=== PATIENT | male | born 1955 | race Caucasian/White ===

== ENCOUNTER → 2016-02-22 | Outpatient (CLI) | payer BC ==
[2016-02-22 14:54] VITALS: BP 87/44; PULSE 100; RESP 18
--- NOTE | 2016-02-22 15:33 | P.PN ---
Subjective This is follow-up visit for this patient with a history of severe and chronic low back pain secondary to lumbar degenerative disc disease, lumbar facet arthropathy, we have done interventional pain management injection, radiofrequency ablation of the medial branch lumbar area left side and the right side, he reported that his right side feels good and has no pain, but his currently complaining of severe pain localized in the left side low back area, and is currently on pain medications 1- Percocet 5/325 every 6 hours Neurontin 100 mg twice a day and baclofen 10 mg when necessary (prescription from his primary care ) Patient denies any side effects of the medication, denies excessive drowsiness or sleepiness, denies suicidal ideation, and reports that the current pain medication is NOT helping To control the pain and improve activity of daily living Physical Examinations : 1-Constitutiona : Cooperative , not in acute distress . 2-HEENT : nech ; supple , no Lymphadenopathy , no Thyromegaly , normal thyroid size . eyes : no ptosis , no icterus, no photophobia . ENT : normal of hearing , normal oropharynx , no Thrush . 3- Respiratory : Chest clear to auscultations Bilaterally , no wheezing , no Rhonchi . 4- Cardiovascular : regular rate and rhythem , S1 , S2 , no S3 , no S4. 5- Gastrointestinal : abdomen soft no tenderness , bowel sounds positive all four quadrents , no organomegally . 6- Genitourinary : Defferred . 7- neurologic : Cranial nerve II to XII intact , no focal neurological deffecit . 8-psychatric : alert , oriented X 3 , appropriate affect , intact judgment and insight . 9-Lymphatic : no Lymphadenopathy . 10- musculoskeltal : exams of the Lumber spine = motor strength lower extremities ,thigh and legs .5/5 deep tendon reflexes : normal Knee Jerk , normal ankle Jerk . Severe tenderness over the left iliolumbar ligament Assessment and plan = - Chronic low back pain secondary to lumbar degenerative disc disease , lumbar spondylosis with facet arthropathy without myelopathy , status post radiofrequency ablation of the left side lumbar area, currently is having severe low back pain on the left side at the location of the left iliolumbar ligamen - diagnoses, prognosis, and treatment options including but not limited to physical therapy, surgical interventions, interventional therapies and medication management including narcotics and adjuvant medication were discussed with the patient and all questions answered to the patient's satisfaction. -procedure= scheduled patient to have left iliolumbar ligament steroid injection HARLEY. Medications = patient get medications prefilled from his primary care Objective - Vital Signs Vital signs: Vital Signs Temp Pulse 100 02/22/16 14:48 Resp 18 02/22/16 14:48 BP 87/44 02/22/16 14:48 Pulse Ox 96 02/22/16 14:48 Intake & Output 02/21/16 02/22/16 02/22/16 18:59 06:59 18:59 Weight 115.666 kg
== END | disposition home or self-care (01) ==
LOC: PNWHC3 13:42
PROVIDERS: ATTEND Specialist
DX: M51.36 Other intervertebral disc degeneration, lumbar region (principal); M47.816 Spondylosis without myelopathy or radiculopathy, lumbar region; M46.96 Unspecified inflammatory spondylopathy, lumbar region; Z79.899 Other long term (current) drug therapy
CPT/HCPCS: 99211

== ENCOUNTER 2016-02-26 11:33 | Day surgery (SDC) | payer BC ==
[2016-02-24 15:40] VITALS: BMI 33.6
[~2016-02-26 11:33] MED LIST: LACTATED RINGERS 1,000 ML IV SCH
[2016-02-26] MEDS ORDERED: LIDOCAINE 1% 20 ML VIAL (10MG/ML) FOR IV START INTRADERMA ONE (11:36)
[2016-02-26 11:44] VITALS: RESP 16; TEMP 97.4
[2016-02-26 11:54] LABS: Glucose,Whole Blood 160 mg/dL (75-99)
[2016-02-26] MEDS ORDERED: fentaNYL (PF) 50 MCG/ML 2 ML AMP ONE (12:44)
[2016-02-26] MEDS ORDERED: MIDAZOLAM 2 MG/2 ML VIAL ONE (12:44)
[2016-02-26] MEDS ORDERED: BUPIVACAINE (PF) 0.75% 30 ML VIAL ONE (12:44)
[2016-02-26] MEDS ORDERED: TRIAMCINOLONE ACETONIDE 40 MG/ML 1 ML VIAL ONE (12:44)
--- NOTE | 2016-02-26 13:07 | P.PCN ---
Date of Procedure: 02/26/16 Procedure(s) Performed: Preoperative diagnoses= 1-left iliolumbar ligament and neuralgia 2-lumbar spondylosis with lumbar facet arthropathy without myelopathy. 3-lumbar degenerative disc disease Postoperative diagnoses= same as preoperative diagnosis. Procedure= left iliolumbar ligament steroid injection under fluoroscopic guidance. Anesthesia= conscious sedation with Versed 2 mg and fentanyl 100 micrograms and local infiltration with lidocaine 1% 2 ml Estimated blood loss=minimal. Procedure indication= the patient had a history of severe chronic low back pain secondary to lumbar sacral facet arthropathy we have done radiofrequency ablation of the medial branch lumbar area, and currently patient complaining of severe low back pain localized in the left iliolumbar ligament area and patient diagnosed with left iliolumbar ligament neuralgia. Procedure description= the patient was seen and identified in the preoperative holding area, risks and benefits and alternative of the procedure and possible complications discussed with the patient, and he agreed with the preceding, patient signed the consent, an IV was started, and vital signs were monitored and were stable throughout the procedure, patient was placed in the prone position or table and the lumbosacral area was prepped and draped with a sterile fashion, vital signs were closely monitored during the procedure, the fluoroscopy camera was placed in the AP view, the location of iliolumbar ligament identified she is in the middle of the distance between the transverse process of L5 and the sacral jag, local infiltration of the skin and subcutaneous tissue with lidocaine 1% 2 mL then a 22-gauge Quincke-type spinal needle advanced slowly under fluoroscopy and placed at the location of the iliolumbar ligament,, placement confirmed with AP and lateral view, and after appropriate needle placement confirmed and after negative aspiration for heme and CSF and there was no paresthesia during the injection, 5 ml of Marcaine 0.75 % and 40 mg of Kenalog injected after negative aspiration, the needle removed, Patient tolerated the procedure well without any complication, The patient returned to supine position after the back was cleaned and a Band- Aid applied, the patient transported to recovery room in stable condition and he was monitored for 30 minutes before he was discharged home and then patient was reexamined before going home and patient was discharged in stable condition and patient will follow up with the pain clinic in a few weeks
[2016-02-26] MEDS ORDERED: IV FLUID CONTINUATION 1,000 ML IV ONE ×2 (13:11)
--- NOTE | 2016-02-26 13:16 | FL ---
EXAMINATION TYPE: FL guided pain mgmt statistic DATE OF EXAM: 02/26/2016 1:09 PM COMPARISON: NONE HISTORY: Inj Sng tendon sheath/ ligment two scanned films; FL time 5 seconds; Dr. Ozuna; Inj Sng tendon sheath /ligament
[2016-02-26 13:25] VITALS: BP 112/69; PULSE 81
== END 2016-02-26 13:47 | disposition home or self-care (01) ==
LOC: ORPAIN 11:33
PROVIDERS: ATTEND Specialist
DX: G89.29 Other chronic pain (principal); M54.5 Low back pain; G58.8 Other specified mononeuropathies; M47.816 Spondylosis without myelopathy or radiculopathy, lumbar region; M46.96 Unspecified inflammatory spondylopathy, lumbar region; M51.36 Other intervertebral disc degeneration, lumbar region; Z79.891 Long term (current) use of opiate analgesic
CPT/HCPCS: 77002; 20550; J2250; J3301; J3010

== ENCOUNTER 2016-04-19 07:55 | Day surgery (SDC) | payer BC ==
[2016-04-14 15:39] VITALS: BMI 33.6
[2016-04-19 08:21] VITALS: RESP 16; TEMP 98.1
[2016-04-19] MEDS ORDERED: LIDOCAINE 1% 20 ML VIAL (10MG/ML) FOR IV START INTRADERMA ONE (08:31)
[2016-04-19] MEDS ORDERED: LACTATED RINGERS 1,000 ML IV ONE (08:31)
[2016-04-19 08:36] LABS: Glucose,Whole Blood 96 mg/dL (75-99)
[2016-04-19] MEDS ORDERED: LACTATED RINGERS 1,000 ML IV SCH (08:45)
[2016-04-19] MEDS ORDERED: MIDAZOLAM 2 MG/2 ML VIAL ONE (09:14)
[2016-04-19] MEDS ORDERED: fentaNYL (PF) 50 MCG/ML 2 ML AMP ONE (09:14)
[2016-04-19] MEDS ORDERED: BUPIVACAINE (PF) 0.5% 30 ML VIAL ONE (09:14)
[2016-04-19] MEDS ORDERED: TRIAMCINOLONE ACETONIDE 40 MG/ML 1 ML VIAL ONE (09:14)
[2016-04-19] MEDS ORDERED: IV FLUID CONTINUATION 1,000 ML IV ONE (09:41)
--- NOTE | 2016-04-19 09:44 | FL ---
EXAMINATION TYPE: FL guided pain mgmt statistic DATE OF EXAM: 04/19/2016 9:32 AM CLINICAL HISTORY: Low back pain. TECHNIQUE: Fluoroscopy. COMPARISON: None. FINDINGS: Fluoroscopic guidance was provided during pain relief procedure performed by Dr. Nolasco . A total of 25 seconds of fluoroscopic time was utilized during the procedure and 6 spot images are ac quired. Images acquired shows needle localization at the level of lumbosacral junction. IMPRESSION: As Above.
[2016-04-19 09:59] VITALS: BP 111/57; PULSE 77
--- NOTE | 2016-04-19 11:02 | P.PCN ---
Date of Procedure: 04/19/16 Surgeon: Az Nolasco Pathology: none sent Condition: stable Disposition: PACU Description of Procedure: PREOPERATIVE DIAGNOSIS: iliolumbar syndrome POSTOPERATIVE DIAGNOSIS: iliolumbar syndrome PROCEDURE DESCRIPTION: Patient presents for LEFT iliolumbar ligament injection under fluoroscopic guidance. The procedure is performed using fluoroscopic guidance during needle placement to assure proper position and maximize safety. ANESTHESIA: Local with 1% lidocaine; conscious sedation EBL: Minimal PROCEDURE INDICATION: Patient with persistent back and buttock pain after lumbar RFA. Pt does not take any blood thinning medications. PROCEDURE DESCRIPTION: The patient was seen and identified in the preoperative area. Risks, benefits, complications, and alternatives were discussed with the patient (including but not limited to incomplete pain relief, bleeding, infection, nerve damage, and allergies to medications), the patient agreed to proceed with the procedure and signed the consent after all questions were answered. Patient was taken to the OR and time out was completed to verify proper patient, position, laterality of pain, and allergies. Pt was placed in the prone position and a pillow was placed under the abdomen to reduce lumbar lordosis. The lumbosacral area was prepped and draped in the usual sterile fashion. Using AP fluoroscopy on the left side of the spine, the transverse process of L5 and sacral ala was identified. After localization with 1% lidocaine, a 22- gauge 3.5-inch spinal needle was inserted under fluoroscopic guidance toward the top of the portion of the sacral ala directed at the L5 transverse process. Upon reaching the tip of the bone, the needle was walked off toward the transverse process and after negative aspiration for heme or CSF and in the absence of paresthesias, 1 mL of a 6 ml solution of 0.5% preservative-free bupivacaine and 40 mg Kenalog was injected. Subsequently the needle was withdrawn slightly and redirected to 5 other points along the top of the ala of the sacrum and the medial aspect of the ilium. After negative aspirations, 1 ml was injected at each site. Needle was withdrawn intact after each injection. At the end of the procedure, the skin was cleansed and bandages were applied. COMPLICATIONS: None. DISPOSITION/PLAN: The patient was taken to the recovery area after the procedure in a stable condition for observation. Patient was reexamined prior to discharge and there were no issues. Patient was discharged home, accompanied by an adult, after meeting discharged criteria. Discharge instructions were give to the patient by the staff. Patient was specifically instructed not to drive today and to rest for the rest of the day. Patient will follow up in the clinic in approximately 2 -4 weeks.
== END 2016-04-19 10:10 | disposition home or self-care (01) ==
LOC: ORPAIN 07:55
PROVIDERS: ATTEND Anesthesiology
DX: G89.29 Other chronic pain (principal); M54.5 Low back pain; I10 Essential (primary) hypertension; K21.9 Gastro-esophageal reflux disease without esophagitis; Z79.891 Long term (current) use of opiate analgesic; Z79.4 Long term (current) use of insulin; Z79.84 Long term (current) use of oral hypoglycemic drugs; Z79.899 Other long term (current) drug therapy
CPT/HCPCS: 20550; J2250; J3301; J3010

== ENCOUNTER → 2016-07-20 | Outpatient (CLI) | payer BC ==
--- NOTE | 2016-07-20 14:21 | XR ---
EXAMINATION TYPE: XR foot complete LT DATE OF EXAM: 07/20/2016 CLINICAL HISTORY: pain TECHNIQUE: Frontal, lateral and oblique images of the left foot are obtained. COMPARISON: 10/31/2011 FINDINGS: There is no acute fracture/dislocation evident. The joint spaces appear within normal san its. The overlying soft tissue appears unremarkable. IMPRESSION: There is no acute fracture or dislocation. ICD 10 NO FRACTURE, INITIAL EVALUATION
== END | disposition home or self-care (01) ==
LOC: RADXRMAIN 14:01
PROVIDERS: ATTEND Internal Medicine
DX: M79.672 Pain in left foot (principal)

== ENCOUNTER → 2017-02-23 | Outpatient (CLI) | payer BC ==
[~2017-02-23] MED LIST changes: +DOBUTamine DRIP for NUC MED 500 MG in DEXTROSE/WATER 1 250ML.BAG IV ONE; -LACTATED RINGERS 1,000 ML IV SCH
--- NOTE | 2017-02-23 11:13 | ECHOS ---
STRESS ECHOCARDIOGRAM INDICATIONS: Bradycardia BASELINE HEART RATE: 83 BASELINE BLOOD PRESSURE: 123/73 MAXIMUM HEART RATE: 137 MAXIMUM BLOOD PRESSURE: 178/74 85% MPHR: 137 100% MPHR: 161 MAXIMUM STAGE REACHED: 4 TOTAL EXERCISE TIME: 11:30 CLINICAL INFORMATION: Baseline EKG shows sinus rhythm, normal axis, normal intervals. Patient was given intravenous dobutamine for a period of 11.5 minutes as per protocol. Did not have chest pain or diagnostic ST-segment depression. Patient attained 85% of predicted maximal heart rate. Baseline echo shows normal left ventricular size, wall motion, systolic function. Post dobutamine infusion, there was normal hyperdynamic response of all segments of myocardium noted. CONCLUSION: 1. Negative stress test by EKG criteria. 2. Negative dobutamine echo. MMODL / IJN: [id number] /
== END | disposition home or self-care (01) ==
LOC: RADNMMAIN 09:29
PROVIDERS: ATTEND Internal Medicine
DX: R00.1 Bradycardia, unspecified (principal)
CPT/HCPCS: 93017; 93350

== ENCOUNTER 2017-02-28 06:29 | Day surgery (SDC) | payer BC ==
[2017-02-28 06:46] VITALS: RESP 16; TEMP 97.9
[2017-02-28] MEDS ORDERED: LIDOCAINE 1% 20 ML VIAL (10MG/ML) FOR IV START INTRADERMA ONE (06:47)
[2017-02-28] MEDS ORDERED: LACTATED RINGERS 1,000 ML IV ONE (06:47)
[2017-02-28 06:48] LABS: Glucose,Whole Blood 88 mg/dL (75-99)
[2017-02-28] MEDS ORDERED: LACTATED RINGERS 1,000 ML IV SCH (07:30)
--- NOTE | 2017-02-28 07:39 | P.PCN ---
Date of Procedure: 02/28/17 Surgeon: Az Nolasco Pathology: none sent Condition: stable Disposition: PACU Description of Procedure: PREOPERATIVE DIAGNOSIS: Lumbar spondylosis without myelopathy and facet arthropathy POSTOPERATIVE DIAGNOSIS: Lumbar spondylosis without myelopathy and facet arthropathy PROCEDURES: Right Radiofrequency thermocoagulation, L3-L4, L4-L5, and L5-S1 medial branch, with fluoroscopic guidance. ANESTHESIA: 1% lidocaine plain; Conscious sedation with versed/fentanyl EBL: Minimal PROCEDURE INDICATION: The patient with low back pain secondary to lumbar arthropathy who had more than 50% relief of pain with previous diagnostic lumbar medial branch block with bupivacaine. Patient presents for R lumbar RFA today after excellent relief in the past; no use of blood thinners. PROCEDURE DESCRIPTION / TECHNIQUE: The patient was seen and identified in the preoperative area. Risks, benefits, complications, and alternatives were discussed with the patient (including but not limited to incomplete pain relief , bleeding, infection, nerve damage, and allergies to medications), the patient agreed to proceed with the procedure and signed the consent after all questions were answered. Patient was taken to the OR and time out was completed to verify proper patient , position, laterality of pain, and allergies. Pt was placed in the prone position. IV was started. Vital signs remained stable throughout the procedure. A pillow was placed under the patients chest to decrease lordosis. The lumbosacral area was prepped and draped in the usual sterile fashion. Vital signs were closely monitored during the procedure. Conscious sedation was used during the procedure to decrease patients anxiety. Using AP and then oblique fluoroscopy, the eye of the Ketan dog corresponding to the connection between the superior and transverse articular processes of right L3, L4, L5 and top of the sacrum were identified, marked, and localized with 1% lidocaine. Subsequently, a 18 gauge, 100-mm VENOM radiofrequency cannula with a 10-mm active tip was advanced guided by fluoroscopy to each of the eyes of the Ketan dog at the levels of all four medial branches. Each site then underwent sensory testing at 50 Hz and 0 to 1 volt and motor testing at 2 Hz and 0 to 3 volt with local stimulation, but no radicular symptoms down the legs. Thereafter all four medial branch sites underwent radiofrequency thermocoagulation at 80 degrees Celsius for 90 seconds after injecting 0.5 ml of PF lidocaine 1%. After thermocoagulation, 1 ml of the block solution containing Kenalog 40 mg and 2 mL of preservative-free normal saline was injected at all four medial branch levels after negative aspiration of CSF and blood and with no paresthesias. Cannulas were retracted while injecting lidocaine 1% until the needles were removed. At the end of the procedure, the skin was cleansed and bandages were applied. COMPLICATIONS: No acute complications. DISPOSITION / PLANS: The patient was placed in a supine position and transferred to the recovery area in a stable condition for observation and was discharged from the recovery room after meeting discharge criteria. Home discharge instructions given to the patient by the staff. The patient was reexamined prior to discharge. The patient will schedule a left lumbar RFA next visit.
--- NOTE | 2017-02-28 07:48 | FL ---
EXAMINATION TYPE: FL guided pain mgmt statistic DATE OF EXAM: 02/28/2017 HISTORY: Pain 3 films scanned, 13 sec fl
[2017-02-28 08:10] VITALS: BP 129/84; PULSE 77
== END 2017-02-28 08:22 | disposition home or self-care (01) ==
LOC: ORPAIN 06:29
PROVIDERS: ATTEND Anesthesiology
DX: M47.816 Spondylosis without myelopathy or radiculopathy, lumbar region (principal); I10 Essential (primary) hypertension; E11.9 Type 2 diabetes mellitus without complications; Z79.82 Long term (current) use of aspirin
CPT/HCPCS: 64635; 64636 ×2; J2250; J3301; J3010; 99152

== ENCOUNTER 2017-03-21 06:33 | Day surgery (SDC) | payer BC ==
[2017-03-17 09:57] VITALS: BMI 38.0
[~2017-03-21 06:33] MED LIST changes: -DOBUTamine DRIP for NUC MED 500 MG in DEXTROSE/WATER 1 250ML.BAG IV ONE; +LACTATED RINGERS 1,000 ML IV SCH
[2017-03-21 07:36] VITALS: TEMP 97.4
[2017-03-21 07:51] LABS: Glucose,Whole Blood 89 mg/dL (75-99)
--- NOTE | 2017-03-21 07:57 | P.PCN ---
Date of Procedure: 03/21/17 Surgeon: Noemí Mosher Pathology: none sent Condition: stable Disposition: PACU Description of Procedure: PREOPERATIVE DIAGNOSIS: Lumbar spondylosis without myelopathy, morbid obesity POSTOPERATIVE DIAGNOSIS: Lumbar spondylosis without myelopathy,morbid obesity PROCEDURES : Radiofrequency thermocoagulation,L2-4, L3-L4, L4-L5, and L5-S1 left medial branch, with fluoroscopic guidance ANESTHESIA: IV moderate conscious sedation with versed and fentanyl and local infiltration with lidocaine 1% 5 ml EBL: Negligible PROCEDURE INDICATION: The patient with low back pain secondary to lumbar facet arthropathy who had more than 50% relief of her pain with previous diagnostic lumbar medial branch block with bupivacaine. PROCEDURE DESCRIPTION / TECHNIQUE: The patient was seen and identified in the preoperative area. Risks, benefits, complications, including but not limited to risk of infection ,bleeding , allergic reactions to the medications and no complete pain relief , and alternatives were discussed with the patient, the patient agreed to proceed with the procedure and signed the consent. IV was started. Vital signs remained stable throughout the procedure. Patient was taken to the OR and time out was completed. The patient was placed in the prone position on the procedure table. The lumber area was prepped and draped in the usual sterile fashion. . Vital signs were closely monitored during the procedure .IV sedation was used during the procedure to decrease patients anxiety. The target points were identified as follows: For the L5-S1 level which corresponds to the dorsal ramus of L5 the target point was at the superior medial aspect of the sacral ala on the left side of the spine on the AP view of fluoroscopy and for the L2, L3, and L4 medial branches the target points were at the connection between the transverse process and the superior articular process of the left L3, L4, and L5 vertebra respectively on the left oblique view of fluoroscopy. skin was marked, and localized with 1% lidocaineat these points. Subsequently, an 18 -wv radiofrequency needles with a 10-mm curved active tips were advanced guided by fluoroscopy to each of the target points mentioned above in a superior medial direction to get the active tips as parallel as possible to the medial branches tracks. AP, oblique, and lateral views of fluoroscopy were used to verify needle tips position. Each level then underwent motor testing at 2.5 Hz and 0 to 3 volt with local stimulation, but no radicular symptoms down the legs. Thereafter radiofrequency thermocoagulation at 80 degrees celsius for 90 seconds after injecting 1 ml of PF Marcaine 0.5%(3 mls) with 20 mg of Kenalog. At the end of the procedure, the skin was cleansed and bandages were applied. COMPLICATIONS: No acute complications. DISPOSITION / PLANS: The patient was placed in a supine position and transferred to the recovery area in a stable condition for observation and was discharged from the recovery room after meeting discharge criteria. Home discharge instructions given to the patient by the staff. The patient was reexamined prior to discharge. The patient will schedule a follow up in the clinic in 2-4 weeks.
--- NOTE | 2017-03-21 08:09 | FL ---
EXAMINATION TYPE: FL guided pain mgmt statistic DATE OF EXAM: 03/21/2017 HISTORY: Pain 10 sec fl time used during left lumbar rf
[2017-03-21 08:10] VITALS: RESP 18
[2017-03-21 08:29] VITALS: BP 96/60; PULSE 73
[2017-03-21] MEDS ORDERED: IV FLUID CONTINUATION 1,000 ML IV ONE (08:29)
== END 2017-03-21 08:35 | disposition home or self-care (01) ==
LOC: ORPAIN 06:33
PROVIDERS: ATTEND Anesthesiology
DX: M47.816 Spondylosis without myelopathy or radiculopathy, lumbar region (principal); E66.01 Morbid (severe) obesity due to excess calories; Z68.38 Body mass index [BMI] 38.0-38.9, adult; I10 Essential (primary) hypertension; E11.9 Type 2 diabetes mellitus without complications; Z79.82 Long term (current) use of aspirin
CPT/HCPCS: 64635; 64636; J2250; J3301; J3010; 99152

== ENCOUNTER → 2017-04-20 | Outpatient (CLI) | payer BC ==
[2017-04-20 14:08] VITALS: BP 144/79; PULSE 80; RESP 16
--- NOTE | 2017-04-20 14:25 | P.PN ---
Progress Note - Text Progress Note Date: 04/20/17 This is a 61-year-old male with chronic lower back pain due to lumbar spondylosis without myelopathy. The patient had lumbar medial branch RFA about one month ago which has given him significant relief of his pain however he still feels some aching pain when he exerts himself but the sharp pain that he used to get is not there anymore after he had the RFA. He takes 300 mg of Neurontin every day and he takes Percocet 5 mg twice a day he gets that from his primary care physician. He denies any bowel or bladder dysfunction he also denies any weakness in the lower extremities however he does have numbness in his right hand and right foot. He is alert oriented 3 no apparent distress. I will increase his Neurontin dose to 300 mg twice a day and after one week to 300 mg 3 times a day. He is to continue using per elicit from his primary care physician for now. When his pain comes back then he might need to have another RFA on the lumbar medial branches. We will see the patient on an as-needed basis
== END ==
LOC: PNWHC3 13:46
PROVIDERS: ATTEND Anesthesiology
DX: M47.816 Spondylosis without myelopathy or radiculopathy, lumbar region (principal); Z79.899 Other long term (current) drug therapy; Z98.890 Other specified postprocedural states
CPT/HCPCS: 99211

== ENCOUNTER 2017-11-21 09:40 | Day surgery (SDC) | payer BC ==
[2017-11-17 11:35] VITALS: BMI 33.0
[2017-11-21] MEDS ORDERED: LIDOCAINE 1% 20 ML VIAL (10MG/ML) FOR IV START INTRADERMA ONE (09:44)
[2017-11-21 09:59] VITALS: RESP 16; TEMP 97.6
[2017-11-21 10:13] LABS: Glucose,Whole Blood 132 mg/dL (75-99)
--- NOTE | 2017-11-21 11:05 | P.PCN ---
Date of Procedure: 11/21/17 Procedure(s) Performed: PREOPERATIVE DIAGNOSIS: Lumbar spondylosis without myelopathy and facet arthropathy POSTOPERATIVE DIAGNOSIS: Lumbar spondylosis without myelopathy and facet arthropathy PROCEDURES: Right Radiofrequency thermocoagulation, L3-L4, L4-L5, and L5-S1 medial branch, with fluoroscopic guidance. ANESTHESIA: 1% lidocaine 5 ml plain; moderate sedation with versed 2 mg , and Fentanyle 100 mcg . EBL: Minimal PROCEDURE INDICATION: The patient with low back pain secondary to lumbar arthropathy who had more than 50% relief of pain with previous diagnostic lumbar medial branch block with bupivacaine. Patient presents for repeate R lumbar RFA today after excellent relief in the past . PROCEDURE DESCRIPTION / TECHNIQUE: The patient was seen and identified in the preoperative area. Risks, benefits, complications, and alternatives were discussed with the patient (including but not limited to incomplete pain relief , bleeding, infection, nerve damage, and allergies to medications), the patient agreed to proceed with the procedure and signed the consent after all questions were answered. Patient was taken to the OR and time out was completed to verify proper patient , position, laterality of pain, and allergies. Pt was placed in the prone position. IV was started. Vital signs remained stable throughout the procedure. A pillow was placed under the patients chest to decrease lordosis. The lumbosacral area was prepped and draped in the usual sterile fashion. Vital signs were closely monitored during the procedure. Conscious sedation was used during the procedure to decrease patients anxiety. Using AP and then oblique fluoroscopy, the eye of the Ketan dog corresponding to the connection between the superior and transverse articular processes of right L3, L4, L5 and top of the sacrum were identified, marked, and localized with 1% lidocaine. Subsequently, a 18 gauge, 150-mm VENOM radiofrequency cannula with a 10-mm active tip was advanced guided by fluoroscopy to each of the eyes of the Ketan dog at the levels of all four medial branches. Each site then underwent sensory testing at 50 Hz and 0 to 1 volt and motor testing at 2 Hz and 0 to 3 volt with local stimulation, but no radicular symptoms down the legs. Thereafter all four medial branch sites underwent radiofrequency thermocoagulation at 80 degrees Celsius for 90 seconds after injecting 0.5 ml of PF lidocaine 1%. After thermocoagulation, 1 ml of the block solution containing Kenalog 40 mg and 2 mL of preservative-free normal saline was injected at all four medial branch levels after negative aspiration of CSF and blood and with no paresthesias. Cannulas were retracted while injecting lidocaine 1% until the needles were removed. At the end of the procedure, the skin was cleansed and bandages were applied. COMPLICATIONS: No acute complications. DISPOSITION / PLANS: The patient was placed in a supine position and transferred to the recovery area in a stable condition for observation and was discharged from the recovery room after meeting discharge criteria. Home discharge instructions given to the patient by the staff. The patient was reexamined prior to discharge. The patient will follow up in the pain clinic in a few weeks.
[2017-11-21] MEDS ORDERED: IV FLUID CONTINUATION 1,000 ML IV ONE (11:09)
[2017-11-21 11:16] LABS: Glucose,Whole Blood 122 mg/dL (75-99)
--- NOTE | 2017-11-21 11:17 | FL ---
EXAMINATION TYPE: FL guided pain mgmt statistic DATE OF EXAM: 11/21/2017 CLINICAL HISTORY: Low back pain. TECHNIQUE: Fluoroscopy. COMPARISON: None. FINDINGS: Fluoroscopic guidance was provided during pain relief procedure performed by Dr. Mckenzie . A total of 8 seconds of fluoroscopic time was utilized during the procedure and 3 spot images are acquired. Images acquired shows needle localization at several levels in the lower lumbar spine. IMPRESSION: As Above.
[2017-11-21 11:28] VITALS: BP 120/70; PULSE 70
== END 2017-11-21 11:53 | disposition home or self-care (01) ==
LOC: ORPAIN 09:40
PROVIDERS: ATTEND Specialist
DX: M47.816 Spondylosis without myelopathy or radiculopathy, lumbar region (principal); I10 Essential (primary) hypertension; J43.9 Emphysema, unspecified; K21.9 Gastro-esophageal reflux disease without esophagitis
CPT/HCPCS: 64635; 64636; J2250; J3301; J3010; 99152

== ENCOUNTER → 2017-12-20 | Outpatient (CLI) | payer BC ==
[2017-12-20 13:32] VITALS: BP 127/86; PULSE 80; RESP 18
--- NOTE | 2017-12-20 14:03 | P.PN ---
Subjective Progress Note Date: 12/20/17 This is a 62-year-old gentleman with history of chronic lower back pain with radiation to the mid thighs with occasional numbness and tingling in the lower extremities. The patient had lumbar medial branch radio frequency ablation on the right side last time and his pain on the right side of his back has improved significantly since then. He takes Percocet from his primary care physician. He denies any bowel or bladder dysfunction or any progressive weakness in the lower extremities. Today, pt denies new-onset weakness, bowel/bladder incontinence, or any other signs or symptoms of cauda equina syndrome. There are no signs of acute intoxication, and no indications of medication diversion or overuse. In addition to above, 13-point review of systems is also negative for chest pain , shortness of breath, changes in vision, changes in hearing, new onset weakness , abdominal pain, diarrhea, extreme fatigue, malaise, fever, skin changes, homicidal or suicidal ideation, or bowel or bladder incontinence. Vital Signs: Reviewed in EMR Gen: AAOx3, NAD HEENT: PERRLA,hearing grossly normal Pulm: resp unlabored,CTA Neck: supple, trachea midline Neuro exam of the lower extremities: No changes from baseline Neuro: CN II-XII grossly intact, Imaging: Reviewed in EMR/chart Assessment: Lumbar spondylosis without myelopathy Diabetes Plan: 1. Explanation: Opioid and psychological risk scores were reviewed. Diagnoses , prognoses, and multiple treatment options including but not limited to physical therapy, interventional therapies, adjuvant medical therapies, narcotic medication therapies, and surgery were discussed with the patient and all questions were answered to the patient's satisfaction. 2. Opioid agreement: Signed with the patient and the patient is warned not to use opioids while driving or before driving and not to combine opioids with benzodiazepines or alcohol. 3. Counseling: The patient was counseled extensively on SMOKING CESSATION, BODY MASS INDEX, EXERCISE. Specifically, the patient was instructed regarding the importance of smoking cessation, obesity, and exercise in the context of both chronic pain and overall health. 4. Procedures: Schedule for left lumbar medial branch RFA for levels L3 4, L4- L5, and L5-S1 under fluoroscopic guidance 5. Consultations: None 6. Investigations: None 7. Medications: None 8. Disposition: Written for the above-mentioned procedure 9. Maps were reviewed and were appropriate. Objective - Vital Signs Vital signs: Vital Signs Temp Pulse 80 12/20/17 13:24 Resp 18 12/20/17 13:24 BP 127/86 12/20/17 13:24 Pulse Ox 95 12/20/17 13:24 Intake & Output 12/19/17 12/20/17 12/20/17 18:59 06:59 18:59 Weight 113.398 kg
== END | disposition home or self-care (01) ==
LOC: PNWHC3 13:05
PROVIDERS: ATTEND Anesthesiology
DX: G89.29 Other chronic pain (principal); M54.5 Low back pain; M47.816 Spondylosis without myelopathy or radiculopathy, lumbar region; E11.9 Type 2 diabetes mellitus without complications; Z79.891 Long term (current) use of opiate analgesic
CPT/HCPCS: 99211

== ENCOUNTER → 2018-01-10 | Day surgery (SDC) | payer BC ==
[2018-01-08 10:39] VITALS: BMI 33.0
[2018-01-10 09:02] LABS: Glucose,Whole Blood 97 mg/dL (75-99)
--- NOTE | 2018-01-10 09:31 | FL ---
EXAMINATION TYPE: FL guided pain mgmt statistic DATE OF EXAM: 01/10/2018 HISTORY: Pain 2 sec fluoro. 2 images scanned.
--- NOTE | 2018-01-10 09:56 | P.PCN ---
Date of Procedure: 01/10/18 Surgeon: Clifford Wallace Description of Procedure: Procedure(s) Performed: PREOPERATIVE DIAGNOSIS: Lumbar Spondylosis POSTOPERATIVE DIAGNOSIS: Same PROCEDURES: Radiofrequency ablation left L4, L5, sacral ala with fluoroscopic guidance SURGEON: Clifford Wallace MD. ANESTHESIA: Moderate sedation with intravenous 2 mg of midazolam and 100 micrograms of fentanyl EBL: Minimal PROCEDURE INDICATION: The patient with low back pain secondary to lumbar facet arthropathy who had more than 50% relief of pain with previous diagnostic lumbar medial branch block with bupivacaine. He has had this procedure performed in the past. The radiofrequency ablation has always afforded him good relief of his symptoms. PROCEDURE DESCRIPTION / TECHNIQUE: The patient was seen and identified in the preoperative area. Risks, benefits, complications, including but not limited to risk of infection ,bleeding , allergic reactions to the medications and incomplete pain relief , and alternatives were discussed with the patient, the patient agreed to proceed with the procedure and signed the consent. IV was started. The operative site was marked. Patient was taken to the OR and time out was completed. The patient was placed in the prone position on the procedure table. The lumber area was prepped and draped in the usual sterile fashion. . Vital signs were closely monitored during the procedure .IV sedation was used during the procedure to decrease patients anxiety. Using AP and then oblique fluoroscopy, the ``eye of the Ketan dog corresponding to the connection between the superior and transverse articular processes of the above-mentioned levels were identified, marked, and localized with 1% lidocaine. Subsequently, a 20 [id number] radiofrequency cannula with a 10-mm active tip was advanced guided by fluoroscopy to each of the ``eyes of the Ketan dog at each site then underwent sensory testing at 50 Hz and 0 to 1 volt and motor testing at 2.5 Hz and 0 to 3 volt with local stimulation, but no radicular symptoms down the legs. Then the sites underwent radiofrequency thermocoagulation at 80 degrees celsius for 90 seconds after injecting 0.5 ml of PF lidocaine 1%. then After the thermocoagulation done , 1 ml of the block solution containing depomedrol 40 mg and 4 ml of marcaine 0.5% was injected in divided doses at each levels after negative aspiration of CSF and blood and with no paresthesias. Sterile dressings were applied. COMPLICATIONS: No acute complications. DISPOSITION / PLANS: The patient was placed in a supine position and transferred to the recovery area in a stable condition for observation and was discharged from the recovery room after meeting discharge criteria. Home discharge instructions given to the patient by the staff. The patient was reexamined prior to discharge. He will follow-up in the clinic on an as-needed basis..
[2018-01-10 10:04] VITALS: RESP 18; TEMP 98
[2018-01-10 10:06] VITALS: BP 120/69; PULSE 67
== END | disposition home or self-care (01) ==
LOC: ORPAIN 07:54
PROVIDERS: ATTEND Pain Medicine Pain Medicine
DX: M47.816 Spondylosis without myelopathy or radiculopathy, lumbar region (principal)
CPT/HCPCS: 64635; J2250; J1030; J2001; J3010; 64636; 99152

== ENCOUNTER → 2018-07-19 | Outpatient (CLI) | payer BC ==
[2018-07-19 12:53] VITALS: BP 153/84; PULSE 80; RESP 16
--- NOTE | 2018-07-19 13:11 | P.PN ---
Subjective Progress Note Date: 07/19/18 Dustin a 62-year-old gentleman presented today for follow-up. We have last seen about 7 months ago and reports that he had excellent pain relief from the radiofrequency ablations. At that point he had ablations to the lower lumbar spine. On today's visit he reports that his pain started to come back slowly. He is complaining of numbness and tingling into both eyes at times. He reports sometimes when he stands up he feels a little wobbly secondary to his numbness in his thighs. He denies any bowel or bladder incontinence. He denies any weakness in his feet. He denies any neck pain. He reports that this numbness and tingling has progressed a little bit in his upper thighs along with this wo bbly sensation. He is unsure if its related to this chronic pain or if this is anything new. There are no other red flag symptoms. He does have an MRI which is a few years back. He does not have any recent imaging of the lumbar spine. Objective - Vital Signs Vital signs: Vital Signs Temp Pulse 80 07/19/18 12:45 Resp 16 07/19/18 12:45 BP 153/84 07/19/18 12:45 Pulse Ox Intake & Output 07/18/18 07/19/18 07/19/18 18:59 06:59 18:59 Weight 115.666 kg - Exam General: Awake and alert oriented 3 no distress Respiratory exam: No audible wheezing no accessory muscle usage Cardiovascular exam: regular rate, palpable bilateral pulses, no lower extremity edema Abdominal exam: No distention nontender to palpation Cervical spine: Normal alignment, Spurling's negative, facet loading negative, Managing Principal strength is 5/5, reyes negative Lumbar spine: Loss of lumbar lordosis, there is atrophy of the paraspinal muscles as well as the gluteal muscles, normal alignment, tender to palpation over bilateral paraspinal muscles, facet loading is positive bilaterally. Straight leg raise is negative. Limited range of motion due to pain with flexion, extension and side bending. Sacroiliac joints: Nontender to palpation, CAITY is negative, Gaenselon negative Neuro exam: Normal sensation in bilateral upper extremities, deep tendon reflexes are 2+ bilateral upper extremities. Normal sensation in bilateral lower extremities. Deep tendon reflexes are 2+ in lower extremities. Patient is able to stand on his toes, able stand on his heels. Psych exam: Cooperative, appropriate mood Assessment and Plan Assessment: #1 lumbar spondylosis without myelopathy #2 possible spinal stenosis Plan: On today's visit discussed with Dustin that we will perform a radiofrequency ablation at the L4 5 and L5-S1 levels bilaterally on his next visit. We'll attempt to do both of them at the same day. I would like to do both sides and the same day to get an idea of his numbness subsides quickly. I like to hold off on getting any imaging at today's visit as he does not have any red flag symptoms. If his symptoms do not improve or he continues to have any significant weakness in his legs I believe an MRI would be Best course of action. We'll follow up with the patient after his ablation see how he is doing
== END ==
LOC: PNWHC3 12:26
PROVIDERS: ATTEND Hospitalist
DX: M47.816 Spondylosis without myelopathy or radiculopathy, lumbar region (principal)
CPT/HCPCS: 99211

== ENCOUNTER 2018-07-30 06:56 | Day surgery (SDC) | payer BC ==
[2018-07-27 08:22] VITALS: BMI 33.6
[2018-07-30 07:19] VITALS: TEMP 97.6
[2018-07-30] MEDS ORDERED: LIDOCAINE 1% 20 ML VIAL (10MG/ML) FOR IV START INTRADERMA ONE (07:29)
[2018-07-30] MEDS ORDERED: LACTATED RINGERS 1,000 ML IV ONE (07:29)
[2018-07-30 07:30] LABS: Glucose,Whole Blood 75 mg/dL (75-99)
[2018-07-30] MEDS ORDERED: LACTATED RINGERS 1,000 ML IV SCH (07:30)
--- NOTE | 2018-07-30 08:25 | P.PCN ---
Date of Procedure: 07/30/18 Surgeon: Noemí Mosher Pathology: none sent Condition: stable Disposition: PACU Description of Procedure: PREOPERATIVE DIAGNOSIS: Lumbar spondylosis without myelopathy, morbid obesity POSTOPERATIVE DIAGNOSIS: Lumbar spondylosis without myelopathy,morbid obesity PROCEDURES : Left Radiofrequency thermocoagulation L3-L4, L4-L5, and L5-S1 medial branch, with fluoroscopic guidance ANESTHESIA: IV moderate conscious sedation with versed and fentanyl and local infiltration with lidocaine 1% 5 ml EBL: Minimal PROCEDURE INDICATION: The patient with low back pain secondary to lumbar facet arthropathy who had more than 50% relief of her pain with previous diagnostic lumbar medial branch block with bupivacaine. PROCEDURE DESCRIPTION / TECHNIQUE: The patient was seen and identified in the preoperative area. Risks, benefits, complications, including but not limited to risk of infection ,bleeding , allergic reactions to the medications and no complete pain relief , and alternatives were discussed with the patient, the patient agreed to proceed with the procedure and signed the consent. IV was started. Vital signs remained stable throughout the procedure. Patient was taken to the OR and time out was completed. The patient was placed in the prone position on the procedure table. The lumber area was prepped and draped in the usual sterile fashion. . Vital signs were closely monitored during the procedure .IV sedation was used during the procedure to decrease patients anxiety. The target points were identified as follows: For the L5-S1 level which corresponds to the dorsal ramus of L5 the target point was at the superior medial aspect of the sacral ala on the left side of the spine on the AP view of fluoroscopy and for the L2, L3, and L4 medial branches the target points were at the connection between the transverse process and the superior articular process of L3, L4, and L5 vertebra respectively on the left oblique view of fluoroscopy. skin was marked, and localized with 1% lidocaineat these points. Subsequently, an 18 [id number] radiofrequency needles with a 10-mm curved active tips were advanced guided by fluoroscopy to each of the target points mentioned above in a superior medial direction to get the active tips as parallel as possible to the medial branches tracks. AP, oblique, and lateral views of fluoroscopy were used to verify needle tips position. Each level then underwent motor testing at 2.5 Hz and 0 to 3 volt with local stimulation, but no radicular symptoms down the legs. Thereafter radiofrequency thermocoagulation at 80 degrees celsius for 90 seconds after injecting 1 ml of PF Marcaine 0.5%(3 mls) with 40 mg of Kenalog. At the end of the procedure, the skin was cleansed and bandages were applied. COMPLICATIONS: No acute complications. DISPOSITION / PLANS: The patient was placed in a supine position and transferred to the recovery area in a stable condition for observation and was discharged from the recovery room after meeting discharge criteria. Home discharge instructions given to the patient by the staff. The patient was reexamined prior to discharge. The patient will schedule a follow up in the clinic in 2-4 weeks.
[2018-07-30] MEDS ORDERED: IV FLUID CONTINUATION 350 ML IV ONE (08:30)
[2018-07-30 08:49] VITALS: BP 110/74; PULSE 73; RESP 18
--- NOTE | 2018-07-30 09:10 | FL ---
EXAMINATION TYPE: FL guided pain mgmt statistic DATE OF EXAM: 07/30/2018 FLUOROSCOPY Fluoroscopy time of 11 seconds was used during left lumbar radiofrequency ablation. 3 image/s docume nt/s the procedure.
== END 2018-07-30 09:00 | disposition home or self-care (01) ==
LOC: ORPAIN 06:56
PROVIDERS: ATTEND Anesthesiology
DX: G89.29 Other chronic pain (principal); M47.816 Spondylosis without myelopathy or radiculopathy, lumbar region
CPT/HCPCS: 64635; 64636 ×2; J2250; J3301; J3010; 99152

== ENCOUNTER 2018-08-13 06:32 | Day surgery (SDC) | payer BC ==
[2018-08-13] MEDS ORDERED: LACTATED RINGERS 1,000 ML IV SCH (06:51)
[2018-08-13 07:00] LABS: Glucose,Whole Blood 241 mg/dL (75-99)
[2018-08-13] MEDS ORDERED: LIDOCAINE 1% 20 ML VIAL (10MG/ML) FOR IV START INTRADERMA ONE (07:03)
[2018-08-13 07:06] VITALS: TEMP 97.3
[2018-08-13] MEDS ORDERED: INSULIN ASPART (NovoLOG) 100 UNIT/ML VIAL SQ ONE (07:26)
--- NOTE | 2018-08-13 08:16 | P.PCN ---
Date of Procedure: 08/13/18 Procedure(s) Performed: PREOPERATIVE DIAGNOSIS: Lumbar spondylosis without myelopathy and facet arthropathy POSTOPERATIVE DIAGNOSIS: Lumbar spondylosis without myelopathy and facet arthropathy PROCEDURES: Right Radiofrequency thermocoagulation, L3-L4, L4-L5, and L5-S1 medial branch, with fluoroscopic guidance. ANESTHESIA: moderate sedation with versed 2 mg , and Fentanyle 100 mcg . EBL: Minimal PROCEDURE INDICATION: The patient with low back pain secondary to lumbar arthropathy who had more than 50% relief of pain with previous diagnostic lumbar medial branch block with bupivacaine. Patient presents for repeate Right lumbar RFA today after excellent relief in the past . PROCEDURE DESCRIPTION / TECHNIQUE: The patient was seen and identified in the preoperative area. Risks, benefits, complications, and alternatives were discussed with the patient (including but not limited to incomplete pain relief, bleeding, infection, nerve damage, and allergies to medications), the patient agreed to proceed with the procedure and signed the consent after all questions were answered. Patient was taken to the OR and time out was completed to verify proper patient, position, laterality of pain, and allergies. Pt was placed in the prone position. IV was started. Vital signs remained stable throughout the procedure. A pillow was placed under the patients chest to decrease lordosis. The lumbosacral area was prepped and draped in the usual sterile fashion. Vital signs were closely monitored during the procedure. Conscious sedation was used during the procedure to decrease patients anxiety. Using AP and then oblique fluoroscopy, the eye of the Ketan dog corresponding to the connection between the superior and transverse articular processes of right L3, L4, L5 and top of the sacrum were identified, marked, and localized with 1% lidocaine. Subsequently, a 18 gauge, 100-mm radiofrequency cannula with a 10-mm active tip was advanced guided by fluoroscopy to each of the eyes of the Ketan dog at the levels of all four medial branches. Each site then underwent sensory testing at 50 Hz and 0 to 1 volt and motor testing at 2 Hz and 0 to 3 volt with local stimulation, but no radicular symptoms down the legs. Thereafter all four medial branch sites underwent radiofrequency thermocoagulation at 80 degrees Celsius for 90 seconds after injecting 0.5 ml of PF lidocaine 1%. After thermocoagulation, 1 ml of the block solution containing Depo-Medrol 40 mg and 2 mL of preservative-free normal saline was injected at all four medial branch levels after negative aspiration of CSF and blood and with no paresthesias. Cannulas were retracted while injecting lidoc herbert 1% until the needles were removed. At the end of the procedure, the skin was cleansed and bandages were applied. COMPLICATIONS: No acute complications. DISPOSITION / PLANS: The patient was placed in a supine position and transferred to the recovery area in a stable condition for observation and was discharged from the recovery room after meeting discharge criteria. Home discharge instructions given to the patient by the staff. The patient was reexamined prior to discharge. The patient will follow up in the pain clinic in a few weeks.
[2018-08-13] MEDS ORDERED: IV FLUID CONTINUATION 550 ML IV ONE (08:19)
[2018-08-13 08:34] VITALS: BP 131/73; PULSE 75; RESP 18
[2018-08-13 08:39] LABS: Glucose,Whole Blood 185 mg/dL (75-99)
--- NOTE | 2018-08-13 12:32 | FL ---
EXAMINATION TYPE: FL guided pain mgmt statistic DATE OF EXAM: 08/13/2018 COMPARISON: NONE HISTORY: Low back pain TECHNIQUE: Fluoroscopy. FINDINGS: Fluoroscopic guidance was provided during procedure performed by anesthesia services, unsp ecified physician. A total of 16 seconds of fluoroscopic time was utilized during the procedure and 2 spot images was acquired demonstrating multilevel localization of the lumbosacral spine. IMPRESSION: As Above.
== END 2018-08-13 08:49 | disposition home or self-care (01) ==
LOC: ORPAIN 06:32
PROVIDERS: ATTEND Anesthesiology
DX: M47.816 Spondylosis without myelopathy or radiculopathy, lumbar region (principal); I10 Essential (primary) hypertension
CPT/HCPCS: 64635; 64636 ×2; J2250; J1030; J3010; 99152

== ENCOUNTER → 2019-02-08 | Outpatient (CLI) | payer BC ==
--- NOTE | 2019-02-08 15:19 | XR ---
EXAMINATION TYPE: XR foot complete LT DATE OF EXAM: 02/08/2019 CLINICAL HISTORY: Ulcer first toe. TECHNIQUE: Frontal, lateral, and oblique images of the left foot are obtained. COMPARISON: None FINDINGS: There is linear lucency plantar surface base of first distal phalanx. No suspicious cortic al destruction or periosteal reaction. The joint spaces in the left foot appear within normal limits. Some flexion of the toes. Small superior moderate size inferior calcaneal spurs. The overlying soft tissue appears unremarkable. IMPRESSION: As above.
== END | disposition home or self-care (01) ==
LOC: RADUSWWP 14:17
PROVIDERS: ATTEND Internal Medicine
DX: L97.529 Non-pressure chronic ulcer of other part of left foot with unspecified severity (principal)
CPT/HCPCS: 93923

== ENCOUNTER → 2019-03-28 | Outpatient (CLI) | payer BC ==
[2019-03-28 11:45] VITALS: BP 97/65; PULSE 91; RESP 16
--- NOTE | 2019-03-29 09:36 | P.PAINPG ---
Subjective Progress Note Date: 03/28/19 This is a 63-year-old male who has been followed by our clinic for low back pain, diagnosed with lumbar spondylosis, he has undergone lumbar radiofrequency ablation in the past to bilateral L3, L4, L5 medial branches with excellent benefit, last done in July and August 2018. He returns today for follow-up. He reports close to 100% pain relief lasting approximately 8 months. Today his primary pain complaint is bilateral low back pain, worse on the left side radiating to bilateral buttocks, worse on the left side as well as left posterior thigh. There has been no speech change in his location or intensity since prior evaluation. He denies numbness, weakness, tingling in lower extremities. Pain is rated as 6/10, worse with activity, bending, working and better with medications and procedures. His medications include Percocet, gabapentin, baclofen, he obtains these from his primary care physician. He reports no side effects of the medications are helping control his pain. Review of systems is negative for chest pain, shortness of breath, new onset weakness, numbness/tingling, abdominal pain, malaise, fever, night sweats, chills, homicidal or suicidal ideation, or bowel or bladder incontinence. Physical exam: Vitals: Reviewed in EMR GENERAL: Well appearing, in no acute distress PSYCH: Mood and affect is appropriate. Awake, alert, and oriented SKIN: Skin color, texture, turgor normal, no rashes or lesions HEENT: Normocephalic, atraumatic. EOM intact CV: No pedal edema RESP: Respirations are unlabored, no audible wheezing GI: Abdomen non-distended MUSCULOSKELETAL: Bilateral lower extremity strength is normal and symmetric. No atrophy or tone abnormalities are noted. Lumbar spine: Straight leg raising in the sitting position is negative for radicular pain. Tenderness to palpation over the lumbar spine and paraspinous muscles, left greater than right. Positive for pain with facet loading and back extension/rotation. Lumbar extension is limited by pain. Buttocks: No pain to palpation over the PSIS, Papo test is mildly positive bilaterally Extremities: Peripheral joint ROM is full and pain free without obvious instability or laxity in all four extremities. No edema or skin discolorations noted. Gait: Gait is normal NEUR: Bilateral lower extremity coordination and muscle stretch reflexes are physiologic and symmetric. Negative clonus bilaterally. No loss of sensation is noted. Assessment: Lumbar spondylosis, responded well to prior lumbar radiofrequency ablation Chronic use of high-risk medications including opioids Plan: We will schedule repeat lumbar radiofrequency ablation of L3, L4, L5 medial branches, left side first I also provided him with a prescription for physical therapy to focus on low back and core strengthening exercises, instructed him to start physical therapy following radiofrequency ablation Medications: Managed by primary care physician Follow-up: For above-mentioned procedure PQRS Measure Charge Sheet Measure #130: Documentation of Current Meds in Medical Chart: Patient's medications documented in chart Measure #226: Tobacco Use: Screen & Cessation Intervention: Pt not a tobacco user Measure #111: Pneumonia Vaccination: Pneumococcal vaccine NOT administered or previously given Measure #47: Advance Care Plan: Advance care planning discussed & documented, pt chose/unable to give Measure #412: Opioid Treatment Agreement: No documentation of signed opioid treatment agreement Measure #408: Opioid Therapy Follow-up Evaluation: Patient had NO f/u eval minimum every 3 months during opioid therapy Measure #317: Preventitive Care & Scrn High Bld Press & F/U: Normal blood pressure, f/u not required Measure #128: Body Mass Index (BMI) Screening & Follow-up: BMI documented ABOVE normal parameters - f/u documented Measure #131: Pain Assessment & Follow-up: Pain positive & plan documented, Follow-up scheduled Measure #431: Unhealthy Alcohol Use Preventative Care & Scrn: Patient not identified as an unhealthy alcohol user PQRS Narrative: Smoking Status Former smoker Hx Alcohol Use (MH) No Home Medications: Ambulatory Orders Aspirin 81 mg PO DAILY 08/06/13 Lisinopril-Hctz 20-12.5 mg [Zestoretic 20-12.5] 2 tab PO QAM 08/06/13 Baclofen [Lioresal] 10 mg PO DAILY PRN 09/07/15 Zolpidem [Ambien] 10 mg PO HS PRN 09/28/15 Ranitidine HCl [Zantac] 150 mg PO BID 04/14/16 Gabapentin [Neurontin] 600 mg PO TID 11/17/17 Sertraline [Zoloft] 100 mg PO DAILY 11/17/17 Solifenacin Succinate [Vesicare] 5 mg PO DAILY 11/17/17 Dulaglutide [Trulicity] 45 units SQ CHATMAN 07/19/18 Insulin Aspart [NovoLOG Flexpen] 15 units SQ TID 07/19/18 oxyCODONE-APAP 7.5-325MG [Percocet 7.5-325 mg] 1 tab PO Q6HR PRN 07/19/18 Insulin Degludec [Tresiba] 45 units SQ HS 07/27/18 Controlled Substance Measures - Controlled Substance Measures Is patient prescribed a controlled substance at discharge?: No
== END | disposition home or self-care (01) ==
LOC: PNWHC3 11:28
PROVIDERS: ATTEND Anesthesiology
DX: M47.816 Spondylosis without myelopathy or radiculopathy, lumbar region (principal); Z87.891 Personal history of nicotine dependence; Z79.899 Other long term (current) drug therapy; Z79.82 Long term (current) use of aspirin; Z79.4 Long term (current) use of insulin
CPT/HCPCS: 99211

== ENCOUNTER 2019-04-16 06:16 | Day surgery (SDC) | payer BC ==
[2019-04-15 12:55] VITALS: BMI 33.2
[2019-04-16 06:34] LABS: Glucose,Whole Blood 101 mg/dL (75-99)
[2019-04-16 06:35] VITALS: TEMP 97
[2019-04-16] MEDS ORDERED: fentaNYL (PF) 50 MCG/ML 2 ML AMP ONE (07:22)
[2019-04-16] MEDS ORDERED: methylPREDNISolone ACETATE 40 MG/ML 1 ML VIAL ONE (07:22)
[2019-04-16] MEDS ORDERED: ROPIVACAINE 5MG/ML 20ML VIAL ONE (07:22)
[2019-04-16] MEDS ORDERED: MIDAZOLAM 2 MG/2 ML VIAL ONE (07:22)
--- NOTE | 2019-04-16 07:44 | P.GSHP ---
History of Present Illness H&P Date: 04/16/19 This is 63 years old male with a history of severe and chronic low back pain diagnosed with lumbar spondylosis with lumbar facet arthropathy, and lumbar degenerative disc disease, here today to have a repeat RFA of the left side medial branch at L3, L4, L5 under fluoroscopy guidance Past Medical History Past Medical History: Diabetes Mellitus, GERD/Reflux, Hyperlipidemia, Hypertension Additional Past Medical History / Comment(s): fatty liver, bulging disk History of Any Multi-Drug Resistant Organisms: None Reported Additional Past Surgical History / Comment(s): pain clinic procedures Past Anesthesia/Blood Transfusion Reactions: No Reported Reaction Smoking Status: Former smoker - Past Family History Mother Family Medical History: No Reported History Medications and Allergies Home Medications Medication Instructions Recorded Confirmed Type Aspirin 81 mg PO DAILY 08/06/13 04/15/19 History Lisinopril-Hctz 20-12.5 mg 2 tab PO QAM 08/06/13 04/15/19 History [Zestoretic 20-12.5] Baclofen [Lioresal] 10 mg PO DAILY PRN 09/07/15 04/15/19 History Zolpidem [Ambien] 10 mg PO HS PRN 09/28/15 04/16/19 History Ranitidine HCl [Zantac] 150 mg PO BID 04/14/16 04/15/19 History Sertraline [Zoloft] 100 mg PO DAILY 11/17/17 04/15/19 History Solifenacin Succinate [Vesicare] 5 mg PO DAILY 11/17/17 04/15/19 History Insulin Aspart [NovoLOG Flexpen] 20 units SQ TID 07/19/18 04/15/19 History oxyCODONE-APAP 7.5-325MG [Percocet 1 tab PO Q6HR PRN 07/19/18 04/15/19 History 7.5-325 mg] Insulin Degludec [Tresiba] 55 units SQ HS 07/27/18 04/15/19 History Dulaglutide [Trulicity] 1.5 mg SQ CHATMAN 04/15/19 04/16/19 History Gabapentin 800 mg PO TID 04/15/19 04/15/19 History Allergies Allergy/AdvReac Type Severity Reaction Status Date / Time No Known Allergies Allergy Verified 04/16/19 06:26 Surgical - Exam Vital Signs Temp Pulse Resp BP Pulse Ox 97.0 F L 82 17 140/72 97 04/16/19 06:34 04/16/19 06:34 04/16/19 06:34 04/16/19 06:34 04/16/19 06:34 Physical Examinations : -Constitutiona : Cooperative , not in acute distress . -HEENT : nech : supple , no Lymphadenopathy , normal thyroid size - neurologic : Cranial nerve II to XII intact , no focal neurological deffecit . -psychatric : alert , oriented X 3 , appropriate affect , intact judgment and insight . -Lymphatic : no Lymphadenopathy . - musculoskeltal : Lumber spine moter stegnth lower extremities ,thigh and legs 5/5 Right side , 5/5 Left side deep tendon reflexes : normal Knee Jerk , normal ankle Jerk lumber facet Loading Test =positive Right , positive Left Range of motion of the lumbar spine Flexion 30 degrees, extension 10 degrees strait leg raising test = positive . Fabere test= positive Right , and positive LT . Results - Labs Abnormal Lab Results - Last 24 Hours (Table) 04/16/19 Range/Units 06:32 POC Glucose (mg/dL) 101 H (75-99) mg/dL Assessment and Plan Plan: Assessment and plan= chronic low back pain secondary to lumbar degenerative disc disease , lumbar spondylosis with lumbar facet arthropathy . He had a good result with the RFA of the medial branch lumbar area done more than 6 months ago, and he is here to have repeat RFA of the left side Medial branches at L3, L4, L5 under fluoroscopy guidance Time with Patient: Less than 30
[2019-04-16] MEDS ORDERED: IV FLUID CONTINUATION 900 ML IV ONE (07:45)
--- NOTE | 2019-04-16 07:46 | P.PCN ---
Date of Procedure: 04/16/19 Procedure(s) Performed: PREOPERATIVE DIAGNOSIS: 1-Lumbar Spondylosis with Facet Arthropathy without myelopathy. 2- Lumber degenerative disc disease POSTOPERATIVE DIAGNOSIS: 1- Lumbar Spondylosis with Facet Arthropathy without myelopathy. 2- Lumber degenerative disc disease PROCEDURES : Left Radiofrequency thermocoagulation, L3 , L4 , and L5 medial branch, with fluoroscopic guidance (fluoroscopy images available in the radiology department) ( to denervate the facet joint at L4-5 ,and L5-S1 levels ) ANESTHESIA: Moderate sedation with intravenous versed 2 mg and fentaneyl 100 mcg, and local infiltration with Ropivacaine 0.5 % . EBL: Minimal PROCEDURE INDICATION: The patient with low back pain secondary to lumbar facet arthropathy who had more than 50% relief of her pain with previous diagnostic lumbar medial branch block with bupivacaine. PROCEDURE DESCRIPTION / TECHNIQUE: The patient was seen and identified in the preoperative area. Risks, benefits, complications, including but not limited to risk of infection ,bleeding , allergic reactions to the medications and no complete pain releife , and alternatives were discussed with the patient, the patient agreed to proceed with the procedure and signed the consent. IV was started. Vital signs remained stable throughout the procedure. Patient was taken to the OR and time out was completed. The patient was placed in the prone position on the procedure table. The lumber area was prepped and draped in the usual sterile fashion. . Vital signs were closely monitored during the procedure .IV sedation was used during the procedure to decrease patients anxiety. Using AP and then oblique fluoroscopy, the ``eye of the Ketan dog corresponding to the connection between the superior and transverse articular processes of left L3, L4, and L5 were identified, marked, and localized with 1% lidocaine. Subsequently, a [id number] radiofrequency cannula with a 10-mm active tip was advanced guided by fluoroscopy to each of the``eyes of the Ketan dog at left L3, L4, and L5. Each site then underwent sensory testing at 50 Hz and 0 to 1 volt and motor testing at 2.5 Hz and 0 to 3 volt with local stimulation, but no radicular symptoms down the legs. Thereafter the left L3, L4 , and L5 sites underwent radiofrequency thermocoagulation at 80 degrees celsius for 90 seconds after injecting 0.5 ml of PF Ropivacaine 1ml, then after the thermocoagulation done , 1 ml of the block solution containing Depo-Medrol 40 mg and 3 ml of Ropivacaine 0.5% was injected at the left L3 , L4 , and L5 , levels after negative aspiration of CSF and blood and with no paresthesias. Cannulas were retracted while injecting lidocaine 1% until the needle is out At the end of the procedure, the skin was cleansed and bandages were applied. COMPLICATIONS: No acute complications. DISPOSITION / PLANS: The patient was placed in a supine position and transferred to the recovery area in a stable condition for observation and was discharged from the recovery room after meeting discharge criteria. Home discharge instructions given to the patient by the staff. The patient was reexamined prior to discharge. The patient will schedule a follow up in the clinic in 2-4 weeks.
[2019-04-16 07:49] LABS: Glucose,Whole Blood 107 mg/dL (75-99)
[2019-04-16 08:12] VITALS: BP 108/67; PULSE 75; RESP 20
--- NOTE | 2019-04-16 08:25 | FL ---
Fluoroscopy INDICATION: Pain FINDINGS: Fluoroscopy time: 6 seconds. Images obtained: 3. IMPRESSIONS: 1. Documentation of fluoroscopy.
== END 2019-04-16 08:13 | disposition home or self-care (01) ==
LOC: ORPAIN 06:16
PROVIDERS: ATTEND Specialist
DX: G89.29 Other chronic pain (principal); M47.816 Spondylosis without myelopathy or radiculopathy, lumbar region; M51.36 Other intervertebral disc degeneration, lumbar region; E11.9 Type 2 diabetes mellitus without complications; K21.9 Gastro-esophageal reflux disease without esophagitis; E78.5 Hyperlipidemia, unspecified; I10 Essential (primary) hypertension; K76.0 Fatty (change of) liver, not elsewhere classified; M51.9 Unspecified thoracic, thoracolumbar and lumbosacral intervertebral disc disorder; Z98.890 Other specified postprocedural states; Z87.891 Personal history of nicotine dependence; Z79.82 Long term (current) use of aspirin; Z79.899 Other long term (current) drug therapy; Z79.4 Long term (current) use of insulin; Z79.891 Long term (current) use of opiate analgesic
CPT/HCPCS: 64635; 64636; J2250; J1030; J3010; J2795; 99152

== ENCOUNTER 2019-04-25 15:13 | Inpatient (IN) | payer BC ==
[2019-04-25] MEDS ORDERED: SODIUM CHLORIDE 0.9% 1,000 ML IV STA (16:52)
--- NOTE | 2019-04-25 17:31 | XR ---
PROCEDURE: XR foot limited RT - 2V DATE AND TIME: 04/25/2019 5:02 PM CLINICAL INDICATION: PHH; diabetic wounds,1st toe TECHNIQUE: Department protocol COMPARISON: None FINDINGS: There is marked soft tissue swelling circumferential to the great toe. There is no radiopaq ue foreign body. There is bandaging seen superimposed over the medial great toe, with multifocal tiny radiolucencies, which could be within the bandaging or within the soft tissues medial to the proxima l and distal phalanx of the great toe. The bones and joints are unremarkable. IMPRESSION: Soft tissue swelling.
[2019-04-25 17:36] LABS: Basophils % (A) 0 %; Eosinophils # (A) 0.2 k/uL (0-0.7); Eosinophils % (A) 2 %; HCT 46.7 % (39.0-53.0); HGB 15.8 gm/dL (13.0-17.5); Lymphocytes # (A) 1.4 k/uL (1.0-4.8); Lymphocytes % (A) 13 %; MCH 30.1 pg (25.0-35.0); MCHC 33.8 g/dL (31.0-37.0); Mean Platelet Volume 7.2; Monocytes # (A) 0.5 k/uL (0-1.0); Monocytes % (A) 4 %; Neutrophils # (A) 9.1 k/uL (1.3-7.7); Neutrophils % (A) 80 %; Platelet Count 265 k/uL (150-450); RBC 5.25 m/uL (4.30-5.90); RDW 12.6 % (11.5-15.5); WBC 11.3 k/uL (3.8-10.6)
--- NOTE | 2019-04-25 17:47 | ED ---
Wound/Laceration HPI - General Chief Complaint: Wound/Laceration Stated Complaint: foot pain Time Seen by Provider: 04/25/19 16:18 Source: patient Mode of arrival: ambulatory Limitations: no limitations - History of Present Illness Initial Comments: Patient is a 63-year-old male, with history of diabetes, hypertension, presenting to the emergency Department with complaints of a possible infection in his right first toe. Patient states about 4 days ago he tried to remove a hangnail from the inside of his big toe. Patient states since then he has been noticing increase in pain, swelling, redness. He states when he looked at the side of his foot he noticed a new wound to that started. Patient states he has a wound on the inside part of his toe that has been there for a few weeks now. Patient states then he started feeling fatigued and just not feeling well overall. He states the redness in his right foot has been increasing. He denies having fevers, chills, abdominal pain, nausea, vomiting. He's been eating a little bit less due to no appetite. He has no other complaints at this time. Upon arrival to the ER, his vital signs are stable. - Related Data Home Medications Medication Instructions Recorded Confirmed Aspirin 81 mg PO DAILY 08/06/13 04/25/19 Lisinopril-Hctz 20-12.5 mg 2 tab PO DAILY 08/06/13 04/25/19 [Zestoretic 20-12.5] Baclofen [Lioresal] 10 mg PO DAILY PRN 09/07/15 04/25/19 Zolpidem [Ambien] 10 mg PO HS 09/28/15 04/25/19 Ranitidine HCl [Zantac] 150 mg PO BID 04/14/16 04/25/19 Sertraline [Zoloft] 100 mg PO DAILY 11/17/17 04/25/19 Insulin Aspart [NovoLOG Flexpen] 20 units SQ AC-TID 07/19/18 04/25/19 oxyCODONE-APAP 7.5-325MG [Percocet 1 tab PO Q6HR PRN 07/19/18 04/25/19 7.5-325 mg] Insulin Degludec [Tresiba] 55 units SQ HS 07/27/18 04/25/19 Dulaglutide [Trulicity] 1.5 mg SQ CHATMAN 04/15/19 04/25/19 Gabapentin 800 mg PO TID 04/15/19 04/25/19 Canagliflozin [Invokana] 100 mg PO DAILY 04/25/19 04/25/19 Rosuvastatin Calcium 10 mg PO DAILY 04/25/19 04/25/19 Tolterodine ER [Detrol LA] 4 mg PO DAILY 04/25/19 04/25/19 Allergies Allergy/AdvReac Type Severity Reaction Status Date / Time No Known Allergies Allergy Verified 04/25/19 21:25 Review of Systems ROS Statement: Those systems with pertinent positive or pertinent negative responses have been documented in the HPI. ROS Other: All systems not noted in ROS Statement are negative. Past Medical History Past Medical History: Diabetes Mellitus, GERD/Reflux, Hyperlipidemia, Hypertension Additional Past Medical History / Comment(s): fatty liver, bulging disk History of Any Multi-Drug Resistant Organisms: None Reported Additional Past Surgical History / Comment(s): pain clinic procedures Past Anesthesia/Blood Transfusion Reactions: No Reported Reaction Past Psychological History: Depression Smoking Status: Former smoker Past Alcohol Use History: None Reported Past Drug Use History: None Reported - Past Family History Mother Family Medical History: No Reported History General Exam - General Exam Comments Initial Comments: GENERAL: Well-appearing, well-nourished and in no acute distress. HEAD: Atraumatic, normocephalic. EYES: Pupils equal round and reactive to light, extraocular movements intact, sclera anicteric, conjunctiva are normal. ENT: TMs normal, nares patent, oropharynx clear without exudates. Moist mucous membranes. NECK: Normal range of motion, supple without lymphadenopathy or JVD. LUNGS: Breath sounds clear to auscultation bilaterally and equal. No wheezes rales or rhonchi. HEART: Regular rate and rhythm without murmurs, rubs or gallops. ABDOMEN: Soft, nontender, normoactive bowel sounds. No guarding, no rebound. No masses appreciated. : Deferred EXTREMITIES: Patient has pain with palpation of the right great toe, there is an extensive amount of erythema spreading from the right first toe up into the medial aspect of the right foot extending into the ankle. There is swelling around the great toe. There is warmth to the leg compared to the left leg. Patient does have full range of motion of his right toes and ankle. He is neurovascular intact. No clubbing or cyanosis. NEUROLOGICAL: Normal speech, normal gait. PSYCH: Normal mood, normal affect. SKIN: Warm, Dry, normal turgor,. Severe erythema, swelling and pain with palpation of the right great toe. Patient also has 2 diabetic ulcers on the plantar surface of the right great toe. Limitations: no limitations Course Vital Signs 04/25/19 04/25/19 15:44 19:13 Temperature 98.9 F 98.8 F Pulse Rate 91 82 Respiratory 18 18 Rate Blood Pressure 110/73 135/80 O2 Sat by Pulse 98 98 Oximetry Medical Decision Making - Medical Decision Making Patient is 63-year-old male presenting with an infection in his right great toe x 4 days. He is diabetic. No fever, no chills, general malaise. Patient has pain, erythema spreading from his right great toe into his right foot and ankle. Patient has warmth to the touch. Patient is complaining of generalized malaise. He also has 2 small diabetic ulcers on the plantar surface of the right great toe. There is a strong odor coming from these wounds. Lab work reveals cytosis 11.3, ESR 67, CRP is 219, lactic acid is 1.2. Right foot x-ray shows no abnormalities to the bone, only soft tissue swelling. I discussed with patient that I recommend him being admitted to the hospital for IV antibiotics, infectious disease consult as well as wound care consult. Patient is agreeable to this plan of care. Patient was given fluids as well as antibiotics. Case discussed with Dr. Jaime who agrees with this plan of care. Patient was admitted under Dr. Sanchez who accepts the patient. - Lab Data Result diagrams: 04/25/19 17:18 04/25/19 17:18 Lab Results 04/25/19 04/25/19 04/25/19 Range/Units 17:18 17:18 17:18 WBC 11.3 H (3.8-10.6) k/uL RBC 5.25 (4.30-5.90) m/uL Hgb 15.8 (13.0-17.5) gm/dL Hct 46.7 (39.0-53.0) % MCV 89.0 (80.0-100.0) fL MCH 30.1 (25.0-35.0) pg MCHC 33.8 (31.0-37.0) g/dL RDW 12.6 (11.5-15.5) % Plt Count 265 (150-450) k/uL Neutrophils % 80 % Lymphocytes % 13 % Monocytes % 4 % Eosinophils % 2 % Basophils % 0 % Neutrophils # 9.1 H (1.3-7.7) k/uL Lymphocytes # 1.4 (1.0-4.8) k/uL Monocytes # 0.5 (0-1.0) k/uL Eosinophils # 0.2 (0-0.7) k/uL Basophils # 0.0 (0-0.2) k/uL ESR 67 H (0-15) mm/hr Sodium 133 L (137-145) mmol/L Potassium 4.1 (3.5-5.1) mmol/L Chloride 95 L (98-107) mmol/L Carbon Dioxide 25 (22-30) mmol/L Anion Gap 13 mmol/L BUN 20 (9-20) mg/dL Creatinine 0.63 L (0.66-1.25) mg/dL Est GFR (CKD-EPI)AfAm >90 (>60 ml/min/1.73 sqM) Est GFR (CKD-EPI)NonAf >90 (>60 ml/min/1.73 sqM) Glucose 159 H (74-99) mg/dL Plasma Lactic Acid Med 1.2 (0.7-2.0) mmol/L Calcium 9.6 (8.4-10.2) mg/dL Total Bilirubin 1.5 H (0.2-1.3) mg/dL AST 29 (17-59) U/L ALT 41 (4-49) U/L Alkaline Phosphatase 59 (38-126) U/L C-Reactive Protein 219.7 H (<10.0) mg/L Total Protein 7.6 (6.3-8.2) g/dL Albumin 4.2 (3.5-5.0) g/dL Disposition Clinical Impression: Cellulitis of right foot, Diabetic ulcer of right great toe Disposition: ADMITTED IP TO THIS [facility] Condition: Stable Is patient prescribed a controlled substance at d/c from ED?: No Decision Date: 04/25/19 Decision Time: 18:30
[2019-04-25 17:53] LABS: ALT 41 U/L (4-49); AST 29 U/L (17-59); African American GFR (CKD) >90 (>60 ml/min/1.73 sqM); Albumin 4.2 g/dL (3.5-5.0); Alkaline Phosphatase 59 U/L (38-126); Anion Gap 13 mmol/L; Blood Urea Nitrogen 20 mg/dL (9-20); Calcium 9.6 mg/dL (8.4-10.2); Carbon Dioxide 25 mmol/L (22-30); Chloride 95 mmol/L (98-107); Glucose 159 mg/dL (74-99); Non-African American GFR(CKD) >90 (>60 ml/min/1.73 sqM); Potassium 4.1 mmol/L (3.5-5.1); Sodium 133 mmol/L (137-145); Total Bilirubin 1.5 mg/dL (0.2-1.3); Total Protein 7.6 g/dL (6.3-8.2)
[2019-04-25 18:06] LABS: C Reactive Protein 219.7 mg/L (<10.0)
[2019-04-25] MEDS ORDERED: KETOROLAC 30 MG/ML 1 ML VIAL IVP PRN (18:25)
[2019-04-25] MEDS ORDERED: IBUPROFEN 400 MG TAB PO PRN (18:25)
[2019-04-25] MEDS ORDERED: ONDANSETRON 4 MG/2 ML VIAL IVP PRN (18:25)
[2019-04-25] MEDS ORDERED: NALOXONE 0.4 MG/ML 1 ML VIAL IV PRN (18:25)
[2019-04-25 18:57] LABS: Erythrocyte Sedimentation Rate 67 mm/hr (0-15)
[2019-04-25] MEDS: SODIUM CHLORIDE 0.9% 1,000 ML IV SCH (19:02)
[2019-04-25 19:42] LABS: Glucose,Whole Blood 148 mg/dL (75-99)
[2019-04-26 07:16] LABS: Glucose,Whole Blood 121 mg/dL (75-99)
[2019-04-26] MEDS ORDERED: BACLOFEN 10 MG TAB PO PRN (08:06)
[2019-04-26] MEDS: ATORVASTATIN 20 MG TAB PO SCH (08:52)
[2019-04-26] MEDS: oxyCODONE-APAP 7.5-325MG 1 EACH TAB PO PRN ×2 (08:52→16:20)
[2019-04-26] MEDS: GABAPENTIN 400 MG CAP PO SCH ×3 (08:53→21:27)
[2019-04-26] MEDS: FAMOTIDINE 20 MG TAB PO SCH ×2 (08:53→21:27)
[2019-04-26] MEDS: LISINOPRIL-HCTZ 20-12.5 MG 1 EACH TAB PO SCH (08:53)
[2019-04-26] MEDS: SERTRALINE 100 MG TAB PO SCH (08:53)
[2019-04-26] MEDS: OXYBUTYNIN XL 5 MG TAB.ER.24 PO SCH (08:53)
[2019-04-26] MEDS: ASPIRIN 81 MG PO SCH (08:53)
[2019-04-26] MEDS: SODIUM CHLORIDE 0.9% 1,000 ML IV SCH (09:04)
--- NOTE | 2019-04-26 09:38 | P.CONS ---
History of Present Illness - Reason for Consult Consult date: 04/26/19 Wound care - History of Present Illness This is a 63-year-old patient of Dr. Anna stevenson being seen on for a nonhealing ulceration to the right great toe medial aspect and the left great toe plantar aspect. Patient states that the right great toe began to cause discomfort starting on Monday. He came home from work feeling poorly once removing his shoes he noticed increased redness and drainage from the right gre at toe. Patient states that approximately a week ago he did have inhaled male at that site that he did remove without any complications. At this time patient has a open ulceration to the medial aspect extending to the plantar aspect of the right great toe erythema extending to the dorsal foot. Tenderness with palpation and increased purulent drainage. Upon questioning patient states he has a callus to the left great toe that shows an open ulceration to the plantar aspect approximately 0.3 cm in depth noted. Increase callus to the periwound. Patient states that the callused area has been there for quite a few months he has been working on it himself to heal. Patient does not know when his last hemoglobin A1c was drawn nor what it was. Patient's past medical history is significant for diabetes mellitus, and acid reflux, hyperlipidemia, hypertension, patient is a former smoker quitting approximately 25 years ago. Patient has significant diabetic neuropathy noted to bilateral lower extremities Review of Systems Review Of Systems: Constitutional: No fever, no chills, no night sweats. No weight change. No weakness, fatigue or lethargy. No daytime sleepiness. Integumentary:reports wounds, no lesions. No rash or pruritus. No unusual bruising. No change in hair or nails. Past Medical History Past Medical History: Diabetes Mellitus, GERD/Reflux, Hyperlipidemia, Hypertension Additional Past Medical History / Comment(s): fatty liver, bulging disk History of Any Multi-Drug Resistant Organisms: None Reported Additional Past Surgical History / Comment(s): pain clinic procedures Past Anesthesia/Blood Transfusion Reactions: No Reported Reaction Past Psychological History: Depression Smoking Status: Former smoker Past Alcohol Use History: None Reported Past Drug Use History: None Reported - Past Family History Mother Family Medical History: No Reported History Medications and Allergies Home Medications Medication Instructions Recorded Confirmed Type Aspirin 81 mg PO DAILY 08/06/13 04/25/19 History Lisinopril-Hctz 20-12.5 mg 2 tab PO DAILY 08/06/13 04/25/19 History [Zestoretic 20-12.5] Baclofen [Lioresal] 10 mg PO DAILY PRN 09/07/15 04/25/19 History Zolpidem [Ambien] 10 mg PO HS 09/28/15 04/25/19 History Ranitidine HCl [Zantac] 150 mg PO BID 04/14/16 04/25/19 History Sertraline [Zoloft] 100 mg PO DAILY 11/17/17 04/25/19 History Insulin Aspart [NovoLOG Flexpen] 20 units SQ AC-TID 07/19/18 04/25/19 History oxyCODONE-APAP 7.5-325MG [Percocet 1 tab PO Q6HR PRN 07/19/18 04/25/19 History 7.5-325 mg] Insulin Degludec [Tresiba] 55 units SQ HS 07/27/18 04/25/19 History Dulaglutide [Trulicity] 1.5 mg SQ CHATMAN 04/15/19 04/25/19 History Gabapentin 800 mg PO TID 04/15/19 04/25/19 History Canagliflozin [Invokana] 100 mg PO DAILY 04/25/19 04/25/19 History Rosuvastatin Calcium 10 mg PO DAILY 04/25/19 04/25/19 History Tolterodine ER [Detrol LA] 4 mg PO DAILY 04/25/19 04/25/19 History Allergies Allergy/AdvReac Type Severity Reaction Status Date / Time No Known Allergies Allergy Verified 04/25/19 21:25 Physical Exam Vitals: Vital Signs Temp Pulse Pulse Resp BP BP Pulse Ox 04/26/19 05:00 98.2 F 70 16 127/69 95 04/25/19 20:44 98.6 F 91 17 138/86 97 04/25/19 19:13 98.8 F 82 18 135/80 98 04/25/19 15:44 98.9 F 91 18 110/73 98 Intake and Output 04/25/19 04/26/19 04/26/19 22:59 06:59 14:59 Intake Total 75 600 Balance 75 600 Intake: Intake, IV Titration 75 600 Amount Sodium Chloride 0.9% 1, 75 600 000 ml @ 75 mls/hr IV . [id number] Rx#:[id number] Other: Voiding Method Toilet # Voids 1 Weight 110.5 kg Physical exam: General Appearance: Alert, cooperative, no distress, appears stated age. Skin: See HPI medial aspect extending to the plantar aspect of the right great toe erythema extending to the dorsal foot. Tenderness with palpation and increased purulent drainage, left great toe shows open ulceration approximately 0.1 x 0.1 x 0.3 cm with callus around periwound. Granulation seen within the wound bed. No drainage noted. all other Skin color, texture, tugor normal, no rashes or lesions. Neurologic: Alert oriented x3 Results CBC & Chem 7: 04/25/19 17:18 04/25/19 17:18 Labs: Abnormal Lab Results - Last 24 Hours (Table) 04/25/19 04/25/19 04/25/19 Range/Units 17:18 17:18 19:41 WBC 11.3 H (3.8-10.6) k/uL Neutrophils # 9.1 H (1.3-7.7) k/uL ESR 67 H (0-15) mm/hr Sodium 133 L (137-145) mmol/L Chloride 95 L (98-107) mmol/L Creatinine 0.63 L (0.66-1.25) mg/dL Glucose 159 H (74-99) mg/dL POC Glucose (mg/dL) 148 H (75-99) mg/dL Total Bilirubin 1.5 H (0.2-1.3) mg/dL C-Reactive Protein 219.7 H (<10.0) mg/L 04/26/19 Range/Units 07:05 WBC (3.8-10.6) k/uL Neutrophils # (1.3-7.7) k/uL ESR (0-15) mm/hr Sodium (137-145) mmol/L Chloride (98-107) mmol/L Creatinine (0.66-1.25) mg/dL Glucose (74-99) mg/dL POC Glucose (mg/dL) 121 H (75-99) mg/dL Total Bilirubin (0.2-1.3) mg/dL C-Reactive Protein (<10.0) mg/L Assessment and Plan (1) Diabetic ulcer of right great toe Current Visit: Yes Status: Acute Code(s): E11.621 - TYPE 2 DIABETES MELLITUS WITH FOOT ULCER; L97.519 - NON-PRS CHRONIC ULCER OTH PRT RIGHT FOOT W UNSP SEVERITY SNOMED Code(s): 70215075 (2) Diabetic ulcer of left great toe Current Visit: Yes Status: Acute Code(s): E11.621 - TYPE 2 DIABETES MELLITUS WITH FOOT ULCER; L97.529 - NON-PRESSURE CHRONIC ULCER OTH PRT LEFT FOOT W UNSP SEVERITY SNOMED Code(s): 47429501 (3) Cellulitis of right foot Current Visit: Yes Status: Acute Code(s): L03.115 - CELLULITIS OF RIGHT LOWER LIMB SNOMED Code(s): 527353979 (4) 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 X-ray did not show any evidence of osteo-myelitis. Awaiting hemoglobin A1c results. Wound care for right great toe absorptive silver rope dry, dry gauze, rolled gauze and secure with paper tape. May apply AVD if drainage becomes significant. Change dressing Monday. Wound care for left great toe plantar aspect. Honey alginate to the site saline moistened gauze, dry gauze, rolled gauze and secure with paper tape. Change Monday. Limit weight bearing to the forefoot of bilateral feet. Discussed with patient the importance of continuing outpatient wound care. Continue with appropriate IV antibiotics as per infectious disease. May consider consult to vascular surgery for interventions. Thank you kindly for the consultation. Any questions please contact the wound care center DNP note has been reviewed and discussed with Dr. Styles and the impression and plan of care has been directed as dictated.
[2019-04-26 11:38] LABS: Glucose,Whole Blood 141 mg/dL (75-99)
--- NOTE | 2019-04-26 12:46 | P.HPIM ---
History of Present Illness H&P Date: 04/26/19 Chief Complaint: right toe wound This is a 63-year-old male patient of Dr. Castillo. with past medical history of diabetes mellitus type 2, hypertension, hyperlipidemia, gastroesophageal reflux disease, recurrent depression, remote history of tobacco use, fatty liver, chronic back pain. Patient states that on Monday he noticed a hangnail to his right great toe. He started filing it and it started bleeding quite profusely. He went to work on Monday but was not feeling very well end up going home early. On Monday continued to not feel very well was laying around the house. He states his blood pressures have been labile running between 89 and 250. He does not know his most recent hemoglobin A1c. He was last seen in the office with Dr. Castillo in February. He states he has had cold sweats but no fevers or chills. He has had an ulcer on his left foot but was never this bad. He does not have diabetic shoes. Patient also has a callus on the plantar brisa face of the right great toe for which he has been filing and now presents with ulcer. Patient came into [facility] emergency center for evaluation. Patient was afebrile, heart rate 91, blood pressure 110/73, pulse ox 98% on room air. CBC 11.3, hemoglobin 15.8, platelet count 265. Sodium 133, potassium 4.1, chloride 95, CO2 25 BUN 20, creatinine 0.63, blood sugar 159. A sed rate 67, CRP 219, lactic acid 1.2. Patient was given 1 L of IV fluid as one dose of ceftriaxone and [facility]. Consults in place with Wound Care Team and Dr. Ng Review of Systems Constitutional: Reports fatigue, Reports lethargy, Reports malaise, Reports poor appetite, Reports sweats, Denies anorexia, Denies chills, Denies fever, Denies weight loss Eyes: denies blurred vision, denies pain Ears, nose, mouth and throat: Denies dental pain, Denies dysphagia, Denies headache, Denies nasal congestion, Denies nasal discharge, Denies sore throat, Denies vertigo Cardiovascular: Denies chest pain, Denies decreased exercise tolerance, Denies dyspnea on exertion, Denies edema, Denies leg edema, Denies lightheadedness, Denies shortness of breath, Denies syncope Respiratory: Denies cough, Denies cough with sputum, Denies dyspnea, Denies e xcessive sputum, Denies hemoptysis, Denies home oxygen, Denies respiratory infections, Denies wheezing Gastrointestinal: Denies abdominal pain, Denies constipation, Denies diarrhea, Denies nausea, Denies vomiting Genitourinary: Denies dysuria, Denies urinary frequency, Denies urinary hesitancy, Denies urinary retention Musculoskeletal: Denies frequent falls, Denies gait dysfunction, Denies muscle weakness, Denies myalgias Integumentary: Reports color changes, Reports wounds, Denies pruritus, Denies rash Neurological: Denies change in mentation, Denies change in speech, Denies numbness, Denies weakness Psychiatric: Denies anxiety, Denies depression Endocrine: Reports high blood sugars, Denies fatigue, Denies weight change Past Medical History Past Medical History: Diabetes Mellitus, GERD/Reflux, Hyperlipidemia, Hypertension Additional Past Medical History / Comment(s): fatty liver, bulging disk History of Any Multi-Drug Resistant Organisms: None Reported Additional Past Surgical History / Comment(s): pain clinic procedures Past Anesthesia/Blood Transfusion Reactions: No Reported Reaction Past Psychological History: Depression Smoking Status: Former smoker Past Alcohol Use History: None Reported Additional Past Alcohol Use History / Comment(s): Patient was a smoker 3 packs per day for greater than 20 years and quit 25 years ago. He denies any marijuana or street drug use. He drinks a few beers occasionally. He works at [employer] in [employer] department. Past Drug Use History: None Reported - Past Family History Mother Family Medical History: No Reported History Additional Family Medical History / Comment(s): Mother at age 60 from colon cancer. She had history of lung transplant. Patient does not know why she had a lung transplant other than she was a smoker. Father Additional Family Medical History / Comment(s): Father at age 67 from a myocardial infarction. Brother(s) Additional Family Medical History / Comment(s): Patient does not have any brothers. Patient had 1 sister that at age 40 from pancreatic cancer. Patient has 2 sons and 1 daughter with no major medical problems. Medications and Allergies Home Medications Medication Instructions Recorded Confirmed Type Aspirin 81 mg PO DAILY 08/06/13 04/25/19 History Lisinopril-Hctz 20-12.5 mg 2 tab PO DAILY 08/06/13 04/25/19 History [Zestoretic 20-12.5] Baclofen [Lioresal] 10 mg PO DAILY PRN 09/07/15 04/25/19 History Zolpidem [Ambien] 10 mg PO HS 09/28/15 04/25/19 History Ranitidine HCl [Zantac] 150 mg PO BID 04/14/16 04/25/19 History Sertraline [Zoloft] 100 mg PO DAILY 11/17/17 04/25/19 History Insulin Aspart [NovoLOG Flexpen] 20 units SQ AC-TID 07/19/18 04/25/19 History oxyCODONE-APAP 7.5-325MG [Percocet 1 tab PO Q6HR PRN 07/19/18 04/25/19 History 7.5-325 mg] Insulin Degludec [Tresiba] 55 units SQ HS 07/27/18 04/25/19 History Dulaglutide [Trulicity] 1.5 mg SQ CHATMAN 04/15/19 04/25/19 History Gabapentin 800 mg PO TID 04/15/19 04/25/19 History Canagliflozin [Invokana] 100 mg PO DAILY 04/25/19 04/25/19 History Rosuvastatin Calcium 10 mg PO DAILY 04/25/19 04/25/19 History Tolterodine ER [Detrol LA] 4 mg PO DAILY 04/25/19 04/25/19 History Allergies Allergy/AdvReac Type Severity Reaction Status Date / Time No Known Allergies Allergy Verified 04/25/19 21:25 Physical Exam Vitals: Vital Signs Temp Pulse Pulse Resp BP BP Pulse Ox 04/26/19 05:00 98.2 F 70 16 127/69 95 04/25/19 20:44 98.6 F 91 17 138/86 97 04/25/19 19:13 98.8 F 82 18 135/80 98 04/25/19 15:44 98.9 F 91 18 110/73 98 Intake and Output 04/25/19 04/26/19 04/26/19 22:59 06:59 14:59 Intake Total 75 600 Balance 75 600 Intake: Intake, IV Titration 75 600 Amount Sodium Chloride 0.9% 1, 75 600 000 ml @ 75 mls/hr IV . [id number] [facility] Rx#:[id number] Other: Voiding Method Toilet # Voids 1 Weight 110.5 kg Gen: This is a 63-year-old male. He is sitting up in bed appears to be comfortable and in no acute distress. HEENT: Head is atraumatic, normocephalic. Pupils equal, round. Sclerae is anicteric. Conjunctiva pink. Because the results of the mouth are moist. NECK: Supple. No JVD. No lymphadenopathy. No thyromegaly. LUNGS: Clear to auscultation. No wheezes or rhonchi. No intercostal retractions. HEART: Regular rate and rhythm. No murmur. ABDOMEN: Soft. Bowel sounds are present. No masses. No tenderness. EXTREMITIES: No pedal edema. Right great toe erythema with ulcer to the base of the medial side. Purulent drainage. There is surrounding erythema into the dorsal and plantar aspect of the foot. On the left great toe plantar surface, there is an ulceration, no drainage. NEUROLOGICAL: Patient is awake, alert and oriented x3. Cranial nerves 2 through 12 are grossly intact. Results CBC & Chem 7: 04/25/19 17:18 04/25/19 17:18 Labs: Abnormal Lab Results - Last 24 Hours (Table) 04/25/19 04/25/19 04/25/19 Range/Units 17:18 17:18 19:41 WBC 11.3 H (3.8-10.6) k/uL Neutrophils # 9.1 H (1.3-7.7) k/uL ESR 67 H (0-15) mm/hr Sodium 133 L (137-145) mmol/L Chloride 95 L (98-107) mmol/L Creatinine 0.63 L (0.66-1.25) mg/dL Glucose 159 H (74-99) mg/dL POC Glucose (mg/dL) 148 H (75-99) mg/dL Total Bilirubin 1.5 H (0.2-1.3) mg/dL C-Reactive Protein 219.7 H (<10.0) mg/L 04/26/19 Range/Units 07:05 WBC (3.8-10.6) k/uL Neutrophils # (1.3-7.7) k/uL ESR (0-15) mm/hr Sodium (137-145) mmol/L Chloride (98-107) mmol/L Creatinine (0.66-1.25) mg/dL Glucose (74-99) mg/dL POC Glucose (mg/dL) 121 H (75-99) mg/dL Total Bilirubin (0.2-1.3) mg/dL C-Reactive Protein (<10.0) mg/L Thrombosis Risk Factor Assmnt - DVT/VTE Prophylaxis DVT/VTE Prophylaxis: Pharmacologic Prophylaxis ordered - Choose All That Apply Any of the Below Risk Factors Present?: Yes Each Factor Represents 1 point: Obesity (BMI >25) Other Risk Factors: Yes Each Risk Factor Represents 2 Points: Age 61-74 years Other congenital or acquired thrombophilia - If yes, enter type in comment: No Thrombosis Risk Factor Assessment Total Risk Factor Score: 3 Thrombosis Risk Factor Assessment Level: Moderate Risk Assessment and Plan Plan: 1. Diabetic right great toe ulcer, rule out osteomyelitis. Patient is undergoing bone scan. Local wound care has been addressed by the wound care team. Consult with Dr. Ng. Antibiotics changed to Kefzol. Await cultures. 2. Diabetes mellitus type 2, uncontrolled. A1c is pending. Patient will be resumed on Levemir 55 units at bedtime, NovoLog scheduled with meals will be decreased to 3 units 3 times daily and start NovoLog scale. Invokana and trulicity on hold. His home dose of NovoLog scheduled with meals is 20 units. 3. Diabetic neuropathy. Continue gabapentin 800 mg 3 times daily. 4. Hypertension. Continue Zestoretic 2 tablets daily. 5. Hyperlipidemia. Continue statin. 6. Gastroesophageal reflux disease and GI prophylaxis. Continue Zantac or equivalent. 7. Overactive bladder. Continue Detrol LA. 8. Recurrent depression. Continue Zoloft 100 mg daily. 9. Insomnia. Continue Ambien 10 mg at bedtime. 10. Chronic back pain. Continue baclofen daily as needed, Percocet 1 every 6 hours as needed. Patient will be admitted to the hospital for a minimum of 2 night stay. Discharge plan: home Impression and plan of care have been directed as dictated by the signing physician. Rosey Alvares nurse practitioner acting as scribe for signing physician.
[2019-04-26] MEDS: INSULIN ASPART (NovoLOG) 100 UNIT/ML VIAL SQ SCH ×5 (13:41→21:11)
[2019-04-26] MEDS ORDERED: VANCOMYCIN IV PER PHARMACY 1 EACH MISC MISCELLANE PRN (14:38)
[2019-04-26] MEDS ORDERED: VANCOMYCIN 1,750 MG in SODIUM CHLORIDE 0.9% 500 ML 500 ML IVPB ONE (15:15)
--- NOTE | 2019-04-26 15:51 | NM ---
EXAMINATION TYPE: NM bone 3 phase DATE OF EXAM: 04/26/2019 COMPARISON: X-rays of the right foot dated 04/25/2019 HISTORY: Concern for first great toe osteomyelitis of the right foot Triple phase bone scintigraphy was performed following the injection of 26.1 mCi Tc 99m MDP. Immedia te images and NA hours post injection images acquired. FINDINGS: There is asymmetric and abnormal flow to the right lower extremity as well as abnormal blood pool. De layed images were canceled. IMPRESSION: Abnormal flow and blood pool radiotracer accumulation to the right first great toe suggesting osteomy elitis however delayed images were canceled by the ordering physician as the patient is now scheduled to have right great toe amputated.
[2019-04-26 17:33] LABS: Glucose,Whole Blood 140 mg/dL (75-99)
[2019-04-26] MEDS ORDERED: LIDOCAINE 1% (PF) 10 MG/ML (30 ML SDV) SQ ONE ×2 (18:33→18:49)
[2019-04-26] MEDS ORDERED: MIDAZOLAM 2 MG/2 ML VIAL ONE (18:40)
[2019-04-26] MEDS ORDERED: ROPIVACAINE 5 MG/ML 30 ML VIAL ONE (18:40)
[2019-04-26] MEDS ORDERED: PROPOFOL 10 MG/ML 20 ML VIAL IV ONE (18:40)
[2019-04-26] MEDS ORDERED: LIDOCAINE 2% (PF) 20 MG/ML 2 ML VIAL ONE (18:40)
[2019-04-26] MEDS ORDERED: LACTATED RINGERS 1,000 ML IV ONE (18:40)
[2019-04-26] MEDS ORDERED: fentaNYL (PF) 50 MCG/ML 2 ML AMP ONE (18:40)
--- NOTE | 2019-04-26 18:54 | CONS ---
CONSULTATION This is a 63-year-old diabetic male who came to the emergency room with history of right foot big toe infected with foul odor smell, complaining of pain and not feeling well. The patient had this infection going on for the last four days. The patient has been admitted and I was consulted for evaluation. The patient has had an ulcer on the right foot big toe plantar aspect for a long time and he also has a blister with infected gangrene changes noted on the web of the big toe and second toe. MEDICAL HISTORY: The patient has a history of diabetes mellitus, history of hyperlipidemia, history of hypertension. LABORATORY DATA: His white cell count is 11.3, hemoglobin 15.8. PHYSICAL EXAMINATION: NECK: On examination, neck is supple. Trachea is central. CHEST: Clear on auscultation. ABDOMEN: Soft. EXTREMITIES: Femoral pulses are palpable bilaterally. Posterior tibial pulses not palpable. Triphasic flow noted in the posterior tibial. No flow noted at dorsalis pedis. The patient has wet gangrene in the right big toe and there is marked redness of the dorsal aspect of the foot. There is a foul odor noted from the right big toe. The patient is on intravenous antibiotics under the care of Infectious Disease. ASSESSMENT: The patient has wet gangrene of four days' duration. PLAN: Right big toe amputation, possibly second toe amputation. I have discussed in detail with the patient. The patient understands, and we will proceed. MMODL / IJN: [id number] /
--- NOTE | 2019-04-26 19:04 | P.ANPRN ---
Procedure Note - Anesthesia - Nerve Block Performed Right Adductor Canal Single Time Out Performed: Yes Date of Procedure: 04/26/19 Procedure Start Time: 18:30 Procedure Stop Time: 18:32 Location of Patient: PreOp Indication: Acute Post-Operative Pain, Analgesia, Requested by Surgeon Sedation Type: Sedate with meaningful contact maintained Preparation: Sterile Prep Position: Supine Catheter: None Needle Types: Pajunk Needle Gauge: 21 Ultrasound used to visualize needle placement: Yes Ultrasound used to observe medication spread: Yes Injectate: 0.5% Ropivacaine (see comment for volume) Blood Aspirated: No Pain Paresthesia on Injection Noted: No Resistance on Injection: Normal Image Stored and Saved: Yes Events: Uneventful and Well Tolerated
--- NOTE | 2019-04-26 19:05 | P.ANPRN ---
Procedure Note - Anesthesia - Nerve Block Performed Right Popliteal Single Time Out Performed: Yes Date of Procedure: 04/26/19 Procedure Start Time: 18:33 Procedure Stop Time: 18:36 Location of Patient: PreOp Indication: Acute Post-Operative Pain, Analgesia, Requested by Surgeon Sedation Type: Sedate with meaningful contact maintained Preparation: Sterile Prep Position: Supine Catheter: Indwelling Needle Types: Pajunk Needle Gauge: 21 Ultrasound used to visualize needle placement: Yes Ultrasound used to observe medication spread: Yes Injectate: 0.5% Ropivacaine (see comment for volume) Blood Aspirated: No Pain Paresthesia on Injection Noted: No Resistance on Injection: Normal Image Stored and Saved: Yes Events: Uneventful and Well Tolerated
[2019-04-26 20:01] LABS: Glucose,Whole Blood 128 mg/dL (75-99)
[2019-04-26] MEDS ORDERED: ZOLPIDEM 10 MG TAB PO SCH (21:00)
[2019-04-26] MEDS: AMPICILLIN-SULBACTAM 3 GM in SODIUM CHLORIDE 0.9% 100 ML IVPB SCH ×2 (21:11→23:00)
[2019-04-26] MEDS: INSULIN DETEMIR (LEVEMIR) 100 UNIT/ML SYR SQ SCH (21:28)
[2019-04-26] MEDS: ZOLPIDEM 10 MG TAB PO PRN (21:38)
--- NOTE | 2019-04-26 23:36 | P.CONS ---
History of Present Illness - Reason for Consult Consult date: 04/26/19 right diabetic foot infection Requesting physician: Vanna Sanchez - Chief Complaint right big toe swelling and redness x 4 days - History of Present Illness Patient is a 63-year-old male presenting to the ER last evening with chief complaints of 4 possible infection to his right big toe patient noticed about 4 days ago that is toenail on the big toe was draining patient also noticed having pain swelling and redness to the right big toe that subsequently has been swelling spreading to the right foot dorsum patient did have some dull aching pain to the right foot intensity 3-4 out of 10 orientation with increasing swelling and redness and the patient also complaining of fever patient is presented to [facility] ER on arrival to the ER the patient has been afebrile patient did have a mild evaluation of 11.3 patient creatinine 0.63 patient did have x-rays of the foot which did show soft tissue swelling the patient was started on Rocephin subsequently added cefazolin 2 g every 8 hourly infectious was consulted for further recommendation regarding antibiotic therapy. Patient did have blood cultures drawn in the ER recommend positive with gram-positive cocci Review of Systems Positive point has been mentioned in HPI rest of the systems are negative Past Medical History Past Medical History: Diabetes Mellitus, GERD/Reflux, Hyperlipidemia, Hypertension Additional Past Medical History / Comment(s): fatty liver, bulging disk History of Any Multi-Drug Resistant Organisms: None Reported Additional Past Surgical History / Comment(s): pain clinic procedures Past Anesthesia/Blood Transfusion Reactions: No Reported Reaction Past Psychological History: Depression Smoking Status: Former smoker Past Alcohol Use History: None Reported Additional Past Alcohol Use History / Comment(s): Patient was a smoker 3 packs per day for greater than 20 years and quit 25 years ago. He denies any marijuana or street drug use. He drinks a few beers occasionally. He works at [employer] in [employer] department. Past Drug Use History: None Reported - Past Family History Mother Family Medical History: No Reported History Additional Family Medical History / Comment(s): Mother at age 60 from colon cancer. She had history of lung transplant. Patient does not know why she had a lung transplant other than she was a smoker. Father Additional Family Medical History / Comment(s): Father at age 67 from a myocardial infarction. Brother(s) Additional Family Medical History / Comment(s): Patient does not have any brothers. Patient had 1 sister that at age 40 from pancreatic cancer. Patient has 2 sons and 1 daughter with no major medical problems. Medications and Allergies Home Medications Medication Instructions Recorded Confirmed Type Aspirin 81 mg PO DAILY 08/06/13 04/25/19 History Lisinopril-Hctz 20-12.5 mg 2 tab PO DAILY 08/06/13 04/25/19 History [Zestoretic 20-12.5] Baclofen [Lioresal] 10 mg PO DAILY PRN 09/07/15 04/25/19 History Zolpidem [Ambien] 10 mg PO HS 09/28/15 04/25/19 History Ranitidine HCl [Zantac] 150 mg PO BID 04/14/16 04/25/19 History Sertraline [Zoloft] 100 mg PO DAILY 11/17/17 04/25/19 History Insulin Aspart [NovoLOG Flexpen] 20 units SQ AC-TID 07/19/18 04/25/19 History oxyCODONE-APAP 7.5-325MG [Percocet 1 tab PO Q6HR PRN 07/19/18 04/25/19 History 7.5-325 mg] Insulin Degludec [Tresiba] 55 units SQ HS 07/27/18 04/25/19 History Dulaglutide [Trulicity] 1.5 mg SQ CHATMAN 04/15/19 04/25/19 History Gabapentin 800 mg PO TID 04/15/19 04/25/19 History Canagliflozin [Invokana] 100 mg PO DAILY 04/25/19 04/25/19 History Rosuvastatin Calcium 10 mg PO DAILY 04/25/19 04/25/19 History Tolterodine ER [Detrol LA] 4 mg PO DAILY 04/25/19 04/25/19 History Allergies Allergy/AdvReac Type Severity Reaction Status Date / Time No Known Allergies Allergy Verified 04/25/19 21:25 Physical Exam Vitals: Vital Signs Temp Pulse Pulse Resp BP Pulse Ox 04/26/19 20:08 61 16 120/72 95 04/26/19 19:55 67 16 121/71 96 04/26/19 19:41 98.0 F 66 16 123/69 95 04/26/19 12:11 98.4 F 71 16 116/61 97 04/26/19 05:00 98.2 F 70 16 127/69 95 Intake and Output 04/26/19 04/26/19 04/27/19 14:59 22:59 06:59 Intake Total 1290 700 Output Total 50 Balance 1290 650 Intake: IV 700 Intake, IV Titration 690 Amount Sodium Chloride 0.9% 1, 640 000 ml @ 75 mls/hr IV . [id number] [facility] Rx#:[id number] cefTRIAXone 2 gm In 50 Sodium Chloride 0.9% 50 ml @ 100 mls/hr IVPB Q24HR [facility] Rx#:[id number] Oral 600 Output: Estimated Blood Loss 50 Other: Voiding Method Toilet Toilet # Voids 1 1 GENERAL DESCRIPTION: Middle-aged male lying in bed, no distress. No tachypnea or accessory muscle of respiration use. HEENT: Shows Pallor , no scleral icterus. Oral mucous membrane is dry. NECK: Trachea central, no thyromegaly. LUNGS: Unlabored breathing. Clear to auscultation anteriorly. No wheeze or crackle. HEART: S1, S2, regular rate and rhythm. ABDOMEN: Soft, no tenderness , guarding or rigidity EXTREMITIES: Right big toe is significantly swollen right with some excoriation and foul-smelling drainage with redness swelling to the dorsum of the right foot. SKIN: No rash, no masses palpable. NEUROLOGICAL: The patient is awake, alert, oriented x3, mood and affect normal. Results CBC & Chem 7: 04/25/19 17:18 04/25/19 17:18 Labs: Abnormal Lab Results - Last 24 Hours (Table) 04/26/19 04/26/19 04/26/19 Range/Units 07:05 11:18 17:31 POC Glucose (mg/dL) 121 H 141 H 140 H (75-99) mg/dL 04/26/19 Range/Units 19:58 POC Glucose (mg/dL) 128 H (75-99) mg/dL Microbiology - Last 24 Hours (Table) 04/25/19 17:18 Blood Culture Gram Stain - Preliminary Blood Blood Culture - Preliminary Strep agalactiae - (group b) 04/26/19 09:00 Wound Culture - Preliminary Toe - Right First 04/26/19 09:00 Anaerobic Culture - Preliminary Toe - Right First 04/25/19 17:18 Blood Culture - Final Blood Assessment and Plan Assessment: 1-patient with extensive diabetic foot infection involving his right big toe which seem to be significantly swollen and red with concern for possible wet gangrene for second cellulitis of the right foot [id number] bacteremia source is likely right diabetic foot infection (1) Wet gangrene Current Visit: Yes Status: Acute Code(s): I96 - GANGRENE, NOT ELSEWHERE CLASSIFIED SNOMED Code(s): 526053644 (2) Cellulitis of right foot Current Visit: Yes Status: Acute Code(s): L03.115 - CELLULITIS OF RIGHT LOWER LIMB SNOMED Code(s): 555096081 (3) Diabetic ulcer of right great toe Current Visit: Yes Status: Acute Code(s): E11.621 - TYPE 2 DIABETES MELLITUS WITH FOOT ULCER; L97.519 - NON-PRS CHRONIC ULCER OTH PRT RIGHT FOOT W UNSP SEVERITY SNOMED Code(s): 26625168 (4) Gram-positive bacteremia Current Visit: Yes Status: Acute Code(s): R78.81 - BACTEREMIA SNOMED Cod e(s): 135811496476 Plan: 1-blood cultures will be repeated to document clearance of bacteremia 2-discontinue cefazolin 3-vancomycin pharmacy to dose her with a target trough of 15 while watching her kidney function and Vanco trough closely. 4-Unasyn 3 g every 6 hours. 5- Vascular surgery consult We will follow on clinical condition and cultures to further adjust medication if needed Thank you for this consultation we will follow the patient along with you Time with Patient: Greater than 30
[2019-04-27] MEDS ORDERED: VANCOMYCIN 1,750 MG in SODIUM CHLORIDE 0.9% 500 ML 500 ML IVPB SCH ×2
[2019-04-27] MEDS: CLINDAMYCIN 900 MG in DEXTROSE 5% IN WATER 50 ML IVPB SCH ×8 (01:10→23:00)
[2019-04-27] MEDS: SODIUM CHLORIDE 0.9% 1,000 ML IV SCH ×2 (04:15→17:27)
[2019-04-27 06:20] LABS: African American GFR (CKD) >90 (>60 ml/min/1.73 sqM); Non-African American GFR(CKD) >90 (>60 ml/min/1.73 sqM)
[2019-04-27 07:03] LABS: Glucose,Whole Blood 108 mg/dL (75-99)
[2019-04-27] MEDS: INSULIN ASPART (NovoLOG) 100 UNIT/ML VIAL SQ SCH ×7 (08:00→20:56)
[2019-04-27] MEDS: ASPIRIN 81 MG PO SCH (08:01)
[2019-04-27] MEDS: ATORVASTATIN 20 MG TAB PO SCH (08:01)
[2019-04-27] MEDS: FAMOTIDINE 20 MG TAB PO SCH ×2 (08:01→20:57)
[2019-04-27] MEDS: GABAPENTIN 400 MG CAP PO SCH ×3 (08:02→20:56)
[2019-04-27] MEDS: SERTRALINE 100 MG TAB PO SCH (08:02)
[2019-04-27] MEDS: LISINOPRIL-HCTZ 20-12.5 MG 1 EACH TAB PO SCH (08:02)
[2019-04-27] MEDS: OXYBUTYNIN XL 5 MG TAB.ER.24 PO SCH (08:02)
[2019-04-27] MEDS: oxyCODONE-APAP 7.5-325MG 1 EACH TAB PO PRN ×3 (08:12→20:22)
--- NOTE | 2019-04-27 10:15 | OP ---
OPERATIVE REPORT PREOP DIAGNOSIS: Wet gangrene of the right foot big toe. POSTOP DIAGNOSIS: Wet gangrene of the right foot big toe. OPERATION: Amputation of the right foot big toe at the metatarsal pharyngeal joint. HISTORY: This patient has history of wet gangrene of the right foot for the last 4 days. The patient came with the marked swelling, redness and discharge and drainage from the right big toe with marked cellulitis on the dorsal aspect of the foot. DESCRIPTION OF PROCEDURE: The patient was brought to the operating room under the block the incision was made on the dorsal aspect of the foot at the metatarsophalangeal joint area and went circumferentially around the big toe and this up to the plantar aspect of the foot, deepened through skin, fat, and fascia. After that, the tendons were divided on the dorsum aspect down and plantar aspect of the foot and then we reached the head of the metatarsal bone and using hand electric saw, we divided the head of the metatarsal bones with the hand saw and along with head of the metatarsal, big toe was removed. There was some bleeding points which was suture ligated with 0 Prolene and wound was copiously irrigated with hydrogen peroxide and saline. Hemostasis well controlled. Incision was closed in 2 layers. Subcu tissue fat was approximated with 3-0 Vicryl and skin was approximated with 5-0 nylon with mattress interrupted suture. Dressing applied. Patient tolerated the procedure well. Blood loss is about 50 mL. The patient transferred to recovery room in satisfactory condition. MMODL / IJN: [id number] /
--- NOTE | 2019-04-27 11:19 | P.PN ---
Subjective Progress Note Date: 04/27/19 This is a 63-year-old male patient of Dr. Castillo. with past medical history of diabetes mellitus type 2, hypertension, hyperlipidemia, gastroesophageal reflux disease, recurrent depression, remote history of tobacco use, fatty liver, chronic back pain. Patient states that on Monday he noticed a hangnail to his right great toe. He started filing it and it started bleeding quite profusely. He went to work on Monday but was not feeling very well end up going home early. On Monday continued to not feel very well was laying around the house. He states his blood pressures have been labile running between 89 and 250. He does not know his most recent hemoglobin A1c. He was last seen in the office with Dr. Castillo in February. He states he has had cold sweats but no fevers or chills. He has had an ulcer on his left foot but was never this bad. He does not have diabetic shoes. Patient also has a callus on the plantar surface of the right great toe for which he has been filing and now presents with ulcer. Patient came into [facility] emergency center for evaluation. Patient was afebrile, heart rate 91, blood pressure 110/73, pulse ox 98% on room air. CBC 11.3, hemoglobin 15.8, platelet count 265. Sodium 133, potassium 4.1, chloride 95, CO2 25 BUN 20, creatinine 0.63, blood sugar 159. A sed rate 67, CRP 219, lactic acid 1.2. Patient was given 1 L of IV fluid as one dose of ceftriaxone and [facility]. Consults in place with Wound Care Team and Dr. Ng 04/27/2019: Patient is postop day 1 for a amputation of the right great toe. Juan J ammon continues to have nerve block in place he did receive one Percocet and pain is managed at this time. Patient has been ambulatory utilizing a walker to the bathroom without any difficulties. He continues to be on IV antibiotics. Patient has no complaints or concerns at this time. Review of Systems Constitutional: Reports fatigue, Reports lethargy, Reports malaise, Reports poor appetite, Reports sweats, Denies anorexia, Denies chills, Denies fever, Denies weight loss Eyes: denies blurred vision, denies pain Ears, nose, mouth and throat: Denies dental pain, Denies dysphagia, Denies head ache, Denies nasal congestion, Denies nasal discharge, Denies sore throat, Denies vertigo Cardiovascular: Denies chest pain, Denies decreased exercise tolerance, Denies dyspnea on exertion, Denies edema, Denies leg edema, Denies lightheadedness, Denies shortness of breath, Denies syncope Respiratory: Denies cough, Denies cough with sputum, Denies dyspnea, Denies excessive sputum, Denies hemoptysis, Denies home oxygen, Denies respiratory infections, Denies wheezing Gastrointestinal: Denies abdominal pain, Denies constipation, Denies diarrhea, Denies nausea, Denies vomiting Genitourinary: Denies dysuria, Denies urinary frequency, Denies urinary hesitancy, Denies urinary retention Musculoskeletal: Denies frequent falls, Denies gait dysfunction, Denies muscle weakness, Denies myalgias Integumentary: Reports color changes, Reports wounds, Denies pruritus, Denies rash Neurological: Denies change in mentation, Denies change in speech, Denies numbness, Denies weakness Psychiatric: Denies anxiety, Denies depression Endocrine: Reports high blood sugars, Denies fatigue, Denies weight change Objective - Vital Signs Vital signs: Vital Signs Temp 97.6 F 04/27/19 04:05 Pulse 72 04/27/19 04:05 Resp 16 04/27/19 04:05 BP 118/66 04/27/19 04:05 Pulse Ox 95 04/27/19 04:05 Intake & Output 04/26/19 04/27/19 04/27/19 18:59 06:59 18:59 Intake Total 1790 200 Output Total 50 300 Balance 1790 150 -300 Intake: IV 500 200 Intake, IV Titration 690 Amount Sodium Chloride 0.9% 1, 640 000 ml @ 75 mls/hr IV . [id number] NAIF Rx#:[id number] cefTRIAXone 2 gm In 50 Sodium Chloride 0.9% 50 ml @ 100 mls/hr IVPB Q24HR NAIF Rx#:[id number] Oral 600 Output: Urine 300 Estimated Blood Loss 50 Other: Voiding Method Toilet Toilet # Voids 1 2 # Bowel Movements 1 - Exam Gen: This is a 63-year-old male. He is sitting up in bed appears to be comfortable and in no acute distress. HEENT: Head is atraumatic, normocephalic. Pupils equal, round. Sclerae is anicteric. Conjunctiva pink. Because the results of the mouth are moist. NECK: Supple. No JVD. No lymphadenopathy. No thyromegaly. LUNGS: Clear to auscultation. No wheezes or rhonchi. No intercostal retractions. HEART: Regular rate and rhythm. No murmur. ABDOMEN: Soft. Bowel sounds are present. No masses. No tenderness. EXTREMITIES: No pedal edema. Right great toe amputation site, dressing is in place clean dry and intact On the left great toe plantar surface, there is an ulceration, no drainage. NEUROLOGICAL: Patient is awake, alert and oriented x3. Cranial nerves 2 through 12 are grossly intact. - Labs CBC & Chem 7: 04/25/19 17:18 04/27/19 05:46 Labs: Abnormal Lab Results - Last 24 Hours (Table) 04/26/19 04/26/19 04/26/19 Range/Units 11:18 17:31 19:58 Creatinine (0.66-1.25) mg/dL POC Glucose (mg/dL) 141 H 140 H 128 H (75-99) mg/dL 04/27/19 04/27/19 Range/Units 05:46 07:01 Creatinine 0.52 L (0.66-1.25) mg/dL POC Glucose (mg/dL) 108 H (75-99) mg/dL Microbiology - Last 24 Hours (Table) 04/26/19 09:00 Gram Stain - Preliminary Toe - Right First Wound Culture - Preliminary Strep agalactiae - (group b) 04/26/19 19:12 Gram Stain - Preliminary Toe - Right First Tissue Culture - Preliminary 04/26/19 19:12 Anaerobic Culture - Preliminary Toe - Right First 04/25/19 17:18 Blood Culture Gram Stain - Preliminary Blood Blood Culture - Preliminary Strep agalactiae - (group b) 04/26/19 09:00 Anaerobic Culture - Preliminary Toe - Right First 04/25/19 17:18 Blood Culture - Final Blood Assessment and Plan Plan: 1. Diabetic right great toe ulcer, rule out osteomyelitis. Awaiting cultures. Dr. Ng consult appreciated. Patient underwent a indication of the right great toe per Dr. Finney's and postop day 1. Pain is well managed. Dressing is clean dry and intact. Initial bone Scan shows suspicious for osteomyelitis 2. Diabetes mellitus type 2, uncontrolled. A1c is pending. Patient will be resumed on Levemir 55 units at bedtime, NovoLog scheduled with meals will be decreased to 3 units 3 times daily and start NovoLog scale. Invokana and trulicity on hold. His home dose of NovoLog scheduled with meals is 20 units. 3. Diabetic neuropathy. Continue gabapentin 800 mg 3 times daily. 4. Hypertension. Continue Zestoretic 2 tablets daily. 5. Hyperlipidemia. Continue statin. 6. Gastroesophageal reflux disease and GI prophylaxis. Continue Zantac or equivalent. 7. Overactive bladder. Continue Detrol LA. 8. Recurrent depression. Continue Zoloft 100 mg daily. 9. Insomnia. Continue Ambien 10 mg at bedtime. 10. Chronic back pain. Continue baclofen daily as needed, Percocet 1 every 6 hours as needed. Patient will be admitted to the hospital for a minimum of 2 night stay. Discharge plan: home Impression and plan of care have been directed as dictated by the signing physician. Pilar Hansen nurse practitioner acting as scribe for signing physician.
--- NOTE | 2019-04-27 11:24 | PN ---
PROGRESS NOTE This is a 63-year-old diabetic male. Patient came with wet gangrene of the right foot big toe. The patient went for amputation of the right foot big toe. We sent for deep culture. The dressing is intact. We will change the dressing tomorrow. Advised continue the IV antibiotic. Nonweightbearing. MMODL / IJN: [id number] /
[2019-04-27 11:25] LABS: Glucose,Whole Blood 101 mg/dL (75-99)
[2019-04-27 16:55] LABS: Glucose,Whole Blood 163 mg/dL (75-99)
--- NOTE | 2019-04-27 18:12 | PN ---
PROGRESS NOTE DATE OF SERVICE: 04/27/2019 REASON FOR FOLLOWUP: 1. Right big toe wet gangrene. 2. Bacteremia. INTERVAL HISTORY: The patient is currently afebrile. The patient has been breathing comfortably. The patient denies having any chest pain. No shortness of breath. No cough. No abdominal pain or any pain to the right foot. PHYSICAL EXAMINATION: Blood pressure 117/50 with a pulse of 62, temperature 98.4. He is 96% on room air. General description is a middle-aged male lying in bed in no distress. Respiratory system: Unlabored breathing, clear to auscultation anteriorly. Heart S1, S2. Regular rate and rhythm. Abdomen soft. Right foot is currently dressed up. No obvious drainage on the dressing. LABS: Creatinine 0.524. Wound culture and blood cultures with group B strep. DIAGNOSTIC IMPRESSION AND PLAN: Patient with right big toe wet gangrene, cultures with group B strep in this patient who did have secondary bacteremia. The patient antibiotic adjusted to cefazolin and clindamycin. Continue and monitor clinical course closely. Continue supportive care. MMODL / IJN: [id number] /
[2019-04-27 18:15] LABS: Hemoglobin A1C 9.5 % (4.0-6.0)
[2019-04-27] MEDS: ZOLPIDEM 10 MG TAB PO PRN (20:23)
[2019-04-27 20:38] LABS: Glucose,Whole Blood 193 mg/dL (75-99)
[2019-04-27] MEDS: INSULIN DETEMIR (LEVEMIR) 100 UNIT/ML SYR SQ SCH (20:56)
[2019-04-27 23:46] LABS: Prealbumin <5.0 mg/dL (18.0-42.0)
[2019-04-28] MEDS: oxyCODONE-APAP 7.5-325MG 1 EACH TAB PO PRN ×4 (03:26→20:54)
[2019-04-28] MEDS: SODIUM CHLORIDE 0.9% 1,000 ML IV SCH ×3 (03:27→23:25)
[2019-04-28 06:56] LABS: Glucose,Whole Blood 90 mg/dL (75-99)
[2019-04-28] MEDS ORDERED: VANCOMYCIN TROUGH DUE 1 EACH MISC MISCELLANE ONE (07:00)
[2019-04-28 07:16] LABS: African American GFR (CKD) >90 (>60 ml/min/1.73 sqM); Non-African American GFR(CKD) >90 (>60 ml/min/1.73 sqM)
[2019-04-28] MEDS: ASPIRIN 81 MG PO SCH (08:28)
[2019-04-28] MEDS: FAMOTIDINE 20 MG TAB PO SCH ×2 (08:28→20:00)
[2019-04-28] MEDS: ATORVASTATIN 20 MG TAB PO SCH (08:28)
[2019-04-28] MEDS: GABAPENTIN 400 MG CAP PO SCH ×3 (08:28→20:54)
[2019-04-28] MEDS: SERTRALINE 100 MG TAB PO SCH (08:28)
[2019-04-28] MEDS: LISINOPRIL-HCTZ 20-12.5 MG 1 EACH TAB PO SCH (08:28)
[2019-04-28] MEDS: OXYBUTYNIN XL 5 MG TAB.ER.24 PO SCH (08:29)
[2019-04-28] MEDS: INSULIN ASPART (NovoLOG) 100 UNIT/ML VIAL SQ SCH ×7 (08:29→20:00)
[2019-04-28] MEDS: CLINDAMYCIN 900 MG in DEXTROSE 5% IN WATER 50 ML IVPB SCH ×6 (09:02→23:24)
--- NOTE | 2019-04-28 10:46 | PN ---
PROGRESS NOTE The patient had a right big toe amputation of wet gangrene. Today we have changed the dressing. Incision is healing. There is slight draining noted. Stitches are intact. Less redness on the dorsal aspect of the foot. Continue with IV antibiotics, nonweightbearing. MMODL / IJN: [id number] /
--- NOTE | 2019-04-28 11:19 | P.PN ---
Subjective Progress Note Date: 04/28/19 This is a 63-year-old male patient of Dr. Castillo. with past medical history of diabetes mellitus type 2, hypertension, hyperlipidemia, gastroesophageal reflux disease, recurrent depression, remote history of tobacco use, fatty liver, chronic back pain. Patient states that on Monday he noticed a hangnail to his right great toe. He started filing it and it started bleeding quite profusely. He went to work on Monday but was not feeling very well end up going home early. On Monday continued to not feel very well was laying around the house. He states his blood pressures have been labile running between 89 and 250. He does not know his most recent hemoglobin A1c. He was last seen in the office with Dr. Castillo in February. He states he has had cold sweats but no fevers or chills. He has had an ulcer on his left foot but was never this bad. He does not have diabetic shoes. Patient also has a callus on the plantar surface of the right great toe for which he has been filing and now presents with ulcer. Patient came into [facility] emergency center for evaluation. Patient was afebrile, heart rate 91, blood pressure 110/73, pulse ox 98% on room air. CBC 11.3, hemoglobin 15.8, platelet count 265. Sodium 133, potassium 4.1, chloride 95, CO2 25 BUN 20, creatinine 0.63, blood sugar 159. A sed rate 67, CRP 219, lactic acid 1.2. Patient was given 1 L of IV fluid as one dose of ceftriaxone and admitted to the [facility] floor. Consults in place with Wound Care Team and Dr. Ng 04/27/2019: Patient is postop day 1 for a amputation of the right great toe. Juan J ammon continues to have nerve block in place he did receive one Percocet and pain is managed at this time. Patient has been ambulatory utilizing a walker to the bathroom without any difficulties. He continues to be on IV antibiotics. Patient has no complaints or concerns at this time. 04/27: Patient is postop day 2 for indication of the right great toe. Patient states that his pain is well managed. He has been ambulating utilizing a walker. Dressing was removed per Dr. Finney. Incision is intact and well approximated. Drainage is noted. Erythema to dorsal aspect of mid foot noted. Awaiting cultures. Review of Systems Constitutional: Reports fatigue, Reports lethargy, Reports malaise, Reports poor appetite, Reports sweats, Denies anorexia, Denies chills, Denies fever, Denies weight loss Eyes: denies blurred vision, denies pain Ears, nose, mouth and throat: Denies dental pain, Denies dysphagia, Denies headache, Denies nasal congestion, Denies nasal discharge, Denies sore throat, Denies vertigo Cardiovascular: Denies chest pain, Denies decreased exercise tolerance, Denies dyspnea on exertion, Denies edema, Denies leg edema, Denies lightheadedness, Denies shortness of breath, Denies syncope Respiratory: Denies cough, Denies cough with sputum, Denies dyspnea, Denies excessive sputum, Denies hemoptysis, Denies home oxygen, Denies respiratory infections, Denies wheezing Gastrointestinal: Denies abdominal pain, Denies constipation, Denies diarrhea, Denies nausea, Denies vomiting Genitourinary: Denies dysuria, Denies urinary frequency, Denies urinary hesitancy, Denies urinary retention Musculoskeletal: Denies frequent falls, Denies gait dysfunction, Denies muscle weakness, Denies myalgias Integumentary: Reports color changes, Reports wounds, Denies pruritus, Denies r jodie Neurological: Denies change in mentation, Denies change in speech, Denies numbness, Denies weakness Psychiatric: Denies anxiety, Denies depression Endocrine: Reports high blood sugars, Denies fatigue, Denies weight change Objective - Vital Signs Vital signs: Vital Signs Temp 97.4 F L 04/28/19 03:53 Pulse 64 04/28/19 03:53 Resp 16 04/27/19 20:38 BP 123/71 04/28/19 03:53 Pulse Ox 97 04/28/19 03:53 Intake & Output 04/27/19 04/28/19 04/28/19 18:59 06:59 18:59 Intake Total 100 Output Total 300 350 Balance -200 -350 Intake: Intake, IV Titration 100 Amount Clindamycin 900 mg In 50 Dextrose 5% in Water 50 ml @ 50 mls/hr IVPB Q8HR NAIF Rx#:[id number] ceFAZolin 2 gm In Sodium 50 Chloride 0.9% 50 ml @ 100 mls/hr IVPB Q8HR NAIF Rx# :[id number] Output: Urine 300 350 Other: Voiding Method Toilet # Voids 1 # Bowel Movements 1 - Exam Gen: This is a 63-year-old male. He is sitting up in bed appears to be comfortable and in no acute distress. HEENT: Head is atraumatic, normocephalic. Pupils equal, round. Sclerae is anicteric. Conjunctiva pink. Because the results of the mouth are moist. NECK: Supple. No JVD. No lymphadenopathy. No thyromegaly. LUNGS: Clear to auscultation. No wheezes or rhonchi. No intercostal retractions. HEART: Regular rate and rhythm. No murmur. ABDOMEN: Soft. Bowel sounds are present. No masses. No tenderness. EXTREMITIES: No pedal edema. Right great toe amputation site, dressing is in place clean dry and intact On the left great toe plantar surface, there is an ulceration, no drainage. NEUROLOGICAL: Patient is awake, alert and oriented x3. Cranial nerves 2 through 12 are grossly intact. - Labs CBC & Chem 7: 04/25/19 17:18 04/28/19 06:47 Labs: Abnormal Lab Results - Last 24 Hours (Table) 04/27/19 04/27/19 04/27/19 Range/Units 05:46 05:46 11:23 Creatinine (0.66-1.25) mg/dL POC Glucose (mg/dL) 101 H (75-99) mg/dL Hemoglobin A1c 9.5 H (4.0-6.0) % Prealbumin <5.0 L (18.0-42.0) mg/dL 04/27/19 04/27/19 04/28/19 Range/Units 16:53 20:36 06:47 Creatinine 0.63 L (0.66-1.25) mg/dL POC Glucose (mg/dL) 163 H 193 H (75-99) mg/dL Hemoglobin A1c (4.0-6.0) % Prealbumin (18.0-42.0) mg/dL Microbiology - Last 24 Hours (Table) 04/26/19 09:00 Gram Stain - Final Toe - Right First Wound Culture - Final Strep agalactiae - (group b) 04/26/19 19:12 Gram Stain - Preliminary Toe - Right First Tissue Culture - Preliminary 04/26/19 15:02 Blood Culture - Preliminary Blood No Growth after 24 hours Assessment and Plan Plan: 1. Diabetic right great toe ulcer, rule out osteomyelitis. Awaiting cultures. Dr. Ng consult appreciated. Patient underwent a indication of the right great toe per Dr. Finney's and postop day 2. Pain is well managed. Dressing is clean dry and intact. Initial bone Scan shows suspicious for osteomyelitis. 2. Diabetes mellitus type 2, uncontrolled. A1c is pending. Patient will be resumed on Levemir 55 units at bedtime, NovoLog scheduled with meals will be decreased to 3 units 3 times daily and start NovoLog scale. Invokana and trulicity on hold. His home dose of NovoLog scheduled with meals is 20 units. Hemoglobin A1c 9.3. Diabetic foot ulcer left great toe. Honey alginate to the site. 3. Diabetic neuropathy. Continue gabapentin 800 mg 3 times daily. 4. Hypertension. Continue Zestoretic 2 tablets daily. 5. Hyperlipidemia. Continue statin. 6. Gastroesophageal reflux disease and GI prophylaxis. Continue Zantac or equivalent. 7. Overactive bladder. Continue Detrol LA. 8. Recurrent depression. Continue Zoloft 100 mg daily. 9. Insomnia. Continue Ambien 10 mg at bedtime. 10. Chronic back pain. Continue baclofen daily as needed, Percocet 1 every 6 hours as needed. Patient will be admitted to the hospital for a minimum of 2 night stay. Discharge plan: home Impression and plan of care have been directed as dictated by the signing physician. Pilar Hansen nurse practitioner acting as scribe for signing physician.
[2019-04-28 12:06] LABS: Glucose,Whole Blood 96 mg/dL (75-99)
[2019-04-28 12:48] VITALS: BMI 32.1
[2019-04-28 17:14] LABS: Glucose,Whole Blood 143 mg/dL (75-99)
[2019-04-28 19:51] LABS: Glucose,Whole Blood 187 mg/dL (75-99)
[2019-04-28] MEDS: INSULIN DETEMIR (LEVEMIR) 100 UNIT/ML SYR SQ SCH (19:59)
[2019-04-28] MEDS: ZOLPIDEM 10 MG TAB PO PRN (20:54)
[2019-04-29] MEDS: oxyCODONE-APAP 7.5-325MG 1 EACH TAB PO PRN ×3 (06:37→18:19)
[2019-04-29] MEDS: GABAPENTIN 400 MG CAP PO SCH ×3 (06:37→21:06)
[2019-04-29 07:07] LABS: Glucose,Whole Blood 105 mg/dL (75-99)
[2019-04-29] MEDS: INSULIN ASPART (NovoLOG) 100 UNIT/ML VIAL SQ SCH ×7 (07:41→21:05)
[2019-04-29] MEDS: CLINDAMYCIN 900 MG in DEXTROSE 5% IN WATER 50 ML IVPB SCH ×6 (07:48→23:55)
[2019-04-29] MEDS: LISINOPRIL-HCTZ 20-12.5 MG 1 EACH TAB PO SCH (07:49)
[2019-04-29] MEDS: ATORVASTATIN 20 MG TAB PO SCH (07:49)
[2019-04-29] MEDS: SERTRALINE 100 MG TAB PO SCH (07:49)
[2019-04-29] MEDS: FAMOTIDINE 20 MG TAB PO SCH ×2 (07:50→21:06)
[2019-04-29] MEDS: ASPIRIN 81 MG PO SCH (07:50)
[2019-04-29] MEDS: OXYBUTYNIN XL 5 MG TAB.ER.24 PO SCH (07:50)
[2019-04-29 09:14] LABS: African American GFR (CKD) >90 (>60 ml/min/1.73 sqM); Non-African American GFR(CKD) >90 (>60 ml/min/1.73 sqM)
--- NOTE | 2019-04-29 09:49 | PN ---
PROGRESS NOTE DATE OF SERVICE: 04/28/2019 REASON FOR FOLLOWUP: Right big toe wet gangrene and Streptococcus agalactiae bacteremia. INTERVAL HISTORY: The patient is currently afebrile. Has been breathing comfortably. The patient denies having any chest pain or any cough. No nausea. No vomiting. No abdominal pain or pain to the right big toe amputation site. PHYSICAL EXAMINATION: Blood pressure 114/62 with a pulse of 67, temperature 98.2. He is 95% on room air. General description is a middle-aged male lying in bed in no distress. RESPIRATORY SYSTEM: Unlabored breathing. Clear to auscultation anteriorly. HEART: S1, S2. Regular rate and rhythm. ABDOMEN: Soft. No tenderness. Right foot wound is currently dressed up. No obvious drainage on the dressing. LABS: Creatinine 0.63. DIAGNOSTIC IMPRESSION AND PLAN: Patient with right big toe wet gangrene secondary to diabetic foot infection in this patient who is status post amputation, has been treated . The patient may not need long-term antibiotic; however, the patient was bacteremic and recommending at least two weeks of IV antibiotic therapy. will be placed. Monitor clinical course closely. MMODL / IJN: [id number] /
[2019-04-29 11:55] LABS: Glucose,Whole Blood 111 mg/dL (75-99)
--- NOTE | 2019-04-29 13:18 | P.PN ---
Subjective Progress Note Date: 04/29/19 This is a 63-year-old male patient of Dr. Castillo. with past medical history of diabetes mellitus type 2, hypertension, hyperlipidemia, gastroesophageal reflux disease, recurrent depression, remote history of tobacco use, fatty liver, chronic back pain. Patient states that on Monday he noticed a hangnail to his right great toe. He started filing it and it started bleeding quite profusely. He went to work on Monday but was not feeling very well end up going home early. On Monday continued to not feel very well was laying around the house. He states his blood pressures have been labile running between 89 and 250. He does not know his most recent hemoglobin A1c. He was last seen in the office with Dr. Castillo in February. He states he has had cold sweats but no fevers or chills. He has had an ulcer on his left foot but was never this bad. He does not have diabetic shoes. Patient also has a callus on the plantar surface of the right great toe for which he has been filing and now presents with ulcer. Patient came into [facility] emergency center for evaluation. Patient was afebrile, heart rate 91, blood pressure 110/73, pulse ox 98% on room air. CBC 11.3, hemoglobin 15.8, platelet count 265. Sodium 133, potassium 4.1, chloride 95, CO2 25 BUN 20, creatinine 0.63, blood sugar 159. A sed rate 67, CRP 219, lactic acid 1.2. Patient was given 1 L of IV fluid as one dose of ceftriaxone and admitted to the [facility] floor. Consults in place with Wound Care Team and Dr. Ng 04/27/2019: Patient is postop day 1 for a amputation of the right great toe. P neptali continues to have nerve block in place he did receive one Percocet and pain is managed at this time. Patient has been ambulatory utilizing a walker to the bathroom without any difficulties. He continues to be on IV antibiotics. Patient has no complaints or concerns at this time. 04/27: Patient is postop day 2 for indication of the right great toe. Patient states that his pain is well managed. He has been ambulating utilizing a walker. Dressing was removed per Dr. Finney. Incision is intact and well approximated. Drainage is noted. Erythema to dorsal aspect of mid foot noted. Awaiting cultures. 04/28: Patient is postop day #3 for amputation of the right great toe. Wound cul tures positive for strep agalactiae group B. Blood culture gram-positive cocci. Patient has been afebrile, heart rate 60, blood pressure 94/60, pulse ox 96% on room air. Blood sugars are running between 96 and 187. Patient is currently on Kefzol and clindamycin. Patient denies having any pain to his right leg. Dr. Ng's request the patient stay another [address] Finney is following orquidea figueroa. Patient is complaining of pain in his back from laying in bed. Objective - Vital Signs Vital signs: Vital Signs Temp 97.8 F 04/29/19 05:00 Pulse 60 04/29/19 05:00 Resp 18 04/29/19 05:00 BP 94/60 04/29/19 05:00 Pulse Ox 96 04/29/19 05:00 Intake & Output 04/28/19 04/29/19 04/29/19 18:59 06:59 18:59 Intake Total 100 2250 Balance 100 2250 Weight 110.5 kg Intake: Intake, IV Titration 100 700 Amount Clindamycin 900 mg In 50 50 Dextrose 5% in Water 50 ml @ 50 mls/hr IVPB Q8HR NAIF Rx#:[id number] Sodium Chloride 0.9% 1, 600 000 ml @ 75 mls/hr IV . [id number] NAIF Rx#:[id number] ceFAZolin 2 gm In Sodium 50 50 Chloride 0.9% 50 ml @ 100 mls/hr IVPB Q8HR NAIF Rx# :[id number] Oral 1550 Other: Voiding Method Toilet # Voids 1 - Exam Review of Systems Constitutional: Reports fatigue, Reports lethargy, Reports malaise, Reports poor appetite, Reports sweats, Denies anorexia, Denies chills, Denies fever, Denies weight loss Eyes: denies blurred vision, denies pain Ears, nose, mouth and throat: Denies dental pain, Denies dysphagia, Denies headache, Denies nasal congestion, Denies nasal discharge, Denies sore throat, Denies vertigo Cardiovascular: Denies chest pain, Denies decreased exercise tolerance, Denies dyspnea on exertion, Denies edema, Denies leg edema, Denies lightheadedness, Denies shortness of breath, Denies syncope Respiratory: Denies cough, Denies cough with sputum, Denies dyspnea, Denies excessive sputum, Denies hemoptysis, Denies home oxygen, Denies respiratory infections, Denies wheezing Gastrointestinal: Denies abdominal pain, Denies constipation, Denies diarrhea, Denies nausea, Denies vomiting Genitourinary: Denies dysuria, Denies urinary frequency, Denies urinary hesitancy, Denies urinary retention Musculoskeletal: Denies frequent falls, Denies gait dysfunction, Denies muscle weakness, Denies myalgias, lumbar back pain Integumentary: Reports color changes, Reports wounds, Denies pruritus, Denies ra sh Neurological: Denies change in mentation, Denies change in speech, Denies numbness, Denies weakness Psychiatric: Denies anxiety, Denies depression Endocrine: Reports high blood sugars, Denies fatigue, Denies weight change Physical examination Gen: This is a 63-year-old male. He is sitting up in bed appears to be comfortable and in no acute distress. HEENT: Head is atraumatic, normocephalic. Pupils equal, round. Sclerae is anicteric. Conjunctiva pink. Because the results of the mouth are moist. NECK: Supple. No JVD. No lymphadenopathy. No thyromegaly. LUNGS: Clear to auscultation. No wheezes or rhonchi. No intercostal retractions. HEART: Regular rate and rhythm. No murmur. ABDOMEN: Soft. Bowel sounds are present. No masses. No tenderness. EXTREMITIES: No pedal edema. Right great toe amputation site, dressing is in place clean dry and intact On the left great toe plantar surface, there is an ulceration, no drainage. NEUROLOGICAL: Patient is awake, alert and oriented x3. Cranial nerves 2 through 12 are grossly intact. - Labs CBC & Chem 7: 04/25/19 17:18 04/29/19 08:31 Labs: Abnormal Lab Results - Last 24 Hours (Table) 04/28/19 04/28/19 04/29/19 Range/Units 17:12 19:50 06:59 POC Glucose (mg/dL) 143 H 187 H 105 H (75-99) mg/dL Microbiology - Last 24 Hours (Table) 04/26/19 15:02 Blood Culture - Preliminary Blood No Growth after 48 hours 04/26/19 09:00 Gram Stain - Final Toe - Right First Wound Culture - Final Strep agalactiae - (group b) Assessment and Plan Plan: 1. Diabetic right great toe ulcer, rule out osteomyelitis. Patient is undergoing bone scan. Consult with Dr. Hernandez gann. Antibiotics changed to Kefzol and clindamycin. Await cultures. Patient is currently on Kefzol. Patient underwent a indication of the right great toe per Dr. Finney's and postop day 3. Pain is well managed. Dressing is clean dry and intact. Initial bone Scan shows suspicious for osteomyelitis. Diabetic foot ulcer left great toe. Honey alginate to the site. 2. Diabetes mellitus type 2, uncontrolled. A1c is pending. Patient will be resumed on Levemir 55 units at bedtime, NovoLog scheduled with meals will be decreased to 3 units 3 times daily and start NovoLog scale. Invokana and trulicity on hold. His home dose of NovoLog scheduled with meals is 20 units. Hemoglobin A1c 9.3. 3. Diabetic neuropathy. Continue gabapentin 800 mg 3 times daily. 4. Hypertension. Continue Zestoretic 2 tablets daily. 5. Hyperlipidemia. Continue statin. 6. Gastroesophageal reflux disease and GI prophylaxis. Continue Zantac or equivalent. 7. Overactive bladder. Continue Detrol LA. 8. Recurrent depression. Continue Zoloft 100 mg daily. 9. Insomnia. Continue Ambien 10 mg at bedtime. 10. Chronic back pain. Continue baclofen daily as needed, Percocet 1 every 6 hours as needed. Discharge plan: home on Monday Impression and plan of care have been directed as dictated by the signing physician. Rosey Alvares nurse practitioner acting as scribe for signing physician.
[2019-04-29 17:08] LABS: Glucose,Whole Blood 171 mg/dL (75-99)
[2019-04-29 20:17] LABS: Glucose,Whole Blood 194 mg/dL (75-99)
[2019-04-29] MEDS: INSULIN DETEMIR (LEVEMIR) 100 UNIT/ML SYR SQ SCH (21:05)
[2019-04-29] MEDS: ZOLPIDEM 10 MG TAB PO PRN (21:06)
--- NOTE | 2019-04-29 23:13 | PN ---
PROGRESS NOTE DATE OF SERVICE: 04/29/2019. REASON FOR FOLLOWUP: Right big toe wet gangrene with bacteremia. INTERVAL HISTORY: The patient is currently afebrile. The patient has been breathing comfortably. He denies any chest pain or cough. No nausea, vomiting, abdominal pain, or pain to the right big toe amputation site. PHYSICAL EXAMINATION: Blood pressure 140/83 with a pulse of 54, temperature of 98. He is 92% on room air. General description is a middle-aged male lying in bed in no distress. Respiratory system: Unlabored breathing. Clear to auscultation anteriorly. Heart S1, S2. Regular rate and rhythm. Abdomen soft, no tenderness. Right foot is currently dressed up. No obvious drainage on the dressing. LABS: Creatinine 0.60. DIAGNOSTIC IMPRESSION AND PLAN: Patient with right big toe wet gangrene in this patient is status post right big toe amputation. The patient did have a local culture positive for anaerobic gram-positive culture in addition to the Streptococcus agalactiae with Streptococcus agalactiae bacteremia. The patient is covered with Cefazolin and clindamycin, we will be planning on Rocephin 2 g daily and oral Flagyl on discharge for at least 2 weeks. [employer]ow Farm Technician working on the discharge antibiotic examination. Plan of care discussed with surgeon. Continue supportive care. MMODL / IJN: [id number] /
[2019-04-30] MEDS: oxyCODONE-APAP 7.5-325MG 1 EACH TAB PO PRN ×3 (00:01→12:27)
[2019-04-30] MEDS: GABAPENTIN 400 MG CAP PO SCH ×2 (06:11→15:17)
[2019-04-30 07:18] LABS: Glucose,Whole Blood 132 mg/dL (75-99)
[2019-04-30] MEDS: ATORVASTATIN 20 MG TAB PO SCH (08:03)
[2019-04-30] MEDS: FAMOTIDINE 20 MG TAB PO SCH (08:03)
[2019-04-30] MEDS: ASPIRIN 81 MG PO SCH (08:03)
[2019-04-30] MEDS: OXYBUTYNIN XL 5 MG TAB.ER.24 PO SCH (08:03)
[2019-04-30] MEDS: SERTRALINE 100 MG TAB PO SCH (08:03)
[2019-04-30] MEDS: LISINOPRIL-HCTZ 20-12.5 MG 1 EACH TAB PO SCH (08:03)
[2019-04-30] MEDS: INSULIN ASPART (NovoLOG) 100 UNIT/ML VIAL SQ SCH ×4 (08:03→12:37)
[2019-04-30 08:30] LABS: Basophils # (A) 0.1 k/uL (0-0.2); Basophils % (A) 1 %; Eosinophils # (A) 0.2 k/uL (0-0.7); Eosinophils % (A) 2 %; HCT 42.7 % (39.0-53.0); Lymphocytes # (A) 2.4 k/uL (1.0-4.8); Lymphocytes % (A) 31 %; MCH 29.5 pg (25.0-35.0); MCHC 32.7 g/dL (31.0-37.0); MCV 90.3 fL (80.0-100.0); Monocytes # (A) 0.4 k/uL (0-1.0); Monocytes % (A) 5 %; Neutrophils # (A) 4.7 k/uL (1.3-7.7); Neutrophils % (A) 60 %; Platelet Count 314 k/uL (150-450); RBC 4.73 m/uL (4.30-5.90); RDW 12.4 % (11.5-15.5); WBC 7.8 k/uL (3.8-10.6)
[2019-04-30 08:43] LABS: African American GFR (CKD) >90 (>60 ml/min/1.73 sqM); Anion Gap 2 mmol/L; Blood Urea Nitrogen 11 mg/dL (9-20); C Reactive Protein 22.1 mg/L (<10.0); Calcium 8.8 mg/dL (8.4-10.2); Carbon Dioxide 34 mmol/L (22-30); Chloride 102 mmol/L (98-107); Glucose 128 mg/dL (74-99); Non-African American GFR(CKD) >90 (>60 ml/min/1.73 sqM); Potassium 4.4 mmol/L (3.5-5.1); Sodium 138 mmol/L (137-145)
[2019-04-30] MEDS: CLINDAMYCIN 900 MG in DEXTROSE 5% IN WATER 50 ML IVPB SCH ×2 (08:49)
[2019-04-30 11:46] LABS: Glucose,Whole Blood 127 mg/dL (75-99)
[2019-04-30 13:28] VITALS: BP 130/76; PULSE 60; RESP 17; TEMP 97.8
--- NOTE | 2019-04-30 14:56 | PN ---
PROGRESS NOTE DATE OF SERVICE: 04/30/2019 REASON FOR FOLLOWUP: Right big toe diabetic foot infection with wet gangrene. INTERVAL HISTORY: The patient is currently afebrile. Patient has been breathing comfortably. Patient denies having any chest pain, shortness of breath, no cough. No nausea, no vomiting, no abdominal pain or pain to the right foot. PHYSICAL EXAMINATION: Blood pressure 130/76, pulse is 50, temperature 97.8. He is 97% on room air. General description is a middle-aged male, lying in bed in no distress. RESPIRATORY SYSTEM: Unlabored breathing. Clear to auscultation. HEART: S1, S2 with regular rate and rhythm. ABDOMEN: Soft, no tenderness. EXTREMITIES: Right foot did have some swelling and redness, no drainage. LABS: Hemoglobin is 14.8, white count of 10.8. BUN of 11, creatinine 0.56, is 32.1. DIAGNOSTIC IMPRESSION AND PLAN: Patient with right big toe diabetic foot infection with wet gangrene, status post amputation of the right bit toe. We are recommending cefazolin 2 g every 8 hours for at least 2 weeks along with oral Flagyl p.o. q.8 hours for the same duration and a close outpatient followup. Once antibiotic is arranged, she will be able to go home from ID standpoint. Questions and concerns answered. MMODL / IJN: [id number] /
--- NOTE | 2019-04-30 15:25 | P.DS ---
Providers Date of admission: 04/25/19 18:21 Expected date of discharge: 04/30/19 Attending physician: Vanna Sanchez Consults: 04/25/19 18:25 Consult Physician Stat Consulting Provider: Dada Ng Consult Reason/Comments: Right foot cellulitis, diabetic wounds Do you want consulting provider notified?: Yes 04/26/19 12:53 Consult Physician Routine Consulting Provider: Victor Manuel Finney Consult Reason/Comments: R gt toe amputation Do you want consulting provider notified?: Yes Primary care physician: [facility] Course: This is a 63-year-old male patient of Dr. Castillo. with past medical history of diabetes mellitus type 2, hypertension, hyperlipidemia, gastroesophageal reflux disease, recurrent depression, remote history of tobacco use, fatty liver, chronic back pain. Patient states that on Monday he noticed a hangnail to his right great toe. He started filing it and it started bleeding quite profusely. He went to work on Monday but was not feeling very well end up going home early. On Monday continued to not feel very well was laying around the house. He states his blood pressures have been labile running between 89 and 250. He does not know his most recent hemoglobin A1c. He was last seen in the office with Dr. Castillo in February. He states he has had cold sweats but no fevers or chills. He has had an ulcer on his left foot but was never this bad. He does not have diabetic shoes. Patient also has a callus on the plantar surface of the right great toe for which he has been filing and now presents with ulcer. Patient came into [facility] emergency center for evaluation. Patient was afebrile, heart rate 91, blood pressure 110/73, pulse ox 98% on room air. CBC 11.3, hemoglobin 15.8, platelet count 265. Sodium 133, potassium 4.1, chloride 95, CO2 25 BUN 20, creatinine 0.63, blood sugar 159. A sed rate 67, CRP 219, lactic acid 1.2. Patient was given 1 L of IV fluid as one dose of ceftriaxone and [facility]. Consults in place with Wound Care Team and Dr. Ng 04/27/2019: Patient is postop day 1 for a amputation of the right great toe. Patient continues to have nerve block in place he did receive one Percocet and pain is managed at this time. Patient has been ambulatory utilizing a walker to the bathroom without any difficulties. He continues to be on IV antibiotics. Patient has no complaints or concerns at this time. 04/27: Patient is postop day 2 for indication of the right great toe. Patient states that his pain is well managed. He has been ambulating utilizing a walker. Dressing was removed per Dr. Finney. Incision is intact and well approximated. Drainage is noted. Erythema to dorsal aspect of mid foot noted. Awaiting cultures. 04/28: Patient is postop day #3 for amputation of the right great toe. Wound cultures positive for strep agalactiae group B. Blood culture gram-positive cocci. Patient has been afebrile, heart rate 60, blood pressure 94/60, pulse ox 96% on room air. Blood sugars are running between 96 and 187. Patient is currently on Kefzol and clindamycin. Patient denies having any pain to his right leg. Dr. Ng's request the patient stay another [address] Finney is following closely. Patient is complaining of pain in his back from laying in bed. 04/29: Patient denies any new complaints. He is scheduled for discharge home. Dr. Ng is addressing antibiotics. Midline will be ordered. Anticipate discharge home once high risk case manager has made all the arrangements. Discharge diagnoses: 1. Diabetic right great toe ulcer, osteomyelitis, status post mutation of the right great toe by Dr. Finney 2. Diabetes mellitus type 2, uncontrolled with hyperglycemia and hemoglobin A1c of 9.5. 3. Diabetic neuropathy. 4. Hypertension. 5. Hyperlipidemia. 6. Gastroesophageal reflux disease. 7. Overactive bladder. 8. Recurrent depression. 9. Insomnia. 10. Chronic back pain. Discharge plan: home with [facility] Impression and plan of care have been directed as dictated by the signing physician. Rosey Alvares nurse practitioner acting as scribe for signing physician. Patient Condition at Discharge: Good Plan - Discharge Summary Discharge Rx Participant: No New Discharge Prescriptions: New INSULIN ASPART (NovoLOG) [NovoLOG (formulary)] 0 unit SQ ACHS vial metroNIDAZOLE [Flagyl] 500 mg PO Q8HR #42 tab ceFAZolin [Kefzol] 2 gm IVP Q8HR #42 vial Continue Aspirin 81 mg PO DAILY Lisinopril-Hctz 20-12.5 mg [Zestoretic 20-12.5] 2 tab PO DAILY Baclofen [Lioresal] 10 mg PO DAILY PRN PRN Reason: Muscle Spasm Zolpidem [Ambien] 10 mg PO HS Ranitidine HCl [Zantac] 150 mg PO BID Sertraline [Zoloft] 100 mg PO DAILY oxyCODONE-APAP 7.5-325MG [Percocet 7.5-325 mg] 1 tab PO Q6HR PRN PRN Reason: Moderate To Severe Pain Insulin Degludec [Tresiba] 55 units SQ HS Gabapentin 800 mg PO TID Dulaglutide [Trulicity] 1.5 mg SQ CHATMAN Rosuvastatin Calcium 10 mg PO DAILY Canagliflozin [Invokana] 100 mg PO DAILY Tolterodine ER [Detrol LA] 4 mg PO DAILY Changed Insulin Aspart [NovoLOG Flexpen] 5 units SQ AC-TID #0 Discharge Medication List Aspirin 81 mg PO DAILY 08/06/13 [History] Lisinopril-Hctz 20-12.5 mg [Zestoretic 20-12.5] 2 tab PO DAILY 08/06/13 [History] Baclofen [Lioresal] 10 mg PO DAILY PRN 09/07/15 [History] Zolpidem [Ambien] 10 mg PO HS 09/28/15 [History] Ranitidine HCl [Zantac] 150 mg PO BID 04/14/16 [History] Sertraline [Zoloft] 100 mg PO DAILY 11/17/17 [History] oxyCODONE-APAP 7.5-325MG [Percocet 7.5-325 mg] 1 tab PO Q6HR PRN 07/19/18 [Hi story] Insulin Degludec [Tresiba] 55 units SQ HS 07/27/18 [History] Dulaglutide [Trulicity] 1.5 mg SQ CHATMAN 04/15/19 [History] Gabapentin 800 mg PO TID 04/15/19 [History] Canagliflozin [Invokana] 100 mg PO DAILY 04/25/19 [History] Rosuvastatin Calcium 10 mg PO DAILY 04/25/19 [History] Tolterodine ER [Detrol LA] 4 mg PO DAILY 04/25/19 [History] INSULIN ASPART (NovoLOG) [NovoLOG (formulary)] 0 unit SQ ACHS vial 04/30/19 [Rx] Insulin Aspart [NovoLOG Flexpen] 5 units SQ AC-TID #0 04/30/19 [Rx] ceFAZolin [Kefzol] 2 gm IVP Q8HR #42 vial 04/30/19 [Rx] metroNIDAZOLE [Flagyl] 500 mg PO Q8HR #42 tab 04/30/19 [Rx] Follow up Appointment(s)/Referral(s): Suzette Castillo MD [STAFF PHYSICIAN] - 1 Week (office will call patient with time and date of appt) [facility] [NON-STAFF] - As Needed Victor Manuel Finney MD [STAFF PHYSICIAN] - 05/02/19 9:00 am Dada Ng MD [STAFF PHYSICIAN] - 05/13/19 2:00 pm [facility] Visiting Nurse, [NON-STAFF] - 1 Week Activity/Diet/Wound Care/Special Instructions: Apply dry dressing to right great toe amputation site daily Discharge Disposition: HOME WITH HOME HEALTH SERVICES
[2019-05-01] MEDS ORDERED: OXYBUTYNIN 10 MG TAB.ER.24 PO SCH (09:00)
== END 2019-04-30 16:50 | disposition home health service (06) | DRG 617 ==
LOC: EC 15:13 → 5NMEDONC 18:21
PROVIDERS: ADMIT Family Medicine; ATTEND Family Medicine
PROC: 0Y6M0Z9 Detachment at Right Foot, Partial 1st Ray, Open Approach (ICD-10-PCS; principal; 2019-04-27)
DX: E11.69 Type 2 diabetes mellitus with other specified complication (principal); L03.115 Cellulitis of right lower limb; E11.52 Type 2 diabetes mellitus with diabetic peripheral angiopathy with gangrene; F33.9 Major depressive disorder, recurrent, unspecified; I96 Gangrene, not elsewhere classified; M86.8X7 Other osteomyelitis, ankle and foot; R78.81 Bacteremia; E11.621 Type 2 diabetes mellitus with foot ulcer; K21.9 Gastro-esophageal reflux disease without esophagitis; G47.00 Insomnia, unspecified; E11.40 Type 2 diabetes mellitus with diabetic neuropathy, unspecified; E11.628 Type 2 diabetes mellitus with other skin complications; E11.65 Type 2 diabetes mellitus with hyperglycemia; E78.5 Hyperlipidemia, unspecified; G89.29 Other chronic pain; I10 Essential (primary) hypertension; M54.9 Dorsalgia, unspecified; N32.81 Overactive bladder; L97.519 Non-pressure chronic ulcer of other part of right foot with unspecified severity; L97.529 Non-pressure chronic ulcer of other part of left foot with unspecified severity; Z79.82 Long term (current) use of aspirin; Z79.4 Long term (current) use of insulin; Z79.899 Other long term (current) drug therapy; Z80.0 Family history of malignant neoplasm of digestive organs; Z82.49 Family history of ischemic heart disease and other diseases of the circulatory system; Z87.891 Personal history of nicotine dependence
CPT/HCPCS: 36410; 36415; 64445; 64447; 76937; 76942; 78315; 80048; 80053; 80202; 82565; 83036; 83605; 84134; 85025; 85652; 86140; 87040; 87070; 87075; 87077; 87186; 87205; 96365; 96366; 99284

== ENCOUNTER → 2020-02-19 | Outpatient (CLI) | payer BC ==
[2020-02-19 08:55] VITALS: BP 119/78; PULSE 80; RESP 18; TEMP 98.1
--- NOTE | 2020-02-19 09:09 | P.PN ---
Subjective Progress Note Date: 02/19/20 This is a 64-year-old gentleman with history of chronic lower back pain with radiation to the right knee and occasionally to the left knee. The patient has diabetic peripheral neuropathy and recently had one of his toes amputated. His blood sugar is under better control now. He still takes oxycodone and Neurontin for his pain and he gets these medications from different physicians. He also gets good relief after lumbar medial branch RFA. The last RFA he had was about one year ago. The patient would like to have another lumbar medial branch RFA as soon as possible. The patient also complains of left shoulder pain. Patient denies new-onset weakness, bowel/bladder incontinence, or any other signs or symptoms of cauda equina syndrome. There are no signs of acute intoxication, and no indications of medication diversion or overuse. In addition to above, 13-point review of systems is also negative for chest pain, shortness of breath, changes in vision, changes in hearing, new onset weakness, abdominal pain, diarrhea, extreme fatigue, malaise, fever, skin changes, homicidal or suicidal ideation, or bowel or bladder incontinence. Vital Signs: Reviewed in EMR Gen: AAOx3, NAD HEENT: PERRLA,hearing grossly normal Pulm: resp unlabored Neck: supple, trachea midline Neuro exam of the lower extremities: Normal muscle strength in the lower extremities bilaterally Straight leg raising test: Rakan's test: Range of motion of the lumbar spine: Facet loading test: Tenderness in the paravertebral musculature: Positive in the lumbar paravertebral musculature bilaterally. Positive tenderness in the left trapezius muscle. Neuro: CN II-XII grossly intact, Imaging: Reviewed in EMR/chart Assessment: Lumbar spondylosis without myelopathy Opioid dependence Myofascial pain in the left shoulder area Plan: 1. Explanation: Opioid and psychological risk scores were reviewed. Diagnoses, prognoses, and multiple treatment options including but not limited to physical therapy, interventional therapies, adjuvant medical therapies, narcotic medica tion therapies, and surgery were discussed with the patient and all questions were answered to the patient's satisfaction. 2. Opioid agreement: Signed with the patient and the patient is warned not to use opioids while driving or before driving and not to combine opioids with benzodiazepines or alcohol. 3. Counseling: The patient was counseled extensively on SMOKING CESSATION, BODY MASS INDEX, EXERCISE. Specifically, the patient was instructed regarding the importance of smoking cessation, obesity, and exercise in the context of both chronic pain and overall health. 4. Procedures: Scheduled for right lumbar medial branch RFA for levels L4 5 and L5-S1 under fluoroscopic guidance and then 2 weeks after that we can do the left side. We will avoid using steroids. Also we can do trigger point injection in the left trapezius muscle. 5. Consultations: None 6. Investigations: None 7. Medications: The patient receives his medication from his primary care physician 8. Disposition: Return to the above-mentioned procedure as soon as possible 9. Maps were reviewed and were appropriate. Objective - Vital Signs Vital signs: Vital Signs Temp 98.1 F 02/19/20 08:50 Pulse 80 02/19/20 08:50 Resp 18 02/19/20 08:50 BP 119/78 02/19/20 08:50 Pulse Ox 98 02/19/20 08:50
== END | disposition home or self-care (01) ==
LOC: PNWHC3 08:43
PROVIDERS: ATTEND Anesthesiology
DX: M47.816 Spondylosis without myelopathy or radiculopathy, lumbar region (principal); M79.18 Myalgia, other site; M25.512 Pain in left shoulder; F11.20 Opioid dependence, uncomplicated
CPT/HCPCS: 99211

== ENCOUNTER → 2020-03-20 | Outpatient (CLI) | payer BC ==
--- NOTE | 2020-03-20 10:49 | MR ---
EXAMINATION TYPE: MR lumbar spine wo con DATE OF EXAM: 03/20/2020 COMPARISON: None HISTORY: Spondylosis, low back pain, radiculopathy lumbar region TECHNIQUE: Multiplanar, multisequence images of the lumbar spine were acquired. L1-L2: Normal disc appearance without desiccation. No herniation, protrusion or disc bulging. No ca nal stenosis is present. Foramina are patent bilaterally. L2-L3: Posterior disc bulge causes mild anterior mass effect on the thecal sac. No significant forami nal encroachment or spinal stenosis. L3-L4: Posterior broad-based disc bulge causes anterior mass effect on the thecal sac. There is moder ate central canal stenosis, AP dimension approximately 6 mm circumferential extension endplate disc c omplex results in left-sided foraminal encroachment. L4-L5: Posterior broad-based disc bulge is present, right posterior paracentral disc herniation exten ds towards the neural foramen and effaces the anterior thecal sac, right lateral recess. Circumferent ial extension endplate disc complex results in foraminal encroachment greater on the right. There is facet arthropathy with hypertrophy ligamentum flavum causing posterior lateral mass effect on the the amber sac, mild to moderate central canal stenosis. L5-S1: There is some facet arthropathy change. No significant spinal stenosis or foraminal encroachme nt, no evident disc herniation. Lumbar segments are intact. No paraspinal masses are identified. Conus medullaris has a normal appe arance at T12. There is multilevel spondylosis. Loss of disc height signal is present intervertebral levels L2-3, L3-4 and L4-5. Some endplate discogenic marrow signal changes present. There is a mild s eugene curvature. Partial sacralization of L5 present on the right. IMPRESSION: Degenerative disc disease and facet arthropathy. Spinal stenosis greatest at L3-4. Disc herniation L4 -5 eccentric towards the right as described.
== END | disposition home or self-care (01) ==
LOC: RADMRIMAIN 09:11
PROVIDERS: ATTEND Specialist
DX: M48.061 Spinal stenosis, lumbar region without neurogenic claudication (principal); M51.16 Intervertebral disc disorders with radiculopathy, lumbar region; M47.26 Other spondylosis with radiculopathy, lumbar region; M47.27 Other spondylosis with radiculopathy, lumbosacral region
CPT/HCPCS: 72148

== ENCOUNTER 2020-04-10 13:20 | Day surgery (SDC) | payer BC ==
[2020-04-06 16:21] VITALS: BMI 39.5
[2020-04-10] MEDS ORDERED: LACTATED RINGERS 1,000 ML IV ONE (13:44)
[2020-04-10] MEDS ORDERED: LIDOCAINE 1% (10MG/ML) FOR IV START INTRADERMA ONE (13:44)
--- NOTE | 2020-04-10 13:48 | P.PCN ---
Date of Procedure: 04/10/20 Description of Procedure: PREOPERATIVE DIAGNOSIS: Lumbar Facet Arthropathy without myelopathy POSTOPERATIVE DIAGNOSIS: Same PROCEDURES: RIGHT/LEFT Radiofrequency thermocoagulation of L4-5, L5-S1 medial branches, with fluoroscopic guidance ANESTHESIA: IV sedation with versed and fentanyl and local infiltration with lidocaine 1% 10 ml Imaging: Fluoroscopy was used, images where saved to the medical record PROCEDURE INDICATION: The patient with low back pain secondary to lumbar facet arthropathy who had more than 50% relief of pain with previous diagnostic lumbar medial branch block with local anesthetic. PROCEDURE DESCRIPTION / TECHNIQUE: The patient was seen and identified in the preoperative area. Risks, benefits, complications, including but not limited to risk of infection, bleeding, allergic reactions to the medications and no complete pain relief, and alternatives were discussed with the patient, the patient agreed to proceed with the procedure and signed the consent. IV was started. Vital signs remained stable throughout the procedure. Patient was taken to the OR and time out was completed. The patient was placed in the prone position on the procedure table. The lumber area was prepped and draped in the usual sterile fashion. Vital signs were closely monitored during the procedure. IV sedation was used during the procedure to decrease patient anxiety. Using AP and then oblique fluoroscopy, the eye of the Ketan dog corresponding to the connection between the superior and transverse articular processes of L4, L5, and sacral Ala were identified, marked, and localized with 1% lidocaine. Subsequently, a 20 [id number] radiofrequency cannula with a 10-mm active tip was advanced guided by fluoroscopy to the junction of the pedicle and transverse process of each identified level. Each site then underwent sensory testing at 50 Hz and 0 to 1 volt and motor testing at 2.5 Hz and 0 to 3 volt with local stimulation, no radicular symptoms sensed by the patient and no obvious motor stimulation noted. Thereafter the tested sites underwent radiofrequency thermocoagulation at 80 degrees celsius for 90 seconds after injecting 1 ml of PF lidocaine 1%. Then after the thermocoagulation was done, 1 ml of the block solution containing ropivaciane 0.5% was injected at the lesioned sites after negative aspiration of CSF and blood and with no paresthesias. Cannulas were retracted. At the end of the procedure, the skin was cleansed and bandages were applied. COMPLICATIONS: No acute complications. DISPOSITION / PLANS: The patient was placed in a supine position and transferred to the recovery area in a stable condition for observation and was discharged from the recovery room after meeting discharge criteria. Home discharge instructions given to the patient by the staff. The patient was reexamined prior to discharge. Patient will follow up as directed.
[2020-04-10 13:49] LABS: Glucose,Whole Blood 104 mg/dL (75-99)
--- NOTE | 2020-04-10 13:49 | P.PCN ---
Date of Procedure: 04/10/20 Description of Procedure: Preoperative Diagnosis: myofascial pain syndrome of left trapezius Postoperative diagnosis: Same Anesthesia: None Surgeon: Anitha Valerio MD Indications for procedure: This is a 64 patient with myofascial pain and palpable trigger points in left trapezius muscles. The patient consents for an injection after an explanation of risks including but not limited to bleeding and infection, benefits, and alternatives and the patient has signed a consent form indicating understanding of all of them. Description of procedure: After informed consent was obtained the patient's painful area was sterilely prepped in the usual fashion with ChloraPrep. Left trapezius trigger points were identified via palpation of the trapezius muscles and marked sterilely. Each trigger point was injected with a 25-gauge one and a half inch needle. At that point a solution consisting of 5ml of 0.5% ropivacaine was distributed evenly over the trigger points. The patient's vital signs were stable aft erwards and the procedure was tolerated well. Patient was discharged home with follow-up instructions.
[2020-04-10 13:53] VITALS: RESP 16; TEMP 97.3
[2020-04-10] MEDS ORDERED: ROPIVACAINE 5MG/ML 20ML VIAL ONE (13:56)
[2020-04-10] MEDS ORDERED: fentaNYL (PF) 50 MCG/ML 2 ML AMP ONE (13:56)
[2020-04-10] MEDS ORDERED: MIDAZOLAM 2 MG/2 ML VIAL ONE (13:56)
[2020-04-10] MEDS ORDERED: LIDOCAINE 1% INJ 10MG/ML (20 ML MDV) ONE (13:56)
[2020-04-10] MEDS ORDERED: IV FLUID CONTINUATION 1,000 ML IV ONE (14:16)
--- NOTE | 2020-04-10 14:29 | FL ---
Fluoroscopy INDICATION: Pain FINDINGS: Fluoroscopy time: 7 seconds. Images obtained: 3. IMPRESSIONS: 1. Documentation of fluoroscopy.
[2020-04-10 14:31] VITALS: BP 135/75; PULSE 77
== END 2020-04-10 14:47 | disposition home or self-care (01) ==
LOC: ORPAIN 13:20
PROVIDERS: ATTEND Hospitalist
DX: M47.816 Spondylosis without myelopathy or radiculopathy, lumbar region (principal); M79.18 Myalgia, other site
CPT/HCPCS: 64635; 64636; 20552; J2250; J2001; J3010; J2795; 20553

== ENCOUNTER → 2020-05-04 | Outpatient (CLI) | payer BC ==
--- NOTE | 2020-05-04 08:12 | P.PN ---
Subjective Progress Note Date: 05/04/20 Is a 64-year-old gentleman with history of chronic lower back pain and occasional numbness in his left leg stance for too long as he states. The patient usually gets lumbar medial branch radio frequency ablation once a year which helps him significantly with his back pain. He denies having any previous back surgeries. He does have history of diabetes and peripheral neuropathy with toe amputation due to that. The patient takes oxycodone from a different physician. He had lumbar medial branch RFA on the right side which helped his pain significantly on the right side however his pain on the left side is still intolerable as he states. Patient denies new-onset weakness, bowel/bladder incontinence, or any other signs or symptoms of cauda equina syndrome. There are no signs of acute intoxication, and no indications of medication diversion or overuse. In addition to above, 13-point review of systems is also negative for chest pain, shortness of breath, changes in vision, changes in hearing, new onset weakness, abdominal pain, diarrhea, extreme fatigue, malaise, fever, skin changes, homicidal or suicidal ideation, or bowel or bladder incontinence. Vital Signs: Reviewed in EMR Gen: AAOx3, NAD HEENT: PERRLA,hearing grossly normal Pulm: resp unlabored Neck: supple, trachea midline Neuro exam of the lower extremities: Decreased left knee flexion and extension to 4 out of 5 and the rest of the muscle strength exam is normal bilaterally Straight leg raising test: Negative bilaterally Rakan's test: Range of motion of the lumbar spine: Facet loading test: Positive on the left side Tenderness in the paravertebral musculature: Positive on the left side Neuro: CN II-XII grossly intact, Imaging: Reviewed in EMR/chart Assessment: Lumbar spondylosis without myelopathy Diabetic peripheral neuropathy Myofascial pain Plan: 1. Explanation: Opioid and psychological risk scores were reviewed. Diagnoses, prognoses, and multiple treatment options including but not limited to physical therapy, interventional therapies, adjuvant medical therapies, narcotic medication therapies, and surgery were discussed with the patient and all questions were answered to the patient's satisfaction. 2. Opioid agreement: Signed with the patient and the patient is warned not to use opioids while driving or before driving and not to combine opioids with benzodiazepines or alcohol. 3. Counseling: The patient was counseled extensively on SMOKING CESSATION, BODY MASS INDEX, EXERCISE. Specifically, the patient was instructed regarding the importance of smoking cessation, obesity, and exercise in the context of both chronic pain and overall health. 4. Procedures: Scheduled for left lumbar medial branch RFA for levels L3 4, L4- L5, and L5-S1 under fluoroscopic guidance. The patient understands that this procedure might help his back pain however most likely it will not help his occasional numbness in the left leg. 5. Consultations: None 6. Investigations: None 7. Medications: None prescribed 8. Disposition: Return to the above-mentioned procedure as soon as possible 9. Maps were reviewed and were appropriate.
[2020-05-04 08:17] VITALS: BP 188/99; PULSE 74; RESP 18; TEMP 98
== END ==
LOC: PNWHC3 07:52
PROVIDERS: ATTEND Anesthesiology
DX: M47.816 Spondylosis without myelopathy or radiculopathy, lumbar region (principal); E11.42 Type 2 diabetes mellitus with diabetic polyneuropathy; M79.18 Myalgia, other site; Z79.4 Long term (current) use of insulin; Z87.891 Personal history of nicotine dependence
CPT/HCPCS: 99211

== ENCOUNTER 2020-05-08 10:24 | Day surgery (SDC) | payer BC ==
[2020-05-07 09:16] VITALS: BMI 34.0
[2020-05-08 10:39] VITALS: TEMP 97.6
[2020-05-08 10:47] LABS: Glucose,Whole Blood 202 mg/dL (75-99)
[2020-05-08] MEDS ORDERED: LACTATED RINGERS 1,000 ML IV ONE (10:49)
[2020-05-08] MEDS ORDERED: ROPIVACAINE 5MG/ML 20ML VIAL ONE (10:50)
[2020-05-08] MEDS ORDERED: MIDAZOLAM 2 MG/2 ML VIAL ONE (10:50)
[2020-05-08] MEDS ORDERED: fentaNYL (PF) 50 MCG/ML 2 ML AMP ONE (10:50)
[2020-05-08] MEDS ORDERED: LIDOCAINE 1% INJ 10MG/ML (20 ML MDV) ONE (10:50)
--- NOTE | 2020-05-08 11:11 | P.PCN ---
Date of Procedure: 05/08/20 Surgeon: Noemí Mosher Pathology: none sent Condition: stable Disposition: PACU Description of Procedure: PREOPERATIVE DIAGNOSIS: Lumbar spondylosis without myelopathy, morbid obesity POSTOPERATIVE DIAGNOSIS: Lumbar spondylosis without myelopathy,morbid obesity PROCEDURES : Left Radiofrequency thermocoagulation L3-L4, L4-L5, and L5-S1 medial branch, with fluoroscopic guidance ANESTHESIA: Local anesthesia with lidocaine 1% and IV moderate conscious sedation by the anesthesia department. Physician:Noemí Mosher MD EBL: Minimal PROCEDURE INDICATION: The patient with low back pain secondary to lumbar facet arthropathy who had more than 50% relief of her pain with previous diagnostic lumbar medial branch block with bupivacaine. PROCEDURE DESCRIPTION / TECHNIQUE: The patient was seen and identified in the preoperative area. Risks, benefits, complications, including but not limited to risk of infection ,bleeding , allergic reactions to the medications and no complete pain relief , and alternatives were discussed with the patient, the patient agreed to proceed with the procedure and signed the consent. IV was started. Vital signs remained stable throughout the procedure. Patient was taken to the OR and time out was completed. The patient was placed in the prone position on the procedure table. The lumber area was prepped and draped in the usual sterile fashion. . Vital signs were closely monitored during the procedure .IV sedation was used during the procedure to decrease patients anxiety. The target points were identified as follows: For the L5-S1 level which corresponds to the dorsal ramus of L5 the target point was at the superior medial aspect of the sacral ala on the left side of the spine on the AP view of fluoroscopy and for the L2, L3, and L4 medial branches the target points were at the connection between the transverse process and the superior articular process of L3, L4, and L5 vertebra respectively on the left oblique view of fluoroscopy. skin was marked, and localized with 1% lidocaineat these points. Subsequently, an 18 [id number] radiofrequency needles with a 10-mm curved active tips were advanced guided by fluoroscopy to each of the target points mentioned above in a superior medial direction to get the active tips as parallel as possible to the medial branches tracks. AP, oblique, and lateral views of fluoroscopy were used to verify needle tips position. Each level then underwent motor testing at 2.5 Hz and 0 to 3 volt with local stimulation, but no radicular symptoms down the legs. I then injected 1 mL of lidocaine 1% in each needle before starting radiofrequency thermocoagulation at 80 degrees celsius for 90 seconds. After that I injected 1 ml of PF Ropivacaine 0.5% before taking the needles out intact. At the end of the procedure, the skin was cleansed and bandages were applied. A copy of needle placement fluoroscopy was saved on the C-arm machine. No steroids were given during this procedure because of the patient's hyperglycemia preoperatively with a blood sugar of 202. COMPLICATIONS: No acute complications. DISPOSITION / PLANS: The patient was placed in a supine position and transferred to the recovery area in a stable condition for observation and was discharged from the recovery room after meeting discharge criteria. Home discharge instructions given to the patient by the staff. The patient was reexamined prior to discharge. The patient will schedule a follow up in the clinic in 2-4 weeks.
[2020-05-08] MEDS ORDERED: IV FLUID CONTINUATION 1,000 ML IV ONE ×2 (11:16)
--- NOTE | 2020-05-08 11:20 | FL ---
EXAMINATION TYPE: FL guided pain mgmt statistic DATE OF EXAM: 05/08/2020 HISTORY: Fluoroscopy time 15 seconds of fluoroscopy provided. IMPRESSION: 1. Fluoroscopy time.
[2020-05-08 11:45] VITALS: BP 124/74; PULSE 68; RESP 18
== END 2020-05-08 11:53 | disposition home or self-care (01) ==
LOC: ORPAIN 10:24
PROVIDERS: ATTEND Anesthesiology
DX: M47.816 Spondylosis without myelopathy or radiculopathy, lumbar region (principal); E66.01 Morbid (severe) obesity due to excess calories; I10 Essential (primary) hypertension; E11.9 Type 2 diabetes mellitus without complications; E78.5 Hyperlipidemia, unspecified; Z68.33 Body mass index [BMI] 33.0-33.9, adult; Z98.890 Other specified postprocedural states; Z87.891 Personal history of nicotine dependence; Z79.4 Long term (current) use of insulin; Z79.899 Other long term (current) drug therapy; Z79.82 Long term (current) use of aspirin; Z79.891 Long term (current) use of opiate analgesic
CPT/HCPCS: 64635; 64636; J2250; J2001; J3010; J2795

== ENCOUNTER → 2021-02-03 | Outpatient (CLI) | payer BC ==
--- NOTE | 2021-02-03 08:22 | P.PN ---
Subjective Progress Note Date: 02/03/21 This is follow-up visit for this 65 years old male with a chronic history of severe low back pain is diagnosed with lumbar spondylosis with lumbar facet arthropathy, and also patient had her friend diabetic neuropathic, his pain management between interventional pain management and medication management, loosely we have done RFA of the medial branch lumbar area which provided him with excellent pain relief for more than 5 months, and is complaining of severe low back pain which is bilateral, constant and increases with any activity, is complaining of left shoulder pain in the anterior aspect of the left shoulder area, there is any motor or sensory deficits he denies any fever or night sweats he denies any change in the bowel movement or urination, continue to use pain medication Percocet 10/325 every 6 hours when necessary and Neurontin 800 mg 3 times a day and baclofen 10 mg when necessary, as any side effect of the medication and he reported that he getting prescription refills from his primary care Objective - Exam Physical Examinations : -Constitutiona : Cooperative , not in acute distress . -HEENT : nech : supple , no Lymphadenopathy , normal thyroid size . : eyes : no ptosis , no icterus, no photophobia . - neurologic : Cranial nerve II to XII intact , no focal neurological deffecit . -psychatric : alert , oriented X 3 , appropriate affect , intact judgment and insight . -Lymphatic : no Lymphadenopathy . - musculoskeltal : Under less over the anterior aspect of the left shoulder/humerus Lumber spine moter stegnth lower extremities ,thigh and legs 5/5 Right side , 5/5 Left side deep tendon reflexes : normal Knee Jerk , normal ankle Jerk lumber facet Loading Test =positive Right , positive Left Range of motion of the lumbar spine Flexion 30 degrees, extension 10 degrees strait leg raising test = positive at 30 degree Fabere test= positive Right , and positive LT . tenderness over the Sacroiliac joint on the Right , and Left sides Assessment and Plan Plan: Assessment and plan=1-lumbar spondylosis with lumbar facet arthropathy. 2-myofascial pain syndrome right upper extremity/shoulder area he could benefit from repeat RFA of the medial branch lumbar area at L4 5 and L5-S1 Benefit from trigger point injection left shoulder area( anterior aspect) he Could benefit from Voltaren gel 1% to be applied to the shoulder area. he should continue his current medication as prescribed from his primary care Time with Patient: Less than 30
[2021-02-03 08:45] VITALS: BP 125/70; PULSE 80; RESP 18; TEMP 98.3
== END | disposition home or self-care (01) ==
LOC: PNWHC3 07:25
PROVIDERS: ATTEND Specialist
DX: M47.896 Other spondylosis, lumbar region (principal); M46.96 Unspecified inflammatory spondylopathy, lumbar region; M51.36 Other intervertebral disc degeneration, lumbar region
CPT/HCPCS: 99211

== ENCOUNTER 2021-07-16 05:59 | Day surgery (SDC) | payer BC ==
[2021-07-14 11:55] VITALS: BMI 30.3
[2021-07-16 06:37] LABS: Glucose,Whole Blood 153 mg/dL (75-99)
[2021-07-16 06:40] VITALS: TEMP 98
[2021-07-16] MEDS ORDERED: LIDOCAINE 2% INJ 20 MG/ML (2 ML VIAL) ONE (07:03)
[2021-07-16] MEDS ORDERED: PROPOFOL 10 MG/ML 20 ML VIAL IV ONE (07:03)
--- NOTE | 2021-07-16 07:33 | P.PCN ---
Date of Procedure: 07/16/21 Procedure(s) Performed: Brief history: Patient is a pleasant 65-year-old white female scheduled for an elective upper endoscopy as well as colonoscopy as a part of evaluation of GERD and screening for colon cancer. Last colonoscopy was within years ago. Procedure performed: Esophagogastroduodenoscopy with biopsy Colonoscopy with snare polypectomy Preoperative diagnosis: GERD Screening for colon cancer Anesthesia: MAC Procedure: After informed consent was obtained from the patient was brought into the endoscopy unit and IV sedation was administered by anesthesia under continuous monitoring. Initially upper endoscopy was done. The Olympus GF 160 video endoscope was inserted inserted into the mouth and esophagus intubated without any difficulty and was gradually advanced into the stomach and duodenum and carefully examined. The bulb and second part of the duodenum appeared normal. The scope was then withdrawn into the stomach adequately insufflated with air and upon careful examination the antrum had mild gastritis and biopsies were done from this area. body, cardia and fundus appeared normal. The scope was then withdrawn into the esophagus. The GE junction was located at 40 cm to the incisors. It appeared regular with no erythema erosions or ulcerations. Rest of the esophagus appeared normal. Patient tolerated the procedure well. At this time the patient continued to remain sedation. Initial digital rectal examination was normal. Olympus CF 160 video colonoscope was then inserted into the rectum and gradually advanced to the cecum without any difficulty. Careful examination was performed as the scope was gradually being withdrawn. The prep was excellent. The cecum, normal. In the ascending colon there was a 5 limited polyp removed by snare polypectomy. In the hepatic flexure there was a 1 cm broad-based polyp removed by snare polypectomy. ascending colon, transverse colon, descending colon, sigmoid colon and rectum appeared normal. In the sigmoid: There was a 3 mm polyp removed by snare polypectomy. Scattered sigmoid diverticulosis seen. Retroflexion was performed in the rectum and no lesions were noted. Patient tolerated the procedure well. Impression: 1. Upper endoscopy revealed mild antral gastritis 2. Colonoscopy revealed a) 5 mm ascending colon polyp status post polypectomy b) 1 cm hepatic flexure polyp status post snare polypectomy c) 3 mm sigmoid polyp status post polypectomy d) scattered sigmoid diverticulosis Recommendations: Findings of this examination were discussed with the patient as well as a family. He was advised to follow with the biopsy results. If the biopsy with adenoma he can have a repeat coloscopy in 3 years.
[2021-07-16 07:40] LABS: Glucose,Whole Blood 149 mg/dL (75-99)
[2021-07-16 07:55] VITALS: BP 105/69; PULSE 64; RESP 16
== END 2021-07-16 08:15 | disposition home or self-care (01) ==
LOC: ORWHC2ENDO 05:59
PROVIDERS: ATTEND Internal Medicine Gastroenterology
DX: Z12.11 Encounter for screening for malignant neoplasm of colon (principal); D12.2 Benign neoplasm of ascending colon; D12.3 Benign neoplasm of transverse colon; D12.4 Benign neoplasm of descending colon; K57.30 Diverticulosis of large intestine without perforation or abscess without bleeding; K29.50 Unspecified chronic gastritis without bleeding; K21.9 Gastro-esophageal reflux disease without esophagitis; I10 Essential (primary) hypertension; E78.5 Hyperlipidemia, unspecified; J44.9 Chronic obstructive pulmonary disease, unspecified; E11.40 Type 2 diabetes mellitus with diabetic neuropathy, unspecified; Z79.899 Other long term (current) drug therapy; Z79.84 Long term (current) use of oral hypoglycemic drugs; Z79.82 Long term (current) use of aspirin; Z79.4 Long term (current) use of insulin; Z79.891 Long term (current) use of opiate analgesic
CPT/HCPCS: 88305; 45385; 43239; J2704; J2001

== ENCOUNTER 2021-08-19 18:33 | Inpatient (IN) | payer BC ==
[2021-08-19] MEDS ORDERED: VANCOMYCIN IV PER PHARMACY 1 EACH MISC MISCELLANE PRN (20:51)
--- NOTE | 2021-08-19 20:51 | ED ---
General Adult HPI - General Chief complaint: Extremity Problem,Nontraumatic Stated complaint: Toe issues Time Seen by Provider: 08/19/21 20:32 Source: patient Mode of arrival: ambulatory Limitations: no limitations - History of Present Illness Initial comments: Dictation was produced using Pixlee dictation software. please excuse any grammatical, word or spelling errors. Chief Complaint: 65-year-old male with multiple comorbidities presents to the emergency department for left great toe diabetic ftoe History of Present Illness: Patient is 65-year-old male he has multiple comorbidities. Patient's history of amputation is to the right toes. He states that he's been dealing with the last 2 weeks with a diabetic toe ulcer of the left great toe. Patient states her last couple days started to have discharge, worsening discoloration and malodorous characteristics. Patient denies any constitutional symptoms. He does have neuropathy does not really feel that much pain to the toe. The ROS documented in this emergency department record has been reviewed and confirmed by me. Those systems with pertinent positive or negative responses have been documented in the HPI. All other systems are other negative and/or noncontributory. PHYSICAL EXAM: General Impression: Alert and oriented x3, not in acute distress HEENT: Normocephalic atraumatic, extra-ocular movements intact, pupils equal and reactive to light bilaterally, mucous membranes moist. Cardiovascular: Heart regular rate and rhythm Chest: Able to complete full sentences, no retractions, no tachypnea Abdomen: abdomen soft, non-tender, non-distended, no organomegaly Musculoskeletal: Pulses present and equal in all extremities, no peripheral edema Motor: no focal deficits noted Neurological: CN II-XII grossly intact, no focal motor or sensory deficits noted Skin: Intact with no visualized rashes Left foot. There does appear to be diabetic toe ulcer. There is associated erythematous streaking up the medial portion of the leg. Psych: Normal affect and mood ED course: 65-year-old male presents to the emergency Department with diabetic foot ulcer with associated lymphangitis. Vital signs upon arrival are within acceptable limits. X-ray shows soft tissue swelling with ulceration about the fifth metatarsophalangeal joint. There is cortical lucency involving the medial aspect of the base of the fifth proximal phalanx cannot exclude fracture. Though these findings may reflect fracture underlying osteomyelitis is difficult to exclude. Patient does not appear to have any symptoms at the fifth metatarsal. Findings are involving the great toe. Laboratory evaluation obtained. No leukocytosis. CBC is otherwise unremarkable. Metabolic panel is unremarkable. Slight elevation in CRP. Given aspect of lymphangitis patient will be admitted with consultation to infectious disease. Case discussed with Dr. Castillo who is willing to accept patient care. - Related Data Home Medications Medication Instructions Recorded Confirmed Aspirin 81 mg PO DAILY@189908/06/13 08/19/21 Lisinopril-Hctz 20-12.5 mg 1 tab PO BID 08/06/13 08/19/21 [Zestoretic 20-12.5] Baclofen [Lioresal] 10 mg PO DAILY PRN 09/07/15 08/19/21 Zolpidem [Ambien] 12.5 mg PO HS@69909/28/15 08/19/21 Sertraline [Zoloft] 100 mg PO DAILY@189911/17/17 08/19/21 Insulin Degludec [Tresiba] 65 units SQ HS@69907/27/18 08/19/21 Dulaglutide [Trulicity] 1.5 mg SQ CHATMAN 04/15/19 08/19/21 Gabapentin 800 mg PO TID 04/15/19 08/19/21 Rosuvastatin Calcium 10 mg PO DAILY@0 04/25/19 08/19/21 Famotidine [Pepcid] 20 mg PO BID 10/07/19 08/19/21 Insulin Aspart [NovoLOG Flexpen] 25 units SQ AC-TID 10/07/19 08/19/21 oxyCODONE-APAP 10-325MG [Percocet 1 tab PO Q6H PRN 10/07/19 08/19/21 10-325 mg] Dapagliflozin Propanediol [Farxiga] 10 mg PO DAILY@0 02/01/21 08/19/21 Diclofenac Sodium [Voltaren 1 applic TOPICAL BID 02/03/21 08/19/21 Arthritis Pain 1% Gel] Allergies Allergy/AdvReac Type Severity Reaction Status Date / Time No Known Allergies Allergy Verified 08/19/21 21:25 Review of Systems ROS Statement: Those systems with pertinent positive or pertinent negative responses have been documented in the HPI. ROS Other: All systems not noted in ROS Statement are negative. Past Medical History Past Medical History: Diabetes Mellitus, GERD/Reflux, Hyperlipidemia, Hypertension, Musculoskeletal Disorder, Prostate Disorder Additional Past Medical History / Comment(s): Emphysema, fatty liver, bulging disc, neuropathy BLE & hands History of Any Multi-Drug Resistant Organisms: None Reported Past Surgical History: Orthopedic Surgery Additional Past Surgical History / Comment(s): pain clinic procedures, right great toe amputation, colonoscopy, EGD Past Anesthesia/Blood Transfusion Reactions: No Reported Reaction Past Psychological History: Depression Smoking Status: Former smoker - Past Family History Mother Family Medical History: Cancer Additional Family Medical History / Comment(s): Mother at age 60 from colon cancer. She had history of lung transplant. Patient does not know why she had a lung transplant other than she was a smoker. Father Additional Family Medical History / Comment(s): Father at age 67 from a myocardial infarction. Brother(s) Additional Family Medical History / Comment(s): Patient does not have any brothers. Patient had 1 sister that at age 40 from pancreatic cancer. Patient has 2 sons and 1 daughter with no major medical problems. Sister(s) Family Medical History: Cancer Additional Family Medical History / Comment(s): pancreatic cancer General Exam Limitations: no limitations Course Vital Signs 08/19/21 18:44 Temperature 98.7 F Pulse Rate 64 Respiratory 18 Rate Blood Pressure 115/67 O2 Sat by Pulse 96 Oximetry Medical Decision Making - Lab Data Result diagrams: 08/19/21 21:56 08/19/21 21:56 Lab Results 08/19/21 08/19/21 08/19/21 Range/Units 21:56 21:56 21:56 WBC 10.2 (3.8-10.6) k/uL RBC 5.43 (4.30-5.90) m/uL Hgb 16.5 (13.0-17.5) gm/dL Hct 48.5 (39.0-53.0) % MCV 89.4 (80.0-100.0) fL MCH 30.4 (25.0-35.0) pg MCHC 34.0 (31.0-37.0) g/dL RDW 12.8 (11.5-15.5) % Plt Count 278 (150-450) k/uL MPV 7.2 Neutrophils % 63 % Lymphocytes % 26 % Monocytes % 5 % Eosinophils % 2 % Basophils % 2 % Neutrophils # 6.4 (1.3-7.7) k/uL Lymphocytes # 2.7 (1.0-4.8) k/uL Monocytes # 0.5 (0-1.0) k/uL Eosinophils # 0.2 (0-0.7) k/uL Basophils # 0.2 (0-0.2) k/uL PT 10.1 (9.0-12.0) sec INR 0.9 (<1.2) APTT 24.0 (22.0-30.0) sec Sodium 139 (137-145) mmol/L Potassium 3.9 (3.5-5.1) mmol/L Chloride 101 (98-107) mmol/L Carbon Dioxide 29 (22-30) mmol/L Anion Gap 9 mmol/L BUN 13 (9-20) mg/dL Creatinine 0.67 (0.66-1.25) mg/dL Est GFR (CKD-EPI)AfAm >90 (>60 ml/min/1.73 sqM) Est GFR (CKD-EPI)NonAf >90 (>60 ml/min/1.73 sqM) Glucose 123 H (74-99) mg/dL Calcium 9.3 (8.4-10.2) mg/dL C-Reactive Protein 1.7 H (<1.0) mg/dL Disposition Clinical Impression: Diabetic foot ulcer Disposition: ADMITTED IP TO THIS [facility] Condition: Fair Decision Time: 22:39
[2021-08-19] MEDS ORDERED: PIPERACILLIN-TAZOBACTAM 3.375 GM in SODIUM CHLORIDE 0.9% 100 ML IVPB STA (20:52)
[2021-08-19] MEDS ORDERED: VANCOMYCIN 1,750 MG in SODIUM CHLORIDE 0.9% 500 ML 500 ML IVPB STA (20:53)
--- NOTE | 2021-08-19 21:11 | XR ---
EXAMINATION TYPE: XR foot complete LT DATE OF EXAM: 08/19/2021 CLINICAL HISTORY: pain TECHNIQUE: Frontal, lateral and oblique images of the left foot are obtained. COMPARISON: None. FINDINGS: There is soft tissue swelling with ulceration about the fifth metatarsal phalangeal joint. There is cortical lucency to involve the medial aspect of the base of the fifth proximal phalanx righ t cannot exclude fracture. There is also lucency with bony fragmentation medial aspect of the fifth m etatarsal head. This could reflect additional fracture however underlying osteomyelitis is difficult to exclude. IMPRESSION: As above
[2021-08-19] MEDS ORDERED: NALOXONE 0.4 MG/ML 1 ML VIAL IV PRN (22:14)
[2021-08-19 22:30] LABS: Basophils # (A) 0.2 k/uL (0-0.2); Basophils % (A) 2 %; Eosinophils # (A) 0.2 k/uL (0-0.7); Eosinophils % (A) 2 %; HCT 48.5 % (39.0-53.0); HGB 16.5 gm/dL (13.0-17.5); Lymphocytes # (A) 2.7 k/uL (1.0-4.8); Lymphocytes % (A) 26 %; MCH 30.4 pg (25.0-35.0); MCV 89.4 fL (80.0-100.0); Mean Platelet Volume 7.2; Monocytes # (A) 0.5 k/uL (0-1.0); Monocytes % (A) 5 %; Neutrophils # (A) 6.4 k/uL (1.3-7.7); Neutrophils % (A) 63 %; Platelet Count 278 k/uL (150-450); RBC 5.43 m/uL (4.30-5.90); RDW 12.8 % (11.5-15.5); WBC 10.2 k/uL (3.8-10.6)
[2021-08-19 22:39] LABS: INR 0.9 (<1.2); Prothrombin Time 10.1 sec (9.0-12.0)
[2021-08-19 22:49] LABS: African American GFR (CKD) >90 (>60 ml/min/1.73 sqM); Anion Gap 9 mmol/L; Blood Urea Nitrogen 13 mg/dL (9-20); C Reactive Protein 1.7 mg/dL (<1.0); Calcium 9.3 mg/dL (8.4-10.2); Carbon Dioxide 29 mmol/L (22-30); Chloride 101 mmol/L (98-107); Glucose 123 mg/dL (74-99); Non-African American GFR(CKD) >90 (>60 ml/min/1.73 sqM); Potassium 3.9 mmol/L (3.5-5.1); Sodium 139 mmol/L (137-145)
[2021-08-20] MEDS: SODIUM CHLORIDE 0.9% 1,000 ML IV SCH (00:05)
[2021-08-20 00:23] LABS: Erythrocyte Sedimentation Rate 13 mm/hr (0-15)
[2021-08-20] MEDS: oxyCODONE-APAP 10-325MG 1 EACH TAB PO PRN ×3 (02:17→19:32)
[2021-08-20] MEDS: GABAPENTIN 400 MG CAP PO SCH ×4 (02:17→21:27)
[2021-08-20 07:14] LABS: Glucose,Whole Blood 122 mg/dL (70-110)
[2021-08-20] MEDS ORDERED: BACLOFEN 10 MG TAB PO PRN (09:00)
[2021-08-20] MEDS: FAMOTIDINE 20 MG TAB PO SCH ×2 (10:07→21:27)
[2021-08-20] MEDS: LISINOPRIL-HCTZ 20-12.5 MG 1 EACH TAB PO SCH ×2 (10:08→21:27)
[2021-08-20] MEDS: INSULIN ASPART (NovoLOG) 100 UNIT/ML VIAL SQ SCH ×5 (10:08→19:54)
[2021-08-20] MEDS: VANCOMYCIN 1,500 MG in SODIUM CHLORIDE 0.9% 250 ML IVPB SCH ×2 (10:36→17:43)
[2021-08-20 11:35] LABS: Glucose,Whole Blood 156 mg/dL (70-110)
[2021-08-20] MEDS: DICLOFENAC SODIUM GEL 100 GM TUBE TOPICAL SCH ×2 (12:19→22:39)
[2021-08-20] MEDS: AMPICILLIN-SULBACTAM 3 GM in SODIUM CHLORIDE 0.9% 100 ML IVPB SCH ×2 (13:05→19:50)
--- NOTE | 2021-08-20 14:47 | P.HPIM ---
History of Present Illness H&P Date: 08/20/21 HISTORY OF PRESENT ILLNESS This is a 65-year-old male patient with past medical history of diabetes mellitus type 2, hypertension, hyperlipidemia, gastroesophageal reflux disease, recurrent depression, remote history of tobacco use, fatty liver, chronic back pain, insomnia. Patient has been under the care of the wound clinic with Dr. Finney for right lower extremity diabetic ulcer status post amputation of the right great toe. Patient presented to the emergency center due to left great toe diabetic wound that has been present for at least 2 weeks and now starting to have drainage, change in color and foul odor. It started on the plantar surface of the left great toe and overnight, ulcer spread tothe medial side of the toe. He did have shaky chills yesterday morning He denies having any fever or chills. Patient was found to be afebrile, heart rate 64, blood pressure 115/67, pulse ox 96% on room air. CBC was normal. Electrolytes and renal function within normal limits. Blood sugar 123. INR 0.9. Calcium 9.3. C-reactive protein 1.7 and sed rate 13. Foot x-ray reveals soft tissue swelling with ulceration the fifth metatarsal phalangeal joint, cortical lucency medial aspect of the base of the fifth proximal phalanx right cannot exclude fracture. C with bony fragmentation medial aspect of the fifth metatarsal head this could reflect additional fract ure however underlying osteomyelitis is difficult to exclude. Patient needed to the [facility] floor, started on Zosyn and vancomycin, consult with Dr. Ng. REVIEW OF SYSTEMS Constitutional: No fever, + chills, no night sweats. No weight change. No weakness, fatigue or lethargy. No daytime sleepiness. EENT: No headache. No blurred vision or double vision, no loss of vision. No loss of Hearing, no ringing in the ears, no dizziness. No nasal drainage or congestion. No epistaxis. No sore throat. Lungs: No shortness of breath, cough, no sputum production. No wheezing. Cardiovascular: No chest pain, no lower extremity edema. No palpitations. No paroxysmal nocturnal dyspnea. No orthopnea. No lightheadedness or dizziness. No syncopal episodes. Abdominal: No abdominal pain. No nausea, vomiting. No diarrhea. No constipation. No bloody or tarry stools. No loss of appetite. Genitourinary: No dysuria, increased frequency, urgency. No urinary retention. Musculoskeletal: No myalgias. No muscle weakness, no gait dysfunction, no frequent falls. No back pain. No neck pain. Integumentary: Left great toe wounds, no lesions. No rash or pruritus. No u nusual bruising. No change in hair or nails. Neurologic: No aphasia. No facial droop. No change in mentation. No head injury. No headache. No paralysis. No paresthesia. Psychiatric: No depression. No anxiety. No mood swings. Endocrine: No abnormal blood sugars. No weight change. No excessive sweating or thirst. No cold intolerance. MEDICAL HISTORY Diabetes mellitus type 2 Diabetic neuropathy Hypertension Hyperlipidemia Gastroesophageal reflux disease Recurrent depression Fatty liver Chronic back pain Diabetic ulcer left great toe Insomnia SURGICAL HISTORY Pain management procedures Right great toe amputation Colonoscopy EGD SOCIAL HISTORY Patient was a smoker 3 packs per day for greater than 20 years and quit 25 years ago. No marijuana or street drug use. He drinks a few beers occasionally. 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 He lives at home with his and son. FAMILY HISTORY Mother at age 60 from colon cancer with history of lung transplant. He does not know why she had the lung transplant other than she was a smoker. Father at age 67 from a myocardial infarction. Patient does not have any brothers. He has one sister that at age 40 from pancreatic cancer. Patient has 2 sons and 1 daughter with no major medical problems. PHYSICAL EXAMINATION Gen: This is a 65-year-old male, resting in bed and appears to be comfortable and in no acute distress. HEENT: Head is atraumatic, normocephalic. Pupils equal, round. Sclerae is anicteric. NECK: Supple. No JVD. No lymphadenopathy. No thyromegaly. LUNGS: Clear to auscultation. No wheezes or rhonchi. No intercostal retraction s. HEART: First heart sound is depressed, second heart sound is normal, no gallop or murmur. ABDOMEN: Soft. Bowel sounds are present. No masses. No tenderness. EXTREMITIES: No pedal edema. No calf tenderness. DP +2 bilat. Ulcer left great toe plantar and medial great toe. NEUROLOGICAL: Patient is awake, alert and oriented x3. Cranial nerves 2 through 12 are grossly intact. Muscle strength 4/5 in the bilateral upper and lower extremities, neuropathic changes to both feet, deep tendon reflexes are depressed. ASSESSMENT AND PLAN 1. Diabetic ulcer left great toe. [facility], consult with infectious disease appreciated, antibiotics changed to Unasyn and vancomycin, blood culture status received and wound culture to be obtained, bone scan ordered. Continue Percocet for pain. 2. Diabetes mellitus type 2. Last hemoglobin A1c was 8.8. Patient will be continued on Levemir 65 units at bedtime, NovoLog 25 units 3 times daily, NovoLog scale will be ordered before meals and at bedtime, family may bring in Farxiga 10 mg daily. Hold Trulicity which is not available in the hospital 3. Hypertension. Continue lisinoprilhydrochlorothiazide 2012 0.5 mg 1 twice daily. 4. Hyperlipidemia. Continue atorvastatin 20 mg daily. 5. Diabetic neuropathy. Continue gabapentin 800 mg 3 times daily. 6. Chronic back pain. Continue baclofen 10 mg daily as needed, Percocet as needed. 7. Recurrent depression. Continue sertraline 100 mg daily in 1899. 8. Insomnia. Continue Ambien 5 mg at bedtime. 9. Gastroesophageal reflux disease. Continue Pepcid 20 mg twice daily. 10. DVT prophylaxis. Heparin subcu. CODE STATUS: Full code Patient admitted to the hospital for a minimum of 2 night stay. DISCHARGE PLAN Most likely return home. Impression and plan of care have been directed as dictated by the signing physician. Rosey Alvares nurse practitioner acting as scribe for signing phys ician. Past Medical History Past Medical History: Diabetes Mellitus, GERD/Reflux, Hyperlipidemia, Hypertension, Prostate Disorder Additional Past Medical History / Comment(s): fatty liver, bulging disc, neuropathy, NEUROPATHY IN HANDS AND FEET History of Any Multi-Drug Resistant Organisms: None Reported Past Surgical History: Orthopedic Surgery Additional Past Surgical History / Comment(s): pain clinic procedures for back , right great toe amputation, colonoscopy, EGD Past Anesthesia/Blood Transfusion Reactions: No Reported Reaction Smoking Status: Former smoker Past Alcohol Use History: Rare Additional Past Alcohol Use History / Comment(s): Patient was a smoker 3 pppd, greater than 20 years, quit 2000 est. He denies any marijuana or street drug use. He drinks a few beers occasionally, none in 2 years per . Past Drug Use History: None Reported - Past Family History Mother Family Medical History: Cancer Additional Family Medical History / Comment(s): Mother at age 60 from colon cancer. She had history of lung transplant. Patient does not know why she had a lung transplant other than she was a smoker. Father Additional Family Medical History / Comment(s): Father at age 67 from a myocardial infarction. Brother(s) Additional Family Medical History / Comment(s): Patient does not have any brothers. Patient had 1 sister that at age 40 from pancreatic cancer. Patient has 2 sons and 1 daughter with no major medical problems. Sister(s) Family Medical History: Cancer Additional Family Medical History / Comment(s): pancreatic cancer Medications and Allergies Home Medications Medication Instructions Recorded Confirmed Type Aspirin 81 mg PO DAILY@189908/06/13 08/19/21 History Lisinopril-Hctz 20-12.5 mg 1 tab PO BID 08/06/13 08/19/21 History [Zestoretic 20-12.5] Baclofen [Lioresal] 10 mg PO DAILY PRN 09/07/15 08/19/21 History Zolpidem [Ambien] 12.5 mg PO HS@69909/28/15 08/19/21 History Sertraline [Zoloft] 100 mg PO DAILY@189911/17/17 08/19/21 History Insulin Degludec [Tresiba] 65 units SQ HS@69907/27/18 08/19/21 History Dulaglutide [Trulicity] 1.5 mg SQ CHATMAN 04/15/19 08/19/21 History Gabapentin 800 mg PO TID 04/15/19 08/19/21 History Rosuvastatin Calcium 10 mg PO DAILY@189904/25/19 08/19/21 History Famotidine [Pepcid] 20 mg PO BID 10/07/19 08/19/21 History Insulin Aspart [NovoLOG Flexpen] 25 units SQ AC-TID 10/07/19 08/19/21 History oxyCODONE-APAP 10-325MG [Percocet 1 tab PO Q6H PRN 10/07/19 08/19/21 History 10-325 mg] Dapagliflozin Propanediol [Farxiga] 10 mg PO DAILY@0 02/01/21 08/19/21 History Diclofenac Sodium [Voltaren 1 applic TOPICAL BID 02/03/21 08/19/21 History Arthritis Pain 1% Gel] Allergies Allergy/AdvReac Type Severity Reaction Status Date / Time No Known Allergies Allergy Verified 08/19/21 21:25 Physical Exam Vitals: Vital Signs Temp Pulse Pulse Resp BP BP Pulse Ox 08/20/21 08:00 98.3 F 71 20 106/65 95 08/20/21 01:04 98.6 F 72 20 105/63 95 08/20/21 00:01 98.2 F 75 20 129/76 98 08/19/21 23:50 72 20 08/19/21 23:25 75 18 130/81 95 08/19/21 18:44 98.7 F 64 18 115/67 96 Intake and Output 08/19/21 08/20/21 08/20/21 22:59 06:59 14:59 Other: Voiding Method Toilet # Voids 1 Weight 115.666 kg 115.666 kg Results CBC & Chem 7: 08/19/21 21:56 08/19/21 21:56 Labs: Abnormal Lab Results - Last 24 Hours (Table) 08/19/21 08/20/21 08/20/21 Range/Units 21:56 07:13 11:34 Glucose 123 H (74-99) mg/dL POC Glucose (mg/dL) 122 H 156 H (70-110) mg/dL C-Reactive Protein 1.7 H (<1.0) mg/dL Thrombosis Risk Factor Assmnt - Choose All That Apply Each Risk Factor Represents 2 Points: Age 61-74 years Thrombosis Risk Factor Assessment Total Risk Factor Score: 2 Thrombosis Risk Factor Assessment Level: Low Risk
[2021-08-20 17:39] LABS: Glucose,Whole Blood 82 mg/dL (70-110)
[2021-08-20] MEDS: ASPIRIN 81 MG PO SCH (18:00)
[2021-08-20] MEDS: ZOLPIDEM 5 MG TAB PO SCH (18:00)
[2021-08-20] MEDS: SERTRALINE 100 MG TAB PO SCH (18:00)
[2021-08-20] MEDS: ATORVASTATIN 20 MG TAB PO SCH (18:00)
[2021-08-20] MEDS: PATIENT'S OWN (Dapagliflozin Propanediol [Farxiga] 10 MG Tablet) PO SCH (18:12)
[2021-08-20] MEDS: INSULIN DETEMIR (LEVEMIR) 100 UNIT/ML SYR SQ SCH (19:50)
[2021-08-20 19:54] LABS: Glucose,Whole Blood 133 mg/dL (70-110)
--- NOTE | 2021-08-20 20:44 | NM ---
EXAMINATION TYPE: NM bone 3 phase DATE OF EXAM: 08/20/2021 COMPARISON: NONE HISTORY: Osteomyelitis of the left big toe Triple phase bone scintigraphy was performed following the injection of 19 mCi Tc 99m MDP. Immediate images and 3 hours post injection images acquired. FINDINGS: The flow study shows some hyperemia of the left foot and more involvement of the left big toe. Delaye d images show focal increased uptake in the left big toe involving the distal phalanx. There is delay ed increased uptake in the right foot involving the first MP joint and the second and third MP joints . IMPRESSION: Hyperemia of the left foot at the big toe with delayed increased uptake is consistent with osteomyeli tis of the distal phalanx. Delayed uptake in the right foot consistent with arthritic disease.
[2021-08-20] MEDS: HEPARIN SODIUM,PORCINE/PF 5,000 UNIT/0.5 ML SYRINGE SQ SCH (21:27)
[2021-08-20 22:15] LABS: Estimated Average Glucose UNC
--- NOTE | 2021-08-20 22:58 | P.CONS ---
History of Present Illness - Reason for Consult Consult date: 08/20/21 Diabetic foot ulcer Requesting physician: Taran Jaime - Chief Complaint Left big toe swelling and redness x few days - History of Present Illness Patient is a 65-year-old male with a past medical he significant for diabetes mellitus patient did have a history of diabetic foot infection apparently the patient has been dealing with a callus to the left big toe that has been going on for couple of weeks now and the patient has been treating with some local dressing patient mention when he got to the dressing off yesterday he noticed to have significant drainage and also the callus came off patient to have diabetic neuropathy and denies Significant pain to the left big toe however the patient mention of some discomfort extending to the left lower leg de scribing to more of a dull aching 3-4 out of 10 and no radiation, with the symptoms the patient was evaluated by the ER physician on arrival to the ER the patient was afebrile and no fever have been recorded subsequently patient did have a normal white count kidney function was normal patient did have a x-ray of the left foot which did show some abnormality in the left fifth metatarsal phalanx and metatarsal head but no abnormality of the left big toe patient was started on vancomycin infectious disease was consulted for further management of antibiotic therapy Review of Systems Positive point has been mentioned in the HPI rest of the systems are negative Past Medical History Past Medical History: Diabetes Mellitus, GERD/Reflux, Hyperlipidemia, Hypertension, Prostate Disorder Additional Past Medical History / Comment(s): fatty liver, bulging disc, neuropathy, NEUROPATHY IN HANDS AND FEET History of Any Multi-Drug Resistant Organisms: None Reported Past Surgical History: Orthopedic Surgery Additional Past Surgical History / Comment(s): pain clinic procedures for back , right great toe amputation, colonoscopy, EGD Past Anesthesia/Blood Transfusion Reactions: No Reported Reaction Smoking Status: Former smoker Past Alcohol Use History: Rare Additional Past Alcohol Use History / Comment(s): Patient was a smoker 3 pppd, greater than 20 years, quit 2000 est. He denies any marijuana or street drug use. He drinks a few beers occasionally, none in 2 years per . Past Drug Use History: None Reported - Past Family History Mother Family Medical History: Cancer Additional Family Medical History / Comment(s): Mother at age 60 from colon cancer. She had history of lung transplant. Patient does not know why she had a lung transplant other than she was a smoker. Father Additional Family Medical History / Comment(s): Father at age 67 from a myocardial infarction. Brother(s) Additional Family Medical History / Comment(s): Patient does not have any brothers. Patient had 1 sister that at age 40 from pancreatic cancer. Patient has 2 sons and 1 daughter with no major medical problems. Sister(s) Family Medical History: Cancer Additional Family Medical History / Comment(s): pancreatic cancer Medications and Allergies Home Medications Medication Instructions Recorded Confirmed Type Aspirin 81 mg PO DAILY@189908/06/13 08/19/21 History Lisinopril-Hctz 20-12.5 mg 1 tab PO BID 08/06/13 08/19/21 History [Zestoretic 20-12.5] Baclofen [Lioresal] 10 mg PO DAILY PRN 09/07/15 08/19/21 History Zolpidem [Ambien] 12.5 mg PO HS@0709/28/15 08/19/21 History Sertraline [Zoloft] 100 mg PO DAILY@189911/17/17 08/19/21 History Insulin Degludec [Tresiba] 65 units SQ HS@69907/27/18 08/19/21 History Dulaglutide [Trulicity] 1.5 mg SQ CHATMAN 04/15/19 08/19/21 History Gabapentin 800 mg PO TID 04/15/19 08/19/21 History Rosuvastatin Calcium 10 mg PO DAILY@1900 04/25/19 08/19/21 History Famotidine [Pepcid] 20 mg PO BID 10/07/19 08/19/21 History Insulin Aspart [NovoLOG Flexpen] 25 units SQ AC-TID 10/07/19 08/19/21 History oxyCODONE-APAP 10-325MG [Percocet 1 tab PO Q6H PRN 10/07/19 08/19/21 History 10-325 mg] Dapagliflozin Propanediol [Farxiga] 10 mg PO DAILY@1900 02/01/21 08/19/21 History Diclofenac Sodium [Voltaren 1 applic TOPICAL BID 02/03/21 08/19/21 History Arthritis Pain 1% Gel] metroNIDAZOLE [Flagyl] 500 mg PO TID #90 tab 08/23/21 Rx Allergies Allergy/AdvReac Type Severity Reaction Status Date / Time No Known Allergies Allergy Verified 08/19/21 21:25 Physical Exam Vitals: Vital Signs Temp Pulse Pulse Resp BP BP Pulse Ox 08/20/21 08:00 98.3 F 71 20 106/65 95 08/20/21 01:04 98.6 F 72 20 105/63 95 08/20/21 00:01 98.2 F 75 20 129/76 98 08/19/21 23:50 72 20 08/19/21 23:25 75 18 130/81 95 08/19/21 18:44 98.7 F 64 18 115/67 96 Intake and Output 08/19/21 08/20/21 08/20/21 22:59 06:59 14:59 Other: Voiding Method Toilet # Voids 1 Weight 115.666 kg 115.666 kg GENERAL DESCRIPTION: Middle-aged male lying in bed, no distress. No tachypnea or accessory muscle of respiration use. HEENT: Shows Pallor , no scleral icterus. Oral mucous membrane is dry. No pharyngeal erythema or thrush NECK: Trachea central, no thyromegaly. LUNGS: Unlabored breathing. Clear to auscultation anteriorly. No wheeze or crackle. HEART: S1, S2, regular rate and rhythm. No loud murmur ABDOMEN: Soft, no tenderness , guarding or rigidity, no organomegaly EXTREMITIES: No edema of feet, left big toe did have a swelling and redness with ulceration and some drainage which was cultured SKIN: No rash, no masses palpable. NEUROLOGICAL: The patient is awake, alert, oriented x3, mood and affect normal. Results CBC & Chem 7: 08/19/21 21:56 08/21/21 14:44 Labs: Abnormal Lab Results - Last 24 Hours (Table) 08/19/21 08/20/21 08/20/21 Range/Units 21:56 07:13 11:34 Glucose 123 H (74-99) mg/dL POC Glucose (mg/dL) 122 H 156 H (70-110) mg/dL C-Reactive Protein 1.7 H (<1.0) mg/dL Assessment and Plan (1) Diabetic foot ulcer Status: Acute Code(s): E11.621 - TYPE 2 DIABETES MELLITUS WITH FOOT ULCER; L97.509 - NON-PRESSURE CHRONIC ULCER OTH PRT UNSP FOOT W UNSP SEVERITY SNOMED Code(s): 172161794 Plan: 1patient with left big toe diabetic foot infection with an infected callus and concern for underlying deep infection such as osteomyelitis would likely will be polymicrobial dustin usually associated with diabetic foot infection. 2we will obtain her local cultures both aerobic and anaerobic. 3bone scan to rule out underlying osteomyelitis. 4continue with vancomycin however will add Unasyn while waiting for the culture to finalize. 5Aquacel silver dressing to the open ulcer change every 48 hour. We will follow on clinical condition and cultures to further adjust medication if needed Thank you for this consultation will follow this patient along with you Time with Patient: Greater than 30
[2021-08-21] MEDS: AMPICILLIN-SULBACTAM 3 GM in SODIUM CHLORIDE 0.9% 100 ML IVPB SCH ×4 (00:34→17:50)
[2021-08-21] MEDS: VANCOMYCIN 1,500 MG in SODIUM CHLORIDE 0.9% 250 ML IVPB SCH ×3 (01:10→15:56)
[2021-08-21] MEDS: SODIUM CHLORIDE 0.9% 1,000 ML IV SCH (03:09)
[2021-08-21 07:14] LABS: Glucose,Whole Blood 99 mg/dL (70-110)
[2021-08-21] MEDS: INSULIN ASPART (NovoLOG) 100 UNIT/ML VIAL SQ SCH ×7 (07:17→20:49)
[2021-08-21] MEDS: DICLOFENAC SODIUM GEL 100 GM TUBE TOPICAL SCH ×2 (07:47→20:47)
[2021-08-21] MEDS: FAMOTIDINE 20 MG TAB PO SCH ×2 (07:49→20:49)
[2021-08-21] MEDS: HEPARIN SODIUM,PORCINE/PF 5,000 UNIT/0.5 ML SYRINGE SQ SCH ×2 (07:49→20:49)
[2021-08-21] MEDS: GABAPENTIN 400 MG CAP PO SCH ×3 (07:49→20:50)
[2021-08-21] MEDS: LISINOPRIL-HCTZ 20-12.5 MG 1 EACH TAB PO SCH ×2 (07:49→20:50)
[2021-08-21] MEDS: oxyCODONE-APAP 10-325MG 1 EACH TAB PO PRN ×2 (07:57→16:10)
[2021-08-21 11:30] LABS: Glucose,Whole Blood 90 mg/dL (70-110)
[2021-08-21] MEDS ORDERED: VANCOMYCIN TROUGH DUE 1 EACH MISC MISCELLANE ONE (15:00)
[2021-08-21 15:11] LABS: African American GFR (CKD) >90 (>60 ml/min/1.73 sqM); Non-African American GFR(CKD) >90 (>60 ml/min/1.73 sqM)
[2021-08-21 16:46] LABS: Glucose,Whole Blood 80 mg/dL (70-110)
--- NOTE | 2021-08-21 17:45 | P.PN ---
Subjective Progress Note Date: 08/21/21 65-year-old male with a past medical he significant for diabetes mellitus patient did have a history of diabetic foot infection apparently the patient has been dealing with a callus to the left big toe that has been going on for couple of weeks now and the patient has been treating with some local dressing patient mention when he got to the dressing off yesterday he noticed to have significant drainage and also the callus came off patient to have diabetic neuropathy and denies Significant pain to the left big toe however the patient mention of some discomfort extending to the left lower leg describing to more of a dull aching 3-4 out of 10 and no radiation, with the symptoms the patient was evaluated by the ER physician on arrival to the ER the patient was afebrile and no fever have been recorded subsequently patient did have a normal white count kidney function was normal patient did have a x-ray of the left foot which did show some abnormality in the left fifth metatarsal phalanx and metatarsal head but no abnormality of the left big toe patient was started on vancomycin infect ious disease was consulted for further management of antibiotic therapy Objective - Vital Signs Vital signs: Vital Signs Temp 97.7 F 08/21/21 08:00 Pulse 79 08/21/21 08:00 Resp 18 08/21/21 08:00 BP 105/68 08/21/21 08:00 Pulse Ox 94 L 08/21/21 08:00 FiO2 Intake & Output 08/20/21 08/21/21 08/21/21 18:59 06:59 18:59 Intake Total 700 Output Total 3 Balance 697 Intake: Oral 700 Output: Urine 3 Other: Voiding Method Toilet Toilet - Exam PHYSICAL EXAMINATION: GENERAL: The patient is alert and oriented x3, not in any acute distress. Well developed, well nourished. HEENT: Pupils are round and equally reacting to light. EOMI. No scleral icterus. No conjunctival pallor. Normocephalic, atraumatic. No pharyngeal erythema. No thyromegaly. CARDIOVASCULAR: S1 and S2 present. No murmurs, rubs, or gallops. PULMONARY: Chest is clear to auscultation, no wheezing or crackles. ABDOMEN: Soft, nontender, nondistended, normoactive bowel sounds. No palpable organomegaly. MUSCULOSKELETAL: No joint swelling or deformity. EXTREMITIES: No cyanosis, clubbing, or pedal edema. NEUROLOGICAL: Gross neurological examination did not reveal any focal deficits. SKIN: No rashes. - Labs CBC & Chem 7: 08/19/21 21:56 08/21/21 14:44 Labs: Abnormal Lab Results - Last 24 Hours (Table) 08/20/21 Range/Units 19:53 POC Glucose (mg/dL) 133 H (70-110) mg/dL Microbiology - Last 24 Hours (Table) 08/20/21 21:27 Anaerobic Culture - Preliminary Toe - Left First 08/20/21 21:27 Wound Culture - Preliminary Toe - Left First 08/19/21 21:45 Blood Culture - Preliminary Blood No Growth after 24 hours 08/19/21 20:51 Blood Culture - Preliminary Blood No Growth after 24 hours Assessment and Plan Assessment: 1. Left big toe diabetic foot ulcer/osteomyelitis we will obtain her local cultures both aerobic and anaerobic. bone scan to rule out underlying osteomyelitis. continue with vancomycin however will add Unasyn while waiting for the culture to finalize. Aquacel silver dressing to the open ulcer change every 48 hour. 2. Diabetes mellitus type 2. Last hemoglobin A1c was 8.8. Patient will be continued on Levemir 65 units at bedtime, NovoLog 25 units 3 times daily, NovoLog scale will be ordered before meals and at bedtime, family may bring in Farxiga 10 mg daily. Hold Trulicity which is not available in the hospital 3. Hypertension. Continue lisinoprilhydrochlorothiazide 2012 0.5 mg 1 twice daily. 4. Hyperlipidemia. Continue atorvastatin 20 mg daily. 5. Diabetic neuropathy. Continue gabapentin 800 mg 3 times daily. 6. Chronic back pain. Continue baclofen 10 mg daily as needed, Percocet as needed. 7. Recurrent depression. Continue sertraline 100 mg daily in 1899. 8. Insomnia. Continue Ambien 5 mg at bedtime. 9. Gastroesophageal reflux disease. Continue Pepcid 20 mg twice daily. 10. DVT prophylaxis. Heparin subcu.
--- NOTE | 2021-08-21 20:44 | P.PN ---
Subjective Progress Note Date: 08/21/21 Principal diagnosis: Left big toe diabetic foot infection Patient is a 65-year-old male with a past medical history significant for diabetes mellitus, presented to the hospital left big toe pain swelling redness with infected callus and concern for underlying Osteomyelitis on the basis of the bone scan. On today's evaluation that is 08/21/2021, the patient denies having any fever or chills, the patient is breathing comfortably, patient denies having any chest pain or shortness of breath or cough overall pain and discomfort in the left big toe is controlled swelling or redness has decreased and there is no drainage Objective - Vital Signs Vital signs: Vital Signs Temp 97.7 F 08/21/21 08:00 Pulse 79 08/21/21 08:00 Resp 18 08/21/21 08:00 BP 105/68 08/21/21 08:00 Pulse Ox 94 L 08/21/21 08:00 FiO2 Intake & Output 08/20/21 08/21/21 08/21/21 18:59 06:59 18:59 Intake Total 700 Output Total 3 Balance 697 Intake: Oral 700 Output: Urine 3 Other: Voiding Method Toilet - Exam GENERAL DESCRIPTION: Middle-aged male lying in bed in no distress RESPIRATORY SYSTEM: Unlabored breathing , decreased breath sounds at bases HEART: S1 S2 regular rate and rhythm , ABDOMEN: Soft , no tenderness EXTREMITIES: Left big toe swelling and redness has decreased - Labs CBC & Chem 7: 08/19/21 21:56 08/21/21 14:44 Labs: Abnormal Lab Results - Last 24 Hours (Table) 08/20/21 08/20/21 Range/Units 11:34 19:53 POC Glucose (mg/dL) 156 H 133 H (70-110) mg/dL Microbiology - Last 24 Hours (Table) 08/20/21 21:27 Anaerobic Culture - Preliminary Toe - Left First 08/20/21 21:27 Wound Culture - Preliminary Toe - Left First 08/19/21 21:45 Blood Culture - Preliminary Blood No Growth after 24 hours 08/19/21 20:51 Blood Culture - Preliminary Blood No Growth after 24 hours Assessment and Plan (1) Diabetic foot ulcer Current Visit: Yes Status: Acute Code(s): E11.621 - TYPE 2 DIABETES MELLITUS WITH FOOT ULCER; L97.509 - NON-PRESSURE CHRONIC ULCER OTH PRT UNSP FOOT W UNSP SEVERITY SNOMED Code(s): 396459378 Plan: 1patient with left big toe diabetic foot infection with an infected callus and concern for underlying deep infection such as osteomyelitis would likely will be polymicrobial dustin usually associated with diabetic foot infection. 2 local cultures both aerobic and anaerobic are currently pending. 3bone scan was suggestive of osteomyelitis involving the left big toe. 4patient to continue with vancomycin and Unasyn while waiting for the culture to finalize. 5Aquacel silver dressing to the open ulcer change every 48 hour. Time with Patient: Less than 30
[2021-08-21 20:47] LABS: Glucose,Whole Blood 137 mg/dL (70-110)
[2021-08-21] MEDS: ATORVASTATIN 20 MG TAB PO SCH (20:48)
[2021-08-21] MEDS: ASPIRIN 81 MG PO SCH (20:48)
[2021-08-21] MEDS: INSULIN DETEMIR (LEVEMIR) 100 UNIT/ML SYR SQ SCH (20:49)
[2021-08-21] MEDS: ZOLPIDEM 5 MG TAB PO SCH (20:49)
[2021-08-21] MEDS: SERTRALINE 100 MG TAB PO SCH (20:49)
[2021-08-21] MEDS: PATIENT'S OWN (Dapagliflozin Propanediol [Farxiga] 10 MG Tablet) PO SCH (21:01)
[2021-08-22] MEDS: AMPICILLIN-SULBACTAM 3 GM in SODIUM CHLORIDE 0.9% 100 ML IVPB SCH ×4 (00:03→16:41)
[2021-08-22 00:09] LABS: Glucose,Whole Blood 109 mg/dL (70-110)
[2021-08-22] MEDS: VANCOMYCIN 1,500 MG in SODIUM CHLORIDE 0.9% 250 ML IVPB SCH ×3 (01:16→15:00)
[2021-08-22] MEDS: SODIUM CHLORIDE 0.9% 1,000 ML IV SCH (01:16)
[2021-08-22] MEDS ORDERED: NON FORMULARY DRUG (Dulaglutide [Trulicity] 1.5 MG/0.5 ML Pen.Injctr) SQ SCH (01:50)
[2021-08-22 06:59] LABS: Glucose,Whole Blood 104 mg/dL (70-110)
[2021-08-22] MEDS: INSULIN ASPART (NovoLOG) 100 UNIT/ML VIAL SQ SCH ×7 (07:55→21:59)
[2021-08-22] MEDS: HEPARIN SODIUM,PORCINE/PF 5,000 UNIT/0.5 ML SYRINGE SQ SCH ×2 (07:56→21:59)
[2021-08-22] MEDS: GABAPENTIN 400 MG CAP PO SCH ×3 (07:56→21:58)
[2021-08-22] MEDS: FAMOTIDINE 20 MG TAB PO SCH ×2 (07:56→21:58)
[2021-08-22] MEDS: LISINOPRIL-HCTZ 20-12.5 MG 1 EACH TAB PO SCH ×2 (08:01→21:58)
[2021-08-22] MEDS: oxyCODONE-APAP 10-325MG 1 EACH TAB PO PRN ×3 (08:01→21:58)
[2021-08-22] MEDS: DICLOFENAC SODIUM GEL 100 GM TUBE TOPICAL SCH ×2 (08:10→22:04)
[2021-08-22] MEDS ORDERED: DULAGLUTIDE 3 MG SQ SCH (09:00)
[2021-08-22 11:40] LABS: Glucose,Whole Blood 135 mg/dL (70-110)
[2021-08-22 16:03] LABS: Glucose,Whole Blood 151 mg/dL (70-110)
--- NOTE | 2021-08-22 16:18 | P.PN ---
Subjective Progress Note Date: 08/22/21 Principal diagnosis: Left big toe diabetic foot infection Osteomyelitis 65-year-old male with a past medical he significant for diabetes mellitus patient did have a history of diabetic foot infection apparently the patient has been dealing with a callus to the left big toe that has been going on for couple of weeks now and the patient has been treating with some local dressing patient mention when he got to the dressing off yesterday he noticed to have significant drainage and also the callus came off patient to have diabetic neuropathy and denies Significant pain to the left big toe however the patient mention of some discomfort extending to the left lower leg describing to more of a dull aching 3-4 out of 10 and no radiation, with the symptoms the patient was evaluated by the ER physician on arrival to the ER the patient was afebrile and no fever have been recorded subsequently patient did have a normal white count kidney function was normal patient did have a x-ray of the left foot which did show some abnormality in the left fifth metatarsal phalanx and metatarsal head but no abnormality of the left big toe patient was started on vancomycin infectious disease was consulted for further management of antibiotic therapy 08/22/2021 Patient is seen and evaluated ambulating in the room; this denies any specific complaints Vital signs are reviewed and remained stable Bone scan completed reveals osteomyelitis of left great toe; patient is currently on IV vancomycin and Unasyn; plan to continue current antibiotic therapy until form cultures are finalized Continue with Aquasol dressing to open ulcer with recommendations to change every 48 hours Objective - Vital Signs Vital signs: Vital Signs Temp 98.2 F 08/22/21 08:00 Pulse 70 08/22/21 08:00 Resp 16 08/22/21 09:12 BP 111/72 08/22/21 08:00 Pulse Ox 100 08/22/21 08:00 FiO2 Intake & Output 08/21/21 08/22/21 08/22/21 18:59 06:59 18:59 Intake Total 296 300 Balance 296 300 Intake: Oral 296 300 Other: Voiding Method Toilet Toilet Toilet # Voids 3 2 - Exam PHYSICAL EXAMINATION: GENERAL: The patient is alert and oriented x3, not in any acute distress. Well developed, well nourished. HEENT: Pupils are round and equally reacting to light. EOMI. No scleral icterus. No conjunctival pallor. Normocephalic, atraumatic. No pharyngeal erythema. No thyromegaly. CARDIOVASCULAR: S1 and S2 present. No murmurs, rubs, or gallops. PULMONARY: Chest is clear to auscultation, no wheezing or crackles. ABDOMEN: Soft, nontender, nondistended, normoactive bowel sounds. No palpable organomegaly. MUSCULOSKELETAL: No joint swelling or deformity. EXTREMITIES: No cyanosis, clubbing, or pedal edema. NEUROLOGICAL: Gross neurological examination did not reveal any focal deficits. SKIN: No rashes. - Labs CBC & Chem 7: 08/19/21 21:56 08/21/21 14:44 Labs: Abnormal Lab Results - Last 24 Hours (Table) 08/21/21 Range/Units 20:46 POC Glucose (mg/dL) 137 H (70-110) mg/dL Microbiology - Last 24 Hours (Table) 08/19/21 21:45 Blood Culture - Preliminary Blood No Growth after 48 hours 08/19/21 20:51 Blood Culture - Preliminary Blood No Growth after 48 hours 08/20/21 21:27 Gram Stain - Preliminary Toe - Left First Wound Culture - Preliminary Gram Neg Bacilli Assessment and Plan Assessment: 1. Left big toe diabetic foot ulcer/osteomyelitis we will obtain her local cultures both aerobic and anaerobic. bone scan to rule out underlying osteomyelitis. continue with vancomycin however will add Unasyn while waiting for the culture to finalize. Aquacel silver dressing to the open ulcer change every 48 hour. 2. Diabetes mellitus type 2. Last hemoglobin A1c was 8.8. Patient will be continued on Levemir 65 units at bedtime, NovoLog 25 units 3 times daily, Shiva Log scale will be ordered before meals and at bedtime, family may bring in Farxiga 10 mg daily. Hold Trulicity which is not available in the hospital 3. Hypertension. Continue lisinoprilhydrochlorothiazide 2012 0.5 mg 1 twice daily. 4. Hyperlipidemia. Continue atorvastatin 20 mg daily. 5. Diabetic neuropathy. Continue gabapentin 800 mg 3 times daily. 6. Chronic back pain. Continue baclofen 10 mg daily as needed, Percocet as needed. 7. Recurrent depression. Continue sertraline 100 mg daily in 190. 8. Insomnia. Continue Ambien 5 mg at bedtime. 9. Gastroesophageal reflux disease. Continue Pepcid 20 mg twice daily. 10. DVT prophylaxis. Heparin subcu.
[2021-08-22 17:10] LABS: Glucose,Whole Blood 130 mg/dL (70-110)
[2021-08-22 20:14] LABS: Glucose,Whole Blood 129 mg/dL (70-110)
[2021-08-22] MEDS: INSULIN DETEMIR (LEVEMIR) 100 UNIT/ML SYR SQ SCH (21:57)
[2021-08-22] MEDS: ASPIRIN 81 MG PO SCH (21:58)
[2021-08-22] MEDS: ZOLPIDEM 5 MG TAB PO SCH (21:58)
[2021-08-22] MEDS: SERTRALINE 100 MG TAB PO SCH (21:58)
[2021-08-22] MEDS: ATORVASTATIN 20 MG TAB PO SCH (21:58)
[2021-08-22] MEDS: PATIENT'S OWN (Dapagliflozin Propanediol [Farxiga] 10 MG Tablet) PO SCH (21:59)
[2021-08-23] MEDS: AMPICILLIN-SULBACTAM 3 GM in SODIUM CHLORIDE 0.9% 100 ML IVPB SCH ×2 (00:57→05:27)
[2021-08-23] MEDS: SODIUM CHLORIDE 0.9% 1,000 ML IV SCH (03:20)
[2021-08-23 07:05] LABS: Glucose,Whole Blood 123 mg/dL (70-110)
[2021-08-23] MEDS: INSULIN ASPART (NovoLOG) 100 UNIT/ML VIAL SQ SCH ×4 (07:18→12:33)
[2021-08-23 07:32] VITALS: RESP 17; TEMP 98.4
[2021-08-23] MEDS: FAMOTIDINE 20 MG TAB PO SCH (08:24)
[2021-08-23] MEDS: GABAPENTIN 400 MG CAP PO SCH (08:24)
[2021-08-23] MEDS: oxyCODONE-APAP 10-325MG 1 EACH TAB PO PRN (08:24)
[2021-08-23] MEDS: HEPARIN SODIUM,PORCINE/PF 5,000 UNIT/0.5 ML SYRINGE SQ SCH (08:25)
[2021-08-23] MEDS: DICLOFENAC SODIUM GEL 100 GM TUBE TOPICAL SCH (08:26)
[2021-08-23] MEDS: LISINOPRIL-HCTZ 20-12.5 MG 1 EACH TAB PO SCH (08:26)
[2021-08-23 11:31] LABS: Glucose,Whole Blood 137 mg/dL (70-110)
--- NOTE | 2021-08-23 11:38 | CDI ---
Documentation Clarification Form Date: 08/23/2021 11:26:46 AM From: Fina Mcwilliams CCS, CCDS Admit Date: 08/19/2021 10:15:00 PM Patient Name: Dustin Coombs Visit Number: [id number] Discharge Date: ATTENTION: The Clinical Documentation Specialists (CDI) and [facility] Coding Staff appreciate your assistance in clarifying documentation. Please respond to the clarification below the line at the bottom and electronically sign. The CDI & [facility] Coding staff will review the response and follow-up if needed. Please note: Queries are made part of the Legal Health Record. If you have any questions, please contact the author of this message via ITS. Dr. Suzette Castillo: Osteomyelitis is documented in the 08/19 ED Note, the 08/20 H/P, the 08/20 Infectious Disease Consult and on the 08/20 Bone Scan, also in subsequent Progress Notes. Additional clarification regarding the Acuity of Osteomyelitis is requested. 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 Clinical Indicators: Presented to the 08/19 ED with Left Great Toe Diabetic Ulcer x2 weeks, now with discharge, worsening discoloration and malodorous characteristics, has neuropathy without feeling to the toe. Admit with Diabetic Foot Ulcer. 08/19 VS: T 98.7, P 64, R 18 - 20, BP 115/67, PO 96 RA, BMI: 33.6 08/19 LAB: Glucose 123, CRP 1.7 08/19 Left Foot XR: Soft tissue swelling with ulceration about the 5th metatarsal phalangeal joint, cannot exclude fracture. Could reflect underlying osteomyelitis. 08/20 Bone Scan: Hyperemia of the left foot at the big toe with delayed increased uptake is consistent with osteomyelitis of the distal phalanx. Delayed uptake in the right foot consistent with arthritic disease. Treatment 08/19: Infectious Disease Consult, Blood cultures, IV Zosyn 100 mls @ 200 mls/hr x1, IV Vancomycin 500 mls @ 157 mls/hr x1, Insulin sq TID 08/20: IV Vancomycin 250 mls @ 125 mls/hr q8H. Please clarify the Acuity of the Osteomyelitis, if known: [ X ] Acute osteomyelitis [ ] Chronic osteomyelitis [ ] Subacute osteomyelitis [ ] Unable to Determine (Template Last Revised: April 2020) MTDD
--- NOTE | 2021-08-23 11:51 | P.DS ---
Providers Date of admission: 08/19/21 22:15 Expected date of discharge: 08/23/21 Attending physician: Suzette Castillo Consults: 08/19/21 20:59 Consult Physician Routine Consulting Provider: Dada Ng Consult Reason/Comments: diabetic foot ulcer Do you want consulting provider notified?: Yes Primary care physician: Suzette Castillo Hospital Course: HISTORY OF PRESENT ILLNESS This is a 65-year-old male patient with past medical history of diabetes mellitus type 2, hypertension, hyperlipidemia, gastroesophageal reflux disease, recurrent depression, remote history of tobacco use, fatty liver, chronic back pain, insomnia. Patient has been under the care of the wound clinic with Dr. Finney for right lower extremity diabetic ulcer status post amputation of the right great toe. Patient presented to the emergency center due to left great toe diabetic wound that has been present for at least 2 weeks and now starting to have drainage, change in color and foul odor. It started on the plantar surface of the left great toe and overnight, ulcer spread tothe medial side of the toe. He did have shaky chills yesterday morning He denies having any fever or chills. Patient was found to be afebrile, heart rate 64, blood pressure 115/67, pulse ox 96% on room air. CBC was normal. Electrolytes and renal function within normal limits. Blood sugar 123. INR 0.9. Calcium 9.3. C-reactive protein 1.7 and sed rate 13. Foot x-ray reveals soft tissue swelling with ulceration the fifth metatarsal phalangeal joint, cortical lucency medial aspect of the base of the fifth proximal phalanx right cannot exclude fracture. C with bony fragmentation medial aspect of the fifth metatarsal head this could reflect additional fracture however underlying osteomyelitis is difficult to exclude. [facility], started on Zosyn and vancomycin, consult with Dr. Ng. 08/22/2021 Patient is seen and evaluated ambulating in the room; this denies any specific complaints Vital signs are reviewed and remained stable Bone scan completed reveals osteomyelitis of left great toe; patient is currently on IV vancomycin and Unasyn; plan to continue current antibiotic therapy until form cultures are finalized Continue with Aquasol dressing to open ulcer with recommendations to change every 48 hours 08/23: Bone scan revealed hyperemia of the left foot at the great toe was delayed increased uptake consistent with osteomyelitis of the distal phalanx. Delayed uptake in the right foot consistent with arthritic disease. Patient remained afebrile over the weekend, heart rate 60, blood pressure 96/54, pulse ox 97% on room air. Capillary blood glucose running between 123 and 151. Wound culture is E. coli pansensitive. Dr. Ng has recommended ceftriaxone for 42 day course as well as Flagyl oral patient denies any new complaints. He is anxious to go home today. He does state that Dr. Ng had cleared him for return to work starting tomorrow.. PICC line has been inserted. Patient will be discharged today in stable condition. DISCHARGE DIAGNOSES 1. 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 2. Diabetes mellitus type 2. Last hemoglobin A1c was 8.8. 3. Hypertension. 4. Hyperlipidemia. 5. Diabetic neuropathy. 6. Chronic back pain. 7. Recurrent depression. 8. Insomnia. 9. Gastroesophageal reflux disease. DISCHARGE PLAN Home with [facility] and IV antibiotics Greater than 35 minutes was utilized and coordinating patient's discharge. Impression and plan of care have been directed as dictated by the signing physician. Rosey Alvares nurse practitioner acting as scribe for signing physician. Patient Condition at Discharge: Good Plan - Discharge Summary Discharge Rx Participant: Yes New Discharge Prescriptions: New metroNIDAZOLE [Flagyl] 500 mg PO TID #90 tab Continue Aspirin 81 mg PO DAILY@1900 Lisinopril-Hctz 20-12.5 mg [Zestoretic 20-12.5] 1 tab PO BID Baclofen [Lioresal] 10 mg PO DAILY PRN PRN Reason: Muscle Spasm Zolpidem [Ambien] 12.5 mg PO HS@0700 Sertraline [Zoloft] 100 mg PO DAILY@1900 Insulin Degludec [Tresiba] 65 units SQ HS@0700 Gabapentin 800 mg PO TID Dulaglutide [Trulicity] 1.5 mg SQ CHATMAN Rosuvastatin Calcium 10 mg PO DAILY@1900 Famotidine [Pepcid] 20 mg PO BID Insulin Aspart [NovoLOG Flexpen] 25 units SQ AC-TID oxyCODONE-APAP 10-325MG [Percocet 10-325 mg] 1 tab PO Q6H PRN PRN Reason: Pain Dapagliflozin Propanediol [Farxiga] 10 mg PO DAILY@1900 Diclofenac Sodium [Voltaren Arthritis Pain 1% Gel] 1 applic TOPICAL BID Discharge Medication List Aspirin 81 mg PO DAILY@189908/06/13 [History] Lisinopril-Hctz 20-12.5 mg [Zestoretic 20-12.5] 1 tab PO BID 08/06/13 [History] Baclofen [Lioresal] 10 mg PO DAILY PRN 09/07/15 [History] Zolpidem [Ambien] 12.5 mg PO HS@69909/28/15 [History] Sertraline [Zoloft] 100 mg PO DAILY@189911/17/17 [History] Insulin Degludec [Tresiba] 65 units SQ HS@69907/27/18 [History] Dulaglutide [Trulicity] 1.5 mg SQ CHATMAN 04/15/19 [History] Gabapentin 800 mg PO TID 04/15/19 [History] Rosuvastatin Calcium 10 mg PO DAILY@189904/25/19 [History] Famotidine [Pepcid] 20 mg PO BID 10/07/19 [History] Insulin Aspart [NovoLOG Flexpen] 25 units SQ AC-TID 10/07/19 [History] oxyCODONE-APAP 10-325MG [Percocet 10-325 mg] 1 tab PO Q6H PRN 10/07/19 [History] Dapagliflozin Propanediol [Farxiga] 10 mg PO DAILY@189902/01/21 [History] Diclofenac Sodium [Voltaren Arthritis Pain 1% Gel] 1 applic TOPICAL BID 02/03/21 [History] metroNIDAZOLE [Flagyl] 500 mg PO TID #90 tab 08/23/21 [Rx] Follow up Appointment(s)/Referral(s): Suzette Castillo MD [Primary Care Provider] - 1 Week (patient to call and make appointment after D/C NEED REFFERAL FROM PCP FOR DANYELL APPOINTMENT ) [facility] [NON-STAFF] - As Needed ([facility] will deliver supplies to your house on this evening between 6-8pm. ) Dada Ng MD [STAFF PHYSICIAN] - 09/13/21 1:30 pm (will need a [facility] netwrok refferal from PCP ) [facility] Visiting Nurse, [NON-STAFF] - As Needed ([facility] will call you to schedule the time for your in home visit for 08/24/21 to begin IV antibiotic teaching. ) Patient Instructions/Handouts: Diabetic Foot Ulcers (DC), PICC (Peripherally Inserted Central Catheter) (DC) Activity/Diet/Wound Care/Special Instructions: wound care instructions silver dressing then wet to dry 4x4 gauze and curlex, Q 48 HR change Discharge Disposition: HOME WITH HOME HEALTH SERVICES
[2021-08-23 13:43] VITALS: BP 100/64; PULSE 64
[2021-08-23 14:18] VITALS: BMI 33.6
--- NOTE | 2021-08-23 14:49 | IR ---
PICC LINE PLACEMENT: HISTORY: Infection requiring long-term antibiotic therapy PROCEDURE: Ultrasound and fluoroscopic guidance of PICC line placement. COMPLICATIONS: None ANESTHESIA: 1. 1% Lidocaine locally. FINDINGS/TECHNIQUE: The procedure was explained to the patient. The risks, complications, benefits and alternatives were discussed and any questions were answered. Informed consent was obtained. The patient was placed supine on the fluoroscopic table and prepped and draped in the usual sterile fash ion. Utilizing a 21 gauge needle and sonographic and fluoroscopic guidance, access in the left basi lic vein was achieved and there is placement of a 0.018 guidewire. The vein is patent. A 4-F sheath was placed over the guidewire. The guidewire and dilator were removed and a 4-F. PICC line was plac ed through the sheath with the tip at the level of the SVC. The sheath was removed, the catheter was flushed and sutured into position. The patient was stable throughout the procedure and remained sta ble upon discharge from the Department of Radiology. The vein puncture was patent under ultrasound. A doyle scale image was obtained to document patency of the vein punctured. All elements of the maximal barrier technique were utilized. FLUOROSCOPY TIME: 0.1 minutes and one images submitted IMPRESSION: Successful PICC line placement under ultrasound and fluoroscopic guidance.
--- NOTE | 2021-08-30 12:41 | P.PN ---
Subjective Progress Note Date: 08/22/21 Principal diagnosis: Left big toe diabetic foot infection Patient is a 65-year-old male with a past medical history significant for diabetes mellitus, presented to the hospital left big toe pain swelling redness with infected callus and concern for underlying Osteomyelitis on the basis of the bone scan. On today's evaluation that is 08/22/2021, the patient remains to be afebrile, the patient is breathing comfortably on room air, patient denies having any chest pain or shortness of breath or cough, the patient denies pain to the left big toe , swelling and redness has decreased there is no drainage Objective - Vital Signs Vital signs: Vital Signs Temp 98.6 F 08/22/21 13:21 Pulse 74 08/22/21 13:21 Resp 16 08/22/21 13:21 BP 121/73 08/22/21 13:21 Pulse Ox 95 08/22/21 13:21 FiO2 Intake & Output 08/21/21 08/22/21 08/22/21 18:59 06:59 18:59 Intake Total 296 300 Balance 296 300 Intake: Oral 296 300 Other: Voiding Method Toilet Toilet Toilet # Voids 3 2 - Exam GENERAL DESCRIPTION: Middle-aged male lying in bed in no distress RESPIRATORY SYSTEM: Unlabored breathing , decreased breath sounds at bases HEART: S1 S2 regular rate and rhythm , ABDOMEN: Soft , no tenderness EXTREMITIES: Left big toe swelling and redness has decreased - Labs CBC & Chem 7: 08/19/21 21:56 08/21/21 14:44 Labs: Abnormal Lab Results - Last 24 Hours (Table) 08/21/21 08/22/21 08/22/21 Range/Units 20:46 11:38 16:02 POC Glucose (mg/dL) 137 H 135 H 151 H (70-110) mg/dL 08/22/21 Range/Units 17:09 POC Glucose (mg/dL) 130 H (70-110) mg/dL Microbiology - Last 24 Hours (Table) 08/19/21 21:45 Blood Culture - Preliminary Blood No Growth after 48 hours 08/19/21 20:51 Blood Culture - Preliminary Blood No Growth after 48 hours 08/20/21 21:27 Gram Stain - Preliminary Toe - Left First Wound Culture - Preliminary Gram Neg Bacilli Assessment and Plan (1) Diabetic foot ulcer Status: Acute Code(s): E11.621 - TYPE 2 DIABETES MELLITUS WITH FOOT ULCER; L97.509 - NON-PRESSURE CHRONIC ULCER OTH PRT UNSP FOOT W UNSP SEVERITY SNOMED Code(s): 454059768 Plan: 1patient with left big toe diabetic foot infection with an infected callus and concern for underlying deep infection such as osteomyelitis would likely will be polymicrobial dustin usually associated with diabetic foot infection. 2 local cultures both aerobic and anaerobic are currently pending. 3bone scan was suggestive of osteomyelitis involving the left big toe. 4patient to continue with Unasyn while waiting for the cultures to finalize to determine his discharge antibiotics 5Aquacel silver dressing to the open ulcer change every 48 hour. Time with Patient: Less than 30
--- NOTE | 2021-08-30 12:43 | P.PN ---
Subjective Progress Note Date: 08/23/21 Principal diagnosis: Left big toe diabetic foot infection Patient is a 65-year-old male with a past medical history significant for diabetes mellitus, presented to the hospital left big toe pain swelling redness with infected callus and concern for underlying Osteomyelitis on the basis of the bone scan. On today's evaluation that is 08/23/2021, the patient denies any fever or chills, the patient is breathing comfortably on room air, patient denies having any chest pain shortness of breath or cough, the patient denies pain to the left big toe , swelling and redness has decreased there is no drainage, overall feeling better Objective - Vital Signs Vital signs: Vital Signs Temp 98.4 F 08/23/21 13:43 Pulse 64 08/23/21 13:43 Resp 17 08/23/21 13:43 BP 100/64 08/23/21 13:43 Pulse Ox 97 08/23/21 13:43 FiO2 Intake & Output 08/22/21 08/23/21 08/23/21 18:59 06:59 18:59 Intake Total 550 200 Balance 550 200 Intake: Oral 550 200 Other: Voiding Method Toilet Toilet # Voids 2 - Exam GENERAL DESCRIPTION: Middle-aged male lying in bed in no distress RESPIRATORY SYSTEM: Unlabored breathing , decreased breath sounds at bases HEART: S1 S2 regular rate and rhythm , ABDOMEN: Soft , no tenderness EXTREMITIES: Left big toe swelling and redness has decreased, there is no drainage - Labs CBC & Chem 7: 08/19/21 21:56 08/21/21 14:44 Labs: Abnormal Lab Results - Last 24 Hours (Table) 08/22/21 08/22/21 08/22/21 Range/Units 16:02 17:09 20:13 POC Glucose (mg/dL) 151 H 130 H 129 H (70-110) mg/dL 08/23/21 08/23/21 Range/Units 07:03 11:29 POC Glucose (mg/dL) 123 H 137 H (70-110) mg/dL Microbiology - Last 24 Hours (Table) 08/19/21 21:45 Blood Culture - Preliminary Blood No Growth after 72 hours 08/19/21 20:51 Blood Culture - Preliminary Blood No Growth after 72 hours 08/20/21 21:27 Anaerobic Culture - Preliminary Toe - Left First 08/20/21 21:27 Gram Stain - Final Toe - Left First Wound Culture - Final Escherichia coli Assessment and Plan (1) Diabetic foot ulcer Status: Acute Code(s): E11.621 - TYPE 2 DIABETES MELLITUS WITH FOOT ULCER; L97.509 - NON-PRESSURE CHRONIC ULCER OTH PRT UNSP FOOT W UNSP SEVERITY SNOMED Code(s): 800647904 Plan: 1patient with left big toe diabetic foot infection with an infected callus and concern for underlying deep infection such as osteomyelitis would likely will be polymicrobial dustin usually associated with diabetic foot infection. 2 local cultures both aerobic and anaerobic are currently pending. 3bone scan was suggestive of osteomyelitis involving the left big toe. 4patient local culture had been finalized with an E. coli, we will discontinue the Unasyn he has a PICC line and antibiotic switched over to Rocephin 2 g daily and oral Flagyl 6 weeks with weekly monitoring of CBC CRP and a sed rate and a close outpatient follow-up 5Aquacel silver dressing to the open ulcer change every 48 hour. Time with Patient: Less than 30
== END 2021-08-23 14:51 | disposition home health service (06) | DRG 638 ==
LOC: EC 18:33 → 4SSUR 22:15
PROVIDERS: ADMIT Internal Medicine; ATTEND Internal Medicine
PROC: 02HV33Z Insertion of Infusion Device into Superior Vena Cava, Percutaneous Approach (ICD-10-PCS; principal; 2021-08-23 10:30)
DX: E11.69 Type 2 diabetes mellitus with other specified complication (principal); F33.9 Major depressive disorder, recurrent, unspecified; M86.172 Other acute osteomyelitis, left ankle and foot; E11.621 Type 2 diabetes mellitus with foot ulcer; E11.40 Type 2 diabetes mellitus with diabetic neuropathy, unspecified; E11.628 Type 2 diabetes mellitus with other skin complications; I89.1 Lymphangitis; E78.5 Hyperlipidemia, unspecified; G47.00 Insomnia, unspecified; G89.29 Other chronic pain; I10 Essential (primary) hypertension; J43.9 Emphysema, unspecified; K21.9 Gastro-esophageal reflux disease without esophagitis; K76.0 Fatty (change of) liver, not elsewhere classified; L97.529 Non-pressure chronic ulcer of other part of left foot with unspecified severity; Z79.2 Long term (current) use of antibiotics; Z79.4 Long term (current) use of insulin; Z79.82 Long term (current) use of aspirin; Z79.899 Other long term (current) drug therapy; Z80.0 Family history of malignant neoplasm of digestive organs; Z82.49 Family history of ischemic heart disease and other diseases of the circulatory system; Z87.891 Personal history of nicotine dependence; Z89.411 Acquired absence of right great toe; Z89.429 Acquired absence of other toe(s), unspecified side; Z79.84 Long term (current) use of oral hypoglycemic drugs
CPT/HCPCS: 36415; 36573; 78315; 80048; 80202; 82565; 83036; 85025; 85610; 85652; 85730; 86140; 87040; 87070; 87075; 87077; 87186; 87205; 96365; 96375; 99285

== ENCOUNTER → 2022-04-28 | Outpatient (CLI) | payer BC ==
[2022-04-28 08:54] VITALS: BP 119/72; PULSE 65; RESP 18; TEMP 98.1
--- NOTE | 2022-04-28 15:49 | P.PAINPG ---
PQRS Measure Charge Sheet Comment: A 66 yr old male with a history of severe and chronic LBP x yrs (s/p fall down stairs) secondary to lumbar DDD and spondylosis with facet arthropathy without myelopathy presents today for evaluation s/p BL RFA L4-L5, L5-S1. Pt states he experienced 80 % pain relief s/p procedure. Pain level is provoked at 7 /10 in intensity, constant, localized in the lumbar spine, tight in character w shooting towards the BL butttocks and BLEs. Pain is provoked by sitting/ bending for periods of 15 min or more. Pain is alleviated with massage gun use at home, injections, ice, medications, topicals, home stretching regimen, repositioning and rest. Interventional pain procedures completed include BL RFA L3-L5 x 5, L SI x2 Patient is currently on Neurontin, Percocet, Voltaren gel Patient denies any side effects of the medication(s), denies excessive drowsiness or sleepiness, denies suicidal ideation and reports that the current pain medication is helping to control the pain and improve activities of daily living. Patient denies any motor or sensory deficits. Patient denies any fever or night sweats, denies any change in the bowel movements or urination. Physical Examination: -Constitutional: Cooperative. Not in acute distress . - Neurologic: Cranial nerve II to XII intact. No focal neurological deficits. - Psychatric: Alert & oriented x 3. Matching mood & appropriate affect. Judgment and insight intact. - Musculoskeletal: Cervical spine: Muscle bulk/ tone/ strength in the bilateral upper extremities normal Vertebral body tenderness to palpation over Spurling test positive Distraction test positive Facet loading test positive TTP Thoracic spine Muscle bulk / tone/ strength in the bilateral paraspinal muscles normal Vertebral body tender to palpation over Facet loading test positive TTP Lumbar spine: Motor bulk/ tone/ strength lower extremities , thigh and legs : 5/5 Deep tendon reflexes : Normal Knee Jerk. Normal Ankle Jerk . Vertebral body tenderness to palpation over Lumbar Facet Loading Test positive Straight Leg Raise: positive at 30 degrees right side/ left side Gaenslen's Test positive Sacral spine : Severe tenderness over the Sacroiliac joint: right side / left side Range of motion: Flexion of the lumbar spine <60 degrees Range of motion: Extension of the lumbar spine <20 degrees Gaenslen's Test positive right side < left side Papo test: positive right side / left side Thigh Thrust Test positive right side / left side Sacral Thrust Test positive right side < left side Assessment and plan: Chronic LBP secondary to lumbar DDD, spondylosis with facet arthropathy without myelopathy, BL Sacroiliitis Recommendation of BL SI injections. May need a series for optimal pain relief. Risks, benefits of procedure discussed and pt verbalized understanding. Admits to anticoagulant use or medical history of diabetes. Protocol for discontinuation/ continuation of medications shemar procedure discussed. All questions answered. I have spent less than 30 minutes on patient care today. Dr Mckenzie was available by phone for the evaluation of this patient. The time was used to review the medical records including relevant urine studies and Prescription history (MAPs), review of the available imaging, evaluation and examination of the patient, coordination of care with the medical staff and if applicable referring physicians, as well as creation of the medical record PQRS Narrative: Smoking Status Former smoker Hx Alcohol Use (MH) Yes: RARE Home Medications: Ambulatory Orders Aspirin 81 mg PO DAILY@189908/06/13 Lisinopril-Hctz 20-12.5 mg [Zestoretic 20-12.5] 1 tab PO BID 08/06/13 Baclofen [Lioresal] 10 mg PO DAILY PRN 09/07/15 Zolpidem [Ambien] 12.5 mg PO HS@69909/28/15 Sertraline [Zoloft] 100 mg PO DAILY@189911/17/17 Insulin Degludec [Tresiba] 65 units SQ HS@69907/27/18 Dulaglutide [Trulicity] 1.5 mg SQ CHATMAN 04/15/19 Gabapentin 800 mg PO TID 04/15/19 Rosuvastatin Calcium 10 mg PO DAILY@189904/25/19 Famotidine [Pepcid] 20 mg PO BID 10/07/19 Insulin Aspart [NovoLOG Flexpen] 25 units SQ AC-TID 10/07/19 oxyCODONE-APAP 10-325MG [Percocet 10-325 mg] 1 tab PO Q6H PRN 10/07/19 Dapagliflozin Propanediol [Farxiga] 10 mg PO DAILY@189902/01/21 Diclofenac Sodium [Voltaren Arthritis Pain 1% Gel] 1 applic TOPICAL BID 02/03/21 metroNIDAZOLE [Flagyl] 500 mg PO TID #90 tab 08/23/21 Controlled Substance Measures - Controlled Substance Measures Is patient prescribed a controlled substance at discharge?: No
== END ==
LOC: PNWHC3 08:06
PROVIDERS: ATTEND Specialist
DX: M51.36 Other intervertebral disc degeneration, lumbar region (principal); M47.816 Spondylosis without myelopathy or radiculopathy, lumbar region; G89.29 Other chronic pain; Z87.891 Personal history of nicotine dependence; Z79.82 Long term (current) use of aspirin
CPT/HCPCS: 99211

== ENCOUNTER 2022-05-26 06:20 | Day surgery (SDC) | payer BC ==
[2022-05-20 14:04] VITALS: BMI 32.3
[2022-05-26] MEDS ORDERED: LIDOCAINE 1% (10MG/ML) FOR IV START INTRADERMA PRN (06:38)
[2022-05-26] MEDS ORDERED: LACTATED RINGERS 1,000 ML IV SCH (06:38)
[2022-05-26 06:54] VITALS: RESP 16; TEMP 97.9
[2022-05-26 07:06] LABS: Glucose,Whole Blood 90 mg/dL (70-110)
[2022-05-26] MEDS ORDERED: methylPREDNISolone ACETATE 40 MG/ML 1 ML VIAL ONE (07:27)
[2022-05-26] MEDS ORDERED: MIDAZOLAM 2 MG/2 ML VIAL ONE (07:27)
[2022-05-26] MEDS ORDERED: fentaNYL (PF) 50 MCG/ML 2 ML AMP ONE (07:27)
[2022-05-26] MEDS ORDERED: ROPIVACAINE 5 MG/ML 20 ML AMPULE ONE (07:27)
--- NOTE | 2022-05-26 07:44 | P.PCN ---
Date of Procedure: 05/26/22 Procedure(s) Performed: Procedure= bilateral sacroiliac joints steroid injection under fluoroscopy guidance (fluoroscopy image stored on file in the radiology Department ) Preoperative diagnosis= 1-sacroiliitis 2-lumbar degenerative disc disease 3- lumbar facet arthropathy Postoperative diagnosis=Same as preop Diagnosis . Complication = none Condition= stable Anesthesia= moderate sedation with intravenous Versed 2 mg , and fentanyl 100 micrograms . Sedation start time:731 Sedation end time :741 Indication for the procedure= patient complaining of low back pain , examination was positive for severe tenderness over the sacroiliac joints bilaterally and patient diagnosed with sacroiliitis, for this reason he was good candidate for sacroiliac joint steroid injection. Description of the procedure= procedure risk and benefits discussed with the p atient, including but not limited, risk of infection and bleeding, and ALLERGIC reaction to the medication and not complete pain relief and patient agreed with the preceding patient taken to the operating room, placed in prone position or standard monitors applied to the patient then after induction of anesthesia back prepped with chlorhexidine 3 times , Then under strict sterile technique, first I did the right sacroiliac joint the which was identified under fluoroscopy guidance been local infiltration of the skin and subcu interstitial with lidocaine 1% then 22-gauge Quincke Needle advanced slowly under fluoroscopy and placed in the right sacroiliac joint needle placement confirmed with AP and oblique and lateral view and after appropriate needle placement confirmed and after negative aspiration, or heme , then Ropivacaine 0.5% 4 mL, and 20 mg of Depo-Medrol mixed together and injected in the right sacroiliac joint after negative aspiration patient tolerated the procedure well without any complication. Then the left sacroiliac joint steroid injection done under strict sterile technique local infiltration of the skin and subcu interstitial at the location of the left sacroiliac joint then a 22-gauge Quincke Needle advanced slowly under fluoroscopy time placed in the left sacroiliac joint, needle placement confirmed with AP and oblique and lateral view then after appropriate needle placement confirmed and after negative aspiration 0.5% Ropivacaine 4 mL and 20 mg of Depo-Medrol injected in the left sacroiliac joint after negative aspiration patient tolerated the procedure well that any complications and she will follow up in clinic 3 weeks
[2022-05-26] MEDS ORDERED: IV FLUID CONTINUATION 800 ML IV ONE (07:48)
[2022-05-26 08:02] VITALS: BP 100/60; PULSE 67
--- NOTE | 2022-05-26 08:11 | FL ---
Fluoroscopy INDICATION: Pain FINDINGS: Fluoroscopy time: 10 seconds. DAP: 0.67971 mGycm^2 Images obtained: 3. IMPRESSIONS: 1. Documentation of fluoroscopy.
== END 2022-05-26 08:15 | disposition home or self-care (01) ==
LOC: ORPAIN 06:20
PROVIDERS: ATTEND Specialist
DX: M46.1 Sacroiliitis, not elsewhere classified (principal); M51.36 Other intervertebral disc degeneration, lumbar region; M47.816 Spondylosis without myelopathy or radiculopathy, lumbar region
CPT/HCPCS: 27096; 99152; J2250; J1030; J3010; J2795

== ENCOUNTER 2022-07-10 20:29 | Inpatient (IN) | payer BC ==
[2022-07-10] MEDS ORDERED: ONDANSETRON 4 MG/2 ML VIAL IVP STA (21:30)
[2022-07-10] MEDS ORDERED: SODIUM CHLORIDE 0.9% 2,000 ML IV STA (21:30)
[2022-07-10] MEDS ORDERED: PANTOPRAZOLE 40 MG/10 ML VIAL IVP STA (21:30)
[2022-07-10] MEDS ORDERED: ACETAMINOPHEN TAB 500 MG TAB PO STA (21:31)
[2022-07-10] MEDS ORDERED: SODIUM CHLORIDE 0.9% 1,000 ML IV STA (21:48)
[2022-07-10] MEDS ORDERED: VANCOMYCIN IV PER PHARMACY 1 EACH MISC MISCELLANE PRN (21:48)
[2022-07-10 21:55] LABS: HCT 44.5 % (39.0-53.0); MCH 29.7 pg (25.0-35.0); MCHC 33.7 g/dL (31.0-37.0); MCV 88.2 fL (80.0-100.0); Mean Platelet Volume 7.4; Platelet Count 230 k/uL (150-450); RBC 5.04 m/uL (4.30-5.90); RDW 13.5 % (11.5-15.5); WBC 10.6 k/uL (3.8-10.6)
[2022-07-10] MEDS ORDERED: IBUPROFEN 800 MG TAB PO STA (22:02)
[2022-07-10 22:03] LABS: INR 1.1 (<1.2); Partial Thromboplastin Time 23.7 sec (22.0-30.0); Prothrombin Time 11.2 sec (9.0-12.0)
[2022-07-10 22:06] LABS: ALT 51 U/L (4-49); AST 48 U/L (17-59); African American GFR (CKD) >90 (>60 ml/min/1.73 sqM); Albumin 3.5 g/dL (3.5-5.0); Alkaline Phosphatase 67 U/L (38-126); Amylase 38 U/L (30-110); Anion Gap 14 mmol/L; Blood Urea Nitrogen 35 mg/dL (9-20); Calcium 8.7 mg/dL (8.4-10.2); Carbon Dioxide 24 mmol/L (22-30); Chloride 102 mmol/L (98-107); Glucose 157 mg/dL (74-99); Lipase 30 U/L (23-300); Non-African American GFR(CKD) 85 (>60 ml/min/1.73 sqM); Potassium 3.8 mmol/L (3.5-5.1); Sodium 140 mmol/L (137-145); Total Bilirubin 1.4 mg/dL (0.2-1.3); Total Protein 6.7 g/dL (6.3-8.2)
--- NOTE | 2022-07-10 22:07 | XR ---
EXAMINATION TYPE: XR foot limited bilateral DATE OF EXAM: 07/10/2022 9:58 PM INDICATION: Patient age:Male; 66 years old; Reason for study: pain; PHH. COMPARISON: Left foot radiograph 08/19/2021 TECHNIQUE: The left in right foot was examined in the AP, oblique, and lateral projections. FINDINGS: Transmetatarsal amputation of the right first digit. Normal appearance of the surgical base. Abnormal , mottled appearance of the head of the second phalanx. Mild periosteal reaction of the distal metata rsal. Degenerative changes of the distal and proximal interphalangeal joints. Mottled appearance of t he soft tissue surrounding the second proximal interphalangeal joint. Degenerative changes of the left interphalangeal and proximal interphalangeal joints. Small calcaneal bone spur. No acute osseous or soft tissue abnormalities of the left foot. No radiopaque foreign bod ies. IMPRESSION: 1. Findings concerning for osteomyelitis at the head of the right second metatarsal. Soft tissue swel ling centered at the second proximal interphalangeal joint. 2. Osteoarthritis of the left foot without evidence for acute osseous abnormalities.
--- NOTE | 2022-07-10 22:10 | XR ---
EXAMINATION TYPE: XR chest 1V portable DATE OF EXAM: 07/10/2022 9:58 PM COMPARISON: Chest x-ray 10/07/2019 TECHNIQUE: XR chest 1V portable . CLINICAL INDICATION:Male, 66 years old with history of abdominal pain; FINDINGS: Lungs/Pleura: There is no evidence of pleural effusion, focal consolidation, or pneumothorax. Pulmonary vascularity: Unremarkable. Heart/mediastinum: Cardiomediastinal silhouette is unremarkable. Musculoskeletal: No acute osseous pathology. IMPRESSION: No acute cardiopulmonary disease/process.
[2022-07-10 22:38] LABS: Band Neutrophils % 9 %; Lymphocytes # (M) 1.06 k/uL (1.0-4.8); Monocytes # (M) 0.11 k/uL (0-1.0); Neutrophils % (M) 80 %; Nucleated Red Blood Cells 0 /100 WBC (0-0); Total Cells Counted 100
[2022-07-10 22:39] LABS: Ovalocytes Present; Tear Drop Cells Present
[2022-07-10] MEDS ORDERED: CEFEPIME 2 GM in SODIUM CHLORIDE 0.9% 100 ML IVPB SCH (23:00)
[2022-07-10] MEDS ORDERED: NALOXONE 0.4 MG/ML 1 ML VIAL IV PRN (23:12)
[2022-07-10] MEDS ORDERED: ACETAMINOPHEN TAB 325 MG TAB PO PRN (23:44)
[2022-07-10] MEDS ORDERED: ONDANSETRON 4 MG/2 ML VIAL IVP PRN (23:44)
--- NOTE | 2022-07-10 23:58 | ED ---
General Adult HPI - General Chief complaint: Nausea/Vomiting/Diarrhea Stated complaint: foot wound Time Seen by Provider: 07/10/22 21:19 Source: EMS, RN notes reviewed, old records reviewed Mode of arrival: EMS Limitations: no limitations - History of Present Illness Initial comments: Patient is a 66-year-old male who presents emergency Department complaining of bilateral foot wounds that are chronic with some increased drainage from both of them lately. Also feels generalized weakness, and has noticed a fever at home. Denies any cough, chest pain. Denies any diarrhea, abdominal pain. Did have 2 episodes of nausea and vomiting earlier today which has since resolved. Does have a history of diabetes and insulin pump and sugars have been within acceptable limits. His no known sick contacts. Denies any urinary complaints. He is concerned that his symptoms may be more infected at this time as he has noticed purulent drainage. Some worsening pain in the right foot. Presents here for evaluation at this time. - Related Data Home Medications Medication Instructions Recorded Confirmed Aspirin 81 mg PO DAILY@189908/06/13 05/20/22 Lisinopril-Hctz 20-12.5 mg 1 tab PO BID 08/06/13 05/20/22 [Zestoretic 20-12.5] Baclofen [Lioresal] 10 mg PO DAILY PRN 09/07/15 05/20/22 Zolpidem [Ambien] 12.5 mg PO HS 09/28/15 05/20/22 Sertraline [Zoloft] 100 mg PO DAILY@189911/17/17 05/20/22 Insulin Degludec [Tresiba] 65 units SQ HS 07/27/18 05/20/22 Gabapentin 800 mg PO QID 04/15/19 05/20/22 Rosuvastatin Calcium 10 mg PO DAILY@189904/25/19 05/20/22 Famotidine [Pepcid] 20 mg PO BID 10/07/19 05/20/22 Insulin Aspart [NovoLOG Flexpen] 25 units SQ AC-TID 10/07/19 05/20/22 oxyCODONE-APAP 10-325MG [Percocet 1 tab PO Q6H PRN 10/07/19 05/20/22 10-325 mg] Dapagliflozin Propanediol [Farxiga] 10 mg PO DAILY@189902/01/2105/20/23 Diclofenac Sodium [Voltaren 1 applic TOPICAL BID 02/03/21 05/20/22 Arthritis Pain 1% Gel] Tirzepatide [Mounjaro] 2.5 mg SQ Q7D 05/20/22 05/20/22 Allergies Allergy/AdvReac Type Severity Reaction Status Date / Time No Known Allergies Allergy Verified 05/26/22 06:44 Review of Systems ROS Statement: Those systems with pertinent positive or pertinent negative responses have been documented in the HPI. Review of Systems: CONST: Denies fever EYES: Denies blurry vision ENT: Denies nasal congestion C/V: Denies Chest pain RESP: Denies shortness of breath GI: Denies abdominal pain : Denies dysuria SKIN: Endorses chronic foot ulcers MSK: Denies joint pain. NEURO: Denies headache ROS Other: All systems not noted in ROS Statement are negative. Past Medical History Past Medical History: Diabetes Mellitus, GERD/Reflux, Hyperlipidemia, Hypertension, Prostate Disorder Additional Past Medical History / Comment(s): fatty liver, bulging disc, neuropathy, NEUROPATHY IN HANDS AND FEET History of Any Multi-Drug Resistant Organisms: None Reported Past Surgical History: Orthopedic Surgery Additional Past Surgical History / Comment(s): pain clinic procedures for back , right great toe amputation, colonoscopy, EGD Past Anesthesia/Blood Transfusion Reactions: No Reported Reaction Past Psychological History: Depression Smoking Status: Former smoker Past Alcohol Use History: Rare Additional Past Alcohol Use History / Comment(s): Patient was a smoker 3 pppd, greater than 20 years, quit 2000 est. He denies any marijuana or street drug use. He drinks a few beers occasionally, none in 2 years per . Past Drug Use History: None Reported - Past Family History Mother Family Medical History: Cancer Additional Family Medical History / Comment(s): Mother at age 60 from colon cancer. She had history of lung transplant. Patient does not know why she had a lung transplant other than she was a smoker. Father Additional Family Medical History / Comment(s): Father at age 67 from a myocardial infarction. Brother(s) Additional Family Medical History / Comment(s): Patient does not have any brothers. Patient had 1 sister that at age 40 from pancreatic cancer. Patient has 2 sons and 1 daughter with no major medical problems. Sister(s) Family Medical History: Cancer Additional Family Medical History / Comment(s): pancreatic cancer General Exam - General Exam Comments Initial Comments: General: Appears in no acute distress. Febrile. HEAD: Normal with no signs of head trauma. EYES: PERRLA, EOMI, conjunctiva normal, no discharge. ENT: Hearing grossly intact, normal oropharynx. RESPIRATORY: Clear breath sounds bilaterally. No wheezes, rales, or rhonchi. C/V: Tachycardic with a regular rhythm. S1 and S2 auscultated. Peripheral pulses 2+ and intact throughout. ABD: Abd is soft, nontender, nondistended EXT: Normal range of motion. SKIN: Bilateral foot ulcers. 1 at the site of the second metatarsal in the right foot on the plantar aspect. One on the plantar aspect of the first digit of the left foot. Both with surrounding erythema as well as some purulent discharge. No obvious abscess or fluctuance palpated. NEURO: Alert and oriented 4. No focal deficits. Limitations: no limitations Course Vital Signs 07/10/22 07/10/22 07/10/22 20:47 21:24 22:48 Temperature 103.2 F H 100.3 F H Pulse Rate 111 H 107 H 96 Pulse Rate [ Instrument Person ] Respiratory 18 18 18 Rate Blood Pressure 100/66 83/46 86/45 Blood Pressure [Left Arm] O2 Sat by Pulse 91 L 94 L 97 Oximetry 07/11/22 07/11/22 07/11/22 00:20 00:40 02:06 Temperature 98.3 F 98.3 F Pulse Rate 84 72 Pulse Rate [ 61 Instrument Person ] Respiratory 18 12 18 Rate Blood Pressure 93/54 74/45 Blood Pressure 117/67 [Left Arm] O2 Sat by Pulse 97 97 97 Oximetry Procedures - Sepsis Sepsis Focused Exam #1 Time Sepsis Criteria Met: 21:45 Sepsis Focused Exam Date: 07/11/22 Sepsis Focused Exam Time: 01:45 Sepsis Focused Exam Complete: Yes Vital Signs & RN Notes Reviewed: Yes Capillary Refill: > 2 Seconds: Fingers, Toes Peripheral Pulses: Normal: Radial (R), Radial (L) Skin Color: Normal for Patient Respiratory Exam: normal lung sounds Cardiovascular Exam: regular rate, normal rhythm Medical Decision Making - Medical Decision Making Was pt. sent in by a medical professional or institution (, PA, [employer], urgent care, hospital, or alf...) When possible be specific @ -No Did you speak to anyone other than the patient for history (EMS, parent, family, police, friend...)? What history was obtained from this source @ -No Did you review nursing and triage notes (agree or disagree)? Why? @ -I reviewed and agree with nursing and triage notes Were old charts reviewed (outside hosp., previous admission, EMS record, old EKG, old radiological studies, urgent care reports/EKG's, alf records)? Report findings @ -No old charts were reviewed Differential Diagnosis (chest pain, altered mental status, abdominal pain women, abdominal pain men, vaginal bleeding, weakness, fever, dyspnea, syncope, headache, dizziness, GI bleed, back pain, seizure, CVA, palpatations, mental health, musculoskeletal)? @ -Differential Fever: Pneumonia, viral URI, endocarditis, myocarditis, pericarditis, otitis, sinusitis, peritonsillar Abscess, retropharyngeal Abscess, epiglottitis, peritonitis, appendicitis, Sheyla cystitis, diverticulitis, hepatitis, colitis, UTI, PID, TOA, pyelonephritis, prostatitis, epididymitis, meningitis, encephalitis, pulmonary embolism, CVA, thyroid storm, pancreatitis, adrenal crisis, cavernous sinus thrombosis, this is not meant to be an all-inclusive list. EKG interpreted by me (3pts min.). @ -As above X-rays interpreted by me (1pt min.). @ -Chest x-ray reveals no obvious acute cardio pulmonary process. Foot x-ray reveals findings concerning for osteomyelitis at the head of the right second metatarsal. There is also possible arthritis of the left foot without evidence of osteomyelitis. CT interpreted by me (1pt min.). @ -CT abdomen and pelvis revealed no obvious acute intra-abdominal process. U/S interpreted by me (1pt. min.). @ -None done What testing was considered but not performed or refused? (CT, X-rays, U/S, labs)? Why? @ -None What meds were considered but not given or refused? Why? @ -None Did you discuss the management of the patient with other professionals (professionals i.e. , PA, [employer], lab, RT, psych nurse, social service technician, internal control specialist, teacher, commanding officer garage, shelter case manager)? Give summary @ -No Was smoking cessation discussed for >3mins.? @ -No Was critical care preformed (if so, how long)? @ -Yes, 35 minutes. Were there social determinants of health that impacted care today? How? (Homelessness, low income, unemployed, alcoholism, drug addiction, transportation, low edu. Level, literacy, decrease access to med. care, skilled nursing, rehab)? @ -No Was there de-escalation of care discussed even if they declined (Discuss DNR or withdrawal of care, Hospice)? DNR status @ -No What co-morbidities impacted this encounter? (DM, HTN, Smoking, COPD, CAD, Cancer, CVA, ARF, Chemo, Hep., AIDS, mental health diagnosis, sleep apnea, morbid obesity)? @ -History of diabetes, chronic foot wounds Was patient admitted / discharged? Hospital course, mention meds given and route, prescriptions, significant lab abnormalities, going to OR and other pertinent info. @ -Based on the patient's presentation and physical exam, I was notified that the patient was mildly hypotensive with systolics in the 80s and febrile. Concern for sepsis at this time. My evaluation of the patient, pressures remained in the mid 80s, patient was febrile and tachycardic. He will be empirically started on treatment for sepsis. I initially ordered vancomycin and Zosyn. We'll provide him with a 2 L fluid bolus and placed him on 130 mL per KG fluids. Wound cultures and blood cultures will be obtained. We'll obtain broad workup, however I suspect infection is likely related to cellulitis and possible ostial myelitis of the bilateral feet. Patient was in agreement this plan. EKG showed no signs of ischemia. Chest x-ray unremarkable. Foot x-ray shows osteomyelitis of the right second metatarsal. Labs are remarkable for mild lactic acidosis of 2.2. Acetone negative. Does not appear to be in DKA. No anion gap. No leukocytosis. I updated The patient on the findings. He is feeling improved. He is still on the initial fluid bolus and therefore we will reevaluate after the second fluid bolus. He will be admitted at this time. Following the second fluid bolus, patient did have low but still acceptable blood pressures with maps above 65. I spoke with the admitting physician, Dr. Castillo who accepted the admission. I consult the patient's vascular surgeon Dr. Finney. I was notified after the patient was admitted and was holding here in the department that patient's blood pressure after 3 L of fluid remained low. MAPs ranged from 54-64. At this time, the decision was made to place a 18-gauge IV peripherally and was placed on low-dose Levophed for septic shock. Patient was in agreement this plan. Patient was relatively asymptomatic. States he feels occasionally lightheaded but denies any acute complaints at this time. States he was feeling improved. Due to his only other symptoms been nausea and vomiting, the decision was made to obtain a CT abdomen and pelvis at this time. He was in agreement this plan. He will require admission to ICU. I spoke with Dr. Still who accepted the admission to the ICU. He was in agreement with the plan. CT revealed no evidence of acute intra-abdominal process. Patient admitted to the ICU. Undiagnosed new problem with uncertain prognosis? @ -No Drug Therapy requiring intensive monitoring for toxicity (Heparin, Nitro, Insulin, Cardizem)? @ -No Were any procedures done? @ -No Diagnosis/symptom? @ -Cellulitis from bilateral foot wounds, osteomyelitis of the right second metatarsal, septic shock Acute, or Chronic, or Acute on Chronic? @ -Acute Uncomplicated (without systemic symptoms) or Complicated (systemic symptoms)? @ -Complicated Side effects of treatment? @ -No Exacerbation, Progression, or Severe Exacerbation? @ -No Poses a threat to life or bodily function? How? (Chest pain, USA, MA, pneumonia, PE, COPD, DKA, ARF, appy, cholecystitis, CVA, Diverticulitis, Homicidal, Suicidal, threat to staff... and all critical care pts) @ -Yes - Lab Data Result diagrams: 07/10/22 21:41 07/10/22 21:41 Lab Results 07/10/22 07/10/22 07/10/22 Range/Units 21:41 21:41 21:41 WBC 10.6 (3.8-10.6) k/uL RBC 5.04 (4.30-5.90) m/uL Hgb 15.0 (13.0-17.5) gm/dL Hct 44.5 (39.0-53.0) % MCV 88.2 (80.0-100.0) fL MCH 29.7 (25.0-35.0) pg MCHC 33.7 (31.0-37.0) g/dL RDW 13.5 (11.5-15.5) % Plt Count 230 (150-450) k/uL MPV 7.4 Neutrophils % (Manual) 80 % Band Neuts % (Manual) 9 % Lymphocytes % (Manual) 10 % Monocytes % (Manual) 1 % Neutrophils # (Manual) 9.40 H (1.3-7.7) k/uL Lymphocytes # (Manual) 1.06 (1.0-4.8) k/uL Monocytes # (Manual) 0.11 (0-1.0) k/uL Nucleated RBCs 0 (0-0) /100 WBC Manual Slide Review Performed Tear Drop Cells Present Ovalocytes Present PT 11.2 (9.0-12.0) sec INR 1.1 (<1.2) APTT 23.7 (22.0-30.0) sec Sodium 140 (137-145) mmol/L Potassium 3.8 (3.5-5.1) mmol/L Chloride 102 (98-107) mmol/L Carbon Dioxide 24 (22-30) mmol/L Anion Gap 14 mmol/L BUN 35 H (9-20) mg/dL Creatinine 0.95 (0.66-1.25) mg/dL Est GFR (CKD-EPI)AfAm >90 (>60 ml/min/1.73 sqM) Est GFR (CKD-EPI)NonAf 85 (>60 ml/min/1.73 sqM) Glucose 157 H (74-99) mg/dL Lactic Ac Sepsis Rflx Plasma Lactic Acid Med (0.7-2.0) mmol/L Calcium 8.7 (8.4-10.2) mg/dL Total Bilirubin 1.4 H (0.2-1.3) mg/dL AST 48 (17-59) U/L ALT 51 H (4-49) U/L Alkaline Phosphatase 67 (38-126) U/L Troponin I (0.000-0.034) ng/mL Total Protein 6.7 (6.3-8.2) g/dL Albumin 3.5 (3.5-5.0) g/dL Amylase 38 (30-110) U/L Lipase 30 (23-300) U/L Acetone, Qual Negative (Negative) 07/10/22 07/10/22 07/10/22 Range/Units 21:41 21:41 22:11 WBC (3.8-10.6) k/uL RBC (4.30-5.90) m/uL Hgb (13.0-17.5) gm/dL Hct (39.0-53.0) % MCV (80.0-100.0) fL MCH (25.0-35.0) pg MCHC (31.0-37.0) g/dL RDW (11.5-15.5) % Plt Count (150-450) k/uL MPV Neutrophils % (Manual) % Band Neuts % (Manual) % Lymphocytes % (Manual) % Monocytes % (Manual) % Neutrophils # (Manual) (1.3-7.7) k/uL Lymphocytes # (Manual) (1.0-4.8) k/uL Monocytes # (Manual) (0-1.0) k/uL Nucleated RBCs (0-0) /100 WBC Manual Slide Review Tear Drop Cells Ovalocytes PT (9.0-12.0) sec INR (<1.2) APTT (22.0-30.0) sec Sodium (137-145) mmol/L Potassium (3.5-5.1) mmol/L Chloride (98-107) mmol/L Carbon Dioxide (22-30) mmol/L Anion Gap mmol/L BUN (9-20) mg/dL Creatinine (0.66-1.25) mg/dL Est GFR (CKD-EPI)AfAm (>60 ml/min/1.73 sqM) Est GFR (CKD-EPI)NonAf (>60 ml/min/1.73 sqM) Glucose (74-99) mg/dL Lactic Ac Sepsis Rflx Y Plasma Lactic Acid Med 2.2 H* (0.7-2.0) mmol/L Calcium (8.4-10.2) mg/dL Total Bilirubin (0.2-1.3) mg/dL AST (17-59) U/L ALT (4-49) U/L Alkaline Phosphatase (38-126) U/L Troponin I 0.023 (0.000-0.034) ng/mL Total Protein (6.3-8.2) g/dL Albumin (3.5-5.0) g/dL Amylase (30-110) U/L Lipase (23-300) U/L Acetone, Qual (Negative) - EKG Data -: EKG Interpreted by Me EKG Comments: 12-lead Electrocardiogram Interpretation Note EKG was reviewed and interpreted by myself. 12-lead ECG performed at 2136 is interpreted by me as revealing sinus tachycardia at a rate of 105 beats per minute. Left axis deviation. PA intervals 173 ms, QRS duration is 93 ms, QTc is 402 ms.. There were no ST or T wave abnormalities to suggest myocardial ischemia or injury. R wave progression across the precordium was satisfactory. By my interpretation this EKG is non-diagnostic for acute ischemia. Critical Care Time Critical Care Time: Yes Total Critical Care Time: 35 Disposition Clinical Impression: Sepsis, Cellulitis, Osteomyelitis, Septic shock, Hypotension Disposition: ADMITTED IP TO THIS [facility] Condition: Serious Time of Disposition: 23:12
[2022-07-11] MEDS ORDERED: VANCOMYCIN 2,250 MG in SODIUM CHLORIDE 0.9% 500 ML 500 ML IVPB ONE ×2
[2022-07-11] MEDS ORDERED: SODIUM CHLORIDE 0.9% 1,000 ML IV STA (00:08)
[2022-07-11] MEDS: PIPERACILLIN-TAZOBACTAM 3.375 GM in SODIUM CHLORIDE 0.9% 100 ML IVPB SCH ×3 (00:10→15:47)
[2022-07-11] MEDS ORDERED: ESMOLOL IN SODIUM CHLORIDE PMX 2.5 GM in SALINE 1 250ML.BAG IV SCH (01:45)
[2022-07-11] MEDS ORDERED: NOREPINEPHRINE 4 MG in SODIUM CHLORIDE 0.9% 250 ML IV ONE (02:00)
[2022-07-11] MEDS: HEPARIN SODIUM,PORCINE/PF 5,000 UNIT/0.5 ML SYRINGE SQ SCH ×4 (02:11→23:20)
[2022-07-11 03:05] LABS: Glucose,Whole Blood 96 mg/dL (70-110)
--- NOTE | 2022-07-11 03:30 | CT ---
EXAM: CT Abdomen and Pelvis With Intravenous Contrast CLINICAL HISTORY: ITS.REASON CT Reason: hypotension, n/v TECHNIQUE: Axial computed tomography images of the abdomen and pelvis with intravenous contrast. CTDI is 37.2 mGy and DLP is 1958.3 mGy-cm. This CT exam was performed using one or more of the following dose reduction techniques: automated exposure control, adjustment of the mA and/or kV according to patient size, and/or use of iterative reconstruction technique. COMPARISON: No previous studies. FINDINGS: Lung bases: COPD. Scarring and subsegmental atelectasis at the lung bases. Heart: Heart is normal in size. ABDOMEN: Liver: Fatty liver. Gallbladder and bile ducts: The gallbladder is unremarkable. No calcified stones. No ductal dilation. Pancreas: See below. Spleen: Spleen enhances uniformly. Adrenals: The adrenal glands, the head, body, tail of the pancreas are within normal limits. Kidneys and ureters: Nonspecific stranding about the perinephric spaces. Stomach and bowel: Moderate quantity of ingested material in the stomach. Moderate quantity of stool throughout the colon. Distention of the rectosigmoid with stool compatible with constipation. Diverticulosis without diverticulitis. PELVIS: Appendix: The appendix is seen on axial image 57 and is unremarkable. Bladder: Unremarkable. No mass. Reproductive: Unremarkable as visualized. ABDOMEN and PELVIS: Intraperitoneal space: Unremarkable. No free air. No significant fluid collection. Bones/joints: No acute fracture. No dislocation. No spondylolysis. Soft tissues: Ischiorectal fat is clean. Vasculature: The portal vein is patent. Atherosclerotic disease of the abdominal aorta without change in caliber. Flow is noted within the celiac, SMA, the renal arteries, and JORGE ALBERTO. No abdominal aortic aneurysm. Lymph nodes: Unremarkable. No retroperitoneal lymphadenopathy. No pelvic or inguinal lymphadenopathy. IMPRESSION: 1. Fatty liver. 2. The gallbladder is unremarkable. 3. No hydronephrosis point 4. The appendix is unremarkable per 5. Diverticulosis without diverticulitis. 6. Mild constipation.
[2022-07-11] MEDS ORDERED: DEXTROSE 50% SYRINGE 50 ML IVP PRN ×2 (03:58)
--- NOTE | 2022-07-11 04:09 | P.CNPUL ---
History of Present Illness Consult date: 07/11/22 Requesting physician: Wilmer Olivares Reason for consult: other (ICU management) Chief complaint: right foot pain History of present illness: I am seeing this patient in new consultation today 07/11/2022 in the emergency department for ICU management in regards to osteomyelitis and possible sepsis. Patient is a 66-year-old white male with past medical history significant for diabetic foot wounds and previous amputation of his right great toe, diabetes mellitus, diabetic neuropathy, hypertension, hyperlipidemia, GERD. Patient has been previously seen at the wound care clinic for his diabetic foot wounds and has undergone right great toe amputation in the past. Patient's wounds had appa rently been improving, the patient stopped seeing the wound care clinic, and was being managed by his primary care provider Dr. Castillo. Recently, the foot wounds have been draining a bloody-clear drainage. The right foot has an aproximate 2x2 cm plantar wound and the left foot has an approximate 2.5x2cm wound on the great toe. The patient has been experiencing fever and chill over the last 24-48 ho urs, and decided to come to the emergency room last night. He also reports two episodes of emesis without abominal pain, distention, constipation, or diarrhea. Patient is currently resting in the stretcher, on room air, in no acute distress. X-ray of his bilateral feet showed findings concerning for osteomyelitis of the head of the right second metatarsal, along with soft tissue swelling centered at the second proximal interphalangeal joint. There were no acute osseous abnormalities of the left foot. No acute cardiopulmonary disease process as seen on chest x-ray. His blood pressure has been hypotensive despite 3 L normal saline fluid bolus, and has been started on norepinephrine currently infusing at 0.04 mics per kilogram per minute. CBC on arrival shows a WBC count of 10.6, hemoglobin 15, hematocrit 44.5, platelets 230. BMP was unremarkable. Normal saline currently infusing at 167 ml/hr. Lactic acid level was mildly elevated at 2.2 and is down to 1.7. Troponin negative 1. Patient is being empirically covered with Zosyn and vancomycin. T-max is 103.2degrees Fahrenheit. Blood cultures are pending. Patient will be monitored in the intensive care unit. Review of Systems REVIEW OF SYSTEMS: CONSTITUTIONAL: Denies any recent significant weight loss or weight gain. EYES: Denies change in vision. EARS, NOSE, MOUTH, THROAT: Denies headaches, denies sore throat. CARDIOVASCULAR: Denies chest pain, palpitations or syncopal episodes. RESPIRATORY: Denies shortness of breath, cough, congestion or hemoptysis. GASTROINTESTINAL: Denies change in appetite, abdominal pain, or diarrhea. Admits transient episodes of vomiting x2, no hematemesis GENITOURINARY: Denies hematuria, denies infections. MUSKULOSKELETAL:see HPI INTEGUMENTARY: Denies rash, denies eczema. see HPI NEUROLOGICAL: Denies recent memory loss, no recent seizure activity. PSYCHIATRIC: Denies anxiety, denies depression. HEMATOLOGIC/LYMPHATIC: Denies anemia, denies enlarged lymph node Past Medical History Past Medical History: Diabetes Mellitus, GERD/Reflux, Hyperlipidemia, Hypertension, Prostate Disorder Additional Past Medical History / Comment(s): fatty liver, bulging disc, neuropathy, NEUROPATHY IN HANDS AND FEET , diabetic foot wounds History of Any Multi-Drug Resistant Organisms: None Reported Past Surgical History: Orthopedic Surgery Additional Past Surgical History / Comment(s): pain clinic procedures for back , right great toe amputation, colonoscopy, EGD Past Anesthesia/Blood Transfusion Reactions: No Reported Reaction Past Psychological History: Depression Smoking Status: Former smoker Past Alcohol Use History: Rare Additional Past Alcohol Use History / Comment(s): Patient was a smoker 3 pppd, greater than 20 years, quit 2000 est. He denies any marijuana or street drug use. He drinks a few beers occasionally, none in 2 years per . Past Drug Use History: None Reported - Past Family History Mother Family Medical History: Cancer Additional Family Medical History / Comment(s): Mother at age 60 from colon cancer. She had history of lung transplant. Patient does not know why she had a lung transplant other than she was a smoker. Father Additional Family Medical History / Comment(s): Father at age 67 from a my ocardial infarction. Brother(s) Additional Family Medical History / Comment(s): Patient does not have any brothers. Patient had 1 sister that at age 40 from pancreatic cancer. Patient has 2 sons and 1 daughter with no major medical problems. Sister(s) Family Medical History: Cancer Additional Family Medical History / Comment(s): pancreatic cancer Medications and Allergies Home Medications Medication Instructions Recorded Confirmed Type Aspirin 81 mg PO DAILY@1900 24/14 04/07/23 History Lisinopril-Hctz 20-12.5 mg 1 tab PO BID 08/06/13 05/20/22 History [Zestoretic 20-12.5] Baclofen [Lioresal] 10 mg PO DAILY PRN 09/07/15 05/20/22 History Zolpidem [Ambien] 12.5 mg PO HS 09/28/15 05/20/22 History Sertraline [Zoloft] 100 mg PO DAILY@189911/17/17 05/20/22 History Insulin Degludec [Tresiba] 65 units SQ HS 07/27/18 05/20/22 History Gabapentin 800 mg PO QID 04/15/19 05/20/22 History Rosuvastatin Calcium 10 mg PO DAILY@189904/25/19 05/20/22 History Famotidine [Pepcid] 20 mg PO BID 10/07/19 05/20/22 History Insulin Aspart [NovoLOG Flexpen] 25 units SQ AC-TID 10/07/19 05/20/22 History oxyCODONE-APAP 10-325MG [Percocet 1 tab PO Q6H PRN 10/07/19 05/20/22 History 10-325 mg] Dapagliflozin Propanediol [Farxiga] 10 mg PO DAILY@189902/01/21 05/20/22 History Diclofenac Sodium [Voltaren 1 applic TOPICAL BID 02/03/21 05/20/22 History Arthritis Pain 1% Gel] Tirzepatide [Mounjaro] 2.5 mg SQ Q7D 05/20/22 05/20/22 History Allergies Allergy/AdvReac Type Severity Reaction Status Date / Time No Known Allergies Allergy Verified 05/26/22 06:44 Physical Exam Vitals: Vital Signs Temp Pulse Resp BP Pulse Ox 07/11/22 02:06 98.3 F 72 18 74/45 97 07/11/22 00:20 84 18 93/54 97 07/10/22 22:48 100.3 F H 96 18 86/45 97 07/10/22 21:24 107 H 18 83/46 94 L 07/10/22 20:47 103.2 F H 111 H 18 100/66 91 L Intake and Output 0507/10/22 07/11/22 14:59 22:59 06:59 Intake Total 4.869 Balance 4.869 Intake: Intake, IV Titration 4.869 Amount Norepinephrine 4 mg In 4.869 Sodium Chloride 0.9% 250 ml @ 0.03 MCG/KG/MIN 12. 702 mls/hr IV .Q20H ONE Rx#:[id number] Other: Weight 111.13 kg GENERAL EXAM: Alert, , comfortable in no apparent distress. HEAD: Normocephalic and atraumatic EYES: Normal reaction of pupils, equal size. NOSE: Clear with pink turbinates. THROAT: No erythema or exudates. NECK: No masses, no JVD. CHEST: No chest wall deformity. LUNGS: Equal air entry with no crackles, wheeze, rhonchi or dullness. No conversational dyspnea or accessory muscle use.. CVS: S1 and S2 normal with no audible murmur, regular rhythm. No extra heart sounds ABDOMEN: No hepatosplenomegaly, active bowel sounds, no guarding or rigidity. SPINE: No scoliosis or deformity SKIN: approximately 2 x 2 centimeter right plantar foot wound and a 2.5 x 2 cm left great toe wound with eschar and granulation CENTRAL NERVOUS SYSTEM: No focal deficits, tone is normal in all 4 extremities. EXTREMITIES: right great toe amputation. There is no peripheral edema, clubbing, or cyanosis. Peripheral pulses are intact. Results - Laboratory Findings CBC and BMP: 07/10/22 21:41 07/10/22 21:41 PT/INR, D-dimer PT 11.2 sec (9.0-12.0) 07/10/22 21:41 INR 1.1 (<1.2) 07/10/22 21:41 Abnormal lab findings: Abnormal Labs 07/10/22 07/10/22 07/10/22 21:41 21:41 21:41 Neutrophils # (Manual) 9.40 H BUN 35 H Glucose 157 H Plasma Lactic Acid Med 2.2 H* Total Bilirubin 1.4 H ALT 51 H - Diagnostic Findings Chest x-ray: image reviewed Assessment and Plan Assessment: Suspected osteomyelitis and sepsis. X-ray of his bilateral feet show findings concerning for osteomyelitis of the head of the right second metatarsal, along with soft tissue swelling centered at the second proximal interphalangeal joint. There were no acute osseous abnormalities of the left foot. Septic shock refractory to fluid replacement currently requiring vasopressors Diabetic foot wounds Diabetes mellitus type 2, insulin-dependent Diabetic neuropathy. Hypertension Hyperlipidemia GERD Degenerative disc disease Chronic lower back pain History of prior right great toe amputation plan: Patient's medications, labs, x-rays reviewed continue empiric antibiotics Blood cultures are pending wound cultures are pending Continue norepinephrine infusion to maintain MAP > [address] Finney was consulted for patient's diabetic foot wounds consult wound care heparin for DVT prophylaxis Protonix for GI prophylaxis Pain management CT of the abdomen pelvis pending We will continue to follow the patient when ICU I have personally seen and examined the patient, performed the documentation and the assessment and plan as written. Number of minutes spent on the visit:20 Time with Patient: Greater than 30
[2022-07-11] MEDS: oxyCODONE-APAP 10-325MG 1 EACH TAB PO PRN ×3 (04:14→18:24)
[2022-07-11] MEDS: MORPHINE SULFATE 2 MG/ML SYRINGE IVP PRN ×3 (04:15→20:18)
[2022-07-11 05:17] LABS: Appearance,Urine Clear (Clear); Bilirubin,Urine Negative (Negative); Blood,Urine Negative (Negative); Color,Urine Yellow; Glucose,Urine (UA) 4+ (Negative); Ketones,Urine Trace (Negative); Leukocyte Esterase,Urine Negative (Negative); Nitrite,Urine Negative (Negative); PH, Urine 5.5 (5.0-8.0); Protein,Urine Trace (Negative)
[2022-07-11 05:33] LABS: Basophils % (A) 0 %; Eosinophils % (A) 0 %; HCT 43.6 % (39.0-53.0); HGB 14.3 gm/dL (13.0-17.5); Lymphocytes # (A) 0.8 k/uL (1.0-4.8); Lymphocytes % (A) 5 %; MCH 29.8 pg (25.0-35.0); MCHC 32.8 g/dL (31.0-37.0); Mean Platelet Volume 7.7; Monocytes # (A) 0.5 k/uL (0-1.0); Monocytes % (A) 3 %; Neutrophils # (A) 13.2 k/uL (1.3-7.7); Neutrophils % (A) 90 %; Platelet Count 236 k/uL (150-450); RDW 13.6 % (11.5-15.5); WBC 14.7 k/uL (3.8-10.6)
[2022-07-11 05:41] LABS: African American GFR (CKD) >90 (>60 ml/min/1.73 sqM); Anion Gap 13 mmol/L; Blood Urea Nitrogen 36 mg/dL (9-20); Calcium 7.9 mg/dL (8.4-10.2); Carbon Dioxide 20 mmol/L (22-30); Chloride 104 mmol/L (98-107); Glucose 82 mg/dL (74-99); Non-African American GFR(CKD) 88 (>60 ml/min/1.73 sqM); Potassium 3.8 mmol/L (3.5-5.1); Sodium 137 mmol/L (137-145)
[2022-07-11 06:14] LABS: Glucose,Whole Blood 115 mg/dL (70-110)
[2022-07-11] MEDS: INSULIN ASPART (NovoLOG) 100 UNIT/ML VIAL SQ SCH ×7 (06:55→19:59)
[2022-07-11] MEDS: INSULIN DETEMIR (LEVEMIR) 100 UNIT/ML SYR SQ SCH (06:55)
[2022-07-11] MEDS ORDERED: BACLOFEN 10 MG TAB PO PRN (11:22)
[2022-07-11] MEDS ORDERED: NON FORMULARY DRUG (Tirzepatide [Mounjaro] 2.5 MG/0.5 ML Pen.Injctr) SQ SCH (11:30)
[2022-07-11 11:47] LABS: Glucose,Whole Blood 113 mg/dL (70-110)
[2022-07-11] MEDS: GABAPENTIN 400 MG CAP PO SCH ×3 (11:59→23:20)
[2022-07-11] MEDS: VANCOMYCIN 1,750 MG in SODIUM CHLORIDE 0.9% 500 ML 500 ML IVPB SCH ×2 (12:01→23:19)
--- NOTE | 2022-07-11 12:01 | P.HPIM ---
History of Present Illness H&P Date: 07/11/22 Chief Complaint: Osteomyelitis of the head of the right second metatarsal HISTORY OF PRESENT ILLNESS This is a 66-year-old male patient with past medical history of diabetes mellitus type 2, hypertension, hyperlipidemia, gastroesophageal reflux disease, recurrent depression, remote history of tobacco use, fatty liver, chronic back pain, insomnia. Patient has been under the care of the wound clinic with Dr. Finney for right lower extremity diabetic ulcer status post amputation of the right great toe, patient stated that he has been cleared by the wound clinic for his wound at the bottom of the right foot and the left big toe wound, and was s een in my office last week and he was referred to the wound healing center at [facility] and he was recommended to continue with Aquacel silver with wet-to-dry dressing to the bottom of the right foot as well as the left big toe. Apparently the patient developed to have a significant fever and chills yesterday, he slept on the floor and he woke up after he vomited on himself his called EMS and he was seen in the ER at [facility] x-ray of the right foot showed evidence of possible osteomyelitis of the head of the second metatarsal ,was a bit hypotensive and because of the sepsis he was admitted to the intensive care unit he was given IV fluid resuscitation as well as IV antibiotic infectious disease consultation was obtained as well as vascular surgery consultation. REVIEW OF SYSTEMS Constitutional: No fever, + chills, no night sweats. No weight change. No weakness, fatigue or lethargy. No daytime sleepiness. HEENT: No headache. No blurred vision or double vision, no loss of vision. No loss of Hearing, no ringing in the ears, no dizziness. No nasal drainage or congestion. No epistaxis. No sore throat. Lungs: No shortness of breath, cough, no sputum production. No wheezing. Cardiovascular: No chest pain, no lower extremity edema. No palpitations. No paroxysmal nocturnal dyspnea. No orthopnea. No lightheadedness or dizziness. No syncopal episodes. Abdominal: No abdominal pain. No nausea, vomiting. No diarrhea. No constipation. No bloody or tarry stools. No loss of appetite. Genitourinary: No dysuria, increased frequency, urgency. No urinary retention. Musculoskeletal: No myalgias. No muscle weakness, no gait dysfunction, no frequent falls. No back pain. No neck pain. Integumentary: Left great toe wounds, no lesions, there is wound at the bottom of the his right foot at the level of right second metatarsal head Neurologic: No aphasia. No facial droop. No change in mentation. No head injury. No headache. No paralysis, positive for neuropathy Psychiatric:positive for depression. No anxiety. No mood swings. Endocrine:positive for abnormal blood sugars. No weight change. No excessive sweating or thirst. No cold intolerance. MEDICAL HISTORY Diabetes mellitus type 2 Diabetic neuropathy Hypertension Hyperlipidemia Gastroesophageal reflux disease Recurrent depression Fatty liver Chronic back pain Diabetic ulcer left great toe Insomnia SURGICAL HISTORY Pain management procedures Right great toe amputation Colonoscopy EGD SOCIAL HISTORY Patient was a smoker 3 packs per day for greater than 20 years and quit 25 years ago. No marijuana or street drug use. He drinks a few beers occasionally. 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 He lives at home with his and son. FAMILY HISTORY Mother at age 60 from colon cancer with history of lung transplant. He does not know why she had the lung transplant other than she was a smoker. Father at age 67 from a myocardial infarction. Patient does not have any brothers. He has one sister that at age 40 from pancreatic cancer. Patient has 2 sons and 1 daughter with no major medical problems. PHYSICAL EXAMINATION Gen: This is a 66-year-old male, resting in bed and appears to be comfortable and in no acute distress. HEENT: Head is atraumatic, normocephalic. Pupils equal, round. Sclerae is anicteric. NECK: Supple. No JVD. No lymphadenopathy. No thyromegaly. LUNGS: Clear to auscultation. No wheezes or rhonchi. No intercostal retractions. HEART: First heart sound is depressed, second heart sound is normal, no gallop or murmur. ABDOMEN: Soft. Bowel sounds are present. No masses. No tenderness. EXTREMITIES: No pedal edema. No calf tenderness. DP +2 bilaterally, there is a wound at the base of the right foot where the head of the second metatarsal is, and left big toe wound as well, positive for neuropathy, right big toe amputation NEUROLOGICAL: Patient is awake, alert and oriented x3. Cranial nerves 2 through 12 are grossly intact. Muscle strength 4/5 in the bilateral upper and lower extremities, neuropathic changes to both feet, deep tendon reflexes are depressed. ASSESSMENT AND PLAN 1. 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 Continue patient on vancomycin with pharmacy to dose its peak and trough as well as Zosyn 3.375 g IV piggyback every 6 hours, ID consult Dr. Ng and vascular surgery consultation from Dr. Finney. 2. Sepsis likely due to osteomyelitis of the right second metatarsal head. Continue IV antibiotic, continue IV fluid, discontinue lisinopril, blood cultu res will be obtained, wound culture, infectious disease consultation will be obtained, ICU consult, continue Levophed keep the MEAN greater than 65 mmHg 3. Diabetes mellitus type 2 uncontrolled we will continue with Levemir 33 units SC at bedtime along with Humalog 11 units AC meals tid , we will continue with Farxiga 10 mg po daily , was on Mounjaro 5 mg Sc q week, BGM AC meals tid 4 Hypertension and hypertensive cardiovascular disease . We will hold lisinopril as the patient is a bit hypotensive due to his sepsis 5. Hyperlipidemia. Continue Rosuvastatin 10mg orally daily and Zetia 10 mg po daily, keep LDL-c 55-70. 6. Diabetic neuropathy. Continue gabapentin 800 mg 4 times daily. 7. Chronic back pain. Continue baclofen 10 mg daily as needed, along with current pain management 8. Recurrent depression. Continue sertraline 100 mg daily 9. Insomnia. Continue Ambien 10 mg at bedtime. 10. Gastroesophageal reflux disease. Continue with Protonix 40 mg po daily 11. DVT prophylaxis. Heparin 5000 units Sc q 8 H 12. Admits to inpatient . estimated length of stay 2 midnights 13. Full code. Past Medical History Past Medical History: Diabetes Mellitus, GERD/Reflux, Hyperlipidemia, Hypertension, Prostate Disorder Additional Past Medical History / Comment(s): fatty liver, bulging disc, neuropathy, NEUROPATHY IN HANDS AND FEET , diabetic foot wounds History of Any Multi-Drug Resistant Organisms: None Reported Past Surgical History: Orthopedic Surgery Additional Past Surgical History / Comment(s): pain clinic procedures for back , right great toe amputation, colonoscopy, EGD Past Anesthesia/Blood Transfusion Reactions: No Reported Reaction Past Psychological History: Depression Smoking Status: Former smoker Past Alcohol Use History: Rare Additional Past Alcohol Use History / Comment(s): Patient was a smoker 3 pppd, greater than 20 years, quit 2000 est. He denies any marijuana or street drug use. He drinks a few beers occasionally, none in 2 years per . Past Drug Use History: None Reported - Past Family History Mother Family Medical History: Cancer Additional Family Medical History / Comment(s): Mother at age 60 from colon cancer. She had history of lung transplant. Patient does not know why she had a lung transplant other than she was a smoker. Father Additional Family Medical History / Comment(s): Father at age 67 from a myocardial infarction. Brother(s) Additional Family Medical History / Comment(s): Patient does not have any brothers. Patient had 1 sister that at age 40 from pancreatic cancer. Patient has 2 sons and 1 daughter with no major medical problems. Sister(s) Family Medical History: Cancer Additional Family Medical History / Comment(s): pancreatic cancer Medications and Allergies Home Medications Medication Instructions Recorded Confirmed Type Aspirin 81 mg PO DAILY@189908/06/13 05/20/22 History Lisinopril-Hctz 20-12.5 mg 1 tab PO BID 08/06/13 05/20/22 History [Zestoretic 20-12.5] Baclofen [Lioresal] 10 mg PO DAILY PRN 09/07/15 05/20/22 History Zolpidem [Ambien] 12.5 mg PO 09/28/15 05/20/22 History Sertraline [Zoloft] 100 mg PO DAILY@189911/17/17 05/20/22 History Insulin Degludec [Tresiba] 65 units SQ 07/27/18 05/20/22 History Gabapentin 800 mg PO QID 04/15/19 05/20/22 History Rosuvastatin Calcium 10 mg PO DAILY@189904/25/19 05/20/22 History Famotidine [Pepcid] 20 mg PO BID 10/07/19 05/20/22 History Insulin Aspart [NovoLOG Flexpen] 25 units SQ AC-TID 10/07/19 05/20/22 History oxyCODONE-APAP 10-325MG [Percocet 1 tab PO Q6H PRN 10/07/19 05/20/22 History 10-325 mg] Dapagliflozin Propanediol [Farxiga] 10 mg PO DAILY@1900 02/01/21 05/20/22 History Diclofenac Sodium [Voltaren 1 applic TOPICAL BID 02/03/21 05/20/22 History Arthritis Pain 1% Gel] Tirzepatide [Mounjaro] 2.5 mg SQ Q7D 05/20/22 05/20/22 History Allergies Allergy/AdvReac Type Severity Reaction Status Date / Time No Known Allergies Allergy Verified 05/26/22 06:44 Physical Exam Vitals: Vital Signs Temp Pulse Pulse Resp BP BP Pulse Ox 07/11/22 03:00 98.3 F 61 12 117/67 97 07/11/22 02:06 98.3 F 72 18 74/45 97 07/11/22 00:20 84 18 93/54 97 07/10/22 22:48 100.3 F H 96 18 86/45 97 07/10/22 21:24 107 H 18 83/46 94 L 07/10/22 20:47 103.2 F H 111 H 18 100/66 91 L Intake and Output 07/10/22 07/11/22 07/11/22 22:59 06:59 14:59 Intake Total 134.869 76.212 Output Total 300 Balance -165.131 76.212 Intake: IV 130 Sodium Chloride 0.9% 1, 130 000 ml @ 130 mls/hr IV . Q7H42M STA Rx#:[id number] Intake, IV Titration 4.869 76.212 Amount Norepinephrine 4 mg In 4.869 76.212 Sodium Chloride 0.9% 250 ml @ 0.03 MCG/KG/MIN 12. 702 mls/hr IV .Q20H ONE Rx#:[id number] Output: Urine 300 Other: Voiding Method Toilet Urinal Weight 111.13 kg 111.13 kg Results CBC & Chem 7: 07/11/22 04:34 07/11/22 04:34 Labs: Abnormal Lab Results - Last 24 Hours (Table) 07/10/22 07/10/22 07/10/22 Range/Units 21:41 21:41 21:41 WBC (3.8-10.6) k/uL Neutrophils # (1.3-7.7) k/uL Neutrophils # (Manual) 9.40 H (1.3-7.7) k/uL Lymphocytes # (1.0-4.8) k/uL Carbon Dioxide (22-30) mmol/L BUN 35 H (9-20) mg/dL Glucose 157 H (74-99) mg/dL POC Glucose (mg/dL) (70-110) mg/dL Plasma Lactic Acid Med 2.2 H* (0.7-2.0) mmol/L Calcium (8.4-10.2) mg/dL Total Bilirubin 1.4 H (0.2-1.3) mg/dL ALT 51 H (4-49) U/L Ur Specific [place] (1.001-1.035) Urine Protein (Negative) Urine Glucose (UA) (Negative) Urine Ketones (Negative) 07/11/22 07/11/22 07/11/22 Range/Units 04:34 04:34 05:05 WBC 14.7 H (3.8-10.6) k/uL Neutrophils # 13.2 H (1.3-7.7) k/uL Neutrophils # (Manual) (1.3-7.7) k/uL Lymphocytes # 0.8 L (1.0-4.8) k/uL Carbon Dioxide 20 L (22-30) mmol/L BUN 36 H (9-20) mg/dL Glucose (74-99) mg/dL POC Glucose (mg/dL) (70-110) mg/dL Plasma Lactic Acid Med (0.7-2.0) mmol/L Calcium 7.9 L (8.4-10.2) mg/dL Total Bilirubin (0.2-1.3) mg/dL ALT (4-49) U/L Ur Specific [place] 1.050 H (1.001-1.035) Urine Protein Trace H (Negative) Urine Glucose (UA) 4+ H (Negative) Urine Ketones Trace H (Negative) 07/11/22 Range/Units 06:13 WBC (3.8-10.6) k/uL Neutrophils # (1.3-7.7) k/uL Neutrophils # (Manual) (1.3-7.7) k/uL Lymphocytes # (1.0-4.8) k/uL Carbon Dioxide (22-30) mmol/L BUN (9-20) mg/dL Glucose (74-99) mg/dL POC Glucose (mg/dL) 115 H (70-110) mg/dL Plasma Lactic Acid Med (0.7-2.0) mmol/L Calcium (8.4-10.2) mg/dL Total Bilirubin (0.2-1.3) mg/dL ALT (4-49) U/L Ur Specific [place] (1.001-1.035) Urine Protein (Negative) Urine Glucose (UA) (Negative) Urine Ketones (Negative) Thrombosis Risk Factor Assmnt - Choose All That Apply Any of the Below Risk Factors Present?: Yes Each Factor Represents 1 point: Obesity (BMI >25), Sepsis (< 1month) Each Risk Factor Represents 2 Points: Age 61-74 years Thrombosis Risk Factor Assessment Total Risk Factor Score: 4 Thrombosis Risk Factor Assessment Level: Moderate Risk
[2022-07-11] MEDS ORDERED: VANCOMYCIN 2,250 MG in SODIUM CHLORIDE 0.9% 500 ML 500 ML IVPB SCH (13:00)
[2022-07-11] MEDS: PANTOPRAZOLE 40 MG/10 ML VIAL IVP SCH (15:47)
[2022-07-11 16:30] LABS: Glucose,Whole Blood 101 mg/dL (70-110)
--- NOTE | 2022-07-11 19:34 | P.CONS ---
History of Present Illness - Reason for Consult Consult date: 07/11/22 - History of Present Illness Patient is a 66-year-old male with a past medical history significant for type 2 diabetes mellitus hypertension hyperlipidemia reflux and depression and history of tobacco use patient did have a history of right big toe diabetic foot infection with underlying osteomyelitis for the patient has completed his IV antibiotic therapy and wound care at [facility] wound care patient was discharged from the wound care center back in January 2022, patient apparently did have wound on the plantar aspect of the right foot and a wound on the left big toe medial aspect apparently has been going on for a couple of weeks now patient not very clear how this started has been evaluated by his primary care physician about 2 weeks ago for the same problem and the patient was referred to [facility] [place] the patient has not been seen yet he was advised to do local wound care with Aquacel silver dressing, patient brought to the ER at [facility] yesterday after apparently patient develops fever with rigors and chills and weakness, patient on presentation to the ER did have a fever of 103.2 degrees for night patient was tachycardic and hypertensive requiring pressor support and admission to the ICU patient did have a normal white initially subsequent white count up to 14.7 creatinine has been normal liver enzymes mildly elevated as well as amylase and lipase urine was negative local cultures were obtained patient did have a x-ray of the foot with concern for possible osteomyelitis of the head of the right second metatarsal soft tissue swelling osteoarthritis of the left foot without evidence for acute bony abnormality patient also have a CT of abdominal pelvis did not show any acute abnormality patient is currently being treated with the vancomycin and Zosyn infectious disease was consulted for further management of antibiotic therapy Past Medical History Past Medical History: Diabetes Mellitus, GERD/Reflux, Hyperlipidemia, Hypertension, Prostate Disorder Additional Past Medical History / Comment(s): fatty liver, bulging disc, neuropathy, NEUROPATHY IN HANDS AND FEET , diabetic foot wounds History of Any Multi-Drug Resistant Organisms: None Reported Past Surgical History: Orthopedic Surgery Additional Past Surgical History / Comment(s): pain clinic procedures for back , right great toe amputation, colonoscopy, EGD Past Anesthesia/Blood Transfusion Reactions: No Reported Reaction Past Psychological History: Depression Smoking Status: Former smoker Past Alcohol Use History: Rare Additional Past Alcohol Use History / Comment(s): Patient was a smoker 3 pppd, greater than 20 years, quit 2000 est. He denies any marijuana or street drug use. He drinks a few beers occasionally, none in 2 years per . Past Drug Use History: None Reported - Past Family History Mother Family Medical History: Cancer Additional Family Medical History / Comment(s): Mother at age 60 from colon cancer. She had history of lung transplant. Patient does not know why she had a lung transplant other than she was a smoker. Father Additional Family Medical History / Comment(s): Father at age 67 from a myocardial infarction. Brother(s) Additional Family Medical History / Comment(s): Patient does not have any brothers. Patient had 1 sister that at age 40 from pancreatic cancer. Patient has 2 sons and 1 daughter with no major medical problems. Sister(s) Family Medical History: Cancer Additional Family Medical History / Comment(s): pancreatic cancer Medications and Allergies Home Medications Medication Instructions Recorded Confirmed Type Aspirin 81 mg PO DAILY 08/06/13 07/11/22 History Lisinopril-Hctz 20-12.5 mg 1 tab PO BID 08/06/13 07/11/22 History [Zestoretic 20-12.5] Baclofen [Lioresal] 10 mg PO DAILY PRN 09/07/15 07/11/22 History Zolpidem [Ambien] 10 mg PO HS 09/28/15 07/11/22 History Sertraline [Zoloft] 100 mg PO DAILY@1900 11/17/17 07/11/22 History Insulin Degludec [Tresiba] 65 units SQ HS 07/27/18 07/11/22 History Gabapentin 800 mg PO QID 04/15/19 07/11/22 History Rosuvastatin Calcium 10 mg PO DAILY 04/25/19 07/11/22 History Famotidine [Pepcid] 20 mg PO BID 10/07/19 07/11/22 History Insulin Aspart [NovoLOG Flexpen] 25 units SQ AC-TID 10/07/19 07/11/22 History oxyCODONE-APAP 10-325MG [Percocet 1 tab PO Q6H PRN 10/07/19 07/11/22 History 10-325 mg] Dapagliflozin Propanediol [Farxiga] 10 mg PO DAILY 02/01/21 07/11/22 History Diclofenac Sodium [Voltaren 1 applic TOPICAL QID PRN 02/03/21 07/11/22 History Arthritis Pain 1% Gel] Multivitamins, Thera [Multivitamin 1 tab PO DAILY 07/11/22 07/11/22 History (formulary)] Tirzepatide [Mounjaro] 5 mg SQ CHATMAN 07/11/22 07/11/22 History Allergies Allergy/AdvReac Type Severity Reaction Status Date / Time No Known Allergies Allergy Verified 07/11/22 12:38 Physical Exam Vitals: Vital Signs Temp Pulse Pulse Resp BP BP Pulse Ox 07/11/22 03:00 98.3 F 61 12 117/67 97 07/11/22 02:06 98.3 F 72 18 74/45 97 07/11/22 00:20 84 18 93/54 97 07/10/22 22:48 100.3 F H 96 18 86/45 97 07/10/22 21:24 107 H 18 83/46 94 L 07/10/22 20:47 103.2 F H 111 H 18 100/66 91 L Intake and Output 07/10/22 07/11/22 07/11/22 22:59 06:59 14:59 Intake Total 134.869 76.212 Output Total 300 Balance -165.131 76.212 Intake: IV 130 Sodium Chloride 0.9% 1, 130 000 ml @ 130 mls/hr IV . Q7H42M [facility] Rx#:[id number] Intake, IV Titration 4.869 76.212 Amount Norepinephrine 4 mg In 4.869 76.212 Sodium Chloride 0.9% 250 ml @ 0.03 MCG/KG/MIN 12. 702 mls/hr IV .Q20H [facility] Rx#:[id number] Output: Urine 300 Other: Voiding Method Toilet Urinal Weight 111.13 kg 111.13 kg Results CBC & Chem 7: 07/11/22 04:34 07/11/22 04:34 Labs: Abnormal Lab Results - Last 24 Hours (Table) 07/10/22 07/10/22 07/10/22 Range/Units 21:41 21:41 21:41 WBC (3.8-10.6) k/uL Neutrophils # (1.3-7.7) k/uL Neutrophils # (Manual) 9.40 H (1.3-7.7) k/uL Lymphocytes # (1.0-4.8) k/uL Carbon Dioxide (22-30) mmol/L BUN 35 H (9-20) mg/dL Glucose 157 H (74-99) mg/dL POC Glucose (mg/dL) (70-110) mg/dL Plasma Lactic Acid Med 2.2 H* (0.7-2.0) mmol/L Calcium (8.4-10.2) mg/dL Total Bilirubin 1.4 H (0.2-1.3) mg/dL ALT 51 H (4-49) U/L Ur Specific Foster (1.001-1.035) Urine Protein (Negative) Urine Glucose (UA) (Negative) Urine Ketones (Negative) 07/11/22 07/11/22 07/11/22 Range/Units 04:34 04:34 05:05 WBC 14.7 H (3.8-10.6) k/uL Neutrophils # 13.2 H (1.3-7.7) k/uL Neutrophils # (Manual) (1.3-7.7) k/uL Lymphocytes # 0.8 L (1.0-4.8) k/uL Carbon Dioxide 20 L (22-30) mmol/L BUN 36 H (9-20) mg/dL Glucose (74-99) mg/dL POC Glucose (mg/dL) (70-110) mg/dL Plasma Lactic Acid Med (0.7-2.0) mmol/L Calcium 7.9 L (8.4-10.2) mg/dL Total Bilirubin (0.2-1.3) mg/dL ALT (4-49) U/L Ur Specific Foster 1.050 H (1.001-1.035) Urine Protein Trace H (Negative) Urine Glucose (UA) 4+ H (Negative) Urine Ketones Trace H (Negative) 07/11/22 Range/Units 06:13 WBC (3.8-10.6) k/uL Neutrophils # (1.3-7.7) k/uL Neutrophils # (Manual) (1.3-7.7) k/uL Lymphocytes # (1.0-4.8) k/uL Carbon Dioxide (22-30) mmol/L BUN (9-20) mg/dL Glucose (74-99) mg/dL POC Glucose (mg/dL) 115 H (70-110) mg/dL Plasma Lactic Acid Med (0.7-2.0) mmol/L Calcium (8.4-10.2) mg/dL Total Bilirubin (0.2-1.3) mg/dL ALT (4-49) U/L Ur Specific Foster (1.001-1.035) Urine Protein (Negative) Urine Glucose (UA) (Negative) Urine Ketones (Negative) Assessment and Plan Plan: 1patient presented hospital with sepsis in this patient with a fever tachycardia hypotension requiring pressor support source is likely diabetic foot infection especially involving the left big toe as significant inflammatory changes were noted to the left big toe with more swelling and redness however abnormality was noticed on the right second metatarsal in this patient who did have a nonhealing wound on the plantar aspect of the right foot we will need to cover for the polymicrobial dustin usually associated with diabetic foot infection 2-we will continue patient on vancomycin pharmacy to dose watching his kidney function closely however switch Zosyn to Unasyn to decrease risk of nephrotoxicity 3-local wound care with a dry Aquacel silver dressing change every 48 hour 4-await surgery evaluation for possible debridement and deep culture Family at the bedside multiple questions concerns answered in layman terms We will follow on clinical condition and cultures to further adjust medication if needed Thank you for this consultation we will follow the patient along with you Time with Patient: Greater than 30
[2022-07-11 19:48] LABS: Glucose,Whole Blood 93 mg/dL (70-110)
[2022-07-11] MEDS: ASPIRIN 81 MG PO SCH (20:18)
[2022-07-11] MEDS: DAPAGLIFLOZIN PROPANEDIOL 10 MG TABLET PO SCH (20:18)
[2022-07-11] MEDS: SERTRALINE 100 MG TAB PO SCH (20:18)
[2022-07-11] MEDS: FAMOTIDINE 20 MG TAB PO SCH (20:18)
[2022-07-11] MEDS: ATORVASTATIN 20 MG TAB PO SCH (20:18)
[2022-07-11] MEDS: ZOLPIDEM 5 MG TAB PO SCH (20:18)
[2022-07-11] MEDS: AMPICILLIN-SULBACTAM 3 GM in SODIUM CHLORIDE 0.9% 100 ML IVPB SCH (23:19)
[2022-07-12] MEDS: MORPHINE SULFATE 2 MG/ML SYRINGE IVP PRN ×2 (05:12→12:59)
[2022-07-12] MEDS: AMPICILLIN-SULBACTAM 3 GM in SODIUM CHLORIDE 0.9% 100 ML IVPB SCH ×4 (06:11→23:43)
[2022-07-12 06:12] LABS: Basophils % (A) 1 %; Eosinophils # (A) 0.2 k/uL (0-0.7); Eosinophils % (A) 3 %; HCT 40.5 % (39.0-53.0); HGB 13.1 gm/dL (13.0-17.5); Lymphocytes # (A) 1.3 k/uL (1.0-4.8); Lymphocytes % (A) 21 %; MCH 28.7 pg (25.0-35.0); MCHC 32.5 g/dL (31.0-37.0); MCV 88.4 fL (80.0-100.0); Mean Platelet Volume 7.5; Monocytes # (A) 0.3 k/uL (0-1.0); Monocytes % (A) 4 %; Neutrophils # (A) 4.3 k/uL (1.3-7.7); Neutrophils % (A) 69 %; Platelet Count 198 k/uL (150-450); RBC 4.58 m/uL (4.30-5.90); WBC 6.3 k/uL (3.8-10.6)
[2022-07-12 06:25] LABS: African American GFR (CKD) >90 (>60 ml/min/1.73 sqM); Anion Gap 6 mmol/L; Blood Urea Nitrogen 18 mg/dL (9-20); Calcium 7.5 mg/dL (8.4-10.2); Carbon Dioxide 24 mmol/L (22-30); Chloride 109 mmol/L (98-107); Glucose 53 mg/dL (74-99); Non-African American GFR(CKD) >90 (>60 ml/min/1.73 sqM); Potassium 3.4 mmol/L (3.5-5.1); Sodium 139 mmol/L (137-145)
[2022-07-12 06:51] LABS: Glucose,Whole Blood 72 mg/dL (70-110)
[2022-07-12] MEDS: INSULIN ASPART (NovoLOG) 100 UNIT/ML VIAL SQ SCH ×7 (06:59→20:40)
[2022-07-12] MEDS: INSULIN DETEMIR (LEVEMIR) 100 UNIT/ML SYR SQ SCH (06:59)
[2022-07-12] MEDS: oxyCODONE-APAP 10-325MG 1 EACH TAB PO PRN ×2 (07:00→15:30)
[2022-07-12] MEDS ORDERED: Potassium Replacement Protocol 1 EACH MISC MISCELLANE PRN (07:05)
[2022-07-12] MEDS: HEPARIN SODIUM,PORCINE/PF 5,000 UNIT/0.5 ML SYRINGE SQ SCH ×3 (08:07→23:43)
[2022-07-12] MEDS: FAMOTIDINE 20 MG TAB PO SCH ×2 (08:08→20:49)
[2022-07-12] MEDS: POTASSIUM CHLORIDE ER 20 MEQ TAB.ER PO SCH ×2 (08:08→11:28)
[2022-07-12] MEDS: GABAPENTIN 400 MG CAP PO SCH ×4 (08:08→21:04)
[2022-07-12] MEDS: PANTOPRAZOLE 40 MG/10 ML VIAL IVP SCH (08:08)
--- NOTE | 2022-07-12 09:00 | P.PN ---
Subjective Progress Note Date: 07/12/22 I am seeing this patient in new consultation today 07/11/2022 in the emergency department for ICU management in regards to osteomyelitis and possible sepsis. Patient is a 66-year-old white male with past medical history significant for diabetic foot wounds and previous amputation of his right great toe, diabetes mellitus, diabetic neuropathy, hypertension, hyperlipidemia, GERD. Patient has been previously seen at the wound care clinic for his diabetic foot wounds and has undergone right great toe amputation in the past. Patient's wounds had apparently been improving, the patient stopped seeing the wound care clinic, and was being managed by his primary care provider Dr. Castillo. Recently, the foot wounds have been draining a bloody-clear drainage. The right foot has an aproximate 2x2 cm plantar wound and the left foot has an approximate 2.5x2cm wound on the great toe. The patient has been experiencing fever and chill over the last 24-48 hours, and decided to come to the emergency room last night. He also reports two episodes of emesis without abominal pain, distention, constipation, or diarrhea. Patient is currently resting in the stretcher, on room air, in no acute distress. X-ray of his bilateral feet showed findings concerning for osteomyelitis of the head of the right second metatarsal, along with soft tissue swelling centered at the second proximal interphalangeal joint. There were no acute osseous abnormalities of the left foot. No acute cardiopulmonary disease process as seen on chest x-ray. His blood pressure has been hypotensive despite 3 L normal saline fluid bolus, and has been started on norepinephrine currently infusing at 0.04 mics per kilogram per minute. CBC on arrival shows a WBC count of 10.6, hemoglobin 15, hematocrit 44.5, platelets 230. BMP was unremarkable. Normal saline currently infusing at 167 ml/hr. Lactic acid level was mildly elevated at 2.2 and is down to 1.7. Troponin negative 1. Patient is being empirically covered with Zosyn and vancomycin. T-max is 103.2degrees Fahrenheit. Blood cultures are pending. Patient will be monitored in the intensive care unit. Today's evaluation of 07/12/2022, the patient is awake and alert and communicating. No specific complaints for now. He has been off pressors since morning at around 6 AM. The patient is current on a combination of Unasyn and vancomycin. The right foot diabetic ulcer has some liquidy drainage which is minimal at this point in time. Cultures are still pending for now. The patient is producing adequate amount of urine output. The blood work from today shows a WBC count of 6.3 with a hemoglobin 15.1 and a platelet count of 198. BUN is 18 with a creatinine of 0.5 and a sodium level is at 139. The blood sugar this morning is 72. The patient is on a combination of antidiabetic medications. No shortness of breath. No chest pain. No focal neurological deficits. No other significant events overnight. The patient remains on room air oxygen. Objective - Vital Signs Vital signs: Vital Signs Temp 98.1 F 07/12/22 08:00 Pulse 68 07/12/22 08:00 Resp 10 L 07/12/22 08:00 BP 97/59 07/12/22 08:00 Pulse Ox 94 L 07/12/22 08:00 FiO2 Intake & Output 07/11/22 07/12/22 07/12/22 18:59 06:59 18:59 Intake Total 3391.889 1663.307 71.15 Output Total 950 800 Balance 2441.889 863.307 71.15 Weight 117.2 kg Intake: IV 1500 60 0.9 40 60 Ampicillin-Sulbactam 3 gm 200 In Sodium Chloride 0.9% 100 ml @ 200 mls/hr IVPB Q6HR [facility] Rx#:[id number] Sodium Chloride 0.9% 1, 760 000 ml @ 130 mls/hr IV . Q7H42M [facility] Rx#:[id number] Vancomycin 1,750 mg In 500 Sodium Chloride 0.9% 500 ml 500 ml @ 167 mls/hr IVPB Q12H [facility] Rx#: [id number] Intake, IV Titration 2391.889 163.307 11.15 Amount Norepinephrine 4 mg In 131.889 33.307 11.15 Sodium Chloride 0.9% 250 ml @ 0.03 MCG/KG/MIN 12. 702 mls/hr IV .Q20H [facility] Rx#:[id number] Piperacillin-Tazobactam 3 200 .375 gm In Sodium Chloride 0.9% 100 ml @ 25 mls/hr IVPB Q8HR [facility] Rx# :[id number] Sodium Chloride 0.9% 1, 1560 130 000 ml @ 130 mls/hr IV . Q7H42M [facility] Rx#:[id number] Vancomycin 1,750 mg In 500 Sodium Chloride 0.9% 500 ml 500 ml @ 167 mls/hr IVPB Q12H [facility] Rx#: [id number] Oral 1000 Output: Urine 950 800 Other: Voiding Method Urinal # Voids 2 1 # Bowel Movements 1 - Exam GENERAL EXAM: Alert, , comfortable in no apparent distress. HEAD: Normocephalic and atraumatic EYES: Normal reaction of pupils, equal size. NOSE: Clear with pink turbinates. THROAT: No erythema or exudates. NECK: No masses, no JVD. CHEST: No chest wall deformity. LUNGS: Equal air entry with no crackles, wheeze, rhonchi or dullness. No conversational dyspnea or accessory muscle use.. CVS: S1 and S2 normal with no audible murmur, regular rhythm. No extra heart sounds ABDOMEN: No hepatosplenomegaly, active bowel sounds, no guarding or rigidity. SPINE: No scoliosis or deformity SKIN: approximately 2 x 2 centimeter right plantar foot wound and a 2.5 x 2 cm left great toe wound with eschar and granulation CENTRAL NERVOUS SYSTEM: No focal deficits, tone is normal in all 4 extremities. EXTREMITIES: right great toe amputation. There is no peripheral edema, clubbing, or cyanosis. Peripheral pulses are intact. - Labs CBC & Chem 7: 07/12/22 05:35 07/12/22 05:35 Labs: Abnormal Lab Results - Last 24 Hours (Table) 07/11/22 07/12/22 Range/Units 11:44 05:35 Potassium 3.4 L (3.5-5.1) mmol/L Chloride 109 H (98-107) mmol/L Creatinine 0.56 L (0.66-1.25) mg/dL Glucose 53 L (74-99) mg/dL POC Glucose (mg/dL) 113 H (70-110) mg/dL Calcium 7.5 L (8.4-10.2) mg/dL Microbiology - Last 24 Hours (Table) 07/11/22 00:27 Gram Stain - Preliminary Foot - Left Wound Culture - Preliminary 07/11/22 00:27 Anaerobic Culture - Preliminary Foot - Left Assessment and Plan Plan: osteomyelitis and sepsis. X-ray of his bilateral feet show findings concerning for osteomyelitis of the head of the right second metatarsal, along with soft tissue swelling centered at the second proximal interphalangeal joint. There wer e no acute osseous abnormalities of the left foot. Septic shock responded to fluid replacement currently requiring vasopressors, responding nicely to fluids and pressors and the patient has been off norepinephrine since 6:00 this morning. Diabetic foot wounds Diabetes mellitus type 2, insulin-dependent, with secondary complications of diabetic neuropathy and diabetic foot ulcers Diabetic neuropathy. Hypertension Hyperlipidemia GERD Degenerative disc disease Chronic lower back pain History of prior right great toe amputation Diverticulosis without diverticulitis plan: Patient is stable and the patient is currently off pressors wound cultures are pending Continue current antibiotic coverage with a combination of Unasyn and vancomycin Dr. Finney was consulted for patient's diabetic foot wounds consult wound care heparin for DVT prophylaxis Protonix for GI prophylaxis Pain management CAT scan of the abdomen and pelvis was done yesterday. It showed diverticulosis without diverticulitis. Gallbladder was unremarkable and the patient a fatty liver.
[2022-07-12 11:18] LABS: Glucose,Whole Blood 73 mg/dL (70-110)
[2022-07-12] MEDS: VANCOMYCIN 1,750 MG in SODIUM CHLORIDE 0.9% 500 ML 500 ML IVPB SCH (11:27)
--- NOTE | 2022-07-12 13:09 | P.PN ---
Subjective Progress Note Date: 07/12/22 Principal diagnosis: Diabetic foot infection and osteomyelitis Patient is a 66-year-old male with a past medical history significant for type 2 diabetes mellitus hypertension hyperlipidemia reflux and depression and history of tobacco use patient did have a history of right big toe diabetic foot infection , requiring amputation a few years ago and recently has been tr eated for a left big toe diabetic foot infection and ostomy myelitis for the patient was almost healed now presented to the hospital with sepsis secondary to her diabetic foot infection. Next and on today's evaluation that is 07/12/2022, the patient is afebrile, the patient is feeling slightly better and mention he did have a good night's sleep he is breathing comfortably on room air denies any chest pain shortness of breath or cough no nausea no vomiting no abdominal pain or diarrhea Objective - Vital Signs Vital signs: Vital Signs Temp 98.1 F 07/12/22 08:00 Pulse 66 07/12/22 10:00 Resp 12 07/12/22 10:00 BP 106/63 07/12/22 10:00 Pulse Ox 95 07/12/22 10:00 FiO2 Intake & Output 07/11/22 07/12/22 07/12/22 18:59 06:59 18:59 Intake Total 3391.889 1663.307 111.15 Output Total 950 800 Balance 2441.889 863.307 111.15 Weight 117.2 kg Intake: IV 1500 100 0.9 40 100 Ampicillin-Sulbactam 3 gm 200 In Sodium Chloride 0.9% 100 ml @ 200 mls/hr IVPB Q6HR [facility] Rx#:[id number] Sodium Chloride 0.9% 1, 760 000 ml @ 130 mls/hr IV . Q7H42M [facility] Rx#:[id number] Vancomycin 1,750 mg In 500 Sodium Chloride 0.9% 500 ml 500 ml @ 167 mls/hr IVPB Q12H [facility] Rx#: [id number] Intake, IV Titration 2391.889 163.307 11.15 Amount Norepinephrine 4 mg In 131.889 33.307 11.15 Sodium Chloride 0.9% 250 ml @ 0.03 MCG/KG/MIN 12. 702 mls/hr IV .Q20H [facility] Rx#:[id number] Piperacillin-Tazobactam 3 200 .375 gm In Sodium Chloride 0.9% 100 ml @ 25 mls/hr IVPB Q8HR [facility] Rx# :[id number] Sodium Chloride 0.9% 1, 1560 130 000 ml @ 130 mls/hr IV . Q7H42M [facility] Rx#:[id number] Vancomycin 1,750 mg In 500 Sodium Chloride 0.9% 500 ml 500 ml @ 167 mls/hr IVPB Q12H [facility] Rx#: [id number] Oral 1000 Output: Urine 950 800 Other: Voiding Method Urinal Urinal # Voids 2 1 # Bowel Movements 1 - Exam GENERAL DESCRIPTION: A middle-aged male lying in bed in no distress RESPIRATORY SYSTEM: Unlabored breathing , decreased breath sounds at bases HEART: S1 S2 regular rate and rhythm , ABDOMEN: Soft , no tenderness EXTREMITIES: Bilateral feet wounds are currently dressed with minimal drainage on the dressing - Labs CBC & Chem 7: 07/12/22 05:35 07/12/22 05:35 Labs: Abnormal Lab Results - Last 24 Hours (Table) 07/11/22 07/12/22 Range/Units 11:44 05:35 Potassium 3.4 L (3.5-5.1) mmol/L Chloride 109 H (98-107) mmol/L Creatinine 0.56 L (0.66-1.25) mg/dL Glucose 53 L (74-99) mg/dL POC Glucose (mg/dL) 113 H (70-110) mg/dL Calcium 7.5 L (8.4-10.2) mg/dL Microbiology - Last 24 Hours (Table) 07/10/22 22:25 Blood Culture Gram Stain - Preliminary Blood Blood Culture - Preliminary Staphylococcus epidermidis 07/11/22 00:27 Gram Stain - Preliminary Foot - Left Wound Culture - Preliminary 07/11/22 00:27 Anaerobic Culture - Preliminary Foot - Left Assessment and Plan (1) Osteomyelitis Current Visit: Yes Status: Acute Code(s): M86.9 - OSTEOMYELITIS, UNSPECIFIED SNOMED Code(s): 38041984 (2) Diabetic foot ulcer Current Visit: No Status: Acute Code(s): E11.621 - TYPE 2 DIABETES MELLITUS WITH FOOT ULCER; L97.509 - NON-PRESSURE CHRONIC ULCER OTH PRT UNSP FOOT W UNSP SEVERITY SNOMED Code(s): 460692181 Plan: 1patient presented hospital with sepsis in this patient with a fever tachycardia hypotension requiring pressor support source is likely diabetic foot infection especially involving the left big toe as significant inflammatory changes were noted to the left big toe with more swelling and redness however abnormality was noticed on the right second metatarsal in this patient who did have a nonhealing wound on the plantar aspect of the right foot we will need to cover for the polymicrobial dustin usually associated with diabetic foot infectio n 2-we will continue patient on vancomycin pharmacy to dose watching his kidney function closely and Unasyn , while waiting for the culture finalized 3-local wound care with a dry Aquacel silver dressing change every 48 hour 4-await surgery evaluation for possible debridement and deep culture Time with Patient: Less than 30
--- NOTE | 2022-07-12 16:07 | P.GSCN ---
History of Present Illness History of present illness: 66-year-old gentleman known to me from the past this patient had a right big toe impression done about 3 years ago patient developed callus on the plantar aspect of the right foot patient has been treating at home by himself. Patient also has a open wound on the left foot big toe with callus formation noted. Patient also complaining of pain in the left calf area which is tender on palpation Medical history history of diabetes hypertension depression Surgical history patient had a right big toe impression and in the past stump site is completely healed Neck is supple no bruit appreciated and graft chest is clear good and both lungs first and second sound normal and graft abdomen soft nontender Vascular femorals are palpable bilateral dorsal pedis is palpable patient has a callus on the plantar aspect the right foot no discharge or redness noted left big toe has a open wound with callus formation which will be debrided today Plan is patient is on IV antibiotic under care of infectious disease axis silver to the right foot plantar aspect medihoney gel to the left big toe we should be changed daily and right foot wound should be changed every 48 hours we'll do venous ultrasound rule out DVT of the left leg follow with you Past Medical History Past Medical History: Diabetes Mellitus, GERD/Reflux, Hyperlipidemia, Hypertension, Prostate Disorder Additional Past Medical History / Comment(s): fatty liver, bulging disc, neuropathy, NEUROPATHY IN HANDS AND FEET , diabetic foot wounds History of Any Multi-Drug Resistant Organisms: None Reported Past Surgical History: Orthopedic Surgery Additional Past Surgical History / Comment(s): pain clinic procedures for back , right great toe amputation, colonoscopy, EGD Past Anesthesia/Blood Transfusion Reactions: No Reported Reaction Past Psychological History: Depression Smoking Status: Former smoker Past Alcohol Use History: Rare Additional Past Alcohol Use History / Comment(s): Patient was a smoker 3 pppd, greater than 20 years, quit 2000 est. He denies any marijuana or street drug use. He drinks a few beers occasionally, none in 2 years per . Past Drug Use History: None Reported - Past Family History Mother Family Medical History: Cancer Additional Family Medical History / Comment(s): Mother at age 60 from colon cancer. She had history of lung transplant. Patient does not know why she had a lung transplant other than she was a smoker. Father Additional Family Medical History / Comment(s): Father at age 67 from a myocardial infarction. Brother(s) Additional Family Medical History / Comment(s): Patient does not have any brothers. Patient had 1 sister that at age 40 from pancreatic cancer. Patient has 2 sons and 1 daughter with no major medical problems. Sister(s) Family Medical History: Cancer Additional Family Medical History / Comment(s): pancreatic cancer Medications and Allergies Home Medications Medication Instructions Recorded Confirmed Type Aspirin 81 mg PO DAILY 08/06/13 07/11/22 History Lisinopril-Hctz 20-12.5 mg 1 tab PO BID 08/06/13 07/11/22 History [Zestoretic 20-12.5] Baclofen [Lioresal] 10 mg PO DAILY PRN 09/07/15 07/11/22 History Zolpidem [Ambien] 10 mg PO HS 09/28/15 07/11/22 History Sertraline [Zoloft] 100 mg PO DAILY@1900 11/17/17 07/11/22 History Insulin Degludec [Tresiba] 65 units SQ HS 07/27/18 07/11/22 History Gabapentin 800 mg PO QID 04/15/19 07/11/22 History Rosuvastatin Calcium 10 mg PO DAILY 04/25/19 07/11/22 History Famotidine [Pepcid] 20 mg PO BID 10/07/19 07/11/22 History Insulin Aspart [NovoLOG Flexpen] 25 units SQ AC-TID 10/07/19 07/11/22 History oxyCODONE-APAP 10-325MG [Percocet 1 tab PO Q6H PRN 10/07/19 07/11/22 History 10-325 mg] Dapagliflozin Propanediol [Farxiga] 10 mg PO DAILY 02/01/21 07/11/22 History Diclofenac Sodium [Voltaren 1 applic TOPICAL QID PRN 02/03/21 07/11/22 History Arthritis Pain 1% Gel] Multivitamins, Thera [Multivitamin 1 tab PO DAILY 07/11/22 07/11/22 History (formulary)] Tirzepatide [Mounjaro] 5 mg SQ CHATMAN 07/11/22 07/11/22 History Allergies Allergy/AdvReac Type Severity Reaction Status Date / Time No Known Allergies Allergy Verified 07/11/22 12:38 Surgical - Exam Vital Signs Temp Pulse Resp BP Pulse Ox 103.2 F H 111 H 18 100/66 91 L 07/10/22 20:47 07/10/22 20:47 07/10/22 20:47 07/10/22 20:47 07/10/22 20:47 Results - Labs 07/12/22 05:35 07/12/22 05:35 Abnormal Lab Results - Last 24 Hours (Table) 07/12/22 07/12/22 Range/Units 05:35 05:35 Potassium 3.4 L (3.5-5.1) mmol/L Chloride 109 H (98-107) mmol/L Creatinine 0.56 L (0.66-1.25) mg/dL Glucose 53 L (74-99) mg/dL Hemoglobin A1c 6.9 H (0.0-6.0) % Calcium 7.5 L (8.4-10.2) mg/dL Microbiology - Last 24 Hours (Table) 07/10/22 22:10 Blood Culture Gram Stain - Preliminary Blood 07/10/22 22:25 Blood Culture Gram Stain - Preliminary Blood Blood Culture - Preliminary Staphylococcus epidermidis 07/11/22 00:27 Gram Stain - Preliminary Foot - Left Wound Culture - Preliminary 07/11/22 00:27 Anaerobic Culture - Preliminary Foot - Left Diabetes panel 07/12/22 07/12/22 Range/Units 05:35 05:35 Sodium 139 (137-145) mmol/L Potassium 3.4 L (3.5-5.1) mmol/L Chloride 109 H (98-107) mmol/L Carbon Dioxide 24 (22-30) mmol/L BUN 18 (9-20) mg/dL Creatinine 0.56 L (0.66-1.25) mg/dL Glucose 53 L (74-99) mg/dL Hemoglobin A1c 6.9 H (0.0-6.0) % Calcium 7.5 L (8.4-10.2) mg/dL Calcium panel 07/12/22 Range/Units 05:35 Calcium 7.5 L (8.4-10.2) mg/dL Pituitary panel 07/12/22 Range/Units 05:35 Sodium 139 (137-145) mmol/L Potassium 3.4 L (3.5-5.1) mmol/L Chloride 109 H (98-107) mmol/L Carbon Dioxide 24 (22-30) mmol/L BUN 18 (9-20) mg/dL Creatinine 0.56 L (0.66-1.25) mg/dL Glucose 53 L (74-99) mg/dL Calcium 7.5 L (8.4-10.2) mg/dL Adrenal panel 07/12/22 Range/Units 05:35 Sodium 139 (137-145) mmol/L Potassium 3.4 L (3.5-5.1) mmol/L Chloride 109 H (98-107) mmol/L Carbon Dioxide 24 (22-30) mmol/L BUN 18 (9-20) mg/dL Creatinine 0.56 L (0.66-1.25) mg/dL Glucose 53 L (74-99) mg/dL Calcium 7.5 L (8.4-10.2) mg/dL
--- NOTE | 2022-07-12 16:10 | P.PCN ---
Description of Procedure: Preoperative diagnoses left foot big toe open wound with callus formation measurement is 1 x 1 x 0 0.5 cm Posterior same Procedure debridement of the wound left foot big toe left foot was prepped patient has a callus formation noted on the left foot big toe using knife we excised the callus down to separate his tissue callus was removed base of the wound is granulating no discharge or redness noted Plan is medihoney gel to the left foot big toe wound and excess silver right foot
[2022-07-12 16:13] LABS: Glucose,Whole Blood 66 mg/dL (70-110)
[2022-07-12 16:28] LABS: Glucose,Whole Blood 88 mg/dL (70-110)
[2022-07-12] MEDS: SERTRALINE 100 MG TAB PO SCH (18:57)
[2022-07-12] MEDS: DAPAGLIFLOZIN PROPANEDIOL 10 MG TABLET PO SCH (18:57)
[2022-07-12] MEDS: ATORVASTATIN 20 MG TAB PO SCH (18:57)
[2022-07-12] MEDS: ASPIRIN 81 MG PO SCH (18:57)
--- NOTE | 2022-07-12 19:06 | P.PN ---
Subjective Progress Note Date: 07/12/22 HISTORY OF PRESENT ILLNESS This is a 66-year-old male patient with past medical history of diabetes mellitus type 2, hypertension, hyperlipidemia, gastroesophageal reflux disease, recurrent depression, remote history of tobacco use, fatty liver, chronic back pain, insomnia. Patient has been under the care of the wound clinic with Dr. Finney for right lower extremity diabetic ulcer status post amputation of the right great toe, patient stated that he has been cleared by the wound clinic for his wound at the bottom of the right foot and the left big toe wound, and was seen in my office last week and he was referred to the wound healing center at [facility] and he was recommended to continue with Aquacel silver with wet-to-dry dressing to the bottom of the right foot as well as the left big toe. Apparently the patient developed to have a significant fever and chills yesterday, he slept on the floor and he woke up after he vomited on himself his called EMS and he was seen in the ER at [facility] x-ray of the right foot showed evidence of possible osteomyelitis of the head of the second metatarsal ,was a bit hypotensive and because of the sepsis he was admitted to the intensive care unit he was given IV fluid resuscitation as well as IV a ntibiotic infectious disease consultation was obtained as well as vascular surgery consultation. 07/12: Patient is sitting up in bed in no apparent distress, his currently off Levophed drip, he had an episode of hypoglycemia today, we will discontinue NovoLog 11 units scheduled to keep the sliding scale, continue current lantus and Farxiga , patient is scheduled with Dr. Finney to have a debridement of the left big toe callus, then apply med honey gel to the left big toe and the Aquacel silver to the right foot continue IV antibiotic, culture still pending, patient has been followed by infectious disease, he was kept on vancomycin and added Unasyn as well. REVIEW OF SYSTEMS Constitutional: No fever, + chills, no night sweats. No weight change. No weakness, fatigue or lethargy. No daytime sleepiness. HEENT: No headache. No blurred vision or double vision, no loss of vision. No loss of Hearing, no ringing in the ears, no dizziness. No nasal drainage or congestion. No epistaxis. No sore throat. Lungs: No shortness of breath, cough, no sputum production. No wheezing. Cardiovascular: No chest pain, no lower extremity edema. No palpitations. No paroxysmal nocturnal dyspnea. No orthopnea. No lightheadedness or dizziness. No syncopal episodes. Abdominal: No abdominal pain. No nausea, vomiting. No diarrhea. No constipation. No bloody or tarry stools. No loss of appetite. Genitourinary: No dysuria, increased frequency, urgency. No urinary retention. Musculoskeletal: No myalgias. No muscle weakness, no gait dysfunction, no frequent falls. No back pain. No neck pain. Integumentary: Left great toe wounds, no lesions, there is wound at the bottom of the his right foot at the level of right second metatarsal head Neurologic: No aphasia. No facial droop. No change in mentation. No head injury. No headache. No paralysis, positive for neuropathy Psychiatric:positive for depression. No anxiety. No mood swings. Endocrine:positive for abnormal blood sugars. No weight change. No excessive sweating or thirst. No cold intolerance. PHYSICAL EXAMINATION Gen: This is a 66-year-old male, resting in bed and appears to be comfortable and in no acute distress. HEENT: Head is atraumatic, normocephalic. Pupils equal, round. Sclerae is anicteric. NECK: Supple. No JVD. No lymphadenopathy. No thyromegaly. LUNGS: Clear to auscultation. No wheezes or rhonchi. No intercostal retr actions. HEART: First heart sound is depressed, second heart sound is normal, no gallop or murmur. ABDOMEN: Soft. Bowel sounds are present. No masses. No tenderness. EXTREMITIES: No pedal edema. No calf tenderness. DP +2 bilaterally, there is a wound at the base of the right foot where the head of the second metatarsal is, and left big toe wound as well, positive for neuropathy, right big toe am putation NEUROLOGICAL: Patient is awake, alert and oriented x3. Cranial nerves 2 through 12 are grossly intact. Muscle strength 4/5 in the bilateral upper and lower extremities, neuropathic changes to both feet, deep tendon reflexes are depressed. ASSESSMENT AND PLAN 1. 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 Continue Vanco as well as Unasyn, monitor the patient culture very closely, continue local care. 2. Sepsis likely due to osteomyelitis of the right second metatarsal head. Continue IV antibiotic, continue IV fluid, currently off the Levophed drip, continue with monitoring. 3. Diabetes mellitus type 2 uncontrolled we will continue with Levemir 33 units SC at bedtime along with Humalog per SSI , we will continue with Farxiga 10 mg po daily , was on Mounjaro 5 mg Sc q week, BGM AC meals tid 4 Hypertension and hypertensive cardiovascular disease . We will hold lisinopril as the patient is a bit hypotensive due to his sepsis 5. Hyperlipidemia. Continue Rosuvastatin 10mg orally daily and Zetia 10 mg po daily, keep LDL-c 55-70. 6. Diabetic neuropathy. Continue gabapentin 800 mg 4 times daily. 7. Chronic back pain. Continue baclofen 10 mg daily as needed, along with current pain management 8. Recurrent depression. Continue sertraline 100 mg daily 9. Insomnia. Continue Ambien 10 mg at bedtime. 10. Gastroesophageal reflux disease. Continue with Protonix 40 mg po daily 11. DVT prophylaxis. Heparin 5000 units Sc q 8 H 12. Prognosis is guarded. Objective - Vital Signs Vital signs: Vital Signs Temp 99 F 07/12/22 15:30 Pulse 68 07/12/22 15:30 Resp 23 07/12/22 15:30 BP 96/61 07/12/22 15:30 Pulse Ox 95 07/12/22 15:30 FiO2 Intake & Output 07/12/22 07/12/22 07/13/22 06:59 18:59 06:59 Intake Total 1663.307 111.15 Output Total 800 Balance 863.307 111.15 Weight 117.2 kg Intake: IV 1500 100 0.9 40 100 Ampicillin-Sulbactam 3 gm 200 In Sodium Chloride 0.9% 100 ml @ 200 mls/hr IVPB Q6HR [facility] Rx#:[id number] Sodium Chloride 0.9% 1, 760 000 ml @ 130 mls/hr IV . Q7H42M [facility] Rx#:[id number] Vancomycin 1,750 mg In 500 Sodium Chloride 0.9% 500 ml 500 ml @ 167 mls/hr IVPB Q12H [facility] Rx#: [id number] Intake, IV Titration 163.307 11.15 Amount Norepinephrine 4 mg In 33.307 11.15 Sodium Chloride 0.9% 250 ml @ 0.03 MCG/KG/MIN 12. 702 mls/hr IV .Q20H [facility] Rx#:[id number] Sodium Chloride 0.9% 1, 130 000 ml @ 130 mls/hr IV . Q7H42M [facility] Rx#:[id number] Output: Urine 800 Other: Voiding Method Urinal Urinal # Voids 1 - Labs CBC & Chem 7: 07/12/22 05:35 07/12/22 05:35 Labs: Abnormal Lab Results - Last 24 Hours (Table) 07/12/22 07/12/22 07/12/22 Range/Units 05:35 05:35 16:12 Potassium 3.4 L (3.5-5.1) mmol/L Chloride 109 H (98-107) mmol/L Creatinine 0.56 L (0.66-1.25) mg/dL Glucose 53 L (74-99) mg/dL POC Glucose (mg/dL) 66 L (70-110) mg/dL Hemoglobin A1c 6.9 H (0.0-6.0) % Calcium 7.5 L (8.4-10.2) mg/dL Microbiology - Last 24 Hours (Table) 07/10/22 22:10 Blood Culture Gram Stain - Preliminary Blood 07/10/22 22:25 Blood Culture Gram Stain - Preliminary Blood Blood Culture - Preliminary Staphylococcus epidermidis 07/11/22 00:27 Gram Stain - Preliminary Foot - Left Wound Culture - Preliminary 07/11/22 00:27 Anaerobic Culture - Preliminary Foot - Left
[2022-07-12 19:13] LABS: Glucose,Whole Blood 104 mg/dL (70-110)
[2022-07-12 20:09] LABS: Glucose,Whole Blood 79 mg/dL (70-110)
--- NOTE | 2022-07-12 20:17 | US ---
EXAMINATION TYPE: US venous doppler duplex LE LT DATE OF EXAM: 07/12/2022 7:06 PM COMPARISON: NONE CLINICAL INDICATION: Male, 66 years old with history of r/o dvt; Left calf redness and tenderness. No hx of DVT. Not on thinners SIDE PERFORMED: Left TECHNIQUE: The lower extremity deep venous system is examined utilizing real time linear array sonog joe with graded compression, doppler sonography and color-flow sonography. VESSELS IMAGED: Common Femoral Vein Deep Femoral Vein Greater Saphenous Vein * Femoral Vein Popliteal Vein Small Saphenous Vein * Proximal Calf Veins (* superficial vessels) Left Leg: There is thrombus seen in the GSV in the upper calf in area of redness. IMPRESSION: 1. Left lower extremity ultrasound negative for deep venous thrombosis. 2. Note is made of superficial thrombus within the greater saphenous vein on the left upper calf darci on
[2022-07-12] MEDS: ZOLPIDEM 5 MG TAB PO SCH (20:49)
[2022-07-13] MEDS: VANCOMYCIN 1,750 MG in SODIUM CHLORIDE 0.9% 500 ML 500 ML IVPB SCH (00:23)
[2022-07-13] MEDS: oxyCODONE-APAP 10-325MG 1 EACH TAB PO PRN ×3 (00:29→21:23)
[2022-07-13] MEDS: AMPICILLIN-SULBACTAM 3 GM in SODIUM CHLORIDE 0.9% 100 ML IVPB SCH ×2 (06:09→12:29)
[2022-07-13] MEDS: MORPHINE SULFATE 2 MG/ML SYRINGE IVP PRN ×2 (06:17→16:42)
[2022-07-13 06:45] LABS: Glucose,Whole Blood 66 mg/dL (70-110)
[2022-07-13] MEDS: INSULIN ASPART (NovoLOG) 100 UNIT/ML VIAL SQ SCH ×4 (07:00→20:39)
[2022-07-13 07:32] LABS: Glucose,Whole Blood 97 mg/dL (70-110)
[2022-07-13] MEDS: GABAPENTIN 400 MG CAP PO SCH ×4 (09:04→21:23)
[2022-07-13] MEDS: FAMOTIDINE 20 MG TAB PO SCH ×2 (09:04→21:23)
[2022-07-13] MEDS: HEPARIN SODIUM,PORCINE/PF 5,000 UNIT/0.5 ML SYRINGE SQ SCH ×3 (09:04→23:46)
--- NOTE | 2022-07-13 09:08 | P.PN ---
Subjective Progress Note Date: 07/13/22 I am seeing this patient in new consultation today 07/11/2022 in the emergency department for ICU management in regards to osteomyelitis and possible sepsis. Patient is a 66-year-old white male with past medical history significant for diabetic foot wounds and previous amputation of his right great toe, diabetes mellitus, diabetic neuropathy, hypertension, hyperlipidemia, GERD. Patient has been previously seen at the wound care clinic for his diabetic foot wounds and has undergone right great toe amputation in the past. Patient's wounds had apparently been improving, the patient stopped seeing the wound care clinic, and was being managed by his primary care provider Dr. Castillo. Recently, the foot wounds have been draining a bloody-clear drainage. The right foot has an aproximate 2x2 cm plantar wound and the left foot has an approximate 2.5x2cm wound on the great toe. The patient has been experiencing fever and chill over the last 24-48 hours, and decided to come to the emergency room last night. He also reports two episodes of emesis without abominal pain, distention, constipation, or diarrhea. Patient is currently resting in the stretcher, on room air, in no acute distress. X-ray of his bilateral feet showed findings concerning for osteomyelitis of the head of the right second metatarsal, along with soft tissue swelling centered at the second proximal interphalangeal joint. There were no acute osseous abnormalities of the left foot. No acute cardiopulmonary disease process as seen on chest x-ray. His blood pressure has been hypotensive despite 3 L normal saline fluid bolus, and has been started on norepinephrine currently infusing at 0.04 mics per kilogram per minute. CBC on arrival shows a WBC count of 10.6, hemoglobin 15, hematocrit 44.5, platelets 230. BMP was unremarkable. Normal saline currently infusing at 167 ml/hr. Lactic acid level was mildly elevated at 2.2 and is down to 1.7. Troponin negative 1. Patient is being empirically covered with Zosyn and vancomycin. T-max is 103.2degrees Fahrenheit. Blood cultures are pending. Patient will be monitored in the intensive care unit. Today's evaluation of 07/12/2022, the patient is awake and alert and communicating. No specific complaints for now. He has been off pressors since morning at around 6 AM. The patient is current on a combination of Unasyn and vancomycin. The right foot diabetic ulcer has some liquidy drainage which is minimal at this point in time. Cultures are still pending for now. The patient is producing adequate amount of urine output. The blood work from today shows a WBC count of 6.3 with a hemoglobin 15.1 and a platelet count of 198. BUN is 18 with a creatinine of 0.5 and a sodium level is at 139. The blood sugar this morning is 72. The patient is on a combination of antidiabetic medications. No shortness of breath. No chest pain. No focal neurological deficits. No other significant events overnight. The patient remains on room air oxygen. 07/03/2022, the patient is stable. The patient underwent further surgical debridement of the left to yesterday. Cultures still pending. Remains on accommodation of Unasyn and vancomycin. Hemodynamically stable. Blood sugars under adequate control. No altered mentation. No hypertension. No tachycardia. No bleeding. No other complaints otherwise. Objective - Vital Signs Vital signs: Vital Signs Temp 98.5 F 07/13/22 02:00 Pulse 68 07/13/22 02:00 Resp 17 07/13/22 02:00 BP 102/61 07/13/22 02:00 Pulse Ox 94 L 07/13/22 02:00 FiO2 Intake & Output 07/12/22 07/13/22 07/13/22 18:59 06:59 18:59 Intake Total 461.15 1600 Output Total 625 990 Balance -163.85 610 Intake: IV 100 940 0.9 100 240 Ampicillin-Sulbactam 3 gm 200 In Sodium Chloride 0.9% 100 ml @ 200 mls/hr IVPB Q6HR [facility] Rx#:[id number] Vancomycin 1,750 mg In 500 Sodium Chloride 0.9% 500 ml 500 ml @ 167 mls/hr IVPB Q12H [facility] Rx#: [id number] Intake, IV Titration 11.15 Amount Norepinephrine 4 mg In 11.15 Sodium Chloride 0.9% 250 ml @ 0.03 MCG/KG/MIN 12. 702 mls/hr IV .Q20H [facility] Rx#:[id number] Oral 350 660 Output: Urine 625 990 Other: Voiding Method Urinal Urinal - Exam GENERAL EXAM: Alert, , comfortable in no apparent distress. HEAD: Normocephalic and atraumatic EYES: Normal reaction of pupils, equal size. NOSE: Clear with pink turbinates. THROAT: No erythema or exudates. NECK: No masses, no JVD. CHEST: No chest wall deformity. LUNGS: Equal air entry with no crackles, wheeze, rhonchi or dullness. No conversational dyspnea or accessory muscle use.. CVS: S1 and S2 normal with no audible murmur, regular rhythm. No extra heart sounds ABDOMEN: No hepatosplenomegaly, active bowel sounds, no guarding or rigidity. SPINE: No scoliosis or deformity SKIN: approximately 2 x 2 centimeter right plantar foot wound and a 2.5 x 2 cm left great toe wound with eschar and granulation CENTRAL NERVOUS SYSTEM: No focal deficits, tone is normal in all 4 extremities. EXTREMITIES: right great toe amputation. There is no peripheral edema, clubbing, or cyanosis. Peripheral pulses are intact. - Labs CBC & Chem 7: 07/12/22 05:35 07/12/22 05:35 Labs: Abnormal Lab Results - Last 24 Hours (Table) 07/12/22 07/12/22 07/13/22 Range/Units 05:35 16:12 06:44 POC Glucose (mg/dL) 66 L 66 L (70-110) mg/dL Hemoglobin A1c 6.9 H (0.0-6.0) % Microbiology - Last 24 Hours (Table) 07/10/22 22:10 Blood Culture Gram Stain - Preliminary Blood 07/10/22 22:25 Blood Culture Gram Stain - Preliminary Blood Blood Culture - Preliminary Staphylococcus epidermidis 07/11/22 00:27 Gram Stain - Preliminary Foot - Left Wound Culture - Preliminary Assessment and Plan Plan: osteomyelitis and sepsis. X-ray of his bilateral feet show findings concerning for osteomyelitis of the head of the right second metatarsal, along with soft tissue swelling centered at the second proximal interphalangeal joint. There were no acute osseous abnormalities of the left foot. The patient is post surgical debridement of the left toe and the patient remains on the same ant ibiotic coverage Septic shock responded to fluid replacement currently on no pressors and the patient is hemodynamically stable Diabetic foot wounds Diabetes mellitus type 2, insulin-dependent, with secondary complications of diabetic neuropathy and diabetic foot ulcers, currently on Levemir insulin Diabetic neuropathy. Hypertension Hyperlipidemia GERD Degenerative disc disease Chronic lower back pain History of prior right great toe amputation Diverticulosis without diverticulitis plan: Patient is stable and the patient is currently off pressors wound cultures are pending Patient is post surgical debridement of the left toe wound Continue current antibiotic coverage with a combination of Unasyn and vancomycin Dr. Finney was consulted for patient's diabetic foot wounds consult wound care heparin for DVT prophylaxis Protonix for GI prophylaxis Pain management Continue Levemir insulin Transfer this patient outside the intensive care
[2022-07-13] MEDS ORDERED: VANCOMYCIN TROUGH DUE 1 EACH MISC MISCELLANE ONE (11:00)
[2022-07-13 11:23] VITALS: BMI 34.0
[2022-07-13 11:37] LABS: Glucose,Whole Blood 133 mg/dL (70-110)
[2022-07-13 12:00] LABS: African American GFR (CKD) >90 (>60 ml/min/1.73 sqM); Anion Gap 8 mmol/L; Blood Urea Nitrogen 14 mg/dL (9-20); Calcium 7.9 mg/dL (8.4-10.2); Carbon Dioxide 21 mmol/L (22-30); Chloride 108 mmol/L (98-107); Glucose 136 mg/dL (74-99); Non-African American GFR(CKD) >90 (>60 ml/min/1.73 sqM); Potassium 3.7 mmol/L (3.5-5.1); Sodium 137 mmol/L (137-145)
[2022-07-13] MEDS: INSULIN DETEMIR (LEVEMIR) 100 UNIT/ML SYR SQ SCH (12:30)
--- NOTE | 2022-07-13 13:39 | P.PN ---
Subjective Progress Note Date: 07/13/22 Principal diagnosis: Diabetic foot infection and osteomyelitis Patient is a 66-year-old male with a past medical history significant for type 2 diabetes mellitus hypertension hyperlipidemia reflux and depression and history of tobacco use patient did have a history of right big toe diabetic foot infection , requiring amputation a few years ago and recently has been tr eated for a left big toe diabetic foot infection and ostomy myelitis for the patient was almost healed now presented to the hospital with sepsis secondary to her diabetic foot infection. The patient is status post debridement of the left big toe wound by vascular surgery and deep cultures on today's evaluation that is 07/13/2022, the patient remains to be afebrile, the patient is comfortably comfortably on room air, the patient denies any chest pain shortness of breath or cough no nausea no vomiting no abdominal pain or diarrhea Objective - Vital Signs Vital signs: Vital Signs Temp 98.7 F 07/13/22 08:00 Pulse 65 07/13/22 08:00 Resp 16 07/13/22 08:00 BP 99/62 07/13/22 08:00 Pulse Ox 97 07/13/22 08:00 FiO2 Intake & Output 07/12/22 07/13/22 07/13/22 18:59 06:59 18:59 Intake Total 461.15 1600 Output Total 625 990 Balance -163.85 610 Intake: IV 100 940 0.9 100 240 Ampicillin-Sulbactam 3 gm 200 In Sodium Chloride 0.9% 100 ml @ 200 mls/hr IVPB Q6HR [facility] Rx#:[id number] Vancomycin 1,750 mg In 500 Sodium Chloride 0.9% 500 ml 500 ml @ 167 mls/hr IVPB Q12H [facility] Rx#: [id number] Intake, IV Titration 11.15 Amount Norepinephrine 4 mg In 11.15 Sodium Chloride 0.9% 250 ml @ 0.03 MCG/KG/MIN 12. 702 mls/hr IV .Q20H [facility] Rx#:[id number] Oral 350 660 Output: Urine 625 990 Other: Voiding Method Urinal Urinal - Exam GENERAL DESCRIPTION: A middle-aged male lying in bed in no distress RESPIRATORY SYSTEM: Unlabored breathing , decreased breath sounds at bases HEART: S1 S2 regular rate and rhythm , ABDOMEN: Soft , no tenderness EXTREMITIES: Bilateral feet wounds are currently dressed with minimal drainage on the dressing - Labs CBC & Chem 7: 07/12/22 05:35 07/13/22 11:04 Labs: Abnormal Lab Results - Last 24 Hours (Table) 07/12/22 07/12/22 07/13/22 Range/Units 05:35 16:12 06:44 POC Glucose (mg/dL) 66 L 66 L (70-110) mg/dL Hemoglobin A1c 6.9 H (0.0-6.0) % Microbiology - Last 24 Hours (Table) 07/10/22 22:10 Blood Culture Gram Stain - Preliminary Blood 07/10/22 22:25 Blood Culture Gram Stain - Preliminary Blood Blood Culture - Preliminary Staphylococcus epidermidis 07/11/22 00:27 Gram Stain - Preliminary Foot - Left Wound Culture - Preliminary Assessment and Plan (1) Osteomyelitis Current Visit: Yes Status: Acute Code(s): M86.9 - OSTEOMYELITIS, UNSPECIFIED SNOMED Code(s): 07265286 (2) Diabetic foot ulcer Current Visit: No Status: Acute Code(s): E11.621 - TYPE 2 DIABETES MELLITUS WITH FOOT ULCER; L97.509 - NON-PRESSURE CHRONIC ULCER OTH PRT UNSP FOOT W UNSP SEVERITY SNOMED Code(s): 713967988 Plan: 1patient presented hospital with sepsis in this patient with a fever tachycardia hypotension requiring pressor support source is likely diabetic foot infection especially involving the left big toe as significant inflammatory changes were noted to the left big toe with more swelling and redness however abnormality was noticed on the right second metatarsal in this patient who did have a nonhealing wound on the plantar aspect of the right foot we will need to cover for the polymicrobial dustin usually associated with diabetic foot infe ction 2-patient is status post vascular surgery evaluation debridement and deep cultures are pending 3-initial cultures are growing gram-negative bacilli we will discontinue Unasyn and vancomycin started patient on Zosyn while waiting for the cultures to finalize Time with Patient: Less than 30
--- NOTE | 2022-07-13 14:20 | PN ---
PROGRESS NOTE SUBJECTIVE: This is a 66-year-old gentleman. The patient had a right big toe procedure done in the past by me. The patient has callus on the plantar aspect right foot and patient also had a left big toe wound. We did the debridement yesterday, will be using Medihoney gel to the big toe and Aquacel Silver to the right plantar aspect of the ulcer. The patient is complaining of some tenderness in the left lower extremity ultrasound shows patient has superficial thrombophlebitis of the lower extremity involving the left lower leg. PLAN: There is no evidence of DVT. The patient has superficial thrombophlebitis. We will watch very closely. Continue with local wound care. MMODL / IJN: [id number] /
[2022-07-13] MEDS: PIPERACILLIN-TAZOBACTAM 3.375 GM in SODIUM CHLORIDE 0.9% 100 ML IVPB SCH ×2 (16:04→23:46)
[2022-07-13 16:55] LABS: Glucose,Whole Blood 117 mg/dL (70-110)
--- NOTE | 2022-07-13 17:37 | P.PN ---
Subjective Progress Note Date: 07/13/22 HISTORY OF PRESENT ILLNESS This is a 66-year-old male patient with past medical history of diabetes mellitus type 2, hypertension, hyperlipidemia, gastroesophageal reflux disease, recurrent depression, remote history of tobacco use, fatty liver, chronic back pain, insomnia. Patient has been under the care of the wound clinic with Dr. Finney for right lower extremity diabetic ulcer status post amputation of the right great toe, patient stated that he has been cleared by the wound clinic for his wound at the bottom of the right foot and the left big toe wound, and was seen in my office last week and he was referred to the wound healing center at [facility] and he was recommended to continue with Aquacel silver with wet-to-dry dressing to the bottom of the right foot as well as the left big toe. Apparently the patient developed to have a significant fever and chills yesterday, he slept on the floor and he woke up after he vomited on himself his called EMS and he was seen in the ER at [facility] x-ray of the right foot showed evidence of possible osteomyelitis of the head of the second metatarsal ,was a bit hypotensive and because of the sepsis he was admitted to the intensive care unit he was given IV fluid resuscitation as well as IV a ntibiotic infectious disease consultation was obtained as well as vascular surgery consultation. 07/12: Patient is sitting up in bed in no apparent distress, his currently off Levophed drip, he had an episode of hypoglycemia today, we will discontinue NovoLog 11 units scheduled to keep the sliding scale, continue current lantus and Farxiga , patient is scheduled with Dr. Finney to have a debridement of the left big toe callus, then apply med honey gel to the left big toe and the Aquacel silver to the right foot continue IV antibiotic, culture still pending, patient has been followed by infectious disease, he was kept on vancomycin and added Unasyn as well. 07/13: Patient is laying down in bed in no apparent distress, had an episode of hypoglycemia in the morning, subsequently his Levemir will be decreased to 28 units at bedtime, continue sliding scale insulin, continue IV antibiotic, c ontinue to monitor the patient very closely, patient will likely require IV antibiotic for the next 6 weeks. REVIEW OF SYSTEMS Constitutional: No fever, + chills, no night sweats. No weight change. No weakness, fatigue or lethargy. No daytime sleepiness. HEENT: No headache. No blurred vision or double vision, no loss of vision. No loss of Hearing, no ringing in the ears, no dizziness. No nasal drainage or congestion. No epistaxis. No sore throat. Lungs: No shortness of breath, cough, no sputum production. No wheezing. Cardiovascular: No chest pain, no lower extremity edema. No palpitations. No paroxysmal nocturnal dyspnea. No orthopnea. No lightheadedness or dizziness. No syncopal episodes. Abdominal: No abdominal pain. No nausea, vomiting. No diarrhea. No constipation. No bloody or tarry stools. No loss of appetite. Genitourinary: No dysuria, increased frequency, urgency. No urinary retention. Musculoskeletal: No myalgias. No muscle weakness, no gait dysfunction, no frequent falls. No back pain. No neck pain. Integumentary: Left great toe wounds, no lesions, there is wound at the bottom of the his right foot at the level of right second metatarsal head Neurologic: No aphasia. No facial droop. No change in mentation. No head injury. No headache. No paralysis, positive for neuropathy Psychiatric:positive for depression. No anxiety. No mood swings. Endocrine:positive for abnormal blood sugars. No weight change. No excessive sweating or thirst. No cold intolerance. PHYSICAL EXAMINATION Gen: This is a 66-year-old male, resting in bed and appears to be comfortable an d in no acute distress. HEENT: Head is atraumatic, normocephalic. Pupils equal, round. Sclerae is an icteric. NECK: Supple. No JVD. No lymphadenopathy. No thyromegaly. LUNGS: Clear to auscultation. No wheezes or rhonchi. No intercostal retractions. HEART: First heart sound is depressed, second heart sound is normal, no gallop or murmur. ABDOMEN: Soft. Bowel sounds are present. No masses. No tenderness. EXTREMITIES: No pedal edema. No calf tenderness. DP +2 bilaterally, there is a wound at the base of the right foot where the head of the second metatarsal is, and left big toe wound as well, positive for neuropathy, right big toe amputation NEUROLOGICAL: Patient is awake, alert and oriented x3. Cranial nerves 2 through 12 are grossly intact. Muscle strength 4/5 in the bilateral upper and lower extremities, neuropathic changes to both feet, deep tendon reflexes are depressed. ASSESSMENT AND PLAN 1. 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 switched to Zosyn 3.375 gr IVPB q 6 h due to Gram negative bacilli in the left foot and monitor the pat ient culture very closely, continue local care. 2. Sepsis likely due to osteomyelitis of the right second metatarsal head. Continue IV antibiotic, continue IV fluid,. 3. Diabetes mellitus type 2 uncontrolled we will continue with Levemir 28 units SC at bedtime along with Humalog per SSI , we will continue with Farxiga 10 mg po daily , was on Mounjaro 5 mg Sc q week, BGM AC meals tid 4 Hypertension and hypertensive cardiovascular disease . We will hold lisinopril as the patient is a bit hypotensive due to his sepsis 5. Hyperlipidemia. Continue Rosuvastatin 10mg orally daily and Zetia 10 mg po daily, keep LDL-c 55-70. 6. Diabetic neuropathy. Continue gabapentin 800 mg 4 times daily. 7. Chronic back pain. Continue baclofen 10 mg daily as needed, along with current pain management 8. Recurrent depression. Continue sertraline 100 mg daily 9. Insomnia. Continue Ambien 10 mg at bedtime. 10. Gastroesophageal reflux disease. Continue with Protonix 40 mg po daily 11. Left superficial thromboplebitis. continue with K-Pads 12. DVT prophylaxis. Heparin 5000 units Sc q 8 H 13. Prognosis is guarded. 14. Plan for PICC line in AM Objective - Vital Signs Vital signs: Vital Signs Temp 98.7 F 07/13/22 08:00 Pulse 65 07/13/22 08:00 Resp 16 07/13/22 08:00 BP 99/62 07/13/22 08:00 Pulse Ox 97 07/13/22 08:00 FiO2 Intake & Output 07/12/22 07/13/22 07/13/22 18:59 06:59 18:59 Intake Total 461.15 1600 Output Total 625 990 Balance -163.85 610 Weight 117.2 kg Intake: IV 100 940 0.9 100 240 Ampicillin-Sulbactam 3 gm 200 In Sodium Chloride 0.9% 100 ml @ 200 mls/hr IVPB Q6HR [facility] Rx#:[id number] Vancomycin 1,750 mg In 500 Sodium Chloride 0.9% 500 ml 500 ml @ 167 mls/hr IVPB Q12H [facility] Rx#: [id number] Intake, IV Titration 11.15 Amount Norepinephrine 4 mg In 11.15 Sodium Chloride 0.9% 250 ml @ 0.03 MCG/KG/MIN 12. 702 mls/hr IV .Q20H [facility] Rx#:[id number] Oral 350 660 Output: Urine 625 990 Other: Voiding Method Urinal Urinal Urinal - Labs CBC & Chem 7: 07/12/22 05:35 07/13/22 11:04 Labs: Abnormal Lab Results - Last 24 Hours (Table) 07/12/22 07/13/22 07/13/22 Range/Units 16:12 06:44 11:04 Chloride 108 H (98-107) mmol/L Carbon Dioxide 21 L (22-30) mmol/L Creatinine 0.51 L (0.66-1.25) mg/dL Glucose 136 H (74-99) mg/dL POC Glucose (mg/dL) 66 L 66 L (70-110) mg/dL Calcium 7.9 L (8.4-10.2) mg/dL 07/13/22 Range/Units 11:35 Chloride (98-107) mmol/L Carbon Dioxide (22-30) mmol/L Creatinine (0.66-1.25) mg/dL Glucose (74-99) mg/dL POC Glucose (mg/dL) 133 H (70-110) mg/dL Calcium (8.4-10.2) mg/dL Microbiology - Last 24 Hours (Table) 07/11/22 00:27 Gram Stain - Preliminary Foot - Left Wound Culture - Preliminary Gram Neg Bacilli 07/10/22 22:10 Blood Culture Gram Stain - Preliminary Blood
[2022-07-13] MEDS: DAPAGLIFLOZIN PROPANEDIOL 10 MG TABLET PO SCH (19:59)
[2022-07-13] MEDS: SERTRALINE 100 MG TAB PO SCH (20:00)
[2022-07-13] MEDS: ASPIRIN 81 MG PO SCH (20:00)
[2022-07-13] MEDS: ATORVASTATIN 20 MG TAB PO SCH (20:00)
[2022-07-13 20:09] LABS: Glucose,Whole Blood 123 mg/dL (70-110)
[2022-07-13] MEDS: ZOLPIDEM 5 MG TAB PO SCH (21:23)
[2022-07-14 06:09] LABS: Basophils % (A) 1 %; Eosinophils # (A) 0.1 k/uL (0-0.7); Eosinophils % (A) 2 %; HCT 40.6 % (39.0-53.0); HGB 13.3 gm/dL (13.0-17.5); Lymphocytes # (A) 1.2 k/uL (1.0-4.8); Lymphocytes % (A) 20 %; MCH 29.2 pg (25.0-35.0); MCHC 32.8 g/dL (31.0-37.0); MCV 89.2 fL (80.0-100.0); Mean Platelet Volume 7.5; Monocytes # (A) 0.3 k/uL (0-1.0); Monocytes % (A) 5 %; Neutrophils # (A) 4.3 k/uL (1.3-7.7); Neutrophils % (A) 70 %; Platelet Count 201 k/uL (150-450); RBC 4.55 m/uL (4.30-5.90); RDW 13.4 % (11.5-15.5); WBC 6.1 k/uL (3.8-10.6)
[2022-07-14 06:34] LABS: Glucose,Whole Blood 109 mg/dL (70-110)
[2022-07-14] MEDS: INSULIN ASPART (NovoLOG) 100 UNIT/ML VIAL SQ SCH ×4 (06:47→20:08)
[2022-07-14] MEDS: PIPERACILLIN-TAZOBACTAM 3.375 GM in SODIUM CHLORIDE 0.9% 100 ML IVPB SCH ×3 (08:01→23:14)
[2022-07-14] MEDS: INSULIN DETEMIR (LEVEMIR) 100 UNIT/ML SYR SQ SCH ×2 (08:01→19:38)
[2022-07-14] MEDS: FAMOTIDINE 20 MG TAB PO SCH ×2 (08:02→20:07)
[2022-07-14] MEDS: oxyCODONE-APAP 10-325MG 1 EACH TAB PO PRN ×2 (08:02→14:00)
[2022-07-14] MEDS: HEPARIN SODIUM,PORCINE/PF 5,000 UNIT/0.5 ML SYRINGE SQ SCH ×3 (08:02→23:14)
[2022-07-14] MEDS: GABAPENTIN 400 MG CAP PO SCH ×4 (08:02→23:14)
--- NOTE | 2022-07-14 09:54 | P.PN ---
Subjective Progress Note Date: 07/14/22 I am seeing this patient in new consultation today 07/11/2022 in the emergency department for ICU management in regards to osteomyelitis and possible sepsis. Patient is a 66-year-old white male with past medical history significant for diabetic foot wounds and previous amputation of his right great toe, diabetes mellitus, diabetic neuropathy, hypertension, hyperlipidemia, GERD. Patient has been previously seen at the wound care clinic for his diabetic foot wounds and has undergone right great toe amputation in the past. Patient's wounds had apparently been improving, the patient stopped seeing the wound care clinic, and was being managed by his primary care provider Dr. Castillo. Recently, the foot wounds have been draining a bloody-clear drainage. The right foot has an aproximate 2x2 cm plantar wound and the left foot has an approximate 2.5x2cm wound on the great toe. The patient has been experiencing fever and chill over the last 24-48 hours, and decided to come to the emergency room last night. He also reports two episodes of emesis without abominal pain, distention, constipation, or diarrhea. Patient is currently resting in the stretcher, on room air, in no acute distress. X-ray of his bilateral feet showed findings concerning for osteomyelitis of the head of the right second metatarsal, along with soft tissue swelling centered at the second proximal interphalangeal joint. There were no acute osseous abnormalities of the left foot. No acute cardiopulmonary disease process as seen on chest x-ray. His blood pressure has been hypotensive despite 3 L normal saline fluid bolus, and has been started on norepinephrine currently infusing at 0.04 mics per kilogram per minute. CBC on arrival shows a WBC count of 10.6, hemoglobin 15, hematocrit 44.5, platelets 230. BMP was unremarkable. Normal saline currently infusing at 167 ml/hr. Lactic acid level was mildly elevated at 2.2 and is down to 1.7. Troponin negative 1. Patient is being empirically covered with Zosyn and vancomycin. T-max is 103.2degrees Fahrenheit. Blood cultures are pending. Patient will be monitored in the intensive care unit. Today's evaluation of 07/12/2022, the patient is awake and alert and communicating. No specific complaints for now. He has been off pressors since morning at around 6 AM. The patient is current on a combination of Unasyn and vancomycin. The right foot diabetic ulcer has some liquidy drainage which is minimal at this point in time. Cultures are still pending for now. The patient is producing adequate amount of urine output. The blood work from today shows a WBC count of 6.3 with a hemoglobin 15.1 and a platelet count of 198. BUN is 18 with a creatinine of 0.5 and a sodium level is at 139. The blood sugar this morning is 72. The patient is on a combination of antidiabetic medications. No shortness of breath. No chest pain. No focal neurological deficits. No other significant events overnight. The patient remains on room air oxygen. 07/13/2022, the patient is stable. The patient underwent further surgical debridement of the left to yesterday. Cultures still pending. Remains on accommodation of Unasyn and vancomycin. Hemodynamically stable. Blood sugars under adequate control. No altered mentation. No hypertension. No tachycardia. No bleeding. No other complaints otherwise. On today's evaluation of 07/14/2022, the patient remains hemodynamically stable. One culture showing gram-negative bacillus and Gilda albicans. The PICC line to be inserted today. The patient is hemodynamically stable and he is not requiring any pressors. The white cell count is at 6.4 with a hemoglobin 15.3. Platelet count is at 201. He remains on IV Zosyn. Objective - Vital Signs Vital signs: Vital Signs Temp 98.2 F 07/14/22 08:00 Pulse 60 07/14/22 08:00 Resp 16 07/14/22 08:00 BP 116/81 07/14/22 08:00 Pulse Ox 99 07/14/22 08:00 FiO2 Intake & Output 07/13/22 07/14/22 07/14/22 18:59 06:59 18:59 Intake Total 800 880 Output Total 2029 Balance 800 -1150 Weight 117.2 kg Intake: IV 400 340 0.9 200 240 Ampicillin-Sulbactam 3 gm 100 In Sodium Chloride 0.9% 100 ml @ 200 mls/hr IVPB Q6HR [facility] Rx#:[id number] Piperacillin-Tazobactam 3 100 100 .375 gm In Sodium Chloride 0.9% 100 ml @ 25 mls/hr IVPB Q8HR [facility] Rx# :[id number] Oral 400 540 Output: Urine 2029 Other: Voiding Method Urinal Urinal # Voids 4 4 - Exam GENERAL EXAM: Alert, , comfortable in no apparent distress. HEAD: Normocephalic and atraumatic EYES: Normal reaction of pupils, equal size. NOSE: Clear with pink turbinates. THROAT: No erythema or exudates. NECK: No masses, no JVD. CHEST: No chest wall deformity. LUNGS: Equal air entry with no crackles, wheeze, rhonchi or dullness. No convers ational dyspnea or accessory muscle use.. CVS: S1 and S2 normal with no audible murmur, regular rhythm. No extra heart sounds ABDOMEN: No hepatosplenomegaly, active bowel sounds, no guarding or rigidity. SPINE: No scoliosis or deformity SKIN: approximately 2 x 2 centimeter right plantar foot wound and a 2.5 x 2 cm left great toe wound with eschar and granulation CENTRAL NERVOUS SYSTEM: No focal deficits, tone is normal in all 4 extremities. EXTREMITIES: right great toe amputation. There is no peripheral edema, clubbing, or cyanosis. Peripheral pulses are intact. - Labs CBC & Chem 7: 07/14/22 05:47 07/13/22 11:04 Labs: Abnormal Lab Results - Last 24 Hours (Table) 07/13/22 07/13/22 07/13/22 Range/Units 11:04 11:35 16:54 Chloride 108 H (98-107) mmol/L Carbon Dioxide 21 L (22-30) mmol/L Creatinine 0.51 L (0.66-1.25) mg/dL Glucose 136 H (74-99) mg/dL POC Glucose (mg/dL) 133 H 117 H (70-110) mg/dL Calcium 7.9 L (8.4-10.2) mg/dL 07/13/22 Range/Units 20:08 Chloride (98-107) mmol/L Carbon Dioxide (22-30) mmol/L Creatinine (0.66-1.25) mg/dL Glucose (74-99) mg/dL POC Glucose (mg/dL) 123 H (70-110) mg/dL Calcium (8.4-10.2) mg/dL Microbiology - Last 24 Hours (Table) 07/11/22 00:27 Anaerobic Culture - Preliminary Foot - Left Gilda albicans 07/11/22 00:27 Gram Stain - Preliminary Foot - Left Wound Culture - Preliminary Gram Neg Bacilli Assessment and Plan Plan: osteomyelitis and sepsis. X-ray of his bilateral feet show findings concerning for osteomyelitis of the head of the right second metatarsal, along with soft tissue swelling centered at the second proximal interphalangeal joint. There were no acute osseous abnormalities of the left foot. The patient is post surgical debridement of the left toe and the patient remains on the same antibiotic coverage Septic shock responded to fluid replacement currently on no pressors and the patient is hemodynamically stable Diabetic foot wounds Diabetes mellitus type 2, insulin-dependent, with secondary complications of diabetic neuropathy and diabetic foot ulcers, currently on Levemir insulin Diabetic neuropathy. Hypertension Hyperlipidemia GERD Degenerative disc disease Chronic lower back pain History of prior right great toe amputation Diverticulosis without diverticulitis plan: PICC line to be inserted today Awaiting final cultures from the wound and the patient's post-debridement Patient is stable and the patient is currently off pressors wound cultures are pending, there is gram-negative bacillus growing Patient is post surgical debridement of the left toe wound Continue current antibiotic coverage IV Zosyn Dr. Finney was consulted for patient's diabetic foot wounds consult wound care heparin for DVT prophylaxis Protonix for GI prophylaxis Pain management Continue Levemir insulin Transfer this patient outside the intensive care
[2022-07-14 11:18] LABS: Glucose,Whole Blood 121 mg/dL (70-110)
[2022-07-14] MEDS ORDERED: LIDOCAINE 1% INJ 10MG/ML (5 ML VIAL-PF) SQ ONE (13:11)
--- NOTE | 2022-07-14 13:35 | XR ---
EXAMINATION TYPE: XR chest 1V portable DATE OF EXAM: 07/14/2022 1:30 PM COMPARISON: Chest radiographs from 07/02/2022 TECHNIQUE: XR chest 1V portable Frontal view of the chest. CLINICAL INDICATION:Male, 66 years old with history of picc line placement; FINDINGS: Lungs/Pleura: There is no evidence of pleural effusion, focal consolidation, or pneumothorax. Pulmonary vascularity: Unremarkable. Heart/mediastinum: Cardiomediastinal silhouette is unremarkable. Musculoskeletal: No acute osseous pathology. Other findings: None Lines/Tubes: Left-sided PICC with distal tip at the superior vena cava/brachiocephalic confluence. IMPRESSION: 1. No acute cardiopulmonary disease/process. 2. Left-sided PICC with distal tip at the superior vena cava/brachiocephalic confluence.
--- NOTE | 2022-07-14 13:50 | P.PN ---
Subjective Progress Note Date: 07/14/22 Principal diagnosis: Diabetic foot infection and osteomyelitis Patient is a 66-year-old male with a past medical history significant for type 2 diabetes mellitus hypertension hyperlipidemia reflux and depression and history of tobacco use patient did have a history of right big toe diabetic foot infection , requiring amputation a few years ago and recently has been tr eated for a left big toe diabetic foot infection and ostomy myelitis for the patient was almost healed now presented to the hospital with sepsis secondary to her diabetic foot infection. The patient is status post debridement of the left big toe wound by vascular surgery and deep cultures on today's evaluation that is 07/14/2022, the patient denies any fever or any chills, the patient is comfortably comfortably on room air, the patient denies any chest pain shortness of breath or cough , the patient denies having any nausea no vomiting no abdominal pain or diarrhea, patient is complaining of swelling and some redness to left lower extremity Objective - Vital Signs Vital signs: Vital Signs Temp 98.2 F 07/14/22 08:00 Pulse 60 07/14/22 08:00 Resp 16 07/14/22 08:00 BP 116/81 07/14/22 08:00 Pulse Ox 99 07/14/22 08:00 FiO2 Intake & Output 07/13/22 07/14/22 07/14/22 18:59 06:59 18:59 Intake Total 800 880 Output Total 2029 Balance 800 -1150 Weight 117.2 kg 117.2 kg Intake: IV 400 340 0.9 200 240 Ampicillin-Sulbactam 3 gm 100 In Sodium Chloride 0.9% 100 ml @ 200 mls/hr IVPB Q6HR [facility] Rx#:[id number] Piperacillin-Tazobactam 3 100 100 .375 gm In Sodium Chloride 0.9% 100 ml @ 25 mls/hr IVPB Q8HR [facility] Rx# :[id number] Oral 400 540 Output: Urine 2029 Other: Voiding Method Urinal Urinal # Voids 4 4 - Exam GENERAL DESCRIPTION: A middle-aged male lying in bed in no distress RESPIRATORY SYSTEM: Unlabored breathing , decreased breath sounds at bases HEART: S1 S2 regular rate and rhythm , ABDOMEN: Soft , no tenderness EXTREMITIES: Left big toe swelling has decreased, did have a erythema to the left lower leg and some swelling - Labs CBC & Chem 7: 07/14/22 05:47 05/31/23 11:04 Labs: Abnormal Lab Results - Last 24 Hours (Table) 07/13/22 07/13/22 07/14/22 Range/Units 16:54 20:08 11:17 POC Glucose (mg/dL) 117 H 123 H 121 H (70-110) mg/dL Microbiology - Last 24 Hours (Table) 07/11/22 00:27 Anaerobic Culture - Preliminary Foot - Left Gilda albicans 07/11/22 00:27 Gram Stain - Preliminary Foot - Left Wound Culture - Preliminary Gram Neg Bacilli Assessment and Plan (1) Osteomyelitis Current Visit: Yes Status: Acute Code(s): M86.9 - OSTEOMYELITIS, UNSPECIFIED SNOMED Code(s): 41444004 (2) Diabetic foot ulcer Current Visit: No Status: Acute Code(s): E11.621 - TYPE 2 DIABETES MELLITUS WITH FOOT ULCER; L97.509 - NON-PRESSURE CHRONIC ULCER OTH PRT UNSP FOOT W UNSP SEVERITY SNOMED Code(s): 176451987 Plan: 1patient presented hospital with sepsis in this patient with a fever tachycardia hypotension requiring pressor support source is likely diabetic foot infection especially involving the left big toe as significant inflammatory changes were noted to the left big toe with more swelling and redness however abnormality was noticed on the right second metatarsal in this patient who did have a nonhealing wound on the plantar aspect of the right foot we will need to cover for the polymicrobial dustin usually associated with diabetic foot infection 2-patient is status post vascular surgery evaluation debridement and deep cultures are pending 3-initial cultures are growing gram-negative bacilli patient continue with Zosyn while waiting for the cultures to finalize, Tyree area of the redness discussed with the nursing staff Time with Patient: Less than 30
[2022-07-14] MEDS: IBUPROFEN 400 MG TAB PO PRN ×2 (13:54→20:07)
--- NOTE | 2022-07-14 14:15 | IR ---
PICC LINE PLACEMENT: HISTORY: Infection requiring long-term antibiotic therapy PROCEDURE: Ultrasound guidance of PICC line placement. COMPLICATIONS: None ANESTHESIA: 1. 1% Lidocaine locally. FINDINGS/TECHNIQUE: The procedure was explained to the patient. The risks, complications, benefits and alternatives were discussed and any questions were answered. Informed consent was obtained. The patient was placed supine on the fluoroscopic table and prepped and draped in the usual sterile fash ion. Utilizing a 21 gauge needle and sonographic guidance, access in the left basilic vein was achi eved and there is placement of a 0.018 guidewire. The vein is patent. A 5-F. sheath was placed over the guidewire. The guidewire and dilator were removed and a 5-F. Double lumen PICC line was placed through the sheath with the chest x-ray confirming the tip at the level of the SVC. The sheath was r emoved, the catheter was flushed and sutured into position. The patient was stable throughout the pr ocedure and remained stable upon discharge from the Department of Radiology. The vein puncture was patent under ultrasound. A doyle scale image was obtained to document patency of the vein punctured. All elements of the maximal barrier technique were utilized. IMPRESSION: 1. Successful PICC line placement under ultrasound performed bedside within the ICU.
[2022-07-14 16:03] LABS: Glucose,Whole Blood 102 mg/dL (70-110)
[2022-07-14] MEDS: VANCOMYCIN 1,750 MG in SODIUM CHLORIDE 0.9% 500 ML 500 ML IVPB SCH (19:39)
[2022-07-14 20:03] LABS: Glucose,Whole Blood 100 mg/dL (70-110)
[2022-07-14] MEDS: ASPIRIN 81 MG PO SCH (20:07)
[2022-07-14] MEDS: ATORVASTATIN 20 MG TAB PO SCH (20:07)
[2022-07-14] MEDS: SERTRALINE 100 MG TAB PO SCH (20:07)
[2022-07-14] MEDS: ZOLPIDEM 5 MG TAB PO SCH (20:07)
[2022-07-14] MEDS: DAPAGLIFLOZIN PROPANEDIOL 10 MG TABLET PO SCH (20:07)
[2022-07-15 06:11] LABS: Glucose,Whole Blood 88 mg/dL (70-110)
[2022-07-15] MEDS: INSULIN ASPART (NovoLOG) 100 UNIT/ML VIAL SQ SCH ×4 (06:16→23:40)
[2022-07-15] MEDS: oxyCODONE-APAP 10-325MG 1 EACH TAB PO PRN ×3 (06:16→18:21)
[2022-07-15] MEDS: IBUPROFEN 400 MG TAB PO PRN ×3 (06:16→18:20)
--- NOTE | 2022-07-15 07:27 | P.PN ---
Subjective Progress Note Date: 07/14/22 HISTORY OF PRESENT ILLNESS This is a 66-year-old male patient with past medical history of diabetes mellitus type 2, hypertension, hyperlipidemia, gastroesophageal reflux disease, recurrent depression, remote history of tobacco use, fatty liver, chronic back pain, insomnia. Patient has been under the care of the wound clinic with Dr. Finney for right lower extremity diabetic ulcer status post amputation of the right great toe, patient stated that he has been cleared by the wound clinic for his wound at the bottom of the right foot and the left big toe wound, and was seen in my office last week and he was referred to the wound healing center at [facility] and he was recommended to continue with Aquacel silver with wet-to-dry dressing to the bottom of the right foot as well as the left big toe. Apparently the patient developed to have a significant fever and chills yesterday, he slept on the floor and he woke up after he vomited on himself his called EMS and he was seen in the ER at [facility] x-ray of the right foot showed evidence of possible osteomyelitis of the head of the second metatarsal ,was a bit hypotensive and because of the sepsis he was admitted to the intensive care unit he was given IV fluid resuscitation as well as IV a ntibiotic infectious disease consultation was obtained as well as vascular surgery consultation. 07/12: Patient is sitting up in bed in no apparent distress, his currently off Levophed drip, he had an episode of hypoglycemia today, we will discontinue NovoLog 11 units scheduled to keep the sliding scale, continue current lantus and Farxiga , patient is scheduled with Dr. Finney to have a debridement of the left big toe callus, then apply med honey gel to the left big toe and the Aquacel silver to the right foot continue IV antibiotic, culture still pending, patient has been followed by infectious disease, he was kept on vancomycin and added Unasyn as well. 07/13: Patient is laying down in bed in no apparent distress, had an episode of hypoglycemia in the morning, subsequently his Levemir will be decreased to 28 units at bedtime, continue sliding scale insulin, continue IV antibiotic, c ontinue to monitor the patient very closely, patient will likely require IV antibiotic for the next 6 weeks. 07/14: Patient is laying down in bed in no apparent distress he continues to have significant pain and swelling in the left lower extremity, due to his superficial femoral phlebitis, we will apply Kmetz, continue with Motrin, continue leg elevation, patient is getting ready to have his PICC line inserted, he is been on IV antibiotic, the plan is to transition patient home with IV antibiotic. REVIEW OF SYSTEMS Constitutional: No fever, + chills, no night sweats. No weight change. No weakness, fatigue or lethargy. No daytime sleepiness. HEENT: No headache. No blurred vision or double vision, no loss of vision. No loss of Hearing, no ringing in the ears, no dizziness. No nasal drainage or congestion. No epistaxis. No sore throat. Lungs: No shortness of breath, cough, no sputum production. No wheezing. Cardiovascular: No chest pain, no lower extremity edema. No palpitations. No paroxysmal nocturnal dyspnea. No orthopnea. No lightheadedness or dizziness. No syncopal episodes. Abdominal: No abdominal pain. No nausea, vomiting. No diarrhea. No constipation. No bloody or tarry stools. No loss of appetite. Genitourinary: No dysuria, increased frequency, urgency. No urinary retention. Musculoskeletal: No myalgias. No muscle weakness, no gait dysfunction, no frequent falls. No back pain. No neck pain. Integumentary: Left great toe wounds, no lesions, there is wound at the bottom of the his right foot at the level of right second metatarsal head Neurologic: No aphasia. No facial droop. No change in mentation. No head injury. No headache. No paralysis, positive for neuropathy Psychiatric:positive for depression. No anxiety. No mood swings. Endocrine:positive for abnormal blood sugars. No weight change. No excessive sweating or thirst. No cold intolerance. PHYSICAL EXAMINATION Gen: This is a 66-year-old male, resting in bed and appears to be comfortable and in no acute distress. HEENT: Head is atraumatic, normocephalic. Pupils equal, round. Sclerae is anicteric. NECK: Supple. No JVD. No lymphadenopathy. No thyromegaly. LUNGS: Clear to auscultation. No wheezes or rhonchi. No intercostal retractions. HEART: First heart sound is depressed, second heart sound is normal, no gallop or murmur. ABDOMEN: Soft. Bowel sounds are present. No masses. No tenderness. EXTREMITIES: No pedal edema. No calf tenderness. DP +2 bilaterally, there is a wound at the base of the right foot where the head of the second metatarsal is, and left big toe wound as well, positive for neuropathy, right big toe amputation NEUROLOGICAL: Patient is awake, alert and oriented x3. Cranial nerves 2 through 12 are grossly intact. Muscle strength 4/5 in the bilateral upper and lower extremities, neuropathic changes to both feet, deep tendon reflexes are depressed. ASSESSMENT AND PLAN 1. 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 switched to Zosyn 3.375 gr IVPB q 6 h due to Gram negative bacilli in the left foot and monitor the patient culture very closely, continue local care. 2. Sepsis likely due to osteomyelitis of the right second metatarsal head. Continue IV antibiotic, continue IV fluid,. 3. Diabetes mellitus type 2 uncontrolled we will continue with Levemir 26 units SC at bedtime along with Humalog per SSI , we will continue with Farxiga 10 mg po daily , was on Mounjaro 5 mg Sc q week, BGM AC meals tid 4 Hypertension and hypertensive cardiovascular disease . We'll continue to hold his blood pressure medicine for now. 5. Hyperlipidemia. Continue Rosuvastatin 10mg orally daily and Zetia 10 mg po daily, keep LDL-c 55-70. 6. Diabetic neuropathy. Continue gabapentin 800 mg 4 times daily. 7. Chronic back pain. Continue baclofen 10 mg daily as needed, along with current pain management 8. Recurrent depression. Continue sertraline 100 mg daily 9. Insomnia. Continue Ambien 10 mg at bedtime. 10. Gastroesophageal reflux disease. Continue with Protonix 40 mg po daily 11. Left superficial thromboplebitis. continue with K-Pads and Motrin as needed. 12. DVT prophylaxis. Heparin 5000 units Sc q 8 H 13. Prognosis is guarded. 14. Plan for discharge home the next 24 hours with home health care. An IV antibiotic Objective - Vital Signs Vital signs: Vital Signs Temp 98.2 F 07/14/22 08:00 Pulse 60 07/14/22 08:00 Resp 16 07/14/22 08:00 BP 116/81 07/14/22 08:00 Pulse Ox 99 07/14/22 08:00 FiO2 Intake & Output 07/13/22 07/14/22 07/14/22 18:59 06:59 18:59 Intake Total 800 880 Output Total 2029 Balance 800 -1150 Weight 117.2 kg 117.2 kg Intake: IV 400 340 0.9 200 240 Ampicillin-Sulbactam 3 gm 100 In Sodium Chloride 0.9% 100 ml @ 200 mls/hr IVPB Q6HR COUNTS INCLUDE 234 BEDS AT THE [facility] Rx#:[id number] Piperacillin-Tazobactam 3 100 100 .375 gm In Sodium Chloride 0.9% 100 ml @ 25 mls/hr IVPB Q8HR COUNTS INCLUDE 234 BEDS AT THE [facility] Rx# :[id number] Oral 400 540 Output: Urine 2029 Other: Voiding Method Urinal Urinal # Voids 4 4 - Labs CBC & Chem 7: 07/14/22 05:47 07/13/22 11:04 Labs: Abnormal Lab Results - Last 24 Hours (Table) 07/13/22 07/13/22 07/14/22 Range/Units 16:54 20:08 11:17 POC Glucose (mg/dL) 117 H 123 H 121 H (70-110) mg/dL Microbiology - Last 24 Hours (Table) 07/11/22 00:27 Anaerobic Culture - Preliminary Foot - Left Gilda albicans 07/11/22 00:27 Gram Stain - Preliminary Foot - Left Wound Culture - Preliminary Gram Neg Bacilli
[2022-07-15] MEDS: INSULIN DETEMIR (LEVEMIR) 100 UNIT/ML SYR SQ SCH (07:45)
[2022-07-15] MEDS: HEPARIN SODIUM,PORCINE/PF 5,000 UNIT/0.5 ML SYRINGE SQ SCH ×3 (07:45→23:35)
[2022-07-15] MEDS: GABAPENTIN 400 MG CAP PO SCH ×4 (07:45→22:09)
[2022-07-15] MEDS: PIPERACILLIN-TAZOBACTAM 3.375 GM in SODIUM CHLORIDE 0.9% 100 ML IVPB SCH ×3 (07:45→23:36)
[2022-07-15] MEDS: FAMOTIDINE 20 MG TAB PO SCH ×2 (07:45→22:09)
[2022-07-15 11:16] LABS: Glucose,Whole Blood 101 mg/dL (70-110)
--- NOTE | 2022-07-15 13:17 | P.PN ---
Progress Note - Text 66-year-old diabetic male, patient is known to me from the past. Patient has a callus on the plantar aspect right foot. Patient also has a wound on the left foot big toe we did the debridement culture came back as a gram-negative bacilli epidermis and candid albicans patient is under care of infectious disease. Patient also developed flap thrombophlebitis of the left short saphenous vein. Plan is continue with local wound care and IV antibiotic if patient discharged we'll follow in the wound clinic
--- NOTE | 2022-07-15 14:34 | P.PN ---
Subjective Progress Note Date: 07/15/22 This is a 66-year-old male patient of Dr. Castillo who is being followed closely in the intensive care unit, admitted to the hospital for sepsis secondary to a diabetic foot infection. Patient has underwent vascular debridement to the left big toe wound as well as deep tissue cultures. Patient does have a history of right big toe diabetic foot infection with amputation. Patient also has osteomyelitis. Pulmonary cultures to the left foot wound are showing gram- negative bacilli, patient also has staph epidermidis in 2 out of 2 blood cultures and will repeat blood cultures are pending. Exercise he does fine with patient and patient continues on IV Zosyn. Sputum cultures also showing Gilda. Chest x-ray showing no acute cardiopulmonary disease, there is PICC line in place. Review of Systems Constitutional: Denied any fatigue denied any fever. Cardio vascular: denied any chest pain, palpitations Gastrointestinal: denied any nausea, vomiting, diarrhea Pulmonary: Denied any shortness of breath cough Neurologic denied any new focal deficits All inpatient medications were reviewed and appropriate changes in these medications as dictated in the interval history and assessment and plan. PHYSICAL EXAMINATION: GENERAL: The patient is alert and oriented x3, not in any acute distress. Well developed, well nourished. HEENT: Pupils are round and equally reacting to light. EOMI. No scleral icterus. No conjunctival pallor. Normocephalic, atraumatic. No pharyngeal erythema. No thyromegaly. CARDIOVASCULAR: S1 and S2 present. No murmurs, rubs, or gallops. PULMONARY: Chest is clear to auscultation, no wheezing or crackles. ABDOMEN: Soft, nontender, nondistended, normoactive bowel sounds. No palpable organomegaly. MUSCULOSKELETAL: No joint swelling or deformity. EXTREMITIES: No cyanosis, clubbing, or pedal edema. NEUROLOGICAL: Gross neurological examination did not reveal any focal deficits. SKIN: No rashes. Assessment Left diabetic foot infection with osteomyelitis and sepsis Staphylococcus epidermidis bacteremia Left superficial thrombophlebitis in the GSV in the upper calf Diabetes Mellitus type 2 , uncontrolled Hypertension Hyperlipidemia Diabetic neuropathy Hx depression GERD Hepatic Steatosis Diverticulosis on CT imaging Obesity with BMI 34.1 GI prophylaxis DVT prophylaxis Full code Plan Patient has been down graded to medical/surgical Pending final wound cultures and f/u Blood culture for clearance of bacteria Continue Accu-Cheks before meals at bedtime with current medications including levemir, s/s insulin patient is also on an SGLT2 Patient has PICC Line in place and will be dcing home with [facility] infusion pending final DC recommendations from ID The impression and plan of care has been dictated by Rosi Gibson, Nurse Practitioner as directed. Dr. Emerson MD I have performed a history and physical examination and medical decision making of this patient, discussed the same with the dictator, and agree with the dictators assessment and plan as written, documented as a scribe. Based on total visit time, I have performed more than 50% of this visit. Objective - Vital Signs Vital signs: Vital Signs Temp 98.2 F 07/15/22 08:00 Pulse 59 L 07/15/22 08:00 Resp 18 07/15/22 08:00 BP 138/75 07/15/22 08:00 Pulse Ox 99 07/15/22 08:00 FiO2 Intake & Output 07/14/22 07/15/22 07/15/22 18:59 06:59 18:59 Intake Total 200 100 Balance 200 100 Weight 117.2 kg Intake: IV 200 100 Piperacillin-Tazobactam 3 200 100 .375 gm In Sodium Chloride 0.9% 100 ml @ 25 mls/hr IVPB Q8HR [facility] Rx# :[id number] Other: Voiding Method Urinal # Voids 4 2 - Labs CBC & Chem 7: 07/14/22 05:47 07/13/22 11:04 Labs: Abnormal Lab Results - Last 24 Hours (Table) 07/14/22 Range/Units 11:17 POC Glucose (mg/dL) 121 H (70-110) mg/dL Microbiology - Last 24 Hours (Table) 07/11/22 00:27 Anaerobic Culture - Preliminary Foot - Left Gilda albicans 07/10/22 22:10 Blood Culture Gram Stain - Final Blood Blood Culture - Final Staphylococcus epidermidis 07/10/22 22:25 Blood Culture Gram Stain - Final Blood Blood Culture - Final Staphylococcus epidermidis Assessment and Plan Time with Patient: Less than 30
--- NOTE | 2022-07-15 15:08 | P.PN ---
Subjective Progress Note Date: 07/15/22 Principal diagnosis: Diabetic foot infection and osteomyelitis Patient is a 66-year-old male with a past medical history significant for type 2 diabetes mellitus hypertension hyperlipidemia reflux and depression and history of tobacco use patient did have a history of right big toe diabetic foot infection , requiring amputation a few years ago and recently has been tr eated for a left big toe diabetic foot infection and ostomy myelitis for the patient was almost healed now presented to the hospital with sepsis secondary to her diabetic foot infection. The patient is status post debridement of the left big toe wound by vascular surgery and deep cultures on today's evaluation that is 07/15/2022, the patient remains to be afebrile, the patient is breathing comfortably on room air, the patient denies any chest pain shortness of breath or cough , the patient denies having any nausea no vomiting no abdominal pain or diarrhea, patient denies any worsening swelling or redness to left lower extremity Objective - Vital Signs Vital signs: Vital Signs Temp 98.2 F 07/15/22 08:00 Pulse 59 L 07/15/22 08:00 Resp 18 07/15/22 08:00 BP 138/75 07/15/22 08:00 Pulse Ox 99 07/15/22 08:00 FiO2 Intake & Output 07/14/22 07/15/22 07/15/22 18:59 06:59 18:59 Intake Total 200 100 Balance 200 100 Weight 117.2 kg Intake: IV 200 100 Piperacillin-Tazobactam 3 200 100 .375 gm In Sodium Chloride 0.9% 100 ml @ 25 mls/hr IVPB Q8HR [facility] Rx# :[id number] Other: Voiding Method Urinal # Voids 4 2 - Exam GENERAL DESCRIPTION: A middle-aged male lying in bed in no distress RESPIRATORY SYSTEM: Unlabored breathing , decreased breath sounds at bases HEART: S1 S2 regular rate and rhythm , ABDOMEN: Soft , no tenderness EXTREMITIES: Left big toe swelling has decreased, did have a erythema to the left lower leg and some swelling - Labs CBC & Chem 7: 07/14/22 05:47 07/13/22 11:04 Labs: Microbiology - Last 24 Hours (Table) 07/13/22 06:13 Blood Culture - Preliminary Blood 07/11/22 00:27 Anaerobic Culture - Preliminary Foot - Left Gilda albicans 07/10/22 22:10 Blood Culture Gram Stain - Final Blood Blood Culture - Final Staphylococcus epidermidis 07/10/22 22:25 Blood Culture Gram Stain - Final Blood Blood Culture - Final Staphylococcus epidermidis Assessment and Plan (1) Osteomyelitis Current Visit: Yes Status: Acute Code(s): M86.9 - OSTEOMYELITIS, UNSPECIFIED SNOMED Code(s): 80072845 (2) Diabetic foot ulcer Current Visit: No Status: Acute Code(s): E11.621 - TYPE 2 DIABETES MELLITUS WITH FOOT ULCER; L97.509 - NON-PRESSURE CHRONIC ULCER OTH PRT UNSP FOOT W UNSP SEVERITY SNOMED Code(s): 667742600 Plan: 1patient presented hospital with sepsis in this patient with a fever tachycardia hypotension requiring pressor support source is likely diabetic foot infection especially involving the left big toe as significant inflammatory changes were noted to the left big toe with more swelling and redness however abnormality was noticed on the right second metatarsal in this patient who did have a nonhealing wound on the plantar aspect of the right foot we will need to cover for the polymicrobial dustin usually associated with diabetic foot infection 2-patient is status post vascular surgery evaluation debridement and deep cultures , 3-patient also have a positive blood culture with staph epi likely skin contamination repeat blood culture had been negative so far 4wound cultures are growing gram-negative bacilli, with ID sensitivity is still pending patient continue with Zosyn while waiting for the cultures to finalize to determine his discharge antibiotics discussed with the RN Time with Patient: Less than 30
[2022-07-15 16:52] LABS: Glucose,Whole Blood 132 mg/dL (70-110)
[2022-07-15 21:17] LABS: Glucose,Whole Blood 112 mg/dL (70-110)
[2022-07-15] MEDS: SERTRALINE 100 MG TAB PO SCH (22:09)
[2022-07-15] MEDS: ATORVASTATIN 20 MG TAB PO SCH (22:09)
[2022-07-15] MEDS: ZOLPIDEM 5 MG TAB PO SCH (22:09)
[2022-07-15] MEDS: ASPIRIN 81 MG PO SCH (22:10)
[2022-07-16] MEDS: DAPAGLIFLOZIN PROPANEDIOL 10 MG TABLET PO SCH (03:03)
[2022-07-16 06:13] LABS: Glucose,Whole Blood 98 mg/dL (70-110)
[2022-07-16] MEDS: INSULIN ASPART (NovoLOG) 100 UNIT/ML VIAL SQ SCH ×2 (06:43→11:48)
[2022-07-16] MEDS: INSULIN DETEMIR (LEVEMIR) 100 UNIT/ML SYR SQ SCH (06:48)
[2022-07-16] MEDS: oxyCODONE-APAP 10-325MG 1 EACH TAB PO PRN (06:50)
[2022-07-16 07:16] VITALS: BP 123/78; PULSE 56; RESP 18; TEMP 98.1
[2022-07-16] MEDS: PIPERACILLIN-TAZOBACTAM 3.375 GM in SODIUM CHLORIDE 0.9% 100 ML IVPB SCH (09:12)
[2022-07-16] MEDS: GABAPENTIN 400 MG CAP PO SCH ×2 (09:13→12:11)
[2022-07-16] MEDS: HEPARIN SODIUM,PORCINE/PF 5,000 UNIT/0.5 ML SYRINGE SQ SCH (09:13)
[2022-07-16] MEDS: FAMOTIDINE 20 MG TAB PO SCH (09:13)
[2022-07-16 11:45] LABS: Glucose,Whole Blood 106 mg/dL (70-110)
[2022-07-16] MEDS ORDERED: ERTAPENEM 1 GM in SODIUM CHLORIDE 0.9% 50 ML IVPB ONE (12:00)
--- NOTE | 2022-07-18 10:35 | P.DS ---
Providers Date of admission: 07/10/22 23:46 Attending physician: Suzette Castillo Consults: 07/10/22 23:12 Consult Physician Routine Consulting Provider: Victor Manuel Finney Consult Reason/Comments: Osteomyelitis right 2nd metatarsal Do you want consulting provider notified?: Yes 07/11/22 02:19 Consult Physician Stat Consulting Provider: Jarrett Still Consult Reason/Comments: septic shock on levophed secondary to osteomyelitis. Do you want consulting provider notified?: Already Contacted 07/11/22 03:56 Consult Physician Urgent Consulting Provider: Dada Ng Consult Reason/Comments: osteomyelitis Do you want consulting provider notified?: Yes Primary care physician: Suzette Castillo Hospital Course: Final Diagnosis Left diabetic foot infection with osteomyelitis and sepsis and septic shock. Staphylococcus epidermidis bacteremia Left superficial thrombophlebitis in the GSV in the upper calf Diabetes Mellitus type 2 , uncontrolled Hypertension Hyperlipidemia Diabetic neuropathy Hx depression GERD Hepatic Steatosis Diverticulosis on CT imaging Obesity with BMI 34.1 Hx of right great toe prior amputation Full Code Discharge Disposition Patient is stable for discharge. Cleared by infectious disease to continue with outpatient antibiotics IV invanz through PICC line, and also oral levofloxacin 750 mg daily for 14 days. Patient to continue with local wound care and f.u with Dr Ng on Discharge. [facility] will be providing the IV antibiotics and patient has [facility] home[facility]. Patient to have repeat labs CBC, BMP, CRP, and Sed Rate weekly x 4 weeks. Hospital Course This is a 66-year-old male patient of Dr. Castillo who is admitted to the hospital for sepsis secondary to a diabetic foot infection. Patient has underwent vascular debridement to the left big toe wound as well as deep tissue cultures. Patient does have a history of right big toe diabetic foot infection with amputation, hypertension, hyperlipidemia, depression, gerd, diabetic neuropathy. Patient was admitted to the intensive care unit with infectious disease consultation. Patient was hypotensive on admission due to septic shock and received fluid resuscitation and did receive vasopressor support. Patient also has osteomyelitis with imaging showing osteomyelitis of the head of the right second metatarsal. The deep tissue culture grew stenotrophomonas maltophilia. patient also has staph epidermidis in 2 out of 2 blood cultures and a repeat blood culture is negative. Sputum cultures also showing Gilda. Chest x-ray showing no acute cardiopulmonary disease, there is PICC line in place. Patient was moved out of the ICU and monitored blood pressures have normalized and cultures finalized. ID recommending DC on IV invanz through PICC line and course of oral levofloxacin. Patient did have pain tenderness to the left leg and there was area of erythema which a venous doppler revealed Left superficial thrombophlebitis in the GSV in the upper calf. Currently denying chest pain, no shortness of breath. Pain is currently controlled on oral medication. Patient is afebrile and white count is currently within normal limits. Kidney function WNL. Patient will be discharged home with the above mentioned recommendations. Please see medication reconciliation for a list of current medication. Thank you for allowing us to participate in the care of this patient. The impression and plan of care has been dictated by Rosi Gibson, Nurse Practitioner as directed. Dr. Emerson MD I have performed a history and physical examination and medical decision making of this patient, discussed the same with the dictator, and agree with the dictators assessment and plan as written, documented as a scribe. Based on total visit time, I have performed more than 50% of this visit. Patient Condition at Discharge: Stable Plan - Discharge Summary Discharge Rx Participant: No New Discharge Prescriptions: New Levofloxacin [Levaquin] 750 mg PO DAILY 14 Days #14 tab Ertapenem [INVanz] 1 gm IVPB ONCE each Continue Aspirin 81 mg PO DAILY Lisinopril-Hctz 20-12.5 mg [Zestoretic 20-12.5] 1 tab PO BID Baclofen [Lioresal] 10 mg PO DAILY PRN PRN Reason: Muscle Spasm Zolpidem [Ambien] 10 mg PO HS Sertraline [Zoloft] 100 mg PO DAILY@1900 Insulin Degludec [Tresiba] 65 units SQ HS Gabapentin 800 mg PO QID Rosuvastatin Calcium 10 mg PO DAILY Famotidine [Pepcid] 20 mg PO BID oxyCODONE-APAP 10-325MG [Percocet 10-325 mg] 1 tab PO Q6H PRN PRN Reason: Pain Multivitamins, Thera [Multivitamin (formulary)] 1 tab PO DAILY Dapagliflozin Propanediol [Farxiga] 10 mg PO DAILY Diclofenac Sodium [Voltaren Arthritis Pain 1% Gel] 1 applic TOPICAL QID PRN PRN Reason: Pain Tirzepatide [Mounjaro] 5 mg SQ CHATMAN Changed Insulin Aspart [NovoLOG Flexpen] 5 units SQ AC-TID #0 Discharge Medication List Aspirin 81 mg PO DAILY 08/06/13 [History] Lisinopril-Hctz 20-12.5 mg [Zestoretic 20-12.5] 1 tab PO BID 08/06/13 [History] Baclofen [Lioresal] 10 mg PO DAILY PRN 09/07/15 [History] Zolpidem [Ambien] 10 mg PO HS 09/28/15 [History] Sertraline [Zoloft] 100 mg PO DAILY@1900 11/17/17 [History] Insulin Degludec [Tresiba] 65 units SQ HS 07/27/18 [History] Gabapentin 800 mg PO QID 04/15/19 [History] Rosuvastatin Calcium 10 mg PO DAILY 04/25/19 [History] Famotidine [Pepcid] 20 mg PO BID 10/07/19 [History] oxyCODONE-APAP 10-325MG [Percocet 10-325 mg] 1 tab PO Q6H PRN 10/07/19 [History] Dapagliflozin Propanediol [Farxiga] 10 mg PO DAILY 02/01/21 [History] Diclofenac Sodium [Voltaren Arthritis Pain 1% Gel] 1 applic TOPICAL QID PRN 02/03/21 [History] Multivitamins, Thera [Multivitamin (formulary)] 1 tab PO DAILY 07/11/22 [History] Tirzepatide [Mounjaro] 5 mg SQ CHATMAN 07/11/22 [History] Ertapenem [INVanz] 1 gm IVPB ONCE each 07/16/22 [Rx] Insulin Aspart [NovoLOG Flexpen] 5 units SQ AC-TID #0 07/16/22 [Rx] Levofloxacin [Levaquin] 750 mg PO DAILY 14 Days #14 tab 07/16/22 [Rx] Follow up Appointment(s)/Referral(s): Suzette Castillo MD [Primary Care Provider] - 1-2 days Dada Ng MD [STAFF PHYSICIAN] - 1 Week [facility] Nurse, [NON-STAFF] - 1-2 Days [facility]Infusion [NON-STAFF] - 1-2 Days Ambulatory/Diagnostic Orders: Basic Metabolic Panel [LAB.AMB] Location: None Selected C Reactive Protein [LAB.AMB] Location: None Selected Complete Blood Count w/diff [LAB.AMB] Time Frame: 1 Week, Location: None Selected Erythrocyte Sedimentation Rate [LAB.AMB] Location: None Selected Patient Instructions/Handouts: Cellulitis (GEN), Osteomyelitis (DC), Sepsis (DC) Activity/Diet/Wound Care/Special Instructions: Continue IV Invanz and [facility] home care infusion company will f/u with you for your next scheduled home dose. Weekly lab scrips are given and follow up with Dr Ng in the hospital in 1 weeks time. Follow up with Dr Castillo in 1 to 2 days. Local wound care to cleanse with saline and apply therahoney and kerlex. Local wound care cleanse with saline and apply silver dressing with kerlex every 48 hours Discharge Disposition: HOME WITH HOME HEALTH SERVICES
== END 2022-07-16 13:50 | disposition home health service (06) | DRG 871 ==
LOC: EC 20:29 → 4SSUR 23:46 → 2SICU 07-11 02:06 → 4SSUR 07-15 16:39
PROVIDERS: ADMIT Internal Medicine; ATTEND Internal Medicine
PROC: 3E033XZ Introduction of Vasopressor into Peripheral Vein, Percutaneous Approach (ICD-10-PCS; principal; 2022-07-11)
PROC: 0HBNXZZ Excision of Left Foot Skin, External Approach (ICD-10-PCS; 2022-07-12)
PROC: 02HV33Z Insertion of Infusion Device into Superior Vena Cava, Percutaneous Approach (ICD-10-PCS; 2022-07-14)
DX: A41.1 Sepsis due to other specified staphylococcus (principal); R65.21 Severe sepsis with septic shock; F33.9 Major depressive disorder, recurrent, unspecified; B37.0 Candidal stomatitis; M86.171 Other acute osteomyelitis, right ankle and foot; I80.02 Phlebitis and thrombophlebitis of superficial vessels of left lower extremity; E11.65 Type 2 diabetes mellitus with hyperglycemia; E66.9 Obesity, unspecified; K21.9 Gastro-esophageal reflux disease without esophagitis; E78.5 Hyperlipidemia, unspecified; N42.9 Disorder of prostate, unspecified; E11.621 Type 2 diabetes mellitus with foot ulcer; E11.69 Type 2 diabetes mellitus with other specified complication; K76.0 Fatty (change of) liver, not elsewhere classified; Z68.34 Body mass index [BMI] 34.0-34.9, adult; E11.40 Type 2 diabetes mellitus with diabetic neuropathy, unspecified; M19.072 Primary osteoarthritis, left ankle and foot; L97.529 Non-pressure chronic ulcer of other part of left foot with unspecified severity; M54.50 Low back pain, unspecified; K57.90 Diverticulosis of intestine, part unspecified, without perforation or abscess without bleeding; G89.29 Other chronic pain; G47.00 Insomnia, unspecified; I11.9 Hypertensive heart disease without heart failure; L97.519 Non-pressure chronic ulcer of other part of right foot with unspecified severity; L84 Corns and callosities; E11.649 Type 2 diabetes mellitus with hypoglycemia without coma; Z96.41 Presence of insulin pump (external) (internal); Z89.411 Acquired absence of right great toe; Z87.891 Personal history of nicotine dependence; Z79.899 Other long term (current) drug therapy; Z79.84 Long term (current) use of oral hypoglycemic drugs; Z79.82 Long term (current) use of aspirin; Z79.4 Long term (current) use of insulin; Z71.3 Dietary counseling and surveillance
CPT/HCPCS: 36415; 71045; 74177; 80048; 80053; 80202; 81003; 82009; 82150; 83036; 83605; 83690; 84484; 85025; 85610; 85730; 87040; 87070; 87075; 87077; 87186; 87205; 93005; 96361; 96365; 96366; 96368; 96372; 96375; 99291

== ENCOUNTER → 2023-01-02 | Outpatient (CLI) | payer BC ==
[2023-01-02 08:57] VITALS: BP 100/67; RESP 16; TEMP 98.7
--- NOTE | 2023-01-02 12:30 | P.PAINPG ---
Objective - Vital Signs Vital signs: Intake & Output 01/01/23 01/02/23 01/02/23 18:59 06:59 18:59 Weight 106.594 kg PQRS Measure Charge Sheet Comment: A 66 yr old male with a history of severe and chronic LBP x yrs (s/p fall down stairs) secondary to lumbar DDD and spondylosis with facet arthropathy without myelopathy presents today for evaluation. Pain level is provoked at 7 /10 in intensity, constant, localized in the lumbar spine, predominantly axial, tight in character w shooting towards the back of the hips and BLEs. Pain is provoked by crossing his legs. Pain is alleviated with massage gun use at home, injections, ice, medications, topicals, home stretching regimen, repositioning and rest. Oswestry axial pain score of 26. Interventional pain procedures completed include BL RFA L3-L5 x 5, L SI x2 Patient is currently on Neurontin 800mg #120, Percocet 10/325mg #120, Voltaren gel Patient denies any side effects of the medication(s), denies excessive drowsiness or sleepiness, denies suicidal ideation and reports that the current pain medication is helping to control the pain and improve activities of daily living. Patient denies any motor or sensory deficits. Patient denies any fever or night sweats, denies any change in the bowel movements or urination. Physical Examination: -Constitutional: Cooperative. Not in acute distress . - Neurologic: Cranial nerve II to XII intact. No focal neurological deficits. - Psychatric: Alert & oriented x 3. Matching mood & appropriate affect. Judgment and insight intact. - Musculoskeletal: Cervical spine: Muscle bulk/ tone/ strength in the bilateral upper extremities normal Vertebral body tenderness to palpation over Spurling test positive Distraction test positive Facet loading test positive TTP Thoracic spine Muscle bulk / tone/ strength in the bilateral paraspinal muscles normal Vertebral body tender to palpation over Facet loading test positive TTP Lumbar spine: Motor bulk/ tone/ strength lower extremities , thigh and legs : 5/5 Deep tendon reflexes : Normal Knee Jerk. Normal Ankle Jerk . Vertebral body tenderness to palpation Lumbar Facet Loading Test positive Straight Leg Raise: positive at 30 degrees right side/ left side Gaenslen's Test positive Sacral spine : Severe tenderness over the Sacroiliac joint: right side / left side Range of motion: Flexion of the lumbar spine <60 degrees Range of motion: Extension of the lumbar spine <20 degrees Gaenslen's Test positive right side < left side Papo test: positive right side / left side Thigh Thrust Test positive right side / left side Sacral Thrust Test positive right side < left side Assessment and plan: Chronic LBP secondary to lumbar DDD, spondylosis with facet arthropathy without myelopathy, BL Sacroiliitis Recommendation of BL SI injection and medication management. Need a series of injections for optimal pain relief. Risks, benefits of procedure discussed and patient verbalized understanding. Protocol for discontinuation/continuation of medications surrounding procedure discussed. Opiate/ narcotic agreement signed 01/02/23. Use, side effects, adverse reactions and safe storage discussed. Pt acknowledged understanding. All questions answered. I have spent less than 30 minutes on patient care today. Dr Mckenzie was available by phone for the evaluation of this patient. The time was used to review the medical records including relevant urine studies and Prescription his tory (MAPs), review of the available imaging, evaluation and examination of the patient, coordination of care with the medical staff and if applicable referring physicians, as well as creation of the medical record PQRS Narrative: Smoking Status Former smoker Hx Alcohol Use (MH) Yes: RARE Home Medications: Ambulatory Orders Aspirin 81 mg PO DAILY 08/06/13 Lisinopril-Hctz 20-12.5 mg [Zestoretic 20-12.5] 1 tab PO BID 08/06/13 Zolpidem [Ambien] 10 mg PO HS 09/28/15 Sertraline [Zoloft] 100 mg PO DAILY@1900 11/17/17 Insulin Degludec [Tresiba] 65 units SQ HS 07/27/18 Rosuvastatin Calcium 10 mg PO DAILY 04/25/19 Famotidine [Pepcid] 20 mg PO BID 10/07/19 Dapagliflozin Propanediol [Farxiga] 10 mg PO DAILY 02/01/21 Diclofenac Sodium [Voltaren Arthritis Pain 1% Gel] 1 applic TOPICAL QID PRN 02/03/21 Multivitamins, Thera [Multivitamin (formulary)] 1 tab PO DAILY 07/11/22 Tirzepatide [Mounjaro] 5 mg SQ CHATMAN 07/11/22 Ertapenem [INVanz] 1 gm IVPB ONCE each 07/16/22 Insulin Aspart [NovoLOG Flexpen] 5 units SQ AC-TID #0 07/16/22 Levofloxacin [Levaquin] 750 mg PO DAILY 14 Days #14 tab 07/16/22 Baclofen [Lioresal] 10 mg PO DAILY PRN 30 Days #30 tab 01/02/23 Gabapentin 800 mg PO QID 90 Days #360 tab 01/02/23 oxyCODONE-APAP 10-325MG [Percocet 10-325 mg] 1 tab PO Q6H PRN 30 Days #120 tab 01/02/23 oxyCODONE-APAP 10-325MG [Percocet 10-325 mg] 1 tab PO Q6HR PRN 30 Days #120 tab 01/02/23 Controlled Substance Measures - Controlled Substance Measures Is patient prescribed a controlled substance at discharge?: Yes When asked, does pt state using other controlled substances?: Yes If prescribed controlled substance>3 days was MAPS reviewed?: Yes If Rx opioid, was Start Talking consent form obtained?: Yes Was information provided regarding opioid addiction?: Yes
== END ==
LOC: PNWHC3 07:21
PROVIDERS: ATTEND Specialist
DX: M51.36 Other intervertebral disc degeneration, lumbar region (principal); M47.816 Spondylosis without myelopathy or radiculopathy, lumbar region; Z79.82 Long term (current) use of aspirin; Z79.4 Long term (current) use of insulin; Z79.899 Other long term (current) drug therapy
CPT/HCPCS: 99211

== ENCOUNTER 2023-01-03 10:45 | Inpatient (IN) | payer BC ==
[2023-01-03] MEDS ORDERED: VANCOMYCIN IV PER PHARMACY 1 EACH MISC MISCELLANE PRN (11:45)
[2023-01-03] MEDS: DIPH,PERTUS(ACELL)TETVAC-LF 0.5 ML VIAL IM ONE (12:31)
[2023-01-03] MEDS: VANCOMYCIN 1,750 MG in SODIUM CHLORIDE 0.9% 500 ML 500 ML IVPB STA (12:32)
[2023-01-03] MEDS: SODIUM CHLORIDE 0.9% 500 ML 500 ML IV STA (12:32)
[2023-01-03 12:47] LABS: Basophils % (A) 1 %; Eosinophils # (A) 0.2 k/uL (0-0.7); Eosinophils % (A) 3 %; HCT 44.9 % (39.0-53.0); HGB 15.1 gm/dL (13.0-17.5); Lymphocytes # (A) 1.2 k/uL (1.0-4.8); Lymphocytes % (A) 18 %; MCH 29.3 pg (25.0-35.0); MCHC 33.5 g/dL (31.0-37.0); MCV 87.5 fL (80.0-100.0); Mean Platelet Volume 6.9; Monocytes # (A) 0.3 k/uL (0-1.0); Monocytes % (A) 5 %; Neutrophils # (A) 4.7 k/uL (1.3-7.7); Neutrophils % (A) 72 %; Platelet Count 324 k/uL (150-450); RBC 5.14 m/uL (4.30-5.90); RDW 12.4 % (11.5-15.5); WBC 6.5 k/uL (3.8-10.6)
[2023-01-03 13:08] LABS: ALT 42 U/L (4-49); AST 54 U/L (17-59); African American GFR (CKD) >90 (>60 ml/min/1.73 sqM); Albumin 3.6 g/dL (3.5-5.0); Alkaline Phosphatase 61 U/L (38-126); Anion Gap 12 mmol/L; Blood Urea Nitrogen 18 mg/dL (9-20); Calcium 9.1 mg/dL (8.4-10.2); Carbon Dioxide 23 mmol/L (22-30); Chloride 101 mmol/L (98-107); Glucose 101 mg/dL (74-99); Non-African American GFR(CKD) >90 (>60 ml/min/1.73 sqM); Potassium 4.3 mmol/L (3.5-5.1); Sodium 136 mmol/L (137-145); Total Bilirubin 0.9 mg/dL (0.2-1.3); Total Protein 7.2 g/dL (6.3-8.2)
--- NOTE | 2023-01-03 13:14 | XR ---
EXAMINATION TYPE: XR foot limited LT DATE OF EXAM: 01/03/2023 12:55 PM CLINICAL INDICATION:Male, 67 years old with history of eval for osteomyelitis; [facility] COMPARISON: 08/19/2021 TECHNIQUE: XR foot limited LT examined in the AP, oblique, and lateral projections. FINDINGS: There is postsurgical changes of the first digit. The osseous structures appear intact. There is dest ructive osseous changes to the fifth digit metatarsal head. Soft tissue swelling around the first dig it and fifth digit ureters a wound. No evidence of fracture. IMPRESSION: 1. Osseous erosion changes to the fifth digit metatarsal head concerning for osteomyelitis. Findings have worsened from 08/19/2021. 2. Soft tissue swelling concerning for synovitis.
[2023-01-03] MEDS ORDERED: ACETAMINOPHEN TAB 325 MG TAB PO PRN (13:47)
[2023-01-03] MEDS ORDERED: NALOXONE 0.4 MG/ML 1 ML VIAL IV PRN (13:47)
[2023-01-03] MEDS: MORPHINE SULFATE 4 MG/ML SYRINGE IV PRN (14:04)
--- NOTE | 2023-01-03 14:17 | ED ---
General Adult HPI - General Chief complaint: Skin/Abscess/Foreign Body Stated complaint: Lt foot infection Time Seen by Provider: 01/03/23 11:35 Source: patient Mode of arrival: ambulatory Limitations: no limitations - History of Present Illness Initial comments: Patient is a 67-year-old male with known past medical history diabetes, chronic wounds on feet, hypertension, hyperlipidemia. Presents after being sent in for wound on left foot. Skin and by his surgeon Dr. Finney for admission for IV antibiotics over concern for diabetic foot ulcer as well as possible osteomyelitis. Denies any fevers. Endorses purulent discharge. Does see wound care and this is likely got worse last few weeks. Currently not on any antibiotics. Unknown tetanus. Presents for further evaluation. - Related Data Home Medications Medication Instructions Recorded Confirmed Aspirin 81 mg PO DAILY 08/06/13 01/02/23 Lisinopril-Hctz 20-12.5 mg 1 tab PO BID 08/06/13 01/02/23 [Zestoretic 20-12.5] Zolpidem [Ambien] 10 mg PO HS 09/28/15 01/02/23 Sertraline [Zoloft] 100 mg PO DAILY@1900 11/17/17 01/02/23 Insulin Degludec [Tresiba] 65 units SQ HS 07/27/18 01/02/23 Rosuvastatin Calcium 10 mg PO DAILY 04/25/19 01/02/23 Famotidine [Pepcid] 20 mg PO BID 10/07/19 01/02/23 Dapagliflozin Propanediol [Farxiga] 10 mg PO DAILY 02/01/21 01/02/23 Diclofenac Sodium [Voltaren 1 applic TOPICAL QID PRN 02/03/21 01/02/23 Arthritis Pain 1% Gel] Multivitamins, Thera [Multivitamin 1 tab PO DAILY 07/11/22 01/02/23 (formulary)] Tirzepatide [Mounjaro] 5 mg SQ CHATMAN 07/11/22 01/02/23 Previous Rx's Medication Instructions Recorded Ertapenem [INVanz] 1 gm IVPB ONCE each 07/16/22 Insulin Aspart [NovoLOG Flexpen] 5 units SQ AC-TID #0 07/16/22 Levofloxacin [Levaquin] 750 mg PO DAILY 14 Days #14 tab 07/16/22 oxyCODONE-APAP 10-325MG [Percocet 1 tab PO Q6H PRN 30 Days #120 tab 01/02/23 10-325 mg] oxyCODONE-APAP 10-325MG [Percocet 1 tab PO Q6HR PRN 30 Days #120 tab 01/02/23 10-325 mg] Allergies Allergy/AdvReac Type Severity Reaction Status Date / Time No Known Allergies Allergy Verified 01/03/23 11:02 Review of Systems ROS Statement: Those systems with pertinent positive or pertinent negative responses have been documented in the HPI. Review of Systems: CONST: Denies fever EYES: Denies blurry vision ENT: Denies nasal congestion C/V: Denies Chest pain RESP: Denies shortness of breath GI: Denies abdominal pain : Denies dysuria SKIN: Endorses left foot infection, wound MSK: Denies joint pain. NEURO: Denies headache ROS Other: All systems not noted in ROS Statement are negative. Past Medical History Past Medical History: Diabetes Mellitus, GERD/Reflux, Hyperlipidemia, Hypertension, Prostate Disorder Additional Past Medical History / Comment(s): fatty liver, bulging disc, neuropathy, NEUROPATHY IN HANDS AND FEET , diabetic foot wounds History of Any Multi-Drug Resistant Organisms: None Reported Past Surgical History: Orthopedic Surgery Additional Past Surgical History / Comment(s): pain clinic procedures for back , right great toe amputation, colonoscopy, EGD Past Anesthesia/Blood Transfusion Reactions: No Reported Reaction Past Psychological History: Depression Smoking Status: Former smoker Past Alcohol Use History: Rare Past Drug Use History: None Reported - Past Family History Mother Family Medical History: Cancer Additional Family Medical History / Comment(s): Mother at age 60 from colon cancer. She had history of lung transplant. Patient does not know why she had a lung transplant other than she was a smoker. Father Additional Family Medical History / Comment(s): Father at age 67 from a myocardial infarction. Brother(s) Additional Family Medical History / Comment(s): Patient does not have any brothers. Patient had 1 sister that at age 40 from pancreatic cancer. Patient has 2 sons and 1 daughter with no major medical problems. Sister(s) Family Medical History: Cancer Additional Family Medical History / Comment(s): pancreatic cancer General Exam - General Exam Comments Initial Comments: General: Appears in no acute distress. HEAD: Normal with no signs of head trauma. EYES: PERRLA, EOMI, conjunctiva normal, no discharge. ENT: Hearing grossly intact, normal oropharynx. RESPIRATORY: Clear breath sounds bilaterally. No wheezes, rales, or rhonchi. C/V: Regular rate and rhythm. S1 and S2 auscultated, no edema, peripheral pulses 2+ and intact throughout ABD: Abd is soft, nontender, nondistended EXT: Normal range of motion, no obvious deformity SKIN: Patient has what appears to be cellulitis as well as a diabetic foot wound on the left foot near the fifth tarsometatarsal. Surrounding erythema. NEURO: Alert and oriented 4 Limitations: no limitations Course Vital Signs 01/03/23 01/03/23 01/03/23 11:04 11:31 11:32 Temperature 98.2 F Pulse Rate 74 67 Respiratory 16 20 Rate Blood Pressure 115/69 94/56 94/56 O2 Sat by Pulse 94 L 97 97 Oximetry 01/03/23 01/03/23 01/03/23 12:00 12:20 12:40 Temperature Pulse Rate Respiratory Rate Blood Pressure 92/57 106/65 105/64 O2 Sat by Pulse 97 95 96 Oximetry 01/03/23 01/03/23 01/03/23 13:00 13:20 13:40 Temperature Pulse Rate Respiratory Rate Blood Pressure 111/63 111/74 117/73 O2 Sat by Pulse 97 97 Oximetry 01/03/23 14:00 Temperature Pulse Rate 66 Respiratory Rate Blood Pressure 112/71 O2 Sat by Pulse 97 Oximetry Medical Decision Making - Medical Decision Making Was pt. sent in by a medical professional or institution (, PA, BLOWER INSULATOR, urgent care, hospital, or long term...) When possible be specific @ -No Did you speak to anyone other than the patient for history (EMS, parent, family, police, friend...)? What history was obtained from this source @ -No Did you review nursing and triage notes (agree or disagree)? Why? @ -I reviewed and agree with nursing and triage notes Were old charts reviewed (outside hosp., previous admission, EMS record, old EKG, old radiological studies, urgent care reports/EKG's, long term records)? Report findings @ -Old charts reviewed Differential Diagnosis (chest pain, altered mental status, abdominal pain women, abdominal pain men, vaginal bleeding, weakness, fever, dyspnea, syncope, headache, dizziness, GI bleed, back pain, seizure, CVA, palpatations, mental health, musculoskeletal)? @ -Cellulitis, wet gangrene, diabetic foot wound, sepsis, osteomyelitis. This list is not all inclusive. EKG interpreted by me (3pts min.). @ -None done X-rays interpreted by me (1pt min.). @ -Concern for possible osteomyelitis of the fifth left metatarsal CT interpreted by me (1pt min.). @ -None done U/S interpreted by me (1pt. min.). @ -None done What testing was considered but not performed or refused? (CT, X-rays, U/S, lab s)? Why? @ -None What meds were considered but not given or refused? Why? @ -None Did you discuss the management of the patient with other professionals (professionals i.e. , PA, BLOWER INSULATOR, lab, RT, psych nurse, social media marketing specialist, orthophotography technician, teacher, chief diversity officer, behavioral health case manager)? Give summary @ -All discussed with Dr. Castillo who accepted the admission. Also discussed with Dr. Luis of Vascular surgery who was in agreement with the plan. Was smoking cessation discussed for >3mins.? @ -No Was critical care preformed (if so, how long)? @ -No Were there social determinants of health that impacted care today? How? ( Homelessness, low income, unemployed, alcoholism, drug addiction, transportation, low edu. Level, literacy, decrease access to med. care, care home, rehab)? @ -No Was there de-escalation of care discussed even if they declined (Discuss DNR or withdrawal of care, Hospice)? DNR status @ -No What co-morbidities impacted this encounter? (DM, HTN, Smoking, COPD, CAD, Cancer, CVA, ARF, Chemo, Hep., AIDS, mental health diagnosis, sleep apnea, morbid obesity)? @ -None Was patient admitted / discharged? Hospital course, mention meds given and route, prescriptions, significant lab abnormalities, going to OR and other pertinent info. @ -Based on the patient's presentation and exam, patient presents with diabetic foot wound. We will obtain x-ray as well as infectious labs. Patient be started on vancomycin. Patient was in agreement this plan. Vital signs within acceptable limits. X-ray shows osteomyelitis and therefore Zosyn was added to the patient's anabiotic regimen. Cultures obtained and sent. Laboratory studies within acceptable limits. I discussed results with the patient. Patient will be admitted at this time. He was in agreement this plan. This is certainly Dr. Luis as well as patient's admitting physician Dr. Castillo was notified. Undiagnosed new problem with uncertain prognosis? @ -No Drug Therapy requiring intensive monitoring for toxicity (Heparin, Nitro, Insulin, Cardizem)? @ -No Were any procedures done? @ -No Diagnosis/symptom? @ -Left diabetic foot wound, osteomyelitis Acute, or Chronic, or Acute on Chronic? @ -Acute Uncomplicated (without systemic symptoms) or Complicated (systemic symptoms)? @ -Complicated Side effects of treatment? @ -No Exacerbation, Progression, or Severe Exacerbation? @ -No Poses a threat to life or bodily function? How? (Chest pain, USA, MD, pneumonia, PE, COPD, DKA, ARF, appy, cholecystitis, CVA, Diverticulitis, Homicidal, Suicidal, threat to staff... and all critical care pts) @ -Yes - Lab Data Result diagrams: 01/03/23 11:52 01/03/23 11:52 Lab Results 01/03/23 01/03/23 Range/Units 11:52 11:52 WBC 6.5 (3.8-10.6) k/uL RBC 5.14 (4.30-5.90) m/uL Hgb 15.1 (13.0-17.5) gm/dL Hct 44.9 (39.0-53.0) % MCV 87.5 (80.0-100.0) fL MCH 29.3 (25.0-35.0) pg MCHC 33.5 (31.0-37.0) g/dL RDW 12.4 (11.5-15.5) % Plt Count 324 (150-450) k/uL MPV 6.9 Neutrophils % 72 % Lymphocytes % 18 % Monocytes % 5 % Eosinophils % 3 % Basophils % 1 % Neutrophils # 4.7 (1.3-7.7) k/uL Lymphocytes # 1.2 (1.0-4.8) k/uL Monocytes # 0.3 (0-1.0) k/uL Eosinophils # 0.2 (0-0.7) k/uL Basophils # 0.0 (0-0.2) k/uL Sodium 136 L (137-145) mmol/L Potassium 4.3 (3.5-5.1) mmol/L Chloride 101 (98-107) mmol/L Carbon Dioxide 23 (22-30) mmol/L Anion Gap 12 mmol/L BUN 18 (9-20) mg/dL Creatinine 0.71 (0.66-1.25) mg/dL Est GFR (CKD-EPI)AfAm >90 (>60 ml/min/1.73 sqM) Est GFR (CKD-EPI)NonAf >90 (>60 ml/min/1.73 sqM) Glucose 101 H (74-99) mg/dL Calcium 9.1 (8.4-10.2) mg/dL Total Bilirubin 0.9 (0.2-1.3) mg/dL AST 54 (17-59) U/L ALT 42 (4-49) U/L Alkaline Phosphatase 61 (38-126) U/L Total Protein 7.2 (6.3-8.2) g/dL Albumin 3.6 (3.5-5.0) g/dL Disposition Clinical Impression: Wound of foot, Osteomyelitis Disposition: ADMITTED IP TO THIS HOSP Condition: Stable Time of Disposition: 13:31
[2023-01-03] MEDS: SODIUM CHLORIDE 0.9% 1,000 ML IV SCH (14:48)
[2023-01-03] MEDS: PIPERACILLIN-TAZOBACTAM 3.375 GM in SODIUM CHLORIDE 0.9% 100 ML IVPB SCH (16:21)
[2023-01-03] MEDS: HEPARIN SODIUM,PORCINE 5,000 UNIT/ML 1 ML VIAL SQ SCH (16:22)
[2023-01-03 17:18] LABS: Glucose,Whole Blood 78 mg/dL (70-110)
[2023-01-03] MEDS: oxyCODONE-APAP 10-325MG 1 EACH TAB PO PRN (19:37)
[2023-01-03 19:59] LABS: Glucose,Whole Blood 95 mg/dL (70-110)
[2023-01-03] MEDS: GABAPENTIN 400 MG CAP PO SCH (20:02)
[2023-01-03] MEDS: ZOLPIDEM 5 MG TAB PO SCH (20:02)
[2023-01-03] MEDS: FAMOTIDINE 20 MG TAB PO SCH (20:02)
[2023-01-03] MEDS: INSULIN DETEMIR (LEVEMIR) 100 UNIT/ML SYR SQ SCH (20:05)
--- NOTE | 2023-01-03 20:55 | P.HPIM ---
History of Present Illness H&P Date: 01/03/23 Chief Complaint: Osteomyelitis left foot HISTORY OF PRESENT ILLNESS This is a 67-year-old male patient with past medical history of diabetes mellitus type 2, hypertension, hyperlipidemia, gastroesophageal reflux disease, recurrent depression, remote history of tobacco use, fatty liver, chronic back pain, insomnia. Patient has been under the care of the wound clinic with Dr. Finney for right lower extremity diabetic ulcer status post amputation of the right great toe, and he was recently hospitalized at [facility] few month back after he was found to have an ostomy Lantus of the left big toe which was amputated at that time, patient has been getting calluses that has been following with Dr. Finney at the wound healing Center, patient developed to have a significant wound to the side of the left foot associated with significant erythema and purulent drainage, patient was seen in the foot clinic and he was sent initially to the emergency department at [facility], he stated that for about 7 hours, and then ended up leaving the hospital and going home, he slept overnight, and he woke up in the morning and came to [facility] for evaluation he showed up in the emergency department and he was found to have a significant osteomyelitis of the left foot, he was seen by vascular surgery and he was admitted under were service, he was started on IV antibiotic in the form of Zosyn and vancomycin after obtaining cultures and blood culture, and the patient also was started on his medication. REVIEW OF SYSTEMS Constitutional: No fever, no chills, no night sweats. No weight change. No weakness, fatigue or lethargy. No daytime sleepiness. HEENT: No headache. No blurred vision or double vision, no loss of vision. No loss of Hearing, no ringing in the ears, no dizziness. No nasal drainage or congestion. No epistaxis. No sore throat. Lungs: No shortness of breath, cough, no sputum production. No wheezing. Cardiovascular: No chest pain, no lower extremity edema. No palpitations. No paroxysmal nocturnal dyspnea. No orthopnea. No lightheadedness or dizziness. No syncopal episodes. Abdominal: No abdominal pain. No nausea, vomiting. No diarrhea. No constipation. No bloody or tarry stools. No loss of appetite. Genitourinary: No dysuria, increased frequency, urgency. No urinary retention. Musculoskeletal: No myalgias. No muscle weakness, no gait dysfunction, no frequent falls. No back pain. No neck pain. Integumentary: Bilateral big toe amputations, left side of the foot with osteomyelitis and significant erythema and minimal purulent drainage, there is a callus at the bottom of the right foot. Neurologic: No aphasia. No facial droop. No change in mentation. No head injury. No headache. No paralysis, positive for neuropathy Psychiatric:positive for depression. No anxiety. No mood swings. Endocrine:positive for abnormal blood sugars. No weight change. No excessive sweating or thirst. No cold intolerance. MEDICAL HISTORY Diabetes mellitus type 2 Diabetic neuropathy Hypertension Hyperlipidemia Gastroesophageal reflux disease Recurrent depression Fatty liver Chronic back pain Diabetic ulcer left great toe Insomnia Spondylosis of the lumbar spine SURGICAL HISTORY Pain management procedures Right great toe amputation Colonoscopy EGD SOCIAL HISTORY Patient was a smoker 3 packs per day for greater than 20 years and quit 25 years ago. No marijuana or street drug use. He drinks a few beers occasionally. 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 He lives at home with his and son. FAMILY HISTORY Mother at age 60 from colon cancer with history of lung transplant. He does not know why she had the lung transplant other than she was a smoker. Father at age 67 from a myocardial infarction. Patient does not have any brothers. He has one sister that at age 40 from pancreatic cancer. Patient has 2 sons and 1 daughter with no major medical problems. PHYSICAL EXAMINATION Gen: This is a 67-year-old male, resting in bed and appears to be comfortable and in no acute distress. HEENT: Head is atraumatic, normocephalic. Pupils equal, round. Sclerae is anicteric. NECK: Supple. No JVD. No lymphadenopathy. No thyromegaly. LUNGS: Clear to auscultation. No wheezes or rhonchi. No intercostal retractions. HEART: First heart sound is depressed, second heart sound is normal there is systolic ejection murmur 2/6 located in the left Chuck. ABDOMEN: Soft. Bowel sounds are present. No masses. No tenderness. EXTREMITIES: No pedal edema. No calf tenderness. DP +2 bilaterally, there is bilateral big toe amputation, left side of the foot with significant erythema and tenderness due to osteomyelitis NEUROLOGICAL: Patient is awake, alert and oriented x3. Cranial nerves 2 through 12 are grossly intact. Muscle strength 4/5 in the bilateral upper and lower extremities, neuropathic changes to both feet, deep tendon reflexes are depressed. ASSESSMENT AND PLAN 1. Osteopmyelitis of the head of the fifth metatarsal Continue patient on vancomycin with pharmacy to dose its peak and trough as well as Zosyn 3.375 g IV piggyback every 6 hours, ID consult Dr. Luis and 2. Diabetes mellitus type 2 uncontrolled we will continue with Levemir 40 units SC at bedtime along with Humalog 10 units AC meals tid , we will continue with Farxiga 10 mg po daily , was on Mounjaro 7.5 mg Sc q week, BGM AC meals tid 3. Hypertension and hypertensive cardiovascular disease . continue lisinopril 10 g or orally once every day monitor the patient blood pressure very closely. 4. Hyperlipidemia. Continue atorvastatin 20 mg orally daily and Zetia 10 mg po daily, keep LDL-c 55-70. 5. Diabetic neuropathy. Continue gabapentin 800 mg 4 times daily. 6. Chronic back pain. Continue baclofen 10 mg daily as needed, along with current pain management 7. Recurrent depression. Continue sertraline 100 mg daily 8. Insomnia. Continue Ambien 10 mg at bedtime. 9. Gastroesophageal reflux disease. Continue with Protonix 40 mg po daily 10. DVT prophylaxis. Heparin 5000 units Sc q 8 H 11. Admits to inpatient . estimated length of stay 2 midnights 12. Full code. Past Medical History Past Medical History: Diabetes Mellitus, GERD/Reflux, Hyperlipidemia, Hypertension Additional Past Medical History / Comment(s): bulging disc, neuropathy, NEUROPATHY IN HANDS AND FEET , diabetic foot wounds History of Any Multi-Drug Resistant Organisms: None Reported Past Surgical History: Orthopedic Surgery Additional Past Surgical History / Comment(s): pain clinic procedures for back , right and left great toe amputation, colonoscopy, EGD Past Anesthesia/Blood Transfusion Reactions: No Reported Reaction Past Psychological History: Depression Smoking Status: Former smoker Past Alcohol Use History: Rare Additional Past Alcohol Use History / Comment(s): Patient was a smoker 3 pppd, greater than 20 years, quit 2000 est. He denies any marijuana or street drug use. He drinks a few beers occasionally, none in 2 years per . Past Drug Use History: None Reported - Past Family History Mother Family Medical History: Cancer Additional Family Medical History / Comment(s): Mother at age 60 from colon cancer. She had history of lung transplant. Patient does not know why she had a lung transplant other than she was a smoker. Father Additional Family Medical History / Comment(s): Father at age 67 from a myocardial infarction. Brother(s) Additional Family Medical History / Comment(s): Patient does not have any brothers. Patient had 1 sister that at age 40 from pancreatic cancer. Patient has 2 sons and 1 daughter with no major medical problems. Sister(s) Family Medical History: Cancer Additional Family Medical History / Comment(s): pancreatic cancer Medications and Allergies Home Medications Medication Instructions Recorded Confirmed Type Aspirin 81 mg PO DAILY 08/06/13 01/03/23 History Zolpidem [Ambien] 10 mg PO HS 09/28/15 01/03/23 History Sertraline [Zoloft] 100 mg PO DAILY 11/17/17 01/03/23 History Insulin Degludec [Tresiba] 40 units SQ HS 07/27/18 01/03/23 History Rosuvastatin Calcium 10 mg PO DAILY 04/25/19 01/03/23 History Famotidine [Pepcid] 20 mg PO BID 10/07/19 01/03/23 History Dapagliflozin Propanediol [Farxiga] 10 mg PO DAILY 02/01/21 01/03/23 History Diclofenac Sodium [Voltaren 1 applic TOPICAL QID PRN 02/03/21 01/03/23 History Arthritis Pain 1% Gel] oxyCODONE-APAP 10-325MG [Percocet 1 tab PO Q6H PRN 30 Days #120 tab 01/02/23 01/03/23 Rx 10-325 mg] Baclofen [Lioresal] 10 mg PO DAILY 01/03/23 01/03/23 History Gabapentin 800 mg PO QID 01/03/23 01/03/23 History Insulin Aspart [NovoLOG Flexpen] 10 units SQ AC-TID 01/03/23 01/03/23 History Tirzepatide [Mounjaro] 7.5 mg SQ CHATMAN 01/03/23 01/03/23 History lisinopriL [Zestril] 10 mg PO DAILY 01/03/23 01/03/23 History Allergies Allergy/AdvReac Type Severity Reaction Status Date / Time No Known Allergies Allergy Verified 01/03/23 16:30 Physical Exam Vitals: Vital Signs Temp Pulse Pulse Resp BP BP Pulse Ox 01/03/23 19:08 98.1 F 67 15 128/79 97 01/03/23 16:11 97.4 F L 62 17 120/75 96 01/03/23 15:41 97.5 F L 100/66 98 01/03/23 15:20 112/69 98 01/03/23 14:00 66 112/71 97 01/03/23 13:40 117/73 01/03/23 13:20 111/74 97 01/03/23 13:00 111/63 97 01/03/23 12:40 105/64 96 01/03/23 12:20 106/65 95 01/03/23 12:00 92/57 97 01/03/23 11:32 94/56 97 01/03/23 11:31 67 20 94/56 97 01/03/23 11:04 98.2 F 74 16 115/69 94 L Intake and Output 01/03/23 01/03/23 01/03/23 06:59 14:59 22:59 Intake Total 225 Balance 225 Intake: Intake, IV Titration 225 Amount Sodium Chloride 0.9% 1, 225 000 ml @ 75 mls/hr IV . [id number] [facility] Rx#:[id number] Other: Voiding Method Toilet Weight 106.594 kg 106.594 kg Results CBC & Chem 7: 01/03/23 11:52 01/03/23 11:52 Labs: Abnormal Lab Results - Last 24 Hours (Table) 01/03/23 Range/Units 11:52 Sodium 136 L (137-145) mmol/L Glucose 101 H (74-99) mg/dL Thrombosis Risk Factor Assmnt - Choose All That Apply Any of the Below Risk Factors Present?: Yes Each Factor Represents 1 point: Obesity (BMI >25) Other Risk Factors: Yes Each Risk Factor Represents 2 Points: Age 61-74 years Other congenital or acquired thrombophilia - If yes, enter type in comment: No Thrombosis Risk Factor Assessment Total Risk Factor Score: 3 Thrombosis Risk Factor Assessment Level: Moderate Risk
[2023-01-03] MEDS: VANCOMYCIN 1,750 MG in SODIUM CHLORIDE 0.9% 500 ML 500 ML IVPB SCH (21:18)
--- NOTE | 2023-01-04 07:14 | P.GSCN ---
History of Present Illness History of present illness: 67-year-old gentleman patient has history of diabetes, hypertension, patient has been coming to the wound clinic for local wound care there is a wound on the S aspect of the left foot base of the fifth toe is some mild redness and mild drainage noted patient has been admitted for IV antibiotic and local wound care patient had x-ray of the foot which shows fifth metatarsal bone osteo-patient is IV antibiotic Medical history history of diabetes diabetes, hypertension, Past history patient had a right and left foot big toe amputation in the past On examination neck is supple no bruit appreciated Chest is clear is a good and both lungs first and second sound present Abdomen soft nontender Femorals are 1+ left foot plantar aspect has a wound with some mild redness and possible osteo-of the metatarsophalangeal joint of the fifth toe Krause treated with local wound care and IV antibiotic follow with you Past Medical History Past Medical History: Diabetes Mellitus, GERD/Reflux, Hyperlipidemia, Hypertension Additional Past Medical History / Comment(s): bulging disc, neuropathy, NEUROPATHY IN HANDS AND FEET , diabetic foot wounds History of Any Multi-Drug Resistant Organisms: None Reported Past Surgical History: Orthopedic Surgery Additional Past Surgical History / Comment(s): pain clinic procedures for back , right and left great toe amputation, colonoscopy, EGD Past Anesthesia/Blood Transfusion Reactions: No Reported Reaction Past Psychological History: Depression Smoking Status: Former smoker Past Alcohol Use History: Rare Additional Past Alcohol Use History / Comment(s): Patient was a smoker 3 pppd, greater than 20 years, quit 2000 est. He denies any marijuana or street drug use. He drinks a few beers occasionally, none in 2 years per . Past Drug Use History: None Reported - Past Family History Mother Family Medical History: Cancer Additional Family Medical History / Comment(s): Mother at age 60 from colon cancer. She had history of lung transplant. Patient does not know why she had a lung transplant other than she was a smoker. Father Additional Family Medical History / Comment(s): Father at age 67 from a myocardial infarction. Brother(s) Additional Family Medical History / Comment(s): Patient does not have any brothers. Patient had 1 sister that at age 40 from pancreatic cancer. Patient has 2 sons and 1 daughter with no major medical problems. Sister(s) Family Medical History: Cancer Additional Family Medical History / Comment(s): pancreatic cancer Medications and Allergies Home Medications Medication Instructions Recorded Confirmed Type Aspirin 81 mg PO DAILY 08/06/13 01/03/23 History Zolpidem [Ambien] 10 mg PO HS 09/28/15 01/03/23 History Sertraline [Zoloft] 100 mg PO DAILY 11/17/17 01/03/23 History Insulin Degludec [Tresiba] 40 units SQ HS 07/27/18 01/03/23 History Rosuvastatin Calcium 10 mg PO DAILY 04/25/19 01/03/23 History Famotidine [Pepcid] 20 mg PO BID 10/07/19 01/03/23 History Dapagliflozin Propanediol [Farxiga] 10 mg PO DAILY 02/01/21 01/03/23 History Diclofenac Sodium [Voltaren 1 applic TOPICAL QID PRN 02/03/21 01/03/23 History Arthritis Pain 1% Gel] oxyCODONE-APAP 10-325MG [Percocet 1 tab PO Q6H PRN 30 Days #120 tab 01/02/23 01/03/23 Rx 10-325 mg] Baclofen [Lioresal] 10 mg PO DAILY 01/03/23 01/03/23 History Gabapentin 800 mg PO QID 01/03/23 01/03/23 History Insulin Aspart [NovoLOG Flexpen] 10 units SQ AC-TID 01/03/23 01/03/23 History Tirzepatide [Mounjaro] 7.5 mg SQ CHATMAN 01/03/23 01/03/23 History lisinopriL [Zestril] 10 mg PO DAILY 01/03/23 01/03/23 History Allergies Allergy/AdvReac Type Severity Reaction Status Date / Time No Known Allergies Allergy Verified 01/03/23 16:30 Surgical - Exam Vital Signs Temp Pulse Resp BP Pulse Ox 98.2 F 74 16 115/69 94 L 01/03/23 11:04 01/03/23 11:04 01/03/23 11:04 01/03/23 11:04 01/03/23 11:04 Results - Labs 01/03/23 11:52 01/03/23 11:52 Abnormal Lab Results - Last 24 Hours (Table) 01/03/23 Range/Units 11:52 Sodium 136 L (137-145) mmol/L Glucose 101 H (74-99) mg/dL Microbiology - Last 24 Hours (Table) 01/03/23 11:52 Gram Stain - Preliminary Foot - Left Diabetes panel 01/03/23 Range/Units 11:52 Sodium 136 L (137-145) mmol/L Potassium 4.3 (3.5-5.1) mmol/L Chloride 101 (98-107) mmol/L Carbon Dioxide 23 (22-30) mmol/L BUN 18 (9-20) mg/dL Creatinine 0.71 (0.66-1.25) mg/dL Glucose 101 H (74-99) mg/dL Calcium 9.1 (8.4-10.2) mg/dL AST 54 (17-59) U/L ALT 42 (4-49) U/L Alkaline Phosphatase 61 (38-126) U/L Total Protein 7.2 (6.3-8.2) g/dL Albumin 3.6 (3.5-5.0) g/dL Calcium panel 01/03/23 Range/Units 11:52 Calcium 9.1 (8.4-10.2) mg/dL Albumin 3.6 (3.5-5.0) g/dL Pituitary panel 01/03/23 Range/Units 11:52 Sodium 136 L (137-145) mmol/L Potassium 4.3 (3.5-5.1) mmol/L Chloride 101 (98-107) mmol/L Carbon Dioxide 23 (22-30) mmol/L BUN 18 (9-20) mg/dL Creatinine 0.71 (0.66-1.25) mg/dL Glucose 101 H (74-99) mg/dL Calcium 9.1 (8.4-10.2) mg/dL Adrenal panel 01/03/23 Range/Units 11:52 Sodium 136 L (137-145) mmol/L Potassium 4.3 (3.5-5.1) mmol/L Chloride 101 (98-107) mmol/L Carbon Dioxide 23 (22-30) mmol/L BUN 18 (9-20) mg/dL Creatinine 0.71 (0.66-1.25) mg/dL Glucose 101 H (74-99) mg/dL Calcium 9.1 (8.4-10.2) mg/dL Total Bilirubin 0.9 (0.2-1.3) mg/dL AST 54 (17-59) U/L ALT 42 (4-49) U/L Alkaline Phosphatase 61 (38-126) U/L Total Protein 7.2 (6.3-8.2) g/dL Albumin 3.6 (3.5-5.0) g/dL
[2023-01-04 07:27] LABS: Glucose,Whole Blood 82 mg/dL (70-110)
[2023-01-04] MEDS: ASPIRIN 81 MG PO SCH (08:35)
[2023-01-04] MEDS: lisinopriL 10 MG TAB PO SCH (08:35)
[2023-01-04] MEDS: INSULIN ASPART (NovoLOG) 100 UNIT/ML VIAL SQ SCH (08:35)
[2023-01-04] MEDS: SERTRALINE 100 MG TAB PO SCH (08:35)
[2023-01-04] MEDS: BACLOFEN 10 MG TAB PO SCH (08:35)
[2023-01-04] MEDS: DAPAGLIFLOZIN PROPANEDIOL 10 MG TABLET PO SCH (08:36)
[2023-01-04] MEDS: ATORVASTATIN 20 MG TAB PO SCH (08:36)
[2023-01-04 08:51] LABS: Basophils # (A) 0.04 X 10*3/uL (0.00-0.10); Basophils % (A) 0.7 %; Eosinophils # (A) 0.21 X 10*3/uL (0.04-0.35); Eosinophils % (A) 3.8 %; HCT 39.6 % (39.6-50.0); HGB 13.1 g/dL (13.0-17.0); Lymphocytes # (A) 1.71 X 10*3/uL (0.90-5.00); Lymphocytes % (A) 30.6 %; MCH 28.4 pg (27.0-32.0); MCHC 33.1 g/dL (32.0-37.0); MCV 85.9 FL (80.0-97.0); Mean Platelet Volume 8.6 FL (9.5-12.2); Monocytes # (A) 0.56 X 10*3/uL (0.20-1.00); NRBC Per 100 WBC 0 X 10*3/uL (0.00-0.01); Neutrophils # (A) 3.06 X 10*3/uL (1.80-7.70); Neutrophils % (A) 54.7 %; Platelet Count 273 X 10*3/uL (140-440); RBC 4.61 X 10*6/uL (4.40-5.60); RDW 12.3 % (11.5-14.5); WBC 5.59 X 10*3/uL (4.50-10.00)
[2023-01-04 08:57] LABS: ALT 34 U/L (10-49); AST 38 U/L (14-35); Albumin 3.1 g/dL (3.8-4.9); Albumin/Globulin Ratio 1.19 Ratio (1.60-3.17); Alkaline Phosphatase 49 U/L (41-126); BUN/Creat Ratio 18.86 Ratio (12.00-20.00); Blood Urea Nitrogen 13.2 mg/dL (9.0-27.0); Calcium 8.5 mg/dL (8.7-10.3); Carbon Dioxide 23.4 mmol/L (21.6-31.8); Chloride 105 mmol/L (96-109); Globulin 2.6 g/dL (1.6-3.3); Glucose 101 mg/dL (70-110); Potassium 4.1 mmol/L (3.5-5.5); Sodium 138 mmol/L (135-145); Total Bilirubin 0.5 mg/dL (0.3-1.2); Total Protein 5.7 g/dL (6.2-8.2)
[2023-01-04 09:10] LABS: Erythrocyte Sedimentation Rate 41 mm/Hr (0-20)
[2023-01-04 11:44] LABS: Glucose,Whole Blood 124 mg/dL (70-110)
[2023-01-04] MEDS: VANCOMYCIN TROUGH DUE 1 EACH MISC MISCELLANE ONE (12:54)
--- NOTE | 2023-01-04 15:10 | P.PN ---
Subjective Progress Note Date: 01/04/23 HISTORY OF PRESENT ILLNESS This is a 67-year-old male patient with past medical history of diabetes mellitus type 2, hypertension, hyperlipidemia, gastroesophageal reflux disease, recurrent depression, remote history of tobacco use, fatty liver, chronic back pain, insomnia. Patient has been under the care of the wound clinic with Dr. Finney for right lower extremity diabetic ulcer status post amputation of the right great toe, and he was recently hospitalized at [facility] few month back after he was found to have an ostomy Lantus of the left big toe which was amputated at that time, patient has been getting calluses that has been following with Dr. Finney at the wound healing Center, patient developed to have a significant wound to the side of the left foot associated with significant erythema and purulent drainage, patient was seen in the foot clinic and he was sent initially to the emergency department at [facility], he stated that for about 7 hours, and then ended up leaving the hospital and going home, he slept overnight, and he woke up in the morning and came to [facility] for evaluation he showed up in the emergency department and he was found to have a significant osteomyelitis of the left foot, he was seen by vascular surgery and he was admitted under were service, he was started on IV antibiotic in the form of Zosyn and vancomycin after obtaining cultures and blood culture, and the patient also was started on his medication. 01/04: Patient is feeling better today, he denies any fever or chills, he denies any chest pain or shortness breath, he has no abdominal pain, nausea or vomiting or diarrhea, he has been tolerating IV antibiotic, he was seen in consultation by infectious disease as well as by vascular surgery we will continue with current treatment plan, await the final result of the bone scan REVIEW OF SYSTEMS Constitutional: No fever, no chills, no night sweats. No weight change. No weakness, fatigue or lethargy. No daytime sleepiness. HEENT: No headache. No blurred vision or double vision, no loss of vision. No loss of Hearing, no ringing in the ears, no dizziness. No nasal drainage or congestion. No epistaxis. No sore throat. Lungs: No shortness of breath, cough, no sputum production. No wheezing. Cardiovascular: No chest pain, no lower extremity edema. No palpitations. No paroxysmal nocturnal dyspnea. No orthopnea. No lightheadedness or dizziness. No syncopal episodes. Abdominal: No abdominal pain. No nausea, vomiting. No diarrhea. No co nstipation. No bloody or tarry stools. No loss of appetite. Genitourinary: No dysuria, increased frequency, urgency. No urinary retention. Musculoskeletal: No myalgias. No muscle weakness, no gait dysfunction, no frequent falls. No back pain. No neck pain. Integumentary: Bilateral big toe amputations, left side of the foot with osteomyelitis and significant erythema and minimal purulent drainage, there is a callus at the bottom of the right foot. Neurologic: No aphasia. No facial droop. No change in mentation. No head injury. No headache. No paralysis, positive for neuropathy Psychiatric:positive for depression. No anxiety. No mood swings. Endocrine:positive for abnormal blood sugars. No weight change. No excessive sweating or thirst. No cold intolerance. PHYSICAL EXAMINATION Gen: This is a 67-year-old male, resting in bed and appears to be comfortable and in no acute distress. HEENT: Head is atraumatic, normocephalic. Pupils equal, round. Sclerae is anicteric. NECK: Supple. No JVD. No lymphadenopathy. No thyromegaly. LUNGS: Clear to auscultation. No wheezes or rhonchi. No intercostal retractions. HEART: First heart sound is depressed, second heart sound is normal there is systolic ejection murmur 2/6 located in the left Chuck. ABDOMEN: Soft. Bowel sounds are present. No masses. No tenderness. EXTREMITIES: No pedal edema. No calf tenderness. DP +2 bilaterally, there is bilateral big toe amputation, left side of the foot with significant erythema and tenderness due to osteomyelitis NEUROLOGICAL: Patient is awake, alert and oriented x3. Cranial nerves 2 through 12 are grossly intact. Muscle strength 4/5 in the bilateral upper and lower extremities, neuropathic changes to both feet, deep tendon reflexes are depressed. ASSESSMENT AND PLAN 1. Osteopmyelitis of the head of the fifth metatarsal Continue patient on vancomycin with pharmacy to dose its peak and trough as well as Zosyn 3.375 g IV piggyback every 6 hours, ID consult Dr. Luis and 2. Diabetes mellitus type 2 uncontrolled we will continue with Levemir 40 units SC at bedtime along with Humalog 10 units AC meals tid , we will continue with Farxiga 10 mg po daily , was on Mounjaro 7.5 mg Sc q week, BGM AC meals tid 3. Hypertension and hypertensive cardiovascular disease . continue lisinopril 10 g or orally once every day monitor the patient blood pressure very closely. 4. Hyperlipidemia. Continue atorvastatin 20 mg orally daily and Zetia 10 mg po daily, keep LDL-c 55-70. 5. Diabetic neuropathy. Continue gabapentin 800 mg 4 times daily. 6. Chronic back pain. Continue baclofen 10 mg daily as needed, along with current pain management 7. Recurrent depression. Continue sertraline 100 mg daily 8. Insomnia. Continue Ambien 10 mg at bedtime. 9. Gastroesophageal reflux disease. Continue with Protonix 40 mg po daily 10. DVT prophylaxis. Heparin 5000 units Sc q 8 H 11. Guarded prognosis. 12. He will require long-term IV antibiotic. Objective - Vital Signs Vital signs: Vital Signs Temp 98.4 F 01/04/23 07:50 Pulse 63 01/04/23 07:50 Resp 16 01/04/23 07:50 BP 117/69 01/04/23 07:50 Pulse Ox 97 01/04/23 07:50 FiO2 Intake & Output 01/03/23 01/04/23 01/04/23 18:59 06:59 18:59 Intake Total 225 360 Balance 225 360 Weight 106.594 kg Intake: Intake, IV Titration 225 Amount Sodium Chloride 0.9% 1, 225 000 ml @ 75 mls/hr IV . [id number] [facility] Rx#:[id number] Oral 360 Other: Voiding Method Toilet Toilet # Voids 3 - Labs CBC & Chem 7: 01/04/23 04:38 01/04/23 04:38 Labs: Abnormal Lab Results - Last 24 Hours (Table) 01/04/23 01/04/23 01/04/23 Range/Units 04:38 04:38 11:41 MPV 8.6 L (9.5-12.2) FL ESR 41 H (0-20) mm/Hr POC Glucose (mg/dL) 124 H (70-110) mg/dL Calcium 8.5 L (8.7-10.3) mg/dL AST 38 H (14-35) U/L Total Protein 5.7 L (6.2-8.2) g/dL Albumin 3.1 L (3.8-4.9) g/dL Albumin/Globulin Ratio 1.19 L (1.60-3.17) Ratio Microbiology - Last 24 Hours (Table) 01/03/23 11:52 Gram Stain - Preliminary Foot - Left
[2023-01-04 17:13] LABS: Glucose,Whole Blood 100 mg/dL (70-110)
[2023-01-04 20:13] LABS: Glucose,Whole Blood 123 mg/dL (70-110)
[2023-01-04] MEDS: VANCOMYCIN 1,500 MG in SODIUM CHLORIDE 0.9% 500 ML 500 ML IVPB SCH (22:14)
[2023-01-05 06:26] LABS: African American GFR (CKD) >90 (>60 ml/min/1.73 sqM); Non-African American GFR(CKD) >90 (>60 ml/min/1.73 sqM)
[2023-01-05 07:44] LABS: Glucose,Whole Blood 138 mg/dL (70-110)
--- NOTE | 2023-01-05 09:13 | P.CONS ---
History of Present Illness - Reason for Consult Consult date: 01/04/23 Osteomyelitis Requesting physician: Suzette Castillo - Chief Complaint Nonhealing wound to the left foot x weeks - History of Present Illness Patient is a 67-year-old male with a past medical history negative for diabetes mellitus hypertension hyperlipidemia reflux history of diabetic infection and did have amputation of multiple toes patient apparently has been evaluated outpatient wound care center for wound to the left foot lateral border at the base of the left fifth toe. Has been there for more than a month now patient did have a regularly visit with his wound care physician at [facility] wound care center and apparently was noticed to have a worsening of the wound to the left foot lateral border and concern for underlying osteomyelitis per the patient has been sent to the ER patient mention for the last few days he noticed increasing swelling and redness to the left foot area, patient does have diabetic neuropathy denies significant pain to the left foot area.The patient did have some Purulent drainage, with these cellulitis the patient was advised to go to the ER on presentation to the hospital patient was afebrile and no fever has been followed subsequently patient was not tachycardic hypertensive or hypoxic patient did have a normal white count sed rate of 41 creatinine 0.7 mg normal patient did have a blood pressure has been currently pending patient also have a I&D by the surgeon and the culture has been repeated patient now started on vancomycin and Zosyn infectious disease consulted for further management of antibiotic therapy, patient did have a x-ray of the foot bony erosion changes to the left fifth digit metatarsal concerning for osteomyelitis findings have worsened from 7 09/02/2019 Review of Systems Positive point and negatives has been mentioned in the HPI, complete review of systems was performed and all other systems are negative Past Medical History Past Medical History: Diabetes Mellitus, GERD/Reflux, Hyperlipidemia, Hypertension Additional Past Medical History / Comment(s): bulging disc, neuropathy, NEUROPATHY IN HANDS AND FEET , diabetic foot wounds History of Any Multi-Drug Resistant Organisms: None Reported Past Surgical History: Orthopedic Surgery Additional Past Surgical History / Comment(s): pain clinic procedures for back , right and left great toe amputation, colonoscopy, EGD Past Anesthesia/Blood Transfusion Reactions: No Reported Reaction Past Psychological History: Depression Smoking Status: Former smoker Past Alcohol Use History: Rare Additional Past Alcohol Use History / Comment(s): Patient was a smoker 3 pppd, greater than 20 years, quit 2000 est. He denies any marijuana or street drug use. He drinks a few beers occasionally, none in 2 years per . Past Drug Use History: None Reported - Past Family History Mother Family Medical History: Cancer Additional Family Medical History / Comment(s): Mother at age 60 from colon cancer. She had history of lung transplant. Patient does not know why she had a lung transplant other than she was a smoker. Father Additional Family Medical History / Comment(s): Father at age 67 from a myocardial infarction. Brother(s) Additional Family Medical History / Comment(s): Patient does not have any brothers. Patient had 1 sister that at age 40 from pancreatic cancer. Patient has 2 sons and 1 daughter with no major medical problems. Sister(s) Family Medical History: Cancer Additional Family Medical History / Comment(s): pancreatic cancer Medications and Allergies Home Medications Medication Instructions Recorded Confirmed Type Aspirin 81 mg PO DAILY 08/06/13 01/03/23 History Zolpidem [Ambien] 10 mg PO HS 09/28/15 01/03/23 History Sertraline [Zoloft] 100 mg PO DAILY 11/17/17 01/03/23 History Insulin Degludec [Tresiba] 40 units SQ HS 07/27/18 01/03/23 History Rosuvastatin Calcium 10 mg PO DAILY 04/25/19 01/03/23 History Famotidine [Pepcid] 20 mg PO BID 10/07/19 01/03/23 History Dapagliflozin Propanediol [Farxiga] 10 mg PO DAILY 02/01/21 01/03/23 History Diclofenac Sodium [Voltaren 1 applic TOPICAL QID PRN 02/03/21 01/03/23 History Arthritis Pain 1% Gel] oxyCODONE-APAP 10-325MG [Percocet 1 tab PO Q6H PRN 30 Days #120 tab 01/02/23 01/03/23 Rx 10-325 mg] Baclofen [Lioresal] 10 mg PO DAILY 01/03/23 01/03/23 History Gabapentin 800 mg PO QID 01/03/23 01/03/23 History Insulin Aspart [NovoLOG Flexpen] 10 units SQ AC-TID 01/03/23 01/03/23 History Tirzepatide [Mounjaro] 7.5 mg SQ CHATMAN 01/03/23 01/03/23 History lisinopriL [Zestril] 10 mg PO DAILY 01/03/23 01/03/23 History Allergies Allergy/AdvReac Type Severity Reaction Status Date / Time No Known Allergies Allergy Verified 01/03/23 16:30 Physical Exam Vitals: Vital Signs Temp Pulse Pulse Resp BP BP Pulse Ox 01/04/23 07:50 98.4 F 63 16 117/69 97 01/04/23 02:00 98.5 F 82 16 106/64 95 01/03/23 20:00 15 01/03/23 19:08 98.1 F 67 15 128/79 97 01/03/23 16:11 97.4 F L 62 17 120/75 96 01/03/23 15:41 97.5 F L 100/66 98 01/03/23 15:20 112/69 98 01/03/23 14:00 66 112/71 97 01/03/23 13:40 117/73 01/03/23 13:20 111/74 97 01/03/23 13:00 111/63 97 01/03/23 12:40 105/64 96 01/03/23 12:20 106/65 95 01/03/23 12:00 92/57 97 01/03/23 11:32 94/56 97 01/03/23 11:31 67 20 94/56 97 01/03/23 11:04 98.2 F 74 16 115/69 94 L Intake and Output 01/03/23 01/04/23 01/04/23 22:59 06:59 14:59 Intake Total 225 360 Balance 225 360 Intake: Intake, IV Titration 225 Amount Sodium Chloride 0.9% 1, 225 000 ml @ 75 mls/hr IV . [id number] [facility] Rx#:[id number] Oral 360 Other: Voiding Method Toilet # Voids 3 Weight 106.594 kg GENERAL DESCRIPTION: Elderly male lying in bed, no distress. No tachypnea or accessory muscle of respiration use. HEENT: Shows Pallor , no scleral icterus. Oral mucous membrane is dry. No pharyngeal erythema or thrush NECK: Trachea central, no thyromegaly. LUNGS: Unlabored breathing. Clear to auscultation anteriorly. No wheeze or crackle. HEART: S1, S2, regular rate and rhythm. No loud murmur ABDOMEN: Soft, no tenderness , guarding or rigidity, no organomegaly EXTREMITIES: Left foot lateral border with a wound at the base of the fifth toe with a bone palpable with associated swelling and redness, patient also have a wart on the plantar aspect of the right foot but no slough tissue no surrounding redness or drainage SKIN: No rash, no masses palpable. NEUROLOGICAL: The patient is awake, alert, oriented x3, mood and affect normal. Results CBC & Chem 7: 01/04/23 04:38 01/05/23 05:32 Labs: Abnormal Lab Results - Last 24 Hours (Table) 01/03/23 01/04/23 01/04/23 Range/Units 11:52 04:38 04:38 MPV 8.6 L (9.5-12.2) FL ESR 41 H (0-20) mm/Hr Sodium 136 L (137-145) mmol/L Glucose 101 H (74-99) mg/dL Calcium 8.5 L (8.7-10.3) mg/dL AST 38 H (14-35) U/L Total Protein 5.7 L (6.2-8.2) g/dL Albumin 3.1 L (3.8-4.9) g/dL Albumin/Globulin Ratio 1.19 L (1.60-3.17) Ratio Microbiology - Last 24 Hours (Table) 01/03/23 11:52 Gram Stain - Preliminary Foot - Left Assessment and Plan (1) Foot osteomyelitis, left Current Visit: Yes Status: Acute Code(s): M86.9 - OSTEOMYELITIS, UNSPECIFIED SNOMED Code(s): 2689343783176279 (2) Diabetic infection of left foot Current Visit: No Status: Acute Code(s): E11.628 - TYPE 2 DIABETES MELLITUS WITH OTHER SKIN COMPLICATIONS; L08.9 - LOCAL INFECTION OF THE SKIN AND SUBCUTANEOUS TISSUE, UNSP SNOMED Code(s): 45182373 Plan: 1patient presented to hospital with worsening wound to the left foot this patient swelling and redness to the left foot area concerning for cellulitis likely secondary to left foot lateral border wound at the base of the fifth toe this patient with underlying diabetes mellitus and concern for osteomyelitis, we will need to cover for the polymicrobial dustin usually associated with diabetic foot infection 2-blood and local cultures has been obtained and results will be followed 3-patient to continue with the vancomycin and Zosyn however will need to monitor his kidney function closely while waiting for the culture to finalize 4-patient will need a PICC line for outpatient IV antibiotic therapy We will follow on clinical condition and cultures to further adjust medication if needed Thank you for this consultation we will follow the patient along with you Dictation was produced using [employer] dictation software. please excuse any grammatical, word or spelling errors. Time with Patient: Greater than 30
[2023-01-05 12:08] LABS: Glucose,Whole Blood 110 mg/dL (70-110)
--- NOTE | 2023-01-05 14:16 | P.PN ---
Subjective Progress Note Date: 01/05/23 This is a 67-year-old male patient with past medical history of diabetes mellitus type 2, hypertension, hyperlipidemia, gastroesophageal reflux disease, recurrent depression, remote history of tobacco use, fatty liver, chronic back pain, insomnia. Patient has been under the care of the wound clinic with Dr. Finney for right lower extremity diabetic ulcer status post amputation of the right great toe, and he was recently hospitalized at [facility] few month back after he was found to have an ostomy Lantus of the left big toe which was amputated at that time, patient has been getting calluses that has been following with Dr. Finney at the wound healing Center, patient developed to have a significant wound to the side of the left foot associated with significant erythema and purulent drainage, patient was seen in the foot clinic and he was sent initially to the emergency department at [facility], he stated that for about 7 hours, and then ended up leaving the hospital and going home, he slept overnight, and he woke up in the morning and came to [facility] for evaluation he showed up in the emergency department and he was found to have a significant osteomyelitis of the left foot, he was seen by vascular surgery and he was admitted under were service, he was started on IV antibiotic in the form of Zosyn and vancomycin after obtaining cultures and blood culture, and the patient also was started on his medication. 01/04: Patient is feeling better today, he denies any fever or chills, he denies any chest pain or shortness breath, he has no abdominal pain, nausea or vomiting or diarrhea, he has been tolerating IV antibiotic, he was seen in consultation by infectious disease as well as by vascular surgery we will continue with current treatment plan, await the final result of the bone scan 01/05. Patient seen and examined. Sitting comfortably in the bed. No acute issues overnight REVIEW OF SYSTEMS: CONSTITUTIONAL: No fever, no malaise,. CARDIOVASCULAR: No chest pain, no palpitations, no syncope. PULMONARY: No shortness of breath, no cough, GASTROINTESTINAL: No diarrhea, no nausea, no vomiting, no abdominal pain. NEUROLOGICAL: No headaches, no weakness, PHYSICAL EXAMINATION: GENERAL: The patient is alert and oriented x3, not in any acute distress. Well developed, well nourished. HEENT: Pupils are round and equally reacting to light. EOMI. No scleral icterus. No conjunctival pallor. Normocephalic, atraumatic. No pharyngeal erythema. No thyromegaly. CARDIOVASCULAR: S1 and S2 present. No murmurs, rubs, or gallops. PULMONARY: Chest is clear to auscultation, no wheezing or crackles. ABDOMEN: Soft, nontender, nondistended, normoactive bowel sounds. No palpable organomegaly. MUSCULOSKELETAL: bilateral big toe amputation, left side of the foot with significant erythema and tenderness due to osteomyelitis EXTREMITIES: No cyanosis, clubbing, or pedal edema. NEUROLOGICAL: Gross neurological examination did not reveal any focal deficits. SKIN: No rashes. Assessment and plan Osteopmyelitis of the head of the fifth metatarsal of left foot Monitor vital signs Monitor CBC Follow-up on cultures Continue patient on vancomycin with pharmacy to dose as well as Zosyn 3.375 g IV piggyback every 6 hours Follow-up in ID recs Follow-up on vascular surgery recommendations Diabetes mellitus type 2 uncontrolled Monitor blood sugar levels, continue Levemir 40 units SC at bedtime along with Humalog 10 units AC meals tid , we will continue with Farxiga 10 mg po daily , was on Mounjaro 7.5 mg Sc q week, Hypertension and hypertensive cardiovascular disease continue lisinopril 10 g Hyperlipidemia. Continue atorvastatin 20 mg orally daily and Zetia 10 mg po daily, Diabetic neuropathy Continue gabapentin 800 mg 4 times daily. Chronic back pain. Continue baclofen 10 mg daily as needed, along with current pain management Recurrent depression. Continue sertraline 100 mg daily Insomnia. Continue Ambien 10 mg at bedtime. Gastroesophageal reflux disease. Continue with Protonix 40 mg po daily Labs and medication were reviewed.. Continue same treatment. Continue with symptomatic treatment. Resume home medication. Monitor labs and vitals. DVT and GI prophylaxis. Further recommendations as per clinical course of the patient Dictation was produced using [employer] dictation software. please excuse any grammatical, word or spelling errors. Objective - Vital Signs Vital signs: Vital Signs Temp 98.2 F 01/05/23 08:00 Pulse 62 01/05/23 08:00 Resp 18 01/05/23 08:00 BP 144/77 01/05/23 08:00 Pulse Ox 96 01/05/23 08:00 FiO2 Intake & Output 01/04/23 01/05/23 01/05/23 18:59 06:59 18:59 Intake Total 2620 Output Total 800 Balance 1820 Intake: Intake, IV Titration 1600 Amount Piperacillin-Tazobactam 3 200 .375 gm In Sodium Chloride 0.9% 100 ml @ 25 mls/hr IVPB Q8HR [facility] Rx# :[id number] Sodium Chloride 0.9% 1, 900 000 ml @ 75 mls/hr IV . [id number] [facility] Rx#:[id number] Vancomycin 1,750 mg In 500 Sodium Chloride 0.9% 500 ml 500 ml @ 167 mls/hr IVPB Q8H [facility] Rx#: [id number] Oral 1020 Output: Urine 800 Other: Voiding Method Toilet # Voids 3 # Bowel Movements 1 - Labs CBC & Chem 7: 01/04/23 04:38 01/05/23 05:32 Labs: Abnormal Lab Results - Last 24 Hours (Table) 01/04/23 01/04/23 01/05/23 Range/Units 11:41 20:08 07:36 POC Glucose (mg/dL) 124 H 123 H 138 H (70-110) mg/dL Microbiology - Last 24 Hours (Table) 01/04/23 07:35 Gram Stain - Preliminary Foot - Left Tissue Culture - Preliminary Gram Neg Bacilli Gram Neg Bacilli#2 01/03/23 11:52 Blood Culture - Preliminary Blood 01/03/23 11:52 Blood Culture - Preliminary Blood 01/03/23 11:52 Gram Stain - Preliminary Foot - Left Wound Culture - Preliminary Gram Neg Bacilli Group D Enterococcus
--- NOTE | 2023-01-05 14:48 | P.PN ---
Subjective Progress Note Date: 01/05/23 Principal diagnosis: Reason for follow-up is left diabetic foot infection and osteomyelitis Patient is a 67-year-old male with a past medical history negative for diabetes mellitus hypertension hyperlipidemia reflux history of diabetic infection and did have amputation of multiple toes, presented to the hospital worsening wound to the left foot cellulitis and concern for osteomyelitis On today's evaluation that is 01/05/2023, the patient continues to be afebrile, the patient is breathing comfortably on room air and the patient denies chest pain shortness of breath or cough , patient denies nausea/vomiting , no abdominal pain and no diarrhea, denies any worsening pain to the left foot Patient did have a creatinine of 0.69 culture growing gram-negative bacilli Objective - Vital Signs Vital signs: Vital Signs Temp 97.8 F 01/05/23 12:28 Pulse 59 L 01/05/23 12:28 Resp 17 01/05/23 12:28 BP 143/82 01/05/23 12:28 Pulse Ox 96 01/05/23 12:28 FiO2 Intake & Output 01/04/23 01/05/23 01/05/23 18:59 06:59 18:59 Intake Total 2620 Output Total 800 Balance 1820 Intake: Intake, IV Titration 1600 Amount Piperacillin-Tazobactam 3 200 .375 gm In Sodium Chloride 0.9% 100 ml @ 25 mls/hr IVPB Q8HR [facility] Rx# :[id number] Sodium Chloride 0.9% 1, 900 000 ml @ 75 mls/hr IV . [id number] [facility] Rx#:[id number] Vancomycin 1,750 mg In 500 Sodium Chloride 0.9% 500 ml 500 ml @ 167 mls/hr IVPB Q8H [facility] Rx#: [id number] Oral 1020 Output: Urine 800 Other: Voiding Method Toilet Toilet # Voids 3 # Bowel Movements 1 - Exam GENERAL DESCRIPTION: An elderly male lying in bed in no distress RESPIRATORY SYSTEM: Unlabored breathing , clear to auscultation anteriorly HEART: S1 S2 regular rate and rhythm , ABDOMEN: Soft , no tenderness EXTREMITIES: Left shoulder wound is currently dressed minimal drainage on the dressing - Labs CBC & Chem 7: 01/04/23 04:38 01/05/23 05:32 Labs: Abnormal Lab Results - Last 24 Hours (Table) 01/04/23 01/05/23 Range/Units 20:08 07:36 POC Glucose (mg/dL) 123 H 138 H (70-110) mg/dL Microbiology - Last 24 Hours (Table) 01/04/23 07:35 Gram Stain - Preliminary Foot - Left Tissue Culture - Preliminary Gram Neg Bacilli Gram Neg Bacilli#2 01/03/23 11:52 Blood Culture - Preliminary Blood 01/03/23 11:52 Blood Culture - Preliminary Blood 01/03/23 11:52 Gram Stain - Preliminary Foot - Left Wound Culture - Preliminary Gram Neg Bacilli Group D Enterococcus Assessment and Plan (1) Foot osteomyelitis, left Current Visit: Yes Status: Acute Code(s): M86.9 - OSTEOMYELITIS, UNSPECIFIED SNOMED Code(s): 5200960988451175 (2) Diabetic infection of left foot Current Visit: No Status: Acute Code(s): E11.628 - TYPE 2 DIABETES MELLITUS WITH OTHER SKIN COMPLICATIONS; L08.9 - LOCAL INFECTION OF THE SKIN AND SUBCUTANEOUS TISSUE, UNSP SNOMED Code(s): 37126781 Plan: 1patient presented to hospital with worsening wound to the left foot this patient swelling and redness to the left foot area concerning for cellulitis lik annita secondary to left foot lateral border wound at the base of the fifth toe this patient with underlying diabetes mellitus and concern for osteomyelitis, we will need to cover for the polymicrobial dustin usually associated with diabetic foot infection 2-blood cultures currently pending local cultures has been predominantly gram- negative 3-patient to continue with Zosyn however discontinue vancomycin Dictation was produced using [employer] dictation software. please excuse any grammatical, word or spelling errors. Time with Patient: Less than 30
[2023-01-05 17:19] LABS: Glucose,Whole Blood 146 mg/dL (70-110)
[2023-01-05 21:07] LABS: Glucose,Whole Blood 153 mg/dL (70-110)
[2023-01-05] MEDS: ZOLPIDEM 5 MG TAB PO PRN (21:43)
[2023-01-06 06:19] LABS: African American GFR (CKD) >90 (>60 ml/min/1.73 sqM); Non-African American GFR(CKD) >90 (>60 ml/min/1.73 sqM)
[2023-01-06 07:59] LABS: Glucose,Whole Blood 132 mg/dL (70-110)
[2023-01-06] MEDS: VANCOMYCIN TROUGH DUE 1 EACH MISC MISCELLANE ONE (08:33)
[2023-01-06 12:15] LABS: Glucose,Whole Blood 111 mg/dL (70-110)
--- NOTE | 2023-01-06 14:39 | P.PN ---
Subjective Progress Note Date: 01/06/23 This is a 67-year-old male patient with past medical history of diabetes mellitus type 2, hypertension, hyperlipidemia, gastroesophageal reflux disease, recurrent depression, remote history of tobacco use, fatty liver, chronic back pain, insomnia. Patient has been under the care of the wound clinic with Dr. Finney for right lower extremity diabetic ulcer status post amputation of the right great toe, and he was recently hospitalized at [facility] few month back after he was found to have an ostomy Lantus of the left big toe which was amputated at that time, patient has been getting calluses that has been following with Dr. Finney at the wound healing Center, patient developed to have a significant wound to the side of the left foot associated with significant erythema and purulent drainage, patient was seen in the foot clinic and he was sent initially to the emergency department at [facility], he stated that for about 7 hours, and then ended up leaving the hospital and going home, he slept overnight, and he woke up in the morning and came to [facility] for evaluation he showed up in the emergency department and he was found to have a significant osteomyelitis of the left foot, he was seen by vascular surgery and he was admitted under were service, he was started on IV antibiotic in the form of Zosyn and vancomycin after obtaining cultures and blood culture, and the patient also was started on his medication. 01/04: Patient is feeling better today, he denies any fever or chills, he denies any chest pain or shortness breath, he has no abdominal pain, nausea or vomiting or diarrhea, he has been tolerating IV antibiotic, he was seen in consultation by infectious disease as well as by vascular surgery we will continue with current treatment plan, await the final result of the bone scan 01/05. Patient seen and examined. Sitting comfortably in the bed. No acute issues overnight 01/06. Patient seen and examined. Antibiotics have been transitioned to IV Zosyn. Blood sugars are well controlled on current insulin regimen. Blood work this morning showed creatinine 0.71, GFR greater than 90 REVIEW OF SYSTEMS: CONSTITUTIONAL: No fever, no malaise,. CARDIOVASCULAR: No chest pain, no palpitations, no syncope. PULMONARY: No shortness of breath, no cough, GASTROINTESTINAL: No diarrhea, no nausea, no vomiting, no abdominal pain. NEUROLOGICAL: No headaches, no weakness, PHYSICAL EXAMINATION: GENERAL: The patient is alert and oriented x3, not in any acute distress. Well developed, well nourished. HEENT: Pupils are round and equally reacting to light. EOMI. No scleral icterus. No conjunctival pallor. Normocephalic, atraumatic. No pharyngeal erythema. No thyromegaly. CARDIOVASCULAR: S1 and S2 present. No murmurs, rubs, or gallops. PULMONARY: Chest is clear to auscultation, no wheezing or crackles. ABDOMEN: Soft, nontender, nondistended, normoactive bowel sounds. No palpable organomegaly. MUSCULOSKELETAL: bilateral big toe amputation, left side of the foot with significant erythema and tenderness due to osteomyelitis EXTREMITIES: No cyanosis, clubbing, or pedal edema. NEUROLOGICAL: Gross neurological examination did not reveal any focal deficits. SKIN: No rashes. Assessment and plan Osteopmyelitis of the head of the fifth metatarsal of left foot Monitor vital signs Monitor CBC Follow-up on cultures Continue IV Zosyn Follow-up in ID recs Follow-up on vascular surgery recommendations Diabetes mellitus type 2 uncontrolled Monitor blood sugar levels, continue Levemir 40 units SC at bedtime along with Humalog 10 units AC meals tid , we will continue with Farxiga 10 mg po daily , was on Mounjaro 7.5 mg Sc q week, Hypertension and hypertensive cardiovascular disease continue lisinopril 10 g Hyperlipidemia. Continue atorvastatin 20 mg orally daily and Zetia 10 mg po daily, Diabetic neuropathy Continue gabapentin 800 mg 4 times daily. Chronic back pain. Continue baclofen 10 mg daily as needed, along with current pain management Recurrent depression. Continue sertraline 100 mg daily Insomnia. Continue Ambien 10 mg at bedtime. Gastroesophageal reflux disease. Continue with Protonix 40 mg po daily Labs and medication were reviewed.. Continue same treatment. Continue with symptomatic treatment. Resume home medication. Monitor labs and vitals. DVT and GI prophylaxis. Further recommendations as per clinical course of the patient Dictation was produced using [employer] dictation software. please excuse any grammatical, word or spelling errors. Objective - Vital Signs Vital signs: Vital Signs Temp 97.7 F 01/06/23 08:00 Pulse 54 L 01/06/23 08:00 Resp 15 01/06/23 08:00 BP 145/77 01/06/23 08:00 Pulse Ox 94 L 01/06/23 08:00 FiO2 Intake & Output 01/05/23 01/06/23 01/06/23 18:59 06:59 18:59 Intake Total 360 120 Output Total 300 Balance 360 -180 Intake: Oral 360 120 Output: Urine 300 Other: Voiding Method Toilet Toilet # Voids 5 1 - Labs CBC & Chem 7: 01/04/23 04:38 01/06/23 05:38 Labs: Abnormal Lab Results - Last 24 Hours (Table) 01/05/23 01/05/23 01/06/23 Range/Units 17:17 21:02 07:41 POC Glucose (mg/dL) 146 H 153 H 132 H (70-110) mg/dL Microbiology - Last 24 Hours (Table) 01/03/23 11:52 Blood Culture - Preliminary Blood 01/03/23 11:52 Gram Stain - Preliminary Foot - Left Wound Culture - Preliminary Escherichia coli Enterococcus faecalis 01/04/23 07:35 Gram Stain - Preliminary Foot - Left Tissue Culture - Preliminary Gram Neg Bacilli Gram Neg Bacilli#2
[2023-01-06 17:17] LABS: Glucose,Whole Blood 145 mg/dL (70-110)
[2023-01-06 20:22] LABS: Glucose,Whole Blood 108 mg/dL (70-110)
[2023-01-06] MEDS ORDERED: VANCOMYCIN 1,500 MG in SODIUM CHLORIDE 0.9% 500 ML 500 ML IVPB SCH (21:00)
[2023-01-07 05:22] LABS: ALT 35 U/L (4-49); AST 41 U/L (17-59); African American GFR (CKD) >90 (>60 ml/min/1.73 sqM); Albumin 3.1 g/dL (3.5-5.0); Alkaline Phosphatase 48 U/L (38-126); Anion Gap 7 mmol/L; Blood Urea Nitrogen 13 mg/dL (9-20); Calcium 8.6 mg/dL (8.4-10.2); Carbon Dioxide 26 mmol/L (22-30); Chloride 107 mmol/L (98-107); Glucose 129 mg/dL (74-99); Non-African American GFR(CKD) >90 (>60 ml/min/1.73 sqM); Potassium 4.6 mmol/L (3.5-5.1); Sodium 140 mmol/L (137-145); Total Bilirubin 0.4 mg/dL (0.2-1.3); Total Protein 6.1 g/dL (6.3-8.2)
[2023-01-07 07:21] LABS: Glucose,Whole Blood 135 mg/dL (70-110)
--- NOTE | 2023-01-07 08:01 | P.PN ---
Subjective Progress Note Date: 01/06/23 Principal diagnosis: Reason for follow-up is left diabetic foot infection and osteomyelitis Patient is a 67-year-old male with a past medical history negative for diabetes mellitus hypertension hyperlipidemia reflux history of diabetic infection and did have amputation of multiple toes, presented to the hospital worsening wound to the left foot cellulitis and concern for osteomyelitis On today's evaluation that is 01/06/2023, the patient denies any fever or any chills, the patient is breathing comfortably on room air without the need for supplemental oxygen, patient denies chest pain shortness of breath and no significant cough or sputum production, patient denies Abdominal pain, no nausea/vomiting and denies having any diarrhea, patient denies pain to the left foot Patient did have WBC of 5.7 as of yesterday and creatinine of 0.71 culture growing e.coli , enterobacter and enterococus Objective - Vital Signs Vital signs: Vital Signs Temp 97.7 F 01/06/23 08:00 Pulse 54 L 01/06/23 08:00 Resp 15 01/06/23 08:00 BP 145/77 01/06/23 08:00 Pulse Ox 94 L 01/06/23 08:00 FiO2 Intake & Output 01/05/23 01/06/23 01/06/23 18:59 06:59 18:59 Intake Total 360 120 Output Total 300 Balance 360 -180 Intake: Oral 360 120 Output: Urine 300 Other: Voiding Method Toilet Toilet # Voids 5 1 - Exam GENERAL DESCRIPTION: An elderly male lying in bed in no distress RESPIRATORY SYSTEM: Unlabored breathing , clear to auscultation anteriorly HEART: S1 S2 regular rate and rhythm , ABDOMEN: Soft , no tenderness EXTREMITIES: Left shoulder wound is currently dressed minimal drainage on the dressing - Labs CBC & Chem 7: 01/04/23 04:38 01/07/23 04:45 Labs: Abnormal Lab Results - Last 24 Hours (Table) 01/05/23 01/05/23 01/06/23 Range/Units 17:17 21:02 07:41 POC Glucose (mg/dL) 146 H 153 H 132 H (70-110) mg/dL Microbiology - Last 24 Hours (Table) 01/04/23 07:35 Gram Stain - Final Foot - Left Tissue Culture - Final Kluyvera ascorbata Enterobacter cloacae 01/03/23 11:52 Blood Culture - Preliminary Blood 01/03/23 11:52 Gram Stain - Preliminary Foot - Left Wound Culture - Preliminary Escherichia coli Enterococcus faecalis Assessment and Plan (1) Foot osteomyelitis, left Current Visit: Yes Status: Acute Code(s): M86.9 - OSTEOMYELITIS, UNSPECIFIED SNOMED Code(s): 4008433975920414 (2) Diabetic infection of left foot Current Visit: No Status: Acute Code(s): E11.628 - TYPE 2 DIABETES MELLITUS WITH OTHER SKIN COMPLICATIONS; L08.9 - LOCAL INFECTION OF THE SKIN AND SUBCUTANEOUS TISSUE, UNSP SNOMED Code(s): 99703463 Plan: 1patient presented to hospital with worsening wound to the left foot this patient swelling and redness to the left foot area concerning for cellulitis likely secondary to left foot lateral border wound at the base of the fifth toe this patient with underlying diabetes mellitus and concern for osteomyelitis, we will need to cover for the polymicrobial dustin usually associated with diabetic foot infection 2-blood cultures currently pending local cultures has been e.coli , enterobacter and enterococus 3-patient to continue with Zosyn , PICC ordered , once outpatient IV antibiotics arranged will be able to go home Dictation was produced using [employer] dictation software. please excuse any grammatical, word or spelling errors. Time with Patient: Less than 30
[2023-01-07 09:37] LABS: HCT 38.5 % (39.6-50.0); HGB 12.6 g/dL (13.0-17.0); MCH 28.7 pg (27.0-32.0); MCHC 32.7 g/dL (32.0-37.0); MCV 87.7 FL (80.0-97.0); Mean Platelet Volume 8.8 FL (9.5-12.2); NRBC Per 100 WBC 0 X 10*3/uL (0.00-0.01); Platelet Count 256 X 10*3/uL (140-440); RBC 4.39 X 10*6/uL (4.40-5.60); RDW 12.3 % (11.5-14.5); WBC 7.01 X 10*3/uL (4.50-10.00)
[2023-01-07 09:38] LABS: Basophils # (A) 0.04 X 10*3/uL (0.00-0.10); Basophils % (A) 0.6 %; Eosinophils # (A) 0.22 X 10*3/uL (0.04-0.35); Eosinophils % (A) 3.1 %; Lymphocytes % (A) 38.5 %; Monocytes # (A) 0.49 X 10*3/uL (0.20-1.00); Neutrophils # (A) 3.54 X 10*3/uL (1.80-7.70); Neutrophils % (A) 50.5 %
--- NOTE | 2023-01-07 10:23 | P.PCN ---
Description of Procedure: 67-year-old diabetic male patient has been coming wound care local wound care he does a wound on the lateral aspect of the foot x-ray shows osteo-patient is an IV antibiotic under care of infectious disease we've been treating the wound with local wound care using Aquacel silver continue with IV antibiotic and local wound care was patient is stable from wound infections is point of view patient can follow up in the wound clinic continue changing dressing with every 48 hours using X a silver
[2023-01-07 12:06] LABS: Glucose,Whole Blood 100 mg/dL (70-110)
--- NOTE | 2023-01-07 15:01 | P.PN ---
Subjective Progress Note Date: 01/07/23 This is a 67-year-old male patient with past medical history of diabetes mellitus type 2, hypertension, hyperlipidemia, gastroesophageal reflux disease, recurrent depression, remote history of tobacco use, fatty liver, chronic back pain, insomnia. Patient has been under the care of the wound clinic with Dr. Finney for right lower extremity diabetic ulcer status post amputation of the right great toe, and he was recently hospitalized at [facility] few month back after he was found to have an ostomy Lantus of the left big toe which was amputated at that time, patient has been getting calluses that has been following with Dr. Finney at the wound healing Center, patient developed to have a significant wound to the side of the left foot associated with significant erythema and purulent drainage, patient was seen in the foot clinic and he was sent initially to the emergency department at [facility], he stated that for about 7 hours, and then ended up leaving the hospital and going home, he slept overnight, and he woke up in the morning and came to [facility] for evaluation he showed up in the emergency department and he was found to have a significant osteomyelitis of the left foot, he was seen by vascular surgery and he was admitted under were service, he was started on IV antibiotic in the form of Zosyn and vancomycin after obtaining cultures and blood culture, and the patient also was started on his medication. 01/04: Patient is feeling better today, he denies any fever or chills, he denies any chest pain or shortness breath, he has no abdominal pain, nausea or vomiting or diarrhea, he has been tolerating IV antibiotic, he was seen in consultation by infectious disease as well as by vascular surgery we will continue with current treatment plan, await the final result of the bone scan 01/05. Patient seen and examined. Sitting comfortably in the bed. No acute issues overnight 01/06. Patient seen and examined. Antibiotics have been transitioned to IV Zosyn. Blood sugars are well controlled on current insulin regimen. Blood work this morning showed creatinine 0.71, GFR greater than 90 01/07. Patient seen and examined. Labs were done this morning showed WBC 7.01, hemoglobin 10.6, sodium 140, potassium 4.6, BUN 13, creatinine 0.88. Discussed with ID, patient needs IV antibiotics, PICC line Needs be placed. REVIEW OF SYSTEMS: CONSTITUTIONAL: No fever, no malaise,. CARDIOVASCULAR: No chest pain, no palpitations, no syncope. PULMONARY: No shortness of breath, no cough, GASTROINTESTINAL: No diarrhea, no nausea, no vomiting, no abdominal pain. NEUROLOGICAL: No headaches, no weakness, PHYSICAL EXAMINATION: GENERAL: The patient is alert and oriented x3, not in any acute distress. Well developed, well nourished. HEENT: Pupils are round and equally reacting to light. EOMI. No scleral icterus. No conjunctival pallor. Normocephalic, atraumatic. No pharyngeal erythema. No thyromegaly. CARDIOVASCULAR: S1 and S2 present. No murmurs, rubs, or gallops. PULMONARY: Chest is clear to auscultation, no wheezing or crackles. ABDOMEN: Soft, nontender, nondistended, normoactive bowel sounds. No palpable organomegaly. MUSCULOSKELETAL: bilateral big toe amputation, left side of the foot with significant erythema and tenderness due to osteomyelitis, bandage in place EXTREMITIES: No cyanosis, clubbing, or pedal edema. NEUROLOGICAL: Gross neurological examination did not reveal any focal deficits. SKIN: No rashes. Assessment and plan Osteopmyelitis of the head of the fifth metatarsal of left foot Monitor vital signs Monitor CBC Follow-up on cultures Continue IV Zosyn Follow-up in ID recs Follow-up on vascular surgery recommendations Case management on board for setting up an outpatient IV antibiotic PICC line ordered Diabetes mellitus type 2 uncontrolled Monitor blood sugar levels, continue Levemir 40 units SC at bedtime along with Humalog 10 units AC meals tid , we will continue with Farxiga 10 mg po daily , was on Mounjaro 7.5 mg Sc q week, Hypertension and hypertensive cardiovascular disease continue lisinopril 10 g Hyperlipidemia. Continue atorvastatin 20 mg orally daily and Zetia 10 mg po daily, Diabetic neuropathy Continue gabapentin 800 mg 4 times daily. Chronic back pain. Continue baclofen 10 mg daily as needed, along with current pain management Recurrent depression. Continue sertraline 100 mg daily Insomnia. Continue Ambien 10 mg at bedtime. Gastroesophageal reflux disease. Continue with Protonix 40 mg po daily Labs and medication were reviewed.. Continue same treatment. Continue with symptomatic treatment. Resume home medication. Monitor labs and vitals. DVT and GI prophylaxis. Further recommendations as per clinical course of the patient Dictation was produced using [employer] dictation software. please excuse any grammatical, word or spelling errors. Objective - Vital Signs Vital signs: Vital Signs Temp 97.6 F 01/07/23 07:21 Pulse 58 L 01/07/23 07:21 Resp 16 01/07/23 07:21 BP 161/93 01/07/23 07:21 Pulse Ox 95 01/07/23 07:21 FiO2 Intake & Output 01/06/23 01/07/23 01/07/23 18:59 06:59 18:59 Intake Total 1320 1722 Output Total 600 Balance 720 1722 Intake: Intake, IV Titration 1000 Amount Piperacillin-Tazobactam 3 100 .375 gm In Sodium Chloride 0.9% 100 ml @ 25 mls/hr IVPB Q8HR NAIF Rx# :[id number] Sodium Chloride 0.9% 1, 900 000 ml @ 75 mls/hr IV . [id number] NAIF Rx#:[id number] Oral 1320 722 Output: Urine 600 Other: Voiding Method Toilet # Voids 2 3 - Labs CBC & Chem 7: 01/07/23 04:45 01/07/23 04:45 Labs: Abnormal Lab Results - Last 24 Hours (Table) 01/06/23 01/06/23 01/07/23 Range/Units 12:03 17:10 04:45 RBC (4.40-5.60) X 10*6/uL Hgb (13.0-17.0) g/dL Hct (39.6-50.0) % MPV (9.5-12.2) FL Glucose 129 H (74-99) mg/dL POC Glucose (mg/dL) 111 H 145 H (70-110) mg/dL Total Protein 6.1 L (6.3-8.2) g/dL Albumin 3.1 L (3.5-5.0) g/dL 01/07/23 01/07/23 Range/Units 04:45 07:19 RBC 4.39 L (4.40-5.60) X 10*6/uL Hgb 12.6 L (13.0-17.0) g/dL Hct 38.5 L (39.6-50.0) % MPV 8.8 L (9.5-12.2) FL Glucose (74-99) mg/dL POC Glucose (mg/dL) 135 H (70-110) mg/dL Total Protein (6.3-8.2) g/dL Albumin (3.5-5.0) g/dL Microbiology - Last 24 Hours (Table) 01/03/23 11:52 Anaerobic Culture - Final Foot - Left Anaerobic Gm Negative Bacilli 01/03/23 11:52 Blood Culture - Preliminary Blood 01/03/23 11:52 Blood Culture - Preliminary Blood 01/03/23 11:52 Gram Stain - Preliminary Foot - Left Wound Culture - Preliminary Escherichia coli Enterococcus faecalis 01/04/23 07:35 Gram Stain - Final Foot - Left Tissue Culture - Final Kluyvera ascorbata Enterobacter cloacae
[2023-01-07 17:28] LABS: Glucose,Whole Blood 132 mg/dL (70-110)
[2023-01-07 20:41] LABS: Glucose,Whole Blood 101 mg/dL (70-110)
--- NOTE | 2023-01-07 21:23 | P.PN ---
Subjective Progress Note Date: 01/07/23 Principal diagnosis: Reason for follow-up is left diabetic foot infection and osteomyelitis Patient is a 67-year-old male with a past medical history negative for diabetes mellitus hypertension hyperlipidemia reflux history of diabetic infection and did have amputation of multiple toes, presented to the hospital worsening wound to the left foot cellulitis and concern for osteomyelitis On today's evaluation that is 01/07/2023, the patient remains to be afebrile, the patient is breathing comfortably on room air and the patient denies any shortness of breath, the patient denies chest pain or any cough , patient denies any nausea/vomiting abdominal pain or diarrhea, denies pain to the left foot wound area. Patient did have white count of 7.01, creatinine 0.88. Objective - Vital Signs Vital signs: Vital Signs Temp 97.6 F 01/07/23 07:21 Pulse 58 L 01/07/23 07:21 Resp 16 01/07/23 07:21 BP 161/93 01/07/23 07:21 Pulse Ox 95 01/07/23 07:21 FiO2 Intake & Output 01/06/23 01/07/23 01/07/23 18:59 06:59 18:59 Intake Total 1320 1722 Output Total 600 Balance 720 1722 Intake: Intake, IV Titration 1000 Amount Piperacillin-Tazobactam 3 100 .375 gm In Sodium Chloride 0.9% 100 ml @ 25 mls/hr IVPB Q8HR NAIF Rx# :[id number] Sodium Chloride 0.9% 1, 900 000 ml @ 75 mls/hr IV . [id number] NAIF Rx#:[id number] Oral 1320 722 Output: Urine 600 Other: Voiding Method Toilet # Voids 2 3 - Exam GENERAL DESCRIPTION: An elderly male lying in bed in no distress RESPIRATORY SYSTEM: Unlabored breathing , clear to auscultation anteriorly HEART: S1 S2 regular rate and rhythm , ABDOMEN: Soft , no tenderness EXTREMITIES: Left shoulder wound is currently dressed minimal drainage on the dressing - Labs CBC & Chem 7: 01/07/23 04:45 01/07/23 04:45 Labs: Abnormal Lab Results - Last 24 Hours (Table) 01/06/23 01/06/23 01/07/23 Range/Units 12:03 17:10 04:45 RBC (4.40-5.60) X 10*6/uL Hgb (13.0-17.0) g/dL Hct (39.6-50.0) % MPV (9.5-12.2) FL Glucose 129 H (74-99) mg/dL POC Glucose (mg/dL) 111 H 145 H (70-110) mg/dL Total Protein 6.1 L (6.3-8.2) g/dL Albumin 3.1 L (3.5-5.0) g/dL 01/07/23 01/07/23 Range/Units 04:45 07:19 RBC 4.39 L (4.40-5.60) X 10*6/uL Hgb 12.6 L (13.0-17.0) g/dL Hct 38.5 L (39.6-50.0) % MPV 8.8 L (9.5-12.2) FL Glucose (74-99) mg/dL POC Glucose (mg/dL) 135 H (70-110) mg/dL Total Protein (6.3-8.2) g/dL Albumin (3.5-5.0) g/dL Microbiology - Last 24 Hours (Table) 01/03/23 11:52 Anaerobic Culture - Final Foot - Left Anaerobic Gm Negative Bacilli 01/03/23 11:52 Blood Culture - Preliminary Blood 01/03/23 11:52 Blood Culture - Preliminary Blood 01/03/23 11:52 Gram Stain - Preliminary Foot - Left Wound Culture - Preliminary Escherichia coli Enterococcus faecalis 01/04/23 07:35 Gram Stain - Final Foot - Left Tissue Culture - Final Kluyvera ascorbata Enterobacter cloacae Assessment and Plan (1) Foot osteomyelitis, left Current Visit: Yes Status: Acute Code(s): M86.9 - OSTEOMYELITIS, UNSPECIFIED SNOMED Code(s): 2496849162129954 (2) Diabetic infection of left foot Current Visit: No Status: Acute Code(s): E11.628 - TYPE 2 DIABETES MELLITUS WITH OTHER SKIN COMPLICATIONS; L08.9 - LOCAL INFECTION OF THE SKIN AND SUBCUTANEOUS TISSUE, UNSP SNOMED Code(s): 77629746 Plan: 1patient presented to hospital with worsening wound to the left foot this patient swelling and redness to the left foot area concerning for cellulitis likely secondary to left foot lateral border wound at the base of the fifth toe this patient with underlying diabetes mellitus and concern for osteomyelitis, we will need to cover for the polymicrobial dustin usually associated with diabetic foot infection 2-blood cultures currently pending local cultures has been e.coli , enterobacter and enterococus 3patient to continue with the current treatment of Zosyn patient is waiting for PICC line placement and outpatient IV antibiotic arrangement before discharge question concern answered, continue local wound care per surgery Dictation was produced using [employer] dictation software. please excuse any grammatical, word or spelling errors.
[2023-01-08 06:48] LABS: African American GFR (CKD) >90 (>60 ml/min/1.73 sqM); Non-African American GFR(CKD) >90 (>60 ml/min/1.73 sqM)
[2023-01-08 07:29] LABS: Glucose,Whole Blood 119 mg/dL (70-110)
[2023-01-08 12:19] LABS: Glucose,Whole Blood 161 mg/dL (70-110)
--- NOTE | 2023-01-08 13:43 | P.PN ---
Subjective Progress Note Date: 01/08/23 This is a 67-year-old male patient with past medical history of diabetes mellitus type 2, hypertension, hyperlipidemia, gastroesophageal reflux disease, recurrent depression, remote history of tobacco use, fatty liver, chronic back pain, insomnia. Patient has been under the care of the wound clinic with Dr. Finney for right lower extremity diabetic ulcer status post amputation of the right great toe, and he was recently hospitalized at [facility] few month back after he was found to have an ostomy Lantus of the left big toe which was amputated at that time, patient has been getting calluses that has been following with Dr. Finney at the wound healing Center, patient developed to have a significant wound to the side of the left foot associated with significant erythema and purulent drainage, patient was seen in the foot clinic and he was sent initially to the emergency department at [facility], he stated that for about 7 hours, and then ended up leaving the hospital and going home, he slept overnight, and he woke up in the morning and came to [facility] for evaluation he showed up in the emergency department and he was found to have a significant osteomyelitis of the left foot, he was seen by vascular surgery and he was admitted under were service, he was started on IV antibiotic in the form of Zosyn and vancomycin after obtaining cultures and blood culture, and the patient also was started on his medication. 01/04: Patient is feeling better today, he denies any fever or chills, he denies any chest pain or shortness breath, he has no abdominal pain, nausea or vomiting or diarrhea, he has been tolerating IV antibiotic, he was seen in consultation by infectious disease as well as by vascular surgery we will continue with current treatment plan, await the final result of the bone scan 01/05. Patient seen and examined. Sitting comfortably in the bed. No acute issues overnight 01/06. Patient seen and examined. Antibiotics have been transitioned to IV Zosyn. Blood sugars are well controlled on current insulin regimen. Blood work this morning showed creatinine 0.71, GFR greater than 90 01/07. Patient seen and examined. Labs were done this morning showed WBC 7.01, hemoglobin 10.6, sodium 140, potassium 4.6, BUN 13, creatinine 0.88. Discussed with ID, patient needs IV antibiotics, PICC line Needs be placed. 01/08. Patient seen and examined. Waiting on outpatient IV antibiotics setup and PICC line placement. Possible discharge on Monday REVIEW OF SYSTEMS: CONSTITUTIONAL: No fever, no malaise,. CARDIOVASCULAR: No chest pain, no palpitations, no syncope. PULMONARY: No shortness of breath, no cough, GASTROINTESTINAL: No diarrhea, no nausea, no vomiting, no abdominal pain. NEUROLOGICAL: No headaches, no weakness, PHYSICAL EXAMINATION: GENERAL: The patient is alert and oriented x3, not in any acute distress. Well developed, well nourished. HEENT: Pupils are round and equally reacting to light. EOMI. No scleral icterus. No conjunctival pallor. Normocephalic, atraumatic. No pharyngeal erythema. No thyromegaly. CARDIOVASCULAR: S1 and S2 present. No murmurs, rubs, or gallops. PULMONARY: Chest is clear to auscultation, no wheezing or crackles. ABDOMEN: Soft, nontender, nondistended, normoactive bowel sounds. No palpable organomegaly. MUSCULOSKELETAL: bilateral big toe amputation, left side of the foot with significant erythema and tenderness due to osteomyelitis, bandage in place EXTREMITIES: No cyanosis, clubbing, or pedal edema. NEUROLOGICAL: Gross neurological examination did not reveal any focal deficits. SKIN: No rashes. Assessment and plan Osteopmyelitis of the head of the fifth metatarsal of left foot Monitor vital signs Monitor CBC Follow-up on cultures Continue IV Zosyn Follow-up in [place] recs Follow-up on vascular surgery recommendations Case management on board for setting up an outpatient IV antibiotic PICC line ordered Diabetes mellitus type 2 uncontrolled Monitor blood sugar levels, continue Levemir 40 units SC at bedtime along with Humalog 10 units AC meals tid , we will continue with Farxiga 10 mg po daily , was on Mounjaro 7.5 mg Sc q week, Hypertension and hypertensive cardiovascular disease continue lisinopril 10 g Hyperlipidemia. Continue atorvastatin 20 mg orally daily and Zetia 10 mg po daily, Diabetic neuropathy Continue gabapentin 800 mg 4 times daily. Chronic back pain. Continue baclofen 10 mg daily as needed, along with current pain management Recurrent depression. Continue sertraline 100 mg daily Insomnia. Continue Ambien 10 mg at bedtime. Gastroesophageal reflux disease. Continue with Protonix 40 mg po daily Labs and medication were reviewed.. Continue same treatment. Continue with s ymptomatic treatment. Resume home medication. Monitor labs and vitals. DVT and GI prophylaxis. Further recommendations as per clinical course of the patient Dictation was produced using [employer] dictation software. please excuse any grammatical, word or spelling errors. Objective - Vital Signs Vital signs: Vital Signs Temp 97.6 F 01/08/23 01:06 Pulse 58 L 01/08/23 01:06 Resp 17 01/08/23 01:06 BP 106/67 01/08/23 01:06 Pulse Ox 96 01/08/23 01:06 FiO2 Intake & Output 01/07/23 01/08/23 01/08/23 18:59 06:59 18:59 Intake Total 1000 Output Total 650 550 Balance -650 450 Intake: Intake, IV Titration 1000 Amount Piperacillin-Tazobactam 3 100 .375 gm In Sodium Chloride 0.9% 100 ml @ 25 mls/hr IVPB Q8HR NAIF Rx# :[id number] Sodium Chloride 0.9% 1, 900 000 ml @ 75 mls/hr IV . [id number] NAIF Rx#:[id number] Output: Urine 650 550 Other: Voiding Method Toilet # Voids 3 1 - Labs CBC & Chem 7: 01/07/23 04:45 01/08/23 05:54 Labs: Abnormal Lab Results - Last 24 Hours (Table) 01/07/23 01/08/23 Range/Units 17:26 07:27 POC Glucose (mg/dL) 132 H 119 H (70-110) mg/dL Microbiology - Last 24 Hours (Table) 01/03/23 11:52 Gram Stain - Final Foot - Left Wound Culture - Final Escherichia coli Enterococcus faecalis Enterobacter cloacae
[2023-01-08 13:45] VITALS: RESP 16
[2023-01-08] MEDS: NON FORMULARY DRUG (Tirzepatide [Mounjaro] 7.5 MG/0.5 ML Pen.Injctr) SQ SCH (15:45)
[2023-01-08 17:13] LABS: Glucose,Whole Blood 109 mg/dL (70-110)
[2023-01-08 21:11] LABS: Glucose,Whole Blood 167 mg/dL (70-110)
[2023-01-09 07:50] LABS: Glucose,Whole Blood 113 mg/dL (70-110)
[2023-01-09] MEDS: LIDOCAINE 1% INJ 10MG/ML (20 ML MDV) SQ ONE (08:50)
[2023-01-09 08:56] VITALS: BP 174/90; PULSE 53; TEMP 98.1
--- NOTE | 2023-01-09 09:15 | IR ---
PICC LINE PLACEMENT: HISTORY: Infection requiring long-term antibiotic therapy PROCEDURE: Ultrasound and fluoroscopic guidance of PICC line placement. COMPLICATIONS: None ANESTHESIA: 1. 1% Lidocaine locally. FINDINGS/TECHNIQUE: The procedure was explained to the patient. The risks, complications, benefits and alternatives were discussed and any questions were answered. Informed consent was obtained. The patient was placed supine on the fluoroscopic table and prepped and draped in the usual sterile fash ion. Utilizing a 21 gauge needle and sonographic and fluoroscopic guidance, access in the left basi lic vein was achieved and there is placement of a 0.018 guidewire. The vein is patent. A 4-F sheath was placed over the guidewire. The guidewire and dilator were removed and a 4-F. PICC line was plac ed through the sheath with the tip at the level of the SVC. The sheath was removed, the catheter was flushed and sutured into position. The patient was stable throughout the procedure and remained sta ble upon discharge from the Department of Radiology. The vein puncture was patent under ultrasound. A doyle scale image was obtained to document patency of the vein punctured. All elements of the maximal barrier technique were utilized. FLUOROSCOPY TIME: DAP 0.213Gy cm2 IMPRESSION: Successful PICC line placement under ultrasound and fluoroscopic guidance.
--- NOTE | 2023-01-09 12:08 | P.DS ---
Providers Date of admission: 01/03/23 13:49 Expected date of discharge: 01/09/23 Attending physician: Suzette Castillo Consults: 01/03/23 12:19 Consult Physician Routine Consulting Provider: Victor Manuel Finney Consult Reason/Comments: diabetic foot wound Do you want consulting provider notified?: Yes 01/03/23 20:52 Consult Physician Routine Consulting Provider: Dada Ng Consult Reason/Comments: Osteomyelitis Do you want consulting provider notified?: Yes Primary care physician: Suzette Castillo Hospital Course: HISTORY OF PRESENT ILLNESS This is a 67-year-old male patient with past medical history of diabetes mellitus type 2, hypertension, hyperlipidemia, gastroesophageal reflux disease, recurrent depression, remote history of tobacco use, fatty liver, chronic back pain, insomnia. Patient has been under the care of the wound clinic with Dr. Finney for right lower extremity diabetic ulcer status post amputation of the right great toe, and he was recently hospitalized at [facility] few month back after he was found to have an ostomy Lantus of the left big toe which was amputated at that time, patient has been getting calluses that has been following with Dr. Finney at the wound healing Center, patient developed to have a significant wound to the side of the left foot associated with significant erythema and purulent drainage, patient was seen in the foot clinic and he was sent initially to the emergency department at [facility], he stated that for about 7 hours, and then ended up leaving the hospital and going home, he slept overnight, and he woke up in the morning and came to [facility] for evaluation he showed up in the emergency department and he was found to have a significant osteomyelitis of the left foot, he was seen by vascular surgery and he was admitted under were service, he was started on IV antibiotic in the form of Zosyn and vancomycin after obtaining cultures and blood culture, and the patient also was started on his medication. 01/04: Patient is feeling better today, he denies any fever or chills, he denies any chest pain or shortness breath, he has no abdominal pain, nausea or vomiting or diarrhea, he has been tolerating IV antibiotic, he was seen in consultation by infectious disease as well as by vascular surgery we will continue with current treatment plan, await the final result of the bone scan 11/27: PICC line has been placed this morning. Local wound care ordered by Dr. Luis is [facility] and patient will have follow-up in the wound clinic. Dr. Ng, patient is to continue IV antibiotics outpatient. Patient is currently on Zosyn. VNA referral has been placed. He has been afebrile, heart rate in the 50s, blood pressure 174/90, pulse ox 97% on room air. Blood Glucose Running between 109 and 167. Patient Will Be Discharged Home Today Once All Arrangements Are Completed. Discharge diagnoses 1. Osteomyelitis of the head of the fifth metatarsal 2. Diabetes mellitus type 2 uncontrolled 3. Hypertension and hypertensive cardiovascular disease 4. Hyperlipidemia. 5. Diabetic neuropathy. 6. Chronic back pain. 7. Recurrent depression. 8. Insomnia. 9. Gastroesophageal reflux disease. Discharge plan: Home with VNA and IV antibiotics Greater than 35 minutes was utilized and coordinating patient's discharge. Impression and plan of care have been directed as dictated by the signing physician. Rosey Alvares nurse practitioner acting as scribe for signing physician. Patient Condition at Discharge: Stable Plan - Discharge Summary Discharge Rx Participant: No New Discharge Prescriptions: Continue Aspirin 81 mg PO DAILY Zolpidem [Ambien] 10 mg PO HS Sertraline [Zoloft] 100 mg PO DAILY Insulin Degludec [Tresiba] 40 units SQ HS Rosuvastatin Calcium 10 mg PO DAILY Famotidine [Pepcid] 20 mg PO BID oxyCODONE-APAP 10-325MG [Percocet 10-325 mg] 1 tab PO Q6H PRN 30 Days #120 tab PRN Reason: Pain Insulin Aspart [NovoLOG Flexpen] 10 units SQ AC-TID Gabapentin 800 mg PO QID Baclofen [Lioresal] 10 mg PO DAILY Tirzepatide [Mounjaro] 7.5 mg SQ CHATMAN Dapagliflozin Propanediol [Farxiga] 10 mg PO DAILY Diclofenac Sodium [Voltaren Arthritis Pain 1% Gel] 1 applic TOPICAL QID PRN PRN Reason: Pain lisinopriL [Zestril] 10 mg PO DAILY Discharge Medication List Aspirin 81 mg PO DAILY 08/06/13 [History] Zolpidem [Ambien] 10 mg PO HS 09/28/15 [History] Sertraline [Zoloft] 100 mg PO DAILY 11/17/17 [History] Insulin Degludec [Tresiba] 40 units SQ HS 07/27/18 [History] Rosuvastatin Calcium 10 mg PO DAILY 04/25/19 [History] Famotidine [Pepcid] 20 mg PO BID 10/07/19 [History] Dapagliflozin Propanediol [Farxiga] 10 mg PO DAILY 02/01/21 [History] Diclofenac Sodium [Voltaren Arthritis Pain 1% Gel] 1 applic TOPICAL QID PRN 02/03/21 [History] oxyCODONE-APAP 10-325MG [Percocet 10-325 mg] 1 tab PO Q6H PRN 30 Days #120 tab 01/02/23 [Rx] Baclofen [Lioresal] 10 mg PO DAILY 01/03/23 [History] Gabapentin 800 mg PO QID 01/03/23 [History] Insulin Aspart [NovoLOG Flexpen] 10 units SQ AC-TID 01/03/23 [History] Tirzepatide [Mounjaro] 7.5 mg SQ CHATMAN 01/03/23 [History] lisinopriL [Zestril] 10 mg PO DAILY 01/03/23 [History] Follow up Appointment(s)/Referral(s): [facility]Infusion [NON-STAFF] - 1 Week Dada Ng MD [STAFF PHYSICIAN] - 1 Week [facility] Visiting Nurse, [NON-STAFF] - 1 Week Suzette Castillo MD [Primary Care Provider] - 1 Week Discharge Disposition: HOME WITH HOME HEALTH SERVICES
[2023-01-09] MEDS: ERTAPENEM 1 GM in SODIUM CHLORIDE 0.9% 50 ML IVPB STA (12:16)
[2023-01-09 12:26] LABS: Glucose,Whole Blood 145 mg/dL (70-110)
--- NOTE | 2023-01-10 15:49 | CDI ---
Documentation Clarification Form Date: 01/10/2023 03:36:07 PM From: Sobeida Azevedo Phone: Admit Date: 01/03/2023 01:49:00 PM Patient Name: Dustin Coombs Visit Number: [id number] Discharge Date: 01/09/2023 03:18:00 PM ATTENTION: The Clinical Documentation Specialists (CDI) and [facility] Coding Staff appreciate your assistance in clarifying documentation. Please respond to the clarification below the line at the bottom and electronically sign. The CDI & [facility] Coding staff will review the response and follow-up if needed. Please note: Queries are made part of the Legal Health Record. If you have any questions, please contact the author of this message via ITS. Dr. Suzette Castillo Diabetes mellitus type 2 uncontrolled is documented in the H&P and throughout the Notes. Additional specificity regarding the diabetes diagnosis is requested. History/Risk Factors: 67yo M, DMII w neuropathy, osteomyelitis & multi BKA, HTN, HLD, GERD, recurrent depression, fatty liver, CBP d/t Spondylosis of the lumbar spine, insomnia Clinical Indicators: Blood Glucose Running between 109 and 167 Treatment: Continue with Levemir 40 units SC at bedtime along with Humalog 10 units AC meals tid , we will continue withFarxiga 10 mg po daily, was on Mounjaro 7.5 mg Sc q week, BGM AC meals tid Please clarify the type of diabetes, if known: [ X ] Diabetes Type 2 with hyperglycemia [ ] Diabetes Type 2 with hypoglycemia [ ] Other, please specify [ ] Unable to Determine (Template Last Revised: April 2020) MTDD
--- NOTE | 2023-01-15 20:33 | P.PN ---
Subjective Progress Note Date: 01/08/23 Principal diagnosis: Reason for follow-up is left diabetic foot infection and osteomyelitis Patient is a 67-year-old male with a past medical history negative for diabetes mellitus hypertension hyperlipidemia reflux history of diabetic infection and did have amputation of multiple toes, presented to the hospital worsening wound to the left foot cellulitis and concern for osteomyelitis On today's evaluation that is01/08/2023, the patient denies any fever or any chills, the patient is breathing comfortably on room air without the need for supplemental oxygen, patient denies chest pain shortness of breath and no significant cough or sputum production, patient denies Abdominal pain, no nausea/vomiting and denies having any diarrhea, the patient denies pain to the left foot wound area. Patient did have white count of 7.01 as of 01/07/2023, creatinine 0.88. Objective - Vital Signs Vital signs: Vital Signs Temp 97.6 F 01/08/23 01:06 Pulse 58 L 01/08/23 01:06 Resp 17 01/08/23 01:06 BP 106/67 01/08/23 01:06 Pulse Ox 96 01/08/23 01:06 FiO2 Intake & Output 01/07/23 01/08/23 01/08/23 18:59 06:59 18:59 Intake Total 1000 Output Total 650 550 Balance -650 450 Intake: Intake, IV Titration 1000 Amount Piperacillin-Tazobactam 3 100 .375 gm In Sodium Chloride 0.9% 100 ml @ 25 mls/hr IVPB Q8HR NAIF Rx# :[id number] Sodium Chloride 0.9% 1, 900 000 ml @ 75 mls/hr IV . [id number] NAIF Rx#:[id number] Output: Urine 650 550 Other: Voiding Method Toilet # Voids 3 1 - Exam GENERAL DESCRIPTION: An elderly male lying in bed in no distress RESPIRATORY SYSTEM: Unlabored breathing , clear to auscultation anteriorly HEART: S1 S2 regular rate and rhythm , ABDOMEN: Soft , no tenderness EXTREMITIES: Left shoulder wound is currently dressed minimal drainage on the dressing - Labs CBC & Chem 7: 01/07/23 04:45 01/08/23 05:54 Labs: Abnormal Lab Results - Last 24 Hours (Table) 01/07/23 01/07/23 01/08/23 Range/Units 04:45 17:26 07:27 RBC 4.39 L (4.40-5.60) X 10*6/uL Hgb 12.6 L (13.0-17.0) g/dL Hct 38.5 L (39.6-50.0) % MPV 8.8 L (9.5-12.2) FL POC Glucose (mg/dL) 132 H 119 H (70-110) mg/dL Microbiology - Last 24 Hours (Table) 01/03/23 11:52 Gram Stain - Final Foot - Left Wound Culture - Final Escherichia coli Enterococcus faecalis Enterobacter cloacae Assessment and Plan (1) Foot osteomyelitis, left Status: Acute Code(s): M86.9 - OSTEOMYELITIS, UNSPECIFIED SNOMED Code(s): 8111671065572872 (2) Diabetic infection of left foot Status: Acute Code(s): E11.628 - TYPE 2 DIABETES MELLITUS WITH OTHER SKIN COMPLICATIONS; L08.9 - LOCAL INFECTION OF THE SKIN AND SUBCUTANEOUS TISSUE, UNSP SNOMED Code(s): 85011569 Plan: 1patient presented to hospital with worsening wound to the left foot this patient swelling and redness to the left foot area concerning for cellulitis likely secondary to left foot lateral border wound at the base of the fifth toe this patient with underlying diabetes mellitus and concern for osteomyelitis, we will need to cover for the polymicrobial dustin usually associated with diabetic foot infection 2-blood cultures so far negative , local cultures has been e.coli , enterobacter and enterococus 3patient to continue with the current treatment of Zosyn , Plan is for PICC line placement for outpatient IV antibiotic , continue local wound care per surgery Dictation was produced using [employer] dictation software. please excuse any grammatical, word or spelling errors. Time with Patient: Less than 30
--- NOTE | 2023-01-15 20:35 | P.PN ---
Subjective Progress Note Date: 01/09/23 Principal diagnosis: Reason for follow-up is left diabetic foot infection and osteomyelitis Patient is a 67-year-old male with a past medical history negative for diabetes mellitus hypertension hyperlipidemia reflux history of diabetic infection and did have amputation of multiple toes, presented to the hospital worsening wound to the left foot cellulitis and concern for osteomyelitis On today's evaluation that is 01/09/2023, the patient remains to be afebrile, the patient is breathing comfortably on room air and denies any shortness of breath, the patient denies any chest pain, no significant cough or sputum production, patient denies nausea/vomiting /diarrhea and no abdominal pain, the patient denies pain to the left foot wound area. Patient did have white count of 7.01 as of 01/07/23, creatinine 0.88 as of 01/08/23. Objective - Vital Signs Vital signs: Vital Signs Temp 98.1 F 01/09/23 07:43 Pulse 53 L 01/09/23 07:43 Resp 16 01/09/23 07:43 BP 174/90 01/09/23 07:43 Pulse Ox 97 01/09/23 07:43 FiO2 Intake & Output 01/08/23 01/09/23 01/09/23 18:59 06:59 18:59 Intake Total 1480 Balance 1480 Intake: Intake, IV Titration 1000 Amount Piperacillin-Tazobactam 3 100 .375 gm In Sodium Chloride 0.9% 100 ml @ 25 mls/hr IVPB Q8HR NAIF Rx# :[id number] Sodium Chloride 0.9% 1, 900 000 ml @ 75 mls/hr IV . [id number] NAIF Rx#:[id number] Oral 480 Other: Voiding Method Toilet Urinal # Voids 4 3 - Exam GENERAL DESCRIPTION: An elderly male lying in bed in no distress RESPIRATORY SYSTEM: Unlabored breathing , clear to auscultation anteriorly HEART: S1 S2 regular rate and rhythm , ABDOMEN: Soft , no tenderness EXTREMITIES: Left shoulder wound is currently dressed minimal drainage on the dressing - Labs CBC & Chem 7: 01/07/23 04:45 01/08/23 05:54 Labs: Abnormal Lab Results - Last 24 Hours (Table) 01/08/23 01/08/23 01/09/23 Range/Units 12:12 21:10 07:48 POC Glucose (mg/dL) 161 H 167 H 113 H (70-110) mg/dL Microbiology - Last 24 Hours (Table) 01/03/23 11:52 Blood Culture - Final Blood 01/03/23 11:52 Blood Culture - Final Blood Assessment and Plan (1) Foot osteomyelitis, left Status: Acute Code(s): M86.9 - OSTEOMYELITIS, UNSPECIFIED SNOMED Code(s): 7051818710537559 (2) Diabetic infection of left foot Status: Acute Code(s): E11.628 - TYPE 2 DIABETES MELLITUS WITH OTHER SKIN COMPLICATIONS; L08.9 - LOCAL INFECTION OF THE SKIN AND SUBCUTANEOUS TISSUE, UNSP SNOMED Code(s): 22609707 Plan: 1patient presented to hospital with worsening wound to the left foot this patient swelling and redness to the left foot area concerning for cellulitis likely secondary to left foot lateral border wound at the base of the fifth toe this patient with underlying diabetes mellitus and concern for osteomyelitis, we will need to cover for the polymicrobial dustin usually associated with diabetic foot infection 2-blood cultures currently pending local cultures has been e.coli , enterobacter and enterococus 3patient got PICC , Plan is to continue with Zosyn x 6 weeks on discharge and close outpatient follow up Dictation was produced using [employer] dictation software. please excuse any grammatical, word or spelling errors. Time with Patient: Less than 30
== END 2023-01-09 15:18 | disposition home health service (06) | DRG 638 ==
LOC: EC 10:45 → 5NMEDONC 13:49
PROVIDERS: ADMIT Internal Medicine; ATTEND Internal Medicine
PROC: 02HV33Z Insertion of Infusion Device into Superior Vena Cava, Percutaneous Approach (ICD-10-PCS; principal; 2023-01-09 07:30)
DX: E11.69 Type 2 diabetes mellitus with other specified complication (principal); F33.9 Major depressive disorder, recurrent, unspecified; M86.8X7 Other osteomyelitis, ankle and foot; E11.42 Type 2 diabetes mellitus with diabetic polyneuropathy; E11.628 Type 2 diabetes mellitus with other skin complications; E11.622 Type 2 diabetes mellitus with other skin ulcer; E11.65 Type 2 diabetes mellitus with hyperglycemia; I11.9 Hypertensive heart disease without heart failure; E78.5 Hyperlipidemia, unspecified; L03.032 Cellulitis of left toe; B96.89 Other specified bacterial agents as the cause of diseases classified elsewhere; B96.20 Unspecified Escherichia coli [E. coli] as the cause of diseases classified elsewhere; B95.2 Enterococcus as the cause of diseases classified elsewhere; M19.90 Unspecified osteoarthritis, unspecified site; K21.9 Gastro-esophageal reflux disease without esophagitis; G89.29 Other chronic pain; G47.00 Insomnia, unspecified; Z89.411 Acquired absence of right great toe; Z79.4 Long term (current) use of insulin; Z89.412 Acquired absence of left great toe; Z79.84 Long term (current) use of oral hypoglycemic drugs; Z87.891 Personal history of nicotine dependence; Z79.85 Long-term (current) use of injectable non-insulin antidiabetic drugs; Z79.82 Long term (current) use of aspirin; Z79.899 Other long term (current) drug therapy
CPT/HCPCS: 36415; 36573; 80053; 80202; 82565; 85025; 85652; 87040; 87070; 87075; 87077; 87186; 87205; 90471; 90715; 96365; 96366; 96375; 99285

== ENCOUNTER → 2023-02-27 | Outpatient (CLI) | payer BC ==
[2023-02-27 12:49] VITALS: BP 131/60; PULSE 75; RESP 16; TEMP 98
--- NOTE | 2023-02-27 14:24 | P.PAINPG ---
PQRS Measure Charge Sheet Comment: A 67 yr old male with a history of severe and chronic LBP x yrs (s/p fall down stairs) secondary to lumbar DDD and spondylosis with facet arthropathy without myelopathy presents today for evaluation. Pain level is provoked at 7 /10 in intensity, constant, localized in the lumbar spine, predominantly axial, tight in character w shooting towards the back of the hips and BLEs. Pain is provoked by crossing his legs. Pain is alleviated with massage gun use at home, injections, ice, medications, topicals, home stretching regimen, repositioning and rest. Oswestry axial pain score of 26. He hasn't had BL SI injections as he's been on antibiotics for 2 wks. Will schedule upon completion of antibiotics. Interventional pain procedures completed include BL RFA L3-L5 x 5, L SI x2, BL SI (May 2022) Patient is currently on Neurontin 800mg #120, Percocet 10/325mg #120, Voltaren gel Patient denies any side effects of the medication(s), denies excessive drowsiness or sleepiness, denies suicidal ideation and reports that the current pain medication is helping to control the pain and improve activities of daily living. Patient denies any motor or sensory deficits. Patient denies any fever or night sweats, denies any change in the bowel movements or urination. Physical Examination: -Constitutional: Cooperative. Not in acute distress . - Neurologic: Cranial nerve II to XII intact. No focal neurological deficits. - Psychatric: Alert & oriented x 3. Matching mood & appropriate affect. Judgment and insight intact. - Musculoskeletal: Cervical spine: Muscle bulk/ tone/ strength in the bilateral upper extremities normal Vertebral body tenderness to palpation over Spurling test positive Distraction test positive Facet loading test positive TTP Thoracic spine Muscle bulk / tone/ strength in the bilateral paraspinal muscles normal Vertebral body tender to palpation over Facet loading test positive TTP Lumbar spine: Motor bulk/ tone/ strength lower extremities , thigh and legs : 5/5 Deep tendon reflexes : Normal Knee Jerk. Normal Ankle Jerk . Vertebral body tenderness to palpation Mitchell test positive Lumbar Facet Loading Test positive Straight Leg Raise: positive at 30 degrees right side/ left side Gaenslen's Test positive Sacral spine : Severe tenderness over the Sacroiliac joint: right side / left side Range of motion: Flexion of the lumbar spine <60 degrees Range of motion: Extension of the lumbar spine <20 degrees Gaenslen's Test positive right side < left side Papo test: positive right side / left side Thigh Thrust Test positive right side / left side Sacral Thrust Test positive right side < left side Assessment and plan: Chronic LBP secondary to lumbar DDD, spondylosis with facet arthropathy without myelopathy, BL Sacroiliitis Recommendation of medication management. Percocet 10/325mg #120 w 1 RF. Use, side effects, adverse reactions and safe storage discussed. Opiate/ narcotic agreement signed 01/02/23. Pt acknowledged understanding. All questions answered. I have spent less than 30 minutes on patient care today. Dr Mckenzie was available by phone for the evaluation of this patient. The time was used to review the medical records including relevant urine studies and Prescription history (MAPs), review of the available imaging, evaluation and examination of the patient, coordination of care with the medical staff and if applicable referring physicians, as well as creation of the medical record PQRS Narrative: Smoking Status Former smoker Hx Alcohol Use (MH) Yes: RARE Home Medications: Ambulatory Orders Aspirin 81 mg PO DAILY 08/06/13 Zolpidem [Ambien] 10 mg PO HS 09/28/15 Sertraline [Zoloft] 100 mg PO DAILY 11/17/17 Insulin Degludec [Tresiba] 40 units SQ HS 07/27/18 Rosuvastatin Calcium 10 mg PO DAILY 04/25/19 Famotidine [Pepcid] 20 mg PO BID 10/07/19 Dapagliflozin Propanediol [Farxiga] 10 mg PO DAILY 02/01/21 Diclofenac Sodium [Voltaren Arthritis Pain 1% Gel] 1 applic TOPICAL QID PRN 02/03/21 Baclofen [Lioresal] 10 mg PO DAILY 01/03/23 Gabapentin 800 mg PO QID 01/03/23 Insulin Aspart [NovoLOG Flexpen] 10 units SQ AC-TID 01/03/23 Tirzepatide [Mounjaro] 7.5 mg SQ CHATMAN 01/03/23 lisinopriL [Zestril] 10 mg PO DAILY 01/03/23 oxyCODONE HCL/ACETAMINOPHEN [Percocet 10-325 mg] 1 each PO QID PRN 30 Days #120 tab 02/27/23 oxyCODONE-APAP 10-325MG [Percocet 10-325 mg] 1 tab PO Q6H PRN 30 Days #120 tab 02/27/23 Controlled Substance Measures - Controlled Substance Measures Is patient prescribed a controlled substance at discharge?: Yes When asked, does pt state using other controlled substances?: Yes If prescribed controlled substance>3 days was MAPS reviewed?: Yes
== END ==
LOC: PNWHC3 12:10
PROVIDERS: ATTEND Specialist
DX: M46.1 Sacroiliitis, not elsewhere classified (principal); M51.36 Other intervertebral disc degeneration, lumbar region; M47.816 Spondylosis without myelopathy or radiculopathy, lumbar region; G89.29 Other chronic pain; Z51.81 Encounter for therapeutic drug level monitoring; Z87.891 Personal history of nicotine dependence; Z79.82 Long term (current) use of aspirin
CPT/HCPCS: 80307; 99212

== ENCOUNTER 2023-03-16 11:18 | Day surgery (SDC) | payer BC ==
[2023-03-16 11:47] LABS: Glucose,Whole Blood 172 mg/dL (70-110)
[2023-03-16 11:53] VITALS: TEMP 98
[2023-03-16] MEDS ORDERED: IOPAMIDOL M200 10 ML VIAL ONE (12:15)
[2023-03-16] MEDS ORDERED: methylPREDNISolone ACETATE 80 MG/ML 1 ML VIAL ONE (12:15)
[2023-03-16] MEDS ORDERED: ROPIVACAINE 5MG/ML 20ML VIAL ONE (12:15)
--- NOTE | 2023-03-16 12:43 | P.PCN ---
Description of Procedure: Preprocedure diagnosis. Sacroiliac joint arthropathy. Postprocedure diagnosis. As above. Procedure done. Injection of the radio contrast material into bilateral sacroiliac joint, sacroiliac joint arthrogram, interpretation of arthrogram. Bilateral sacroiliac joint injection with local anesthetics and steroid under fluoroscopic guidance. Anesthesia. Local anesthetic infiltration. Continuous EKG, pulse ox, blood pressure, and verbal communication was maintained with the patient in OR. Blood loss. Minimal. Indication. Sacroiliac joint arthropathy. Discussed the procedure, alternatives, complications which may include infection,bleeding, nerve damage, aggravation of pain which could be permanent. Patient understands and questions were answered. Procedure note. After getting consent patient in OR in prone position. Back prepped with chlorhexidine and draped in sterile manner. After injecting 10 mL of 1% lidocaine subcutaneously, a 22-gauge spinal needle was introduced under tunnel vision of the fluoroscope in the lower and posterior one third of right sacroiliac joint. After needle position confirmation by AP and crosstable lateral view, 1 mL of Isovue 200 contrast was injected. Contrast was noted to be into the sacroiliac joint. After repeat negative aspiration, 2.5 mL solution was injected which consists of 1.5 ml of 0.5% Ropivacaine mixed with 1 mL of 40 mg Depo-Medrol. In exactly same way left sacroiliac joint was injected with same amount of solution. After the procedure needles were taken out. Bandage applied. Disposition. Patient tolerated the procedure well. No complication. Patient was discharged home in stable condition.
[2023-03-16 13:01] VITALS: BP 115/72; PULSE 81
[2023-03-16 13:02] VITALS: RESP 18
--- NOTE | 2023-03-16 13:37 | FL ---
EXAMINATION TYPE: FL guided pain mgmt statistic Intraoperative/procedural fluoroscopic services were provided. Total fluoroscopy time is 54.4 seconds with a total of 4 submitted images to PACS. Please s ee the operative/procedural note for further details. DAP: 0.3271 mGym2
== END 2023-03-16 13:02 | disposition home or self-care (01) ==
LOC: ORPAIN 11:18
PROVIDERS: ATTEND Pain Medicine Interventional Pain Medicine
DX: M46.1 Sacroiliitis, not elsewhere classified (principal); E11.9 Type 2 diabetes mellitus without complications; Z79.82 Long term (current) use of aspirin
CPT/HCPCS: 27096; J1040; Q9966; J2795

== ENCOUNTER → 2023-04-24 | Outpatient (CLI) | payer BC ==
[2023-04-24 12:56] VITALS: BP 162/98; PULSE 76; RESP 15; TEMP 98.4
--- NOTE | 2023-04-24 14:22 | P.PAINPG ---
PQRS Measure Charge Sheet Comment: A 67 yr old male with a history of severe and chronic LBP x yrs (s/p fall down stairs) secondary to lumbar DDD and spondylosis with facet arthropathy without myelopathy presents today for evaluation s/p BL SI injection #2 and medication refills. Pt states he experienced 60 % pain relief x 5 wks s/p procedure. Pain level is provoked at 7 /10 in intensity, constant, localized in the lumbar spine, predominantly axial, tight in character w shooting towards the back of the hips and BLEs. Pain is provoked by crossing his legs. Pain is alleviated with massage gun use at home, injections, ice, medications, topicals, home stretching regimen, repositioning and rest. Oswestry axial pain score of 26. He hasn't had BL SI injections as he's been on antibiotics for 2 wks. Will schedule upon completion of antibiotics. Interventional pain procedures completed include BL RFA L3-L5 x 5, L SI x2, BL SI x2 (May 2022, Mar 2023) Patient is currently on Neurontin 800mg #120, Percocet 10/325mg #120, Voltaren gel Patient denies any side effects of the medication(s), denies excessive drowsiness or sleepiness, denies suicidal ideation and reports that the current pain medication is helping to control the pain and improve activities of daily living. Patient denies any motor or sensory deficits. Patient denies any fever or night sweats, denies any change in the bowel movements or urination. Physical Examination: -Constitutional: Cooperative. Not in acute distress . - Neurologic: Cranial nerve II to XII intact. No focal neurological deficits. - Psychatric: Alert & oriented x 3. Matching mood & appropriate affect. Judgment and insight intact. - Musculoskeletal: Cervical spine: Muscle bulk/ tone/ strength in the bilateral upper extremities normal Vertebral body tenderness to palpation over Spurling test positive Distraction test positive Facet loading test positive TTP Thoracic spine Muscle bulk / tone/ strength in the bilateral paraspinal muscles normal Vertebral body tender to palpation over Facet loading test positive TTP Lumbar spine: Motor bulk/ tone/ strength lower extremities , thigh and legs : 5/5 Deep tendon reflexes : Normal Knee Jerk. Normal Ankle Jerk . Vertebral body tenderness to palpation Mitchell test positive Lumbar Facet Loading Test positive Straight Leg Raise: positive at 30 degrees right side/ left side Gaenslen's Test positive Sacral spine : Severe tenderness over the Sacroiliac joint: right side / left side Range of motion: Flexion of the lumbar spine <60 degrees Range of motion: Extension of the lumbar spine <20 degrees Gaenslen's Test positive right side < left side Papo test: positive right side / left side Thigh Thrust Test positive right side / left side Sacral Thrust Test positive right side < left side Assessment and plan: Chronic LBP secondary to lumbar DDD, spondylosis with facet arthropathy without myelopathy, BL Sacroiliitis Recommendation of medication management. UDS from 02/27/23 reviewed and consistent. Percocet 10/325mg #120 w 1 RF. Use, side effects, adverse reactions and safe storage discussed. Opiate/ narcotic agreement signed 01/02/23. Pt acknowledged understanding. All questions answered. I have spent less than 30 minutes on patient care today. Dr Mckenzie was available by phone for the evaluation of this patient. The time was used to review the medical records including relevant urine studies and Prescription history (MAPs), review of the available imaging, evaluation and examination of the patient, coordination of care with the medical staff and if applicable referring physicians, as well as creation of the medical record PQRS Narrative: Smoking Status Former smoker Hx Alcohol Use (MH) Yes: RARE Home Medications: Ambulatory Orders Aspirin 81 mg PO DAILY 08/06/13 Zolpidem [Ambien] 10 mg PO HS 09/28/15 Sertraline [Zoloft] 100 mg PO DAILY 11/17/17 Insulin Degludec [Tresiba] 40 units SQ HS 07/27/18 Rosuvastatin Calcium 10 mg PO DAILY 04/25/19 Famotidine [Pepcid] 20 mg PO BID 10/07/19 Dapagliflozin Propanediol [Farxiga] 10 mg PO DAILY 02/01/21 Diclofenac Sodium [Voltaren Arthritis Pain 1% Gel] 1 applic TOPICAL QID PRN 02/03/21 Baclofen [Lioresal] 10 mg PO DAILY PRN 01/03/23 Gabapentin 800 mg PO QID 01/03/23 Insulin Aspart [NovoLOG Flexpen] 10 units SQ AC-TID PRN 01/03/23 Tirzepatide [Mounjaro] 7.5 mg SQ CHATMAN 01/03/23 lisinopriL [Zestril] 10 mg PO DAILY 01/03/23 oxyCODONE-APAP 10-325MG [Percocet 10-325 mg] 1 tab PO Q6H PRN 30 Days #120 tab 04/24/23 oxyCODONE-APAP 10-325MG [Percocet 10-325 mg] 1 tab PO Q6HR PRN 30 Days #120 tab 04/24/23 Controlled Substance Measures - Controlled Substance Measures Is patient prescribed a controlled substance at discharge?: Yes When asked, does pt state using other controlled substances?: Yes If prescribed controlled substance>3 days was MAPS reviewed?: Yes
== END ==
LOC: PNWHC3 12:35
PROVIDERS: ATTEND Specialist
DX: M46.1 Sacroiliitis, not elsewhere classified (principal); M51.36 Other intervertebral disc degeneration, lumbar region; M47.816 Spondylosis without myelopathy or radiculopathy, lumbar region; Z79.82 Long term (current) use of aspirin; Z87.891 Personal history of nicotine dependence
CPT/HCPCS: 99211

== ENCOUNTER → 2023-08-14 | Outpatient (CLI) | payer BC ==
[2023-08-14 12:50] VITALS: BP 118/77; PULSE 69; RESP 16
--- NOTE | 2023-08-14 13:21 | P.PAINPG ---
PQRS Measure Charge Sheet Comment: A 67 yr old male with a history of severe and chronic LBP x yrs (s/p fall down stairs) secondary to lumbar DDD and spondylosis with facet arthropathy without myelopathy presents today for medication refills. Pt underwent BL SI injection on Mar 16 and states he experienced 60 % pain relief x 4 mos/p procedure. Pain level is provoked at 7 /10 in intensity, constant, localized in the lumbar spine, predominantly axial, tight in character w shooting towards the back of the hips and BLEs. Pain is provoked by crossing his legs. Pain is alleviated with massage gun use at home, injections, ice, medications, topicals, home stretching regimen, repositioning and rest. Oswestry axial pain score of 26. Interventional pain procedures completed include BL RFA L3-L5 x 5, L SI x2, BL SI x2 (May 2022, Mar 2023) Patient is currently on Neurontin 800mg #120, Percocet 10/325mg #120, Voltaren gel Patient denies any side effects of the medication(s), denies excessive drowsiness or sleepiness, denies suicidal ideation and reports that the current pain medication is helping to control the pain and improve activities of daily living. Patient denies any motor or sensory deficits. Patient denies any fever or night sweats, denies any change in the bowel movements or urination. Physical Examination: -Constitutional: Cooperative. Not in acute distress . - Neurologic: Cranial nerve II to XII intact. No focal neurological deficits. - Psychatric: Alert & oriented x 3. Matching mood & appropriate affect. Judgment and insight intact. - Musculoskeletal: Cervical spine: Muscle bulk/ tone/ strength in the bilateral upper extremities normal Vertebral body tenderness to palpation over Spurling test positive Distraction test positive Facet loading test positive TTP Thoracic spine Muscle bulk / tone/ strength in the bilateral paraspinal muscles normal Vertebral body tender to palpation over Facet loading test positive TTP Lumbar spine: Motor bulk/ tone/ strength lower extremities , thigh and legs : 5/5 Deep tendon reflexes : Normal Knee Jerk. Normal Ankle Jerk . Vertebral body tenderness to palpation Mitchell test positive Lumbar Facet Loading Test positive Straight Leg Raise: positive at 30 degrees right side/ left side Gaenslen's Test positive Sacral spine : Severe tenderness over the Sacroiliac joint: right side / left side Range of motion: Flexion of the lumbar spine <60 degrees Range of motion: Extension of the lumbar spine <20 degrees Gaenslen's Test positive right side < left side Papo test: positive right side / left side Thigh Thrust Test positive right side / left side Sacral Thrust Test positive right side < left side Assessment and plan: Chronic LBP secondary to lumbar DDD, spondylosis with facet arthropathy without myelopathy, BL Sacroiliitis Recommendation of BL SI injection #2 and medication management. May need a series of injections for optimal pain relief. Risks, benefits of procedure discussed and pt verbalized understanding. UDS from 02/27/23 reviewed and consistent. Percocet 10/325mg #120 w 1 RF. Use, side effects, adverse reactions and safe storage discussed. Opiate/ narcotic agreement signed 01/02/23. Pt acknowledged understanding. All questions answered. I have spent less than 30 minutes on patient care today. Dr Mckenzie was available by phone for the evaluation of this patient. The time was used to review the medical records including relevant urine studies and Prescription history (MAPs), review of the available imaging, evaluation and examination of the patient, coordination of care with the medical staff and if applicable referring physicians, as well as creation of the medical record PQRS Narrative: Smoking Status Former smoker Hx Alcohol Use (MH) Yes: RARE Home Medications: Ambulatory Orders Aspirin 81 mg PO DAILY 08/06/13 Zolpidem [Ambien] 10 mg PO HS 09/28/15 Sertraline [Zoloft] 100 mg PO DAILY 11/17/17 Insulin Degludec [Tresiba] 40 units SQ HS 07/27/18 Rosuvastatin Calcium 10 mg PO DAILY 04/25/19 Famotidine [Pepcid] 20 mg PO BID 10/07/19 Dapagliflozin Propanediol [Farxiga] 10 mg PO DAILY 02/01/21 Diclofenac Sodium [Voltaren Arthritis Pain 1% Gel] 1 applic TOPICAL QID PRN 02/03/21 Baclofen [Lioresal] 10 mg PO DAILY PRN 01/03/23 Gabapentin 800 mg PO QID 01/03/23 Insulin Aspart [NovoLOG Flexpen] 10 units SQ AC-TID PRN 01/03/23 Tirzepatide [Mounjaro] 7.5 mg SQ CHATMAN 01/03/23 lisinopriL [Zestril] 10 mg PO DAILY 01/03/23 oxyCODONE-APAP 10-325MG [Percocet 10-325 mg] 1 tab PO Q6H PRN 30 Days #120 tab 04/24/23 oxyCODONE-APAP 10-325MG [Percocet 10-325 mg] 1 tab PO Q6HR PRN 30 Days #120 tab 07/17/23 Controlled Substance Measures - Controlled Substance Measures Is patient prescribed a controlled substance at discharge?: Yes When asked, does pt state using other controlled substances?: Yes If prescribed controlled substance>3 days was MAPS reviewed?: Yes
== END ==
LOC: PNWHC3 07-17 13:02
PROVIDERS: ATTEND Specialist
DX: M51.36 Other intervertebral disc degeneration, lumbar region (principal); M47.816 Spondylosis without myelopathy or radiculopathy, lumbar region; M46.1 Sacroiliitis, not elsewhere classified; Z87.891 Personal history of nicotine dependence
CPT/HCPCS: 99211

== ENCOUNTER 2023-09-05 09:10 | Day surgery (SDC) | payer BC ==
[2023-09-01 15:41] VITALS: BMI 30.3
[2023-09-05 10:05] LABS: Glucose,Whole Blood 106 mg/dL (70-110)
[2023-09-05 10:06] VITALS: TEMP 97.7
[2023-09-05] MEDS ORDERED: IOPAMIDOL M200 10 ML VIAL ONE (10:36)
[2023-09-05] MEDS ORDERED: methylPREDNISolone ACETATE 40 MG/ML 1 ML VIAL ONE (10:36)
[2023-09-05] MEDS ORDERED: ROPIVACAINE 5MG/ML 20ML VIAL ONE (10:36)
--- NOTE | 2023-09-05 10:42 | P.PCN ---
Date of Procedure: 09/05/23 Description of Procedure: Procedure: Sacroiliac joint injection bilateral Preoperative diagnosis: Sacroiliitis Postoperative diagnosis: Sacroiliitis Imaging: Fluoroscopy was used, images where saved to the medical record Complications: none ANESTHESIA: Patient re-evaluated prior to sedation given. local only Description of the procedure: procedure risk and benefits discussed with the patient, including but not limited, risk of infection and bleeding, and allergic reaction to the medication and incomplete pain relief. Patient agreed and sign ed consent. Patient was taken to the room and placed in a prone position. Chlorhexidine was used to cleanse the skin. RIGHT: Under sterile conditions patient skin was anesthetized 1% lidocaine. S ubcutaneous tissues were also anesthetized with a total 5 mL of 1% lidocaine. After that, a 22-gauge spinal needle was advanced through the anesthetized location under fluoroscopic guidance. Needle was advanced into the inferior portion of the sacroiliac joint. IV contrast was used to confirm spread within the joint. After adequate spread was achieved, 2.5 ML's of 0.5% ropivacaine with 20 mg of depomedrol was injected into the joint. LEFT: Under sterile conditions patient skin was anesthetized 1% lidocaine. Subcutaneous tissues were also anesthetized with a total 5 mL of 1% lidocaine. After that, a 22-gauge spinal needle was advanced through the anesthetized location under fluoroscopic guidance. Needle was advanced into the inferior portion of the sacroiliac joint. IV contrast was used to confirm spread within the joint. After adequate spread was achieved, 2.5 ML's of 0.5% ropivacaine with 20 mg of depomedrol was injected into the joint. Patient tolerated the procedure well. Sent to the recovery room in stable condition. Patient will follow up as directed.
--- NOTE | 2023-09-05 10:53 | FL ---
Fluoroscopy History: M46.1 Dillon SI joint injections 4 sec fl .[id number] DAP
[2023-09-05 11:14] VITALS: BP 139/67; PULSE 68; RESP 18
== END 2023-09-05 11:10 | disposition home or self-care (01) ==
LOC: ORPAIN 09:10
PROVIDERS: ATTEND Hospitalist
DX: M46.1 Sacroiliitis, not elsewhere classified (principal)
CPT/HCPCS: 27096; Q9966; J2795; J1010

== ENCOUNTER → 2023-10-09 | Outpatient (CLI) | payer BC ==
[2023-10-09 12:56] VITALS: TEMP 97.3
[2023-10-09 13:21] VITALS: BP 112/71; PULSE 73; RESP 16
--- NOTE | 2023-10-12 07:57 | P.PAINPG ---
Objective - Vital Signs Vital signs: Vital Signs Temp 97.3 F L 10/09/23 12:51 Pulse Resp BP Pulse Ox FiO2 Intake & Output 10/08/23 10/09/23 10/09/23 18:59 06:59 18:59 Weight 102.058 kg PQRS Measure Charge Sheet Mode of Arrival: Ambulatory Comment: A 68 yr old male with a history of severe and chronic LBP x yrs (s/p fall down stairs) secondary to lumbar DDD and spondylosis with facet arthropathy without myelopathy presents today for medication refills and evaluation s/p BL SI injection. Pt states he experienced 60 % pain relief x 4 wks s/p procedure. Pain level is provoked at 8 /10 in intensity, intermittent, localized in the lumbar spine, predominantly axial, tight in character w shooting towards the back of the R hip and RLE. Pain is provoked by crossing his legs. Pain is juan viated with massage gun use at home, injections, ice, medications, topicals, home stretching regimen, repositioning and rest. Interventional pain procedures completed include BL RFA L3-L5 x 5, L SI x2, BL SI x2 (May 2022, Mar 2023, Aug 2023) Patient is currently on Neurontin 800mg #120, Percocet 10/325mg #120, Voltaren gel Patient denies any side effects of the medication(s), denies excessive dr owsiness or sleepiness, denies suicidal ideation and reports that the current pain medication is helping to control the pain and improve activities of daily living. Patient denies any motor or sensory deficits. Patient denies any fever or night sweats, denies any change in the bowel movements or urination. Physical Examination: -Constitutional: Cooperative. Not in acute distress . - Neurologic: Cranial nerve II to XII intact. No focal neurological deficits. - Psychatric: Alert & oriented x 3. Matching mood & appropriate affect. Judgment and insight intact. - Musculoskeletal: Cervical spine: Muscle bulk/ tone/ strength in the bilateral upper extremities normal Vertebral body tenderness to palpation over Spurling test positive Distraction test positive Facet loading test positive TTP Thoracic spine Muscle bulk / tone/ strength in the bilateral paraspinal muscles normal Vertebral body tender to palpation over Facet loading test positive TTP Lumbar spine: Motor bulk/ tone/ strength lower extremities , thigh and legs : 5/5 Deep tendon reflexes : Normal Knee Jerk. Normal Ankle Jerk . Vertebral body tenderness to palpation Mitchell test positive Lumbar Facet Loading Test positive Straight Leg Raise: positive at 30 degrees right side/ left side Gaenslen's Test positive Sacral spine : Severe tenderness over the Sacroiliac joint: right side / left side Range of motion: Flexion of the lumbar spine <60 degrees Range of motion: Extension of the lumbar spine <20 degrees Gaenslen's Test positive right side < left side Papo test: positive right side / left side Thigh Thrust Test positive right side / left side Sacral Thrust Test positive right side < left side Assessment and plan: Chronic LBP secondary to lumbar DDD, spondylosis with facet arthropathy without myelopathy, BL Sacroiliitis Recommendation of medication management. Percocet 10/325mg #120 w 1 RF. UDS collected 10/09/23. Use, side effects, adverse reactions and safe storage discussed. Opiate/ narcotic agreement signed 01/02/23. Pt acknowledged understanding. All questions answered. I have spent less than 30 minutes on patient care today. Dr Mckenzie was available by phone for the evaluation of this patient. The time was used to review the medical records including relevant urine studies and Prescription history (MAPs), review of the available imaging, evaluation and examination of the patient, coordination of care with the medical staff and if applicable referring physicians, as well as creation of the medical record - Pain Location Bilateral Lower Back Non-Pharmacological Interventions: Heat, Ice, Physical Therapy, Position/Reposition, Sitting Pharmacological Interventions: Block, Epidural, PRN Medication, Scheduled Med ication, Topical Medication PQRS Narrative: Smoking Status Former smoker Pain Intensity [Bilateral 4 Lower Back] Scale Used Numeric (1 - 10) Hx Alcohol Use (MH) No: RARE Home Medications: Ambulatory Orders Aspirin 81 mg PO DAILY 08/06/13 Zolpidem [Ambien] 10 mg PO HS 09/28/15 Sertraline [Zoloft] 100 mg PO DAILY 11/17/17 Insulin Degludec [Tresiba] 40 units SQ HS 07/27/18 Rosuvastatin Calcium 10 mg PO DAILY 04/25/19 Famotidine [Pepcid] 20 mg PO BID 10/07/19 Dapagliflozin Propanediol [Farxiga] 10 mg PO DAILY 02/01/21 Diclofenac Sodium [Voltaren Arthritis Pain 1% Gel] 1 applic TOPICAL QID PRN 02/03/21 Baclofen [Lioresal] 10 mg PO DAILY PRN 01/03/23 Gabapentin 800 mg PO QID 01/03/23 Insulin Aspart [NovoLOG Flexpen] 10 units SQ AC-TID PRN 01/03/23 Tirzepatide [Mounjaro] 7.5 mg SQ CHATMAN 01/03/23 lisinopriL [Zestril] 10 mg PO DAILY 01/03/23 oxyCODONE-APAP 10-325MG [Percocet 10-325 mg] 1 tab PO Q6H PRN 30 Days #120 tab 10/09/23 oxyCODONE-APAP 10-325MG [Percocet 10-325 mg] 1 tab PO Q6HR PRN 30 Days #120 tab 10/09/23 Controlled Substance Measures - Controlled Substance Measures Is patient prescribed a controlled substance at discharge?: Yes When asked, does pt state using other controlled substances?: No If prescribed controlled substance>3 days was MAPS reviewed?: Yes
== END ==
LOC: PNWHC3 12:33
PROVIDERS: ATTEND Specialist
DX: M46.1 Sacroiliitis, not elsewhere classified
CPT/HCPCS: 99212

== ENCOUNTER → 2023-11-14 | Outpatient (CLI) | payer BC ==
--- NOTE | 2023-11-14 11:13 | US ---
EXAMINATION TYPE: US carotid duplex BILAT DATE OF EXAM: 11/14/2023 COMPARISON: NONE CLINICAL INDICATION: Male, 68 years old with history of [id number] CAROTID STENOSIS BILATERAL; Stenosis TECHNIQUE: Grayscale, color Doppler and spectral Doppler evaluation of the bilateral carotid systems and vertebral arteries.Indirect Doppler criteria was utilized. FINDINGS: EXAM MEASUREMENTS: RIGHT: Peak Systolic Velocity (PSV) cm/sec ----- Right CCA: 62.9 ----- Right ICA: 75.8 ----- Right ECA: 87.6 ICA/CCA ratio: 1.2 RIGHT: End Diastole cm/sec ----- Right CCA: 14.5 ----- Right ICA: 18.3 ----- Right ECA: 17.2 LEFT: Peak Systolic Velocity (PSV) cm/sec ----- Left CCA: 69.3 ----- Left ICA: 71.5 ----- Left ECA: 109 ICA/CCA ratio: 1.0 LEFT: End Diastole cm/sec ----- Left CCA: 19.4 ----- Left ICA: 27.4 ----- Left ECA: 19.0 VERTEBRALS (direction of flow): Right Vertebral: Antegrade Left Vertebral: Antegrade Rhythm: Normal LEAD JAVA PROGRAMMER NOTES: No significant stenosis seen IMPRESSION: No significant hemodynamic stenosis. Criteria for Assigning % of Stenosis / Diameter reduction (Estimation based on the indirect measurements of the internal carotid artery velocities (ICA PSV). 1. Normal (no stenosis)=ICA PSV < 125 cm/s: ratio < 2.0: ICA EDV<40 cm/s. 2. Less than 50% stenosis=ICA PSV < 125 cm/s: ratio < 2.0: ICA EDV<40 cm/s. 3. 50 to 69% stenosis=ICA PSV of 125 to 230 cm/s: ration 2.0 ? 4.0: ICA EDV 40-100 cm/s. 4. Greater than 70% stenosis to near occlusion= ICA PSV > 230 cm/s: ratio > 4.0: ICA EDV > 100 cm/s. 5. Near occlusion= ICA PSV velocities may be low or undetectable: variable ratio and ICA EDV. 6. Total occlusion=unable to detect flow. [facility], , 11/14/2023 11:11 AM
--- NOTE | 2023-11-14 11:49 | US ---
EXAMINATION TYPE: US liver DATE OF EXAM: 11/14/2023 COMPARISON: CT CLINICAL INDICATION: Male, 68 years old with history of [id number] ELEVATION OF LEVELS OF LIVER; Abnormal LFT's TECHNIQUE: Grayscale and color Doppler imaging of the right upper quadrant was performed. FINDINGS: EXAM MEASUREMENTS: Liver Length: 15.4 cm Gallbladder Wall: 0.3 cm CBD: 0.5 cm Right Kidney: 10.8 x 5.1 x 5.1 cm RELAY TECHNICIAN NOTES: Pancreas: Obscured by bowel gas Liver: Visualized portions appeared wnl Gallbladder: Slightly contracted, possible small polyps and small stone at fundus Evidence for sonographic Elizondo's sign: No CBD: wnl Right Kidney: No evidence of hydro, possible calculi lower pole= 0.5 cm IMPRESSION: 1. Contracted gallbladder with small gallbladder polyp small gallstone. No ultrasound evidence of cho lecystitis. 2. There is a 5 mm lower pole right renal calculus. [facility], , 11/14/2023 11:47 AM
--- NOTE | 2023-11-14 17:17 | CA ---
Transthoracic Echo Report Name: Dustin Coombs Age: 68 Gender: M : 1955 Exam Date: 11/14/2023 10:34 Exam Location: [facility] Ht (in): 73 Wt (lb): 220 Ordering Physician: Suzette Castillo MD Attending/Referring Phys: Suzette Castillo MD Clinical Aide Misa Koenig RDCS Procedure CPT: Indications: I25.10 CAD Cardiac Hx: Technical Quality: Good Contrast 1: Total Dose (mL): Contrast 2: Total Dose (mL): MEASUREMENTS (Male / Female) Normal Values 2D ECHO LV Diastolic Diameter PLAX 4.9 cm 4.2 - 5.9 / 3.9 - 5.3 cm LV Systolic Diameter PLAX 2.9 cm IVS Diastolic Thickness 1.1 cm 0.6 - 1.0 / 0.6 - 0.9 cm LVPW Diastolic Thickness 1.0 cm 0.6 - 1.0 / 0.6 - 0.9 cm LV Relative Wall Thickness 0.4 RV Internal Dim ED PLAX 3.9 cm LA Systolic Diameter LX 3.9 cm 3.0 - 4.0 / 2.7 - 3.8 cm LV Diastolic Volume MOD 4C 103.0 cm??? LV Systolic Volume MOD 4C 47.7 cm??? LV Ejection Fraction MOD 4C 53.7 % LV Cardiac Index MOD 4C 1572.0 cm???/min???m??? LV Diastolic Length 4C 8.8 cm LV Systolic Length 4C 7.4 cm LV Diastolic Volume MOD 2C 81.1 cm??? LV Systolic Volume MOD 2C 34.9 cm??? LV Ejection Fraction MOD 2C 57.0 % LV Cardiac Index MOD 2C 1314.0 cm???/min???m??? LV Diastolic Length 2C 8.9 cm LV Systolic Length 2C 7.6 cm M-MODE Aortic Root Diameter MM 3.6 cm AV Cusp Separation MM 2.4 cm DOPPLER AV Peak Velocity 119.8 cm/s AV Peak Gradient 5.7 mmHg Mitral E Point Velocity 60.8 cm/s Mitral A Point Velocity 85.1 cm/s Mitral E to A Ratio 0.7 MV Deceleration Time 465.6 ms MV E' Velocity 8.4 cm/s Mitral E to MV E' Ratio 7.3 TR Peak Velocity 232.8 cm/s TR Peak Gradient 21.7 mmHg Right Ventricular Systolic Press 31.8 mmHg FINDINGS Left Ventricle Left ventricular ejection fraction is estimated at 55-60 %. Left ventricular cavity size normal. Left ventricular wall thickness normal. Normal left ventricular wall motion. Right Ventricle Moderate right ventricular dilatation. Right ventricular systolic pressure within normal limits. Right Atrium Normal right atrial size. No right atrial thrombus or mass seen. Left Atrium Normal left atrial size. No left atrial thrombus or mass present. Mitral Valve Structurally normal mitral valve. No evidence for mitral valve prolapse. No mitral stenosis. Mild mitral regurgitation. Aortic Valve Trileaflet aortic valve. No aortic valve stenosis or regurgitation. Tricuspid Valve Structurally normal tricuspid valve. Mild tricuspid regurgitation. Pulmonic Valve Structurally normal pulmonic valve. No pulmonic regurgitation. Pericardium No pericardial or pleural effusion. Aorta Normal size aortic root and proximal ascending aorta. CONCLUSIONS Normal LV function Previewed by: Dr. Adilson Obando MD (Electronically Signed) Final Date: 14 November 2023 17:16
== END | disposition home or self-care (01) ==
LOC: RADUSWWP 09:23
PROVIDERS: ATTEND Internal Medicine
DX: I25.10 Atherosclerotic heart disease of native coronary artery without angina pectoris (principal); I65.23 Occlusion and stenosis of bilateral carotid arteries; R74.01 Elevation of levels of liver transaminase levels; K82.4 Cholesterolosis of gallbladder; N20.0 Calculus of kidney; I07.1 Rheumatic tricuspid insufficiency
CPT/HCPCS: 76705; 93306; 93880

== ENCOUNTER → 2023-12-04 | Outpatient (CLI) | payer BC ==
[2023-12-04 13:19] VITALS: BP 169/84; PULSE 71; RESP 16; TEMP 97.1
--- NOTE | 2023-12-04 15:03 | P.PAINPG ---
PQRS Measure Charge Sheet Comment: A 68 yr old male with a history of severe and chronic LBP x yrs (s/p fall down stairs) secondary to radiculopathy, spondylosis and facet arthropathy without myelopathy presents today for medication refills. Pain level is provoked at 8 /10 in intensity, intermittent, localized in the lumbar spine, predominantly axial, tight in character w shooting towards the back of the R hip and RLE. Pain is provoked by crossing his legs. Pain is alleviated with massage gun use at home, injections, ice, medications, topicals, home stretching regimen, repositioning and rest. Interventional pain procedures completed include BL RFA L3-L5 x 5, L SI x2, BL SI x2 (May 2022, Mar 2023, Aug 2023) Patient is currently on Neurontin 800mg #120, Percocet 10/325mg #120, Voltaren gel Patient denies any side effects of the medication(s), denies excessive drowsiness or sleepiness, denies suicidal ideation and reports that the current pain medication is helping to control the pain and improve activities of daily living. Patient denies any motor or sensory deficits. Patient denies any fever or night sweats, denies any change in the bowel movements or urination. Physical Examination: -Constitutional: Cooperative. Not in acute distress . - Neurologic: Cranial nerve II to XII intact. No focal neurological deficits. - Psychatric: Alert & oriented x 3. Matching mood & appropriate affect. Judgment and insight intact. - Musculoskeletal: Cervical spine: Muscle bulk/ tone/ strength in the bilateral upper extremities normal Vertebral body tenderness to palpation over Spurling test positive Distraction test positive Facet loading test positive TTP Thoracic spine Muscle bulk / tone/ strength in the bilateral paraspinal muscles normal Vertebral body tender to palpation over Facet loading test positive TTP Lumbar spine: Motor bulk/ tone/ strength lower extremities , thigh and legs : 5/5 Deep tendon reflexes : Normal Knee Jerk. Normal Ankle Jerk . Vertebral body tenderness to palpation Mitchell test positive Lumbar Facet Loading Test positive Straight Leg Raise: positive at 30 degrees right side/ left side Gaenslen's Test positive Sacral spine : Severe tenderness over the Sacroiliac joint: right side / left side Range of motion: Flexion of the lumbar spine <60 degrees Range of motion: Extension of the lumbar spine <20 degrees Gaenslen's Test positive right side < left side Papo test: positive right side / left side Thigh Thrust Test positive right side / left side Sacral Thrust Test positive right side < left side Assessment and plan: Chronic LBP secondary to radiculopathy, spondylosis with facet arthropathy without myelopathy, BL Sacroiliitis Recommendation of medication management. Percocet 10/325mg #120 w 1 RF. UDS from 10/09/23 reviewed and consistent. Per MAPS, MME is in excess of 50 so added Narcan and discussed use, awareness of use to close family and friends. Use, side effects, adverse reactions and safe storage discussed. Opiate/ narcotic agreement signed 01/02/23. Pt acknowledged understanding. All questions answered. I have spent less than 30 minutes on patient care today. Dr Mckenzie was available by phone for the evaluation of this patient. The time was used to review the medical records including relevant urine studies and Prescription history (MAPs), review of the available imaging, evaluation and examination of the patient, coordination of care with the medical staff and if applicable referring physicians, as well as creation of the medical record PQRS Narrative: Smoking Status Former smoker Hx Alcohol Use (MH) No: RARE Home Medications: Ambulatory Orders Aspirin 81 mg PO DAILY 08/06/13 Zolpidem [Ambien] 10 mg PO HS 09/28/15 Sertraline [Zoloft] 100 mg PO DAILY 11/17/17 Insulin Degludec [Tresiba] 40 units SQ HS 07/27/18 Rosuvastatin Calcium 10 mg PO DAILY 04/25/19 Famotidine [Pepcid] 20 mg PO BID 10/07/19 Dapagliflozin Propanediol [Farxiga] 10 mg PO DAILY 02/01/21 Diclofenac Sodium [Voltaren Arthritis Pain 1% Gel] 1 applic TOPICAL QID PRN 02/03/21 Baclofen [Lioresal] 10 mg PO DAILY PRN 01/03/23 Gabapentin 800 mg PO QID 01/03/23 Insulin Aspart [NovoLOG Flexpen] 10 units SQ AC-TID PRN 01/03/23 Tirzepatide [Mounjaro] 7.5 mg SQ CHATMAN 01/03/23 lisinopriL [Zestril] 10 mg PO DAILY 01/03/23 Naloxone HCl [Narcan] 4 mg NASAL ONCE PRN 365 Days #1 each 10/21/24 oxyCODONE-APAP 10-325MG [Percocet 10-325 mg] 1 tab PO Q6H PRN 30 Days #120 tab 12/04/23 oxyCODONE-APAP 10-325MG [Percocet 10-325 mg] 1 tab PO Q6HR PRN 30 Days #120 tab 12/04/23 Controlled Substance Measures - Controlled Substance Measures Is patient prescribed a controlled substance at discharge?: Yes When asked, does pt state using other controlled substances?: Yes If prescribed controlled substance>3 days was MAPS reviewed?: Yes
== END ==
LOC: PNWHC3 12:45
PROVIDERS: ATTEND Specialist
DX: M46.1 Sacroiliitis, not elsewhere classified
CPT/HCPCS: 99211

== ENCOUNTER 2023-12-25 14:36 | Inpatient (IN) | payer BC ==
--- NOTE | 2023-12-25 15:31 | XR ---
EXAMINATION TYPE: XR foot complete LT DATE OF EXAM: 12/25/2023 3:19 PM COMPARISON: 01/03/2023 CLINICAL INDICATION: Male, 68 years old with history of infection; TECHNIQUE: XR foot complete LT examined in the AP, oblique, and lateral projections. FINDINGS/IMPRESSION: 1. Amputation changes of the first digit metatarsal shaft. No evidence for osseous erosion. Soft tis justin wound possible in the amputation site. No evidence for subcutaneous gas. Soft tissue swelling cor relate for infection. 2. No evidence of fracture. 3. Multifocal degeneration changes of joints of the foot with joint space narrowing osteophyte forma tion. [facility], , 12/25/2023 3:29 PM
[2023-12-25] MEDS: PIPERACILLIN-TAZOBACTAM 3.375 GM in SODIUM CHLORIDE 0.9% 100 ML IVPB SCH (15:32)
[2023-12-25 15:44] LABS: Basophils % (A) 1 %; Eosinophils # (A) 0.3 k/uL (0-0.7); Eosinophils % (A) 3 %; HCT 42.8 % (39.0-53.0); HGB 13.8 gm/dL (13.0-17.5); Lymphocytes # (A) 1.3 k/uL (1.0-4.8); Lymphocytes % (A) 16 %; MCH 28.3 pg (25.0-35.0); MCHC 32.3 g/dL (31.0-37.0); MCV 87.8 fL (80.0-100.0); Mean Platelet Volume 6.9; Monocytes # (A) 0.3 k/uL (0-1.0); Monocytes % (A) 4 %; Neutrophils # (A) 5.8 k/uL (1.3-7.7); Neutrophils % (A) 74 %; Platelet Count 333 k/uL (150-450); RBC 4.87 m/uL (4.30-5.90); RDW 12.7 % (11.5-15.5); WBC 7.8 k/uL (3.8-10.6)
[2023-12-25] MEDS ORDERED: ACETAMINOPHEN TAB 325 MG TAB PO PRN (15:52)
[2023-12-25] MEDS ORDERED: NALOXONE 0.4 MG/ML 1 ML VIAL IV PRN (15:52)
[2023-12-25] MEDS ORDERED: traMADol 50 MG TAB PO PRN (15:52)
[2023-12-25] MEDS ORDERED: HYDROcodone/APAP 5-325MG 1 EACH TAB PO PRN (15:52)
--- NOTE | 2023-12-25 15:52 | ED ---
General Adult HPI - General Chief complaint: Extremity Problem,Nontraumatic Stated complaint: foot infection Time Seen by Provider: 12/25/23 14:37 Source: patient, RN notes reviewed Mode of arrival: wheelchair Limitations: no limitations - History of Present Illness Initial comments: Patient is a 68-year-old male presenting to the emergency department as a transfer from wound center. There is concern for infection of his diabetic foot wound. Patient states there is redness and swelling that is new. No fevers. Patient does go to wound center for the past year and a half secondary to chronic wounds. - Related Data Home Medications Medication Instructions Recorded Confirmed Aspirin 81 mg PO DAILY 08/06/13 12/04/23 Zolpidem [Ambien] 10 mg PO HS 09/28/15 12/04/23 Sertraline [Zoloft] 100 mg PO DAILY 11/17/17 12/04/23 Insulin Degludec [Tresiba] 40 units SQ HS 07/27/18 12/04/23 Rosuvastatin Calcium 10 mg PO DAILY 04/25/19 12/04/23 Famotidine [Pepcid] 20 mg PO BID 10/07/19 12/04/23 Dapagliflozin Propanediol [Farxiga] 10 mg PO DAILY 02/01/21 12/04/23 Diclofenac Sodium [Voltaren 1 applic TOPICAL QID PRN 02/03/21 12/04/23 Arthritis Pain 1% Gel] Baclofen [Lioresal] 10 mg PO DAILY PRN 01/03/23 12/04/23 Gabapentin 800 mg PO QID 01/03/23 12/04/23 Insulin Aspart [NovoLOG Flexpen] 10 units SQ AC-TID PRN 01/03/23 12/04/23 Tirzepatide [Mounjaro] 7.5 mg SQ CHATMAN 01/03/23 12/04/23 lisinopriL [Zestril] 10 mg PO DAILY 01/03/23 12/04/23 Previous Rx's Medication Instructions Recorded Naloxone HCl [Narcan] 4 mg NASAL ONCE PRN 365 Days #1 12/04/23 each oxyCODONE-APAP 10-325MG [Percocet 1 tab PO Q6H PRN 30 Days #120 tab 12/04/23 10-325 mg] oxyCODONE-APAP 10-325MG [Percocet 1 tab PO Q6HR PRN 30 Days #120 tab 12/04/23 10-325 mg] Allergies Allergy/AdvReac Type Severity Reaction Status Date / Time No Known Allergies Allergy Verified 12/04/23 13:00 Review of Systems ROS Statement: Those systems with pertinent positive or pertinent negative responses have been documented in the HPI. ROS Other: All systems not noted in ROS Statement are negative. Constitutional: Denies: fever Eyes: Denies: eye pain ENT: Denies: throat pain Respiratory: Denies: dyspnea Cardiovascular: Denies: chest pain Musculoskeletal: Reports: as per HPI Skin: Reports: as per HPI, rash Past Medical History Past Medical History: Diabetes Mellitus, GERD/Reflux, Hyperlipidemia, Hypertension, Osteoarthritis (OA) Additional Past Medical History / Comment(s): bulging disc, NEUROPATHY IN HANDS AND FEET , diabetic foot wounds bilateral feet healed. History of Any Multi-Drug Resistant Organisms: None Reported Past Surgical History: Orthopedic Surgery Additional Past Surgical History / Comment(s): pain clinic procedures for back , right and left great toe amputation, colonoscopy, EGD Past Anesthesia/Blood Transfusion Reactions: No Reported Reaction Past Psychological History: Anxiety Smoking Status: Former smoker - Past Family History Mother Family Medical History: Cancer Additional Family Medical History / Comment(s): Mother at age 60 from colon cancer. She had history of lung transplant. Patient does not know why she had a lung transplant other than she was a smoker. Father Additional Family Medical History / Comment(s): Father at age 67 from a myocardial infarction. Brother(s) Additional Family Medical History / Comment(s): Patient does not have any brothers. Patient had 1 sister that at age 40 from pancreatic cancer. Patient has 2 sons and 1 daughter with no major medical problems. Sister(s) Family Medical History: Cancer Additional Family Medical History / Comment(s): pancreatic cancer General Exam Limitations: no limitations General appearance: alert, in no apparent distress Head exam: Present: normocephalic Eye exam: Present: normal appearance Neck exam: Present: normal inspection Respiratory exam: Present: normal lung sounds bilaterally Cardiovascular Exam: Present: regular rate, normal rhythm Expanded Peripheral pulses: 2+: Femoral (R), Dorsalis Pedis (R) GI/Abdominal exam: Present: soft. Absent: distended, tenderness Extremities exam: Present: other (Right foot with quarter size ulcer on the plantar surface distally. There is cellulitic changes of the distal volar foot with erythema and swelling of the 2nd through 4th toes. First toe amputation previously.) Neurological exam: Present: alert Psychiatric exam: Present: normal affect, normal mood Skin exam: Present: erythema Course Vital Signs 12/25/23 12/25/23 15:01 15:18 Temperature 98.6 F Pulse Rate 80 78 Respiratory 20 18 Rate Blood Pressure 120/67 96/64 O2 Sat by Pulse 98 98 Oximetry Medical Decision Making - Medical Decision Making Was pt. sent in by a medical professional or institution (, PA, OFFSET PROOF PRESS OPERATOR, urgent care, hospital, or penitentiary...) When possible be specific @ -Patient was sent in from wound center wound center the wound center Did you speak to anyone other than the patient for history (EMS, parent, family, police, friend...)? What history was obtained from this source @ -I did speak with Dr. Finney who described patient's symptoms and history and his desires for admission Did you review nursing and triage notes (agree or disagree)? Why? @ -I reviewed and agree with nursing and triage notes Were old charts reviewed (outside hosp., previous admission, EMS record, old EKG, old radiological studies, urgent care reports/EKG's, penitentiary records)? Report findings @ -No old charts were reviewed Differential Diagnosis (chest pain, altered mental status, abdominal pain women, abdominal pain men, vaginal bleeding, weakness, fever, dyspnea, syncope, headache, dizziness, GI bleed, back pain, seizure, CVA, palpatations, mental health, musculoskeletal)? @ -Differential Fever: Pneumonia, viral URI, endocarditis, myocarditis, pericarditis, otitis, sinusitis, peritonsillar Abscess, retropharyngeal Abscess, epiglottitis, peritonitis, appendicitis, Sheyla cystitis, diverticulitis, hepatitis, colitis, UTI, PID, TOA, pyelonephritis, prostatitis, epididymitis, meningitis, encephalitis, pulmonary embolism, CVA, thyroid storm, pancreatitis, adrenal crisis, cavernous sinus thrombosis, this is not meant to be an all-inclusive list. EKG interpreted by me (3pts min.). @ -As above X-rays interpreted by me (1pt min.). @ -X-ray of the right foot shows previous amputation, no evidence of osteomyelitis CT interpreted by me (1pt min.). @ -None done U/S interpreted by me (1pt. min.). @ -None done What testing was considered but not performed or refused? (CT, X-rays, U/S, labs)? Why? @ -None What meds were considered but not given or refused? Why? @ -None Did you discuss the management of the patient with other professionals (michelle massey i.e. , PA, OFFSET PROOF PRESS OPERATOR, lab, RT, psych nurse, social security specialist, arabic teacher, teacher, loan officer assistant, catalytic case operator)? Give summary @ - Dy her to admit his patient Was smoking cessation discussed for >3mins.? @ -No Was critical care preformed (if so, how long)? @ -No Were there social determinants of health that impacted care today? How? (Homelessness, low income, unemployed, alcoholism, drug addiction, transportation, low edu. Level, literacy, decrease access to med. care, assisted, rehab)? @ -No Was there de-escalation of care discussed even if they declined (Discuss DNR or withdrawal of care, Hospice)? DNR status @ -No What co-morbidities impacted this encounter? (DM, HTN, Smoking, COPD, CAD, C ancer, CVA, ARF, Chemo, Hep., AIDS, mental health diagnosis, sleep apnea, morbid obesity)? @ -History of peripheral vascular disease as well as diabetes and previous amputation Was patient admitted / discharged? Hospital course, mention meds given and route, prescriptions, significant lab abnormalities, going to OR and other pertinent info. @ -Patient presents with chronic wounds with new infection and cellulitic changes. Patient will be admitted with IV antibiotics and specialty consults. Admission orders written. Consults will be placed. Undiagnosed new problem with uncertain prognosis? @ -No Drug Therapy requiring intensive monitoring for toxicity (Heparin, Nitro, Insulin, Cardizem)? @ -No Were any procedures done? @ -No Diagnosis/symptom? @ -Cellulitis of the right foot Acute, or Chronic, or Acute on Chronic? @ -Acute Uncomplicated (without systemic symptoms) or Complicated (systemic symptoms)? @ -Default Side effects of treatment? @ -No Exacerbation, Progression, or Severe Exacerbation? @ -No Poses a threat to life or bodily function? How? (Chest pain, USA, OR, pneumonia, PE, COPD, DKA, ARF, appy, cholecystitis, CVA, Diverticulitis, Homicidal, Suicidal, threat to staff... and all critical care pts) @ -Threat to viability of the right foot - Lab Data Result diagrams: 12/25/23 15:29 Lab Results 12/25/23 Range/Units 15:29 WBC 7.8 (3.8-10.6) k/uL RBC 4.87 (4.30-5.90) m/uL Hgb 13.8 (13.0-17.5) gm/dL Hct 42.8 (39.0-53.0) % MCV 87.8 (80.0-100.0) fL MCH 28.3 (25.0-35.0) pg MCHC 32.3 (31.0-37.0) g/dL RDW 12.7 (11.5-15.5) % Plt Count 333 (150-450) k/uL MPV 6.9 Neutrophils % 74 % Lymphocytes % 16 % Monocytes % 4 % Eosinophils % 3 % Basophils % 1 % Neutrophils # 5.8 (1.3-7.7) k/uL Lymphocytes # 1.3 (1.0-4.8) k/uL Monocytes # 0.3 (0-1.0) k/uL Eosinophils # 0.3 (0-0.7) k/uL Basophils # 0.0 (0-0.2) k/uL Disposition Clinical Impression: Cellulitis of right foot Disposition: ADMITTED IP TO THIS [facility] Condition: Serious Is patient prescribed a controlled substance at d/c from ED?: No Referrals: Suzette Castillo MD [Primary Care Provider] - 1-2 days Time of Disposition: 15:52
[2023-12-25 15:54] LABS: ALT 23 U/L (4-49); AST 30 U/L (17-59); African American GFR (CKD) >90 (>60 ml/min/1.73 sqM); Albumin 3.3 g/dL (3.5-5.0); Alkaline Phosphatase 60 U/L (38-126); Anion Gap 3 mmol/L; Blood Urea Nitrogen 14 mg/dL (9-20); Calcium 8.9 mg/dL (8.4-10.2); Carbon Dioxide 26 mmol/L (22-30); Chloride 109 mmol/L (98-107); Glucose 104 mg/dL (74-99); Non-African American GFR(CKD) >90 (>60 ml/min/1.73 sqM); Potassium 4.5 mmol/L (3.5-5.1); Sodium 138 mmol/L (137-145); Total Bilirubin 0.6 mg/dL (0.2-1.3); Total Protein 6.6 g/dL (6.3-8.2)
[2023-12-25 15:55] LABS: Partial Thromboplastin Time 25.1 sec (22.0-30.0); Prothrombin Time 10.6 sec (10.0-12.5)
[2023-12-25] MEDS ORDERED: VANCOMYCIN IV PER PHARMACY 1 EACH MISC MISCELLANE PRN (16:22)
[2023-12-25] MEDS ORDERED: BACLOFEN 10 MG TAB PO PRN (16:23)
--- NOTE | 2023-12-25 16:53 | P.GSCN ---
History of Present Illness History of present illness: 68-year-old gentleman patient came to the wound clinic follow-up. Patient has a callus on the plantar aspect of the right foot we have been treating local wound care. We noted some tenderness noted on the plantar aspect of the foot and also tenderness in the third toe with mild redness we did the selective debridement of the wound at the plantar aspect took some deep culture sent for culture and sensitivity. Patient also has show diabetes Medical history history of diabetes, peripheral vascular disease, post right big toe potation done in the past Chest is clear good entry both lungs first second sound normal Abdomen soft nontender Vascular femorals are 1+ bilateral right foot plantar aspect callus with some tenderness and right third toe some tenderness with some mild redness noted Plan is infectious disease and consulted and will change the dressing today with extra silver dressing should be changed every 48 hours advised nonweightbearing with you Past Medical History Past Medical History: Diabetes Mellitus, GERD/Reflux, Hyperlipidemia, Hypertension, Osteoarthritis (OA) Additional Past Medical History / Comment(s): bulging disc, NEUROPATHY IN HANDS AND FEET , diabetic foot wounds bilateral feet healed. History of Any Multi-Drug Resistant Organisms: None Reported Past Surgical History: Orthopedic Surgery Additional Past Surgical History / Comment(s): pain clinic procedures for back , right and left great toe amputation, colonoscopy, EGD Past Anesthesia/Blood Transfusion Reactions: No Reported Reaction Past Psychological History: Anxiety Smoking Status: Former smoker - Past Family History Mother Family Medical History: Cancer Additional Family Medical History / Comment(s): Mother at age 60 from colon cancer. She had history of lung transplant. Patient does not know why she had a lung transplant other than she was a smoker. Father Additional Family Medical History / Comment(s): Father at age 67 from a myocardial infarction. Brother(s) Additional Family Medical History / Comment(s): Patient does not have any brothers. Patient had 1 sister that at age 40 from pancreatic cancer. Patient has 2 sons and 1 daughter with no major medical problems. Sister(s) Family Medical History: Cancer Additional Family Medical History / Comment(s): pancreatic cancer Medications and Allergies Home Medications Medication Instructions Recorded Confirmed Type Aspirin 81 mg PO DAILY 08/06/13 12/25/23 History Sertraline [Zoloft] 100 mg PO DAILY 11/17/17 12/25/23 History Famotidine [Pepcid] 20 mg PO BID 10/07/19 12/25/23 History Dapagliflozin Propanediol [Farxiga] 10 mg PO DAILY 02/01/21 12/25/23 History Diclofenac Sodium [Voltaren 1 applic TOPICAL QID PRN 02/03/21 12/25/23 History Arthritis Pain 1% Gel] Baclofen [Lioresal] 10 mg PO DAILY PRN 01/03/23 12/25/23 History Gabapentin 800 mg PO QID 01/03/23 12/25/23 History Insulin Aspart [NovoLOG Flexpen] 5 - 10 units SQ TID-W/MEALS PRN 01/03/23 12/25/23 History lisinopriL [Zestril] 10 mg PO DAILY 01/03/23 12/25/23 History Collagenase [Santyl Ointment] 1 applic TOPICAL DAILY 12/25/23 12/25/23 History Insulin Degludec [Tresiba 45 units SQ DAILY 12/25/23 12/25/23 History Flextouch U-100 Pen] Rosuvastatin [Crestor] 20 mg PO DAILY 12/25/23 12/25/23 History Tirzepatide [Mounjaro] 10 mg SQ CHATMAN 12/25/23 12/25/23 History oxyCODONE-APAP 10-325MG [Percocet 1 tab PO QID 12/25/23 12/25/23 History 10-325 mg] traZODone HCL [Desyrel] 100 mg PO HS 12/25/23 12/25/23 History Allergies Allergy/AdvReac Type Severity Reaction Status Date / Time No Known Allergies Allergy Verified 12/25/23 16:19 Surgical - Exam Vital Signs Temp Pulse Resp BP Pulse Ox 98.6 F 80 20 120/67 98 12/25/23 15:01 12/25/23 15:01 12/25/23 15:01 12/25/23 15:01 12/25/23 15:01 Results - Labs 12/25/23 15:29 12/25/23 15:29 Abnormal Lab Results - Last 24 Hours (Table) 12/25/23 Range/Units 15:29 Chloride 109 H (98-107) mmol/L Creatinine 0.61 L (0.66-1.25) mg/dL Glucose 104 H (74-99) mg/dL Albumin 3.3 L (3.5-5.0) g/dL Diabetes panel 12/25/23 Range/Units 15:29 Sodium 138 (137-145) mmol/L Potassium 4.5 (3.5-5.1) mmol/L Chloride 109 H (98-107) mmol/L Carbon Dioxide 26 (22-30) mmol/L BUN 14 (9-20) mg/dL Creatinine 0.61 L (0.66-1.25) mg/dL Glucose 104 H (74-99) mg/dL Calcium 8.9 (8.4-10.2) mg/dL AST 30 (17-59) U/L ALT 23 (4-49) U/L Alkaline Phosphatase 60 (38-126) U/L Total Protein 6.6 (6.3-8.2) g/dL Albumin 3.3 L (3.5-5.0) g/dL Calcium panel 12/25/23 Range/Units 15:29 Calcium 8.9 (8.4-10.2) mg/dL Albumin 3.3 L (3.5-5.0) g/dL Pituitary panel 12/25/23 Range/Units 15:29 Sodium 138 (137-145) mmol/L Potassium 4.5 (3.5-5.1) mmol/L Chloride 109 H (98-107) mmol/L Carbon Dioxide 26 (22-30) mmol/L BUN 14 (9-20) mg/dL Creatinine 0.61 L (0.66-1.25) mg/dL Glucose 104 H (74-99) mg/dL Calcium 8.9 (8.4-10.2) mg/dL Adrenal panel 12/25/23 Range/Units 15:29 Sodium 138 (137-145) mmol/L Potassium 4.5 (3.5-5.1) mmol/L Chloride 109 H (98-107) mmol/L Carbon Dioxide 26 (22-30) mmol/L BUN 14 (9-20) mg/dL Creatinine 0.61 L (0.66-1.25) mg/dL Glucose 104 H (74-99) mg/dL Calcium 8.9 (8.4-10.2) mg/dL Total Bilirubin 0.6 (0.2-1.3) mg/dL AST 30 (17-59) U/L ALT 23 (4-49) U/L Alkaline Phosphatase 60 (38-126) U/L Total Protein 6.6 (6.3-8.2) g/dL Albumin 3.3 L (3.5-5.0) g/dL
[2023-12-25] MEDS: GABAPENTIN 400 MG CAP PO SCH (17:35)
[2023-12-25] MEDS: oxyCODONE-APAP 10-325MG 1 EACH TAB PO SCH (17:36)
[2023-12-25] MEDS: VANCOMYCIN 1,500 MG in SODIUM CHLORIDE 0.9% 500 ML 500 ML IVPB ONE (18:07)
[2023-12-25 19:55] LABS: Glucose,Whole Blood 99 mg/dL (70-110)
[2023-12-25] MEDS: INSULIN ASPART (NovoLOG) 100 UNIT/ML VIAL SQ SCH (19:55)
[2023-12-25] MEDS: traZODone HCL 100 MG TAB PO SCH (20:10)
[2023-12-25] MEDS: FAMOTIDINE 20 MG TAB PO SCH (20:10)
--- NOTE | 2023-12-25 21:34 | P.CONS ---
History of Present Illness - Reason for Consult Consult date: 12/25/23 Diabetic foot ulcer with cellulitis Requesting physician: Samir Mi - Chief Complaint Right third toe swelling redness and ulcer on the foot x days - History of Present Illness Patient is a 68-year-old male with a past medical history significant for diabetes mellitus hypertension hyperlipidemia osteoarthritis reflux, previous history of diabetic foot infection osteomyelitis patient apparently has been dealing with the wound on the plantar aspect of his right foot and apparently has developed a significant callus which was debrided in the wound care center and there was some purulent drainage which has been culture at the patient has been sent to the ER for IV antibiotic therapy patient mention noticing increasing swelling and redness of the right third toe over the last day and 2 denies any history of any trauma he did have some pressure sensation to the foot but denies any throbbing or dull aching pain denies any fever no chills no headache or URI symptoms no chest pain shortness of the cough no abdominal pain no diarrhea on presentation to the hospital the patient was afebrile and no fever have been recorded subsequently patient was not tac hycardic hypotensive or hypoxic he did have white count of 7.8 creatinine 0.61 electrolytes are normal liver enzymes are normal patient did have x-ray of the foot which did shows amputation changes of the fourth digit metatarsal shaft no evidence for bony erosion or subcutaneous gas patient was started on vancomycin and Zosyn infectious disease was consulted for further management of antibiotic therapy Review of Systems Positive point and negatives has been mentioned in the HPI, complete review of systems was performed and all other systems are negative Past Medical History Past Medical History: Diabetes Mellitus, GERD/Reflux, Hyperlipidemia, Hypertension, Osteoarthritis (OA) Additional Past Medical History / Comment(s): bulging disc, NEUROPATHY IN HANDS AND FEET , diabetic foot wounds bilateral feet healed. History of Any Multi-Drug Resistant Organisms: None Reported Past Surgical History: Orthopedic Surgery Additional Past Surgical History / Comment(s): pain clinic procedures for back , right and left great toe amputation, colonoscopy, EGD Past Anesthesia/Blood Transfusion Reactions: No Reported Reaction Past Psychological History: Anxiety Smoking Status: Former smoker Past Alcohol Use History: Rare Additional Past Alcohol Use History / Comment(s): Patient was a smoker 3 pppd, greater than 20 years, quit 2000 est. He denies any marijuana or street drug use. He drinks a few beers occasionally, none in 2 years per . Past Drug Use History: None Reported - Past Family History Mother Family Medical History: Cancer Additional Family Medical History / Comment(s): Mother at age 60 from colon cancer. She had history of lung transplant. Patient does not know why she had a lung transplant other than she was a smoker. Father Additional Family Medical History / Comment(s): Father at age 67 from a myocardial infarction. Brother(s) Additional Family Medical History / Comment(s): Patient does not have any brothers. Patient had 1 sister that at age 40 from pancreatic cancer. Patient has 2 sons and 1 daughter with no major medical problems. Sister(s) Family Medical History: Cancer Additional Family Medical History / Comment(s): pancreatic cancer Medications and Allergies Home Medications Medication Instructions Recorded Confirmed Type Aspirin 81 mg PO DAILY 08/06/13 12/25/23 History Sertraline [Zoloft] 100 mg PO DAILY 11/17/17 12/25/23 History Famotidine [Pepcid] 20 mg PO BID 10/07/19 12/25/23 History Dapagliflozin Propanediol [Farxiga] 10 mg PO DAILY 02/01/21 12/25/23 History Diclofenac Sodium [Voltaren 1 applic TOPICAL QID PRN 02/03/21 12/25/23 History Arthritis Pain 1% Gel] Baclofen [Lioresal] 10 mg PO DAILY PRN 01/03/23 12/25/23 History Gabapentin 800 mg PO QID 01/03/23 12/25/23 History Insulin Aspart [NovoLOG Flexpen] 5 - 10 units SQ TID-W/MEALS PRN 01/03/23 12/25/23 History lisinopriL [Zestril] 10 mg PO DAILY 01/03/23 12/25/23 History Collagenase [Santyl Ointment] 1 applic TOPICAL DAILY 12/25/23 12/25/23 History Insulin Degludec [Tresiba 45 units SQ DAILY 12/25/23 12/25/23 History Flextouch U-100 Pen] Rosuvastatin [Crestor] 20 mg PO DAILY 12/25/23 12/25/23 History Tirzepatide [Mounjaro] 10 mg SQ CHATMAN 12/25/23 12/25/23 History oxyCODONE-APAP 10-325MG [Percocet 1 tab PO QID 12/25/23 12/25/23 History 10-325 mg] traZODone HCL [Desyrel] 100 mg PO HS 12/25/23 12/25/23 History Allergies Allergy/AdvReac Type Severity Reaction Status Date / Time No Known Allergies Allergy Verified 12/25/23 16:19 Physical Exam Vitals: Vital Signs Temp Pulse Pulse Resp BP BP Pulse Ox 12/25/23 20:00 98.4 F 94 16 134/80 99 12/25/23 16:33 98.8 F 74 17 111/75 98 12/25/23 15:18 78 18 96/64 98 12/25/23 15:01 98.6 F 80 20 120/67 98 Intake and Output 12/25/23 12/25/23 12/25/23 06:59 14:59 22:59 Other: Voiding Method Toilet Weight 99.79 kg GENERAL DESCRIPTION: Elderly male lying in bed, no distress. No tachypnea or accessory muscle of respiration use. HEENT: Shows Pallor , no scleral icterus. Oral mucous membrane is dry. No pharyngeal erythema or thrush NECK: Trachea central, no thyromegaly. LUNGS: Unlabored breathing. Clear to auscultation anteriorly. No wheeze or crackle. HEART: S1, S2, regular rate and rhythm. No loud murmur ABDOMEN: Soft, no tenderness , guarding or rigidity, no organomegaly EXTREMITIES: Right third toe did have swelling redness wound on the plantar aspect minimal slough but no foul-smelling drainage was noticed SKIN: No rash, no masses palpable. NEUROLOGICAL: The patient is awake, alert, oriented x3, mood and affect normal. Results CBC & Chem 7: 12/25/23 15:29 12/25/23 15:29 Labs: Abnormal Lab Results - Last 24 Hours (Table) 12/25/23 Range/Units 15:29 Chloride 109 H (98-107) mmol/L Creatinine 0.61 L (0.66-1.25) mg/dL Glucose 104 H (74-99) mg/dL Albumin 3.3 L (3.5-5.0) g/dL Assessment and Plan (1) Diabetic ulcer of right foot Current Visit: Yes Status: Acute Code(s): E11.621 - TYPE 2 DIABETES MELLITUS WITH FOOT ULCER; L97.519 - NON-PRS CHRONIC ULCER OTH PRT RIGHT FOOT W UNSP SEVERITY SNOMED Code(s): 683943620 (2) Diabetic infection of right foot Current Visit: Yes Status: Acute Code(s): E11.628 - TYPE 2 DIABETES MELLITUS WITH OTHER SKIN COMPLICATIONS; L08.9 - LOCAL INFECTION OF THE SKIN AND SUBCUTANEOUS TISSUE, UNSP SNOMED Code(s): 767776916 (3) Cellulitis of right foot Current Visit: Yes Status: Acute Code(s): L03.115 - CELLULITIS OF RIGHT LOWER LIMB SNOMED Code(s): 91517531475283495 Plan: 1patient presented to hospital with increasing swelling redness to the right third toe in this patient also have wound on the plantar aspect status post debridement of infected callus will need to cover for the polymicrobial dustin associated with diabetic foot infection 2-patient to continue with Zosyn however we will switch vancomycin to daptomycin to decrease risk of nephrotoxicity 3-continue current wound care per vascular surgery We will follow on clinical condition and cultures to further adjust medication if needed Thank you for this consultation we will follow the patient along with you Dictation was produced using [employer] dictation software. please excuse any grammatical, word or spelling errors. Time with Patient: Greater than 30
[2023-12-26] MEDS ORDERED: VANCOMYCIN 1,500 MG in SODIUM CHLORIDE 0.9% 500 ML 500 ML IVPB SCH (02:00)
[2023-12-26 02:46] LABS: Basophils % (A) 1 %; Eosinophils # (A) 0.3 k/uL (0-0.7); Eosinophils % (A) 4 %; HCT 39.3 % (39.0-53.0); HGB 12.4 gm/dL (13.0-17.5); Hypochromasia Slight; Lymphocytes # (A) 1.5 k/uL (1.0-4.8); Lymphocytes % (A) 21 %; MCH 28.4 pg (25.0-35.0); MCHC 31.6 g/dL (31.0-37.0); MCV 89.8 fL (80.0-100.0); Mean Platelet Volume 6.7; Monocytes # (A) 0.3 k/uL (0-1.0); Monocytes % (A) 4 %; Neutrophils # (A) 4.9 k/uL (1.3-7.7); Neutrophils % (A) 69 %; Platelet Count 304 k/uL (150-450); RBC 4.38 m/uL (4.30-5.90); RDW 12.6 % (11.5-15.5); WBC 7.2 k/uL (3.8-10.6)
[2023-12-26 03:07] LABS: ALT 19 U/L (4-49); AST 25 U/L (17-59); African American GFR (CKD) >90 (>60 ml/min/1.73 sqM); Albumin 2.9 g/dL (3.5-5.0); Alkaline Phosphatase 54 U/L (38-126); Anion Gap 3 mmol/L; Blood Urea Nitrogen 14 mg/dL (9-20); Calcium 8.4 mg/dL (8.4-10.2); Carbon Dioxide 29 mmol/L (22-30); Chloride 108 mmol/L (98-107); Glucose 97 mg/dL (74-99); Non-African American GFR(CKD) >90 (>60 ml/min/1.73 sqM); Potassium 4.7 mmol/L (3.5-5.1); Sodium 140 mmol/L (137-145); Total Bilirubin 0.5 mg/dL (0.2-1.3)
[2023-12-26 06:19] LABS: Glucose,Whole Blood 117 mg/dL (70-110)
[2023-12-26] MEDS: INSULIN DETEMIR (LEVEMIR) 100 UNIT/ML SYR SQ SCH (08:11)
[2023-12-26] MEDS: DAPAGLIFLOZIN PROPANEDIOL 10 MG TABLET PO SCH (08:12)
[2023-12-26] MEDS: SERTRALINE 100 MG TAB PO SCH (08:13)
[2023-12-26] MEDS: lisinopriL 10 MG TAB PO SCH (08:13)
[2023-12-26] MEDS: ASPIRIN 81 MG PO SCH (08:13)
[2023-12-26] MEDS: ENOXAPARIN 40 MG/0.4 ML SYRINGE SQ SCH (08:14)
[2023-12-26 09:00] LABS: Erythrocyte Sedimentation Rate 22 mm/Hr (0-20)
[2023-12-26] MEDS ORDERED: ATORVASTATIN 40 MG TAB PO SCH (09:00)
[2023-12-26 12:04] LABS: Glucose,Whole Blood 117 mg/dL (70-110)
--- NOTE | 2023-12-26 16:28 | P.HPIM ---
History of Present Illness H&P Date: 12/25/23 Chief Complaint: right foot infected callus HISTORY OF PRESENT ILLNESS This is a 68-year-old male patient with past medical history of diabetes [facility] type 2, hypertension, hyperlipidemia, gastroesophageal reflux disease, recurrent depression, remote history of tobacco use, fatty liver, chronic back pain, insomnia. Patient has been under the care of the wound clinic with Dr. Finney for right lower extremity diabetic ulcer status post amputation of the right great toe, and he was hospitalized in the past at [facility] few month back after he was found to have an osteomyelitis of the left big toe which was amputated at that time, patient has been getting calluses that has been following with Dr. Finney at the wound healing Center, patient developed to have a significant redness around the callus of the right foot, along with redness of the third toe, and because of that and because of the underlying history of diabetes and a prior history of osteomyelitis he was sent to the emergency department for evaluation and possible admission for IV antibiotic with infectious disease consultation, initially started on IV antibiotic in the form of Zosyn I added vancomycin and pharmacy to dose his peak and trough, we will continue with vascular surgery consultation as well as infectious ease consultation, nonweightbearing on the right lower extremity, we will follow-up with the patient very closely during his hospital admission. REVIEW OF SYSTEMS Constitutional: No fever, no chills, no night sweats. No weight change. No weakness, fatigue or lethargy. No daytime sleepiness. HEENT: No headache. No blurred vision or double vision, no loss of vision. No loss of Hearing, no ringing in the ears, no dizziness. No nasal drainage or congestion. No epistaxis. No sore throat. Lungs: No shortness of breath, cough, no sputum production. No wheezing. Cardiovascular: No chest pain, no lower extremity edema. No palpitations. No paroxysmal nocturnal dyspnea. No orthopnea. No lightheadedness or dizziness. No syncopal episodes. Abdominal: No abdominal pain. No nausea, vomiting. No diarrhea. No constipation. No bloody or tarry stools. No loss of appetite. Genitourinary: No dysuria, increased frequency, urgency. No urinary retention. Musculoskeletal: No myalgias. No muscle weakness, no gait dysfunction, no frequent falls. No back pain. No neck pain. Integumentary: Bilateral big toe amputations, right foot with a callus that is covered with a dressing, there is minimal redness to the right third toe, suggestive of cellulitis. No evidence of osteomyelitis. Neurologic: No aphasia. No facial droop. No change in mentation. No head injury. No headache. No paralysis, positive for neuropathy Psychiatric:positive for depression. No anxiety. No mood swings. Endocrine:positive for abnormal blood sugars. No weight change. No excessive sweating or thirst. No cold intolerance. MEDICAL HISTORY Diabetes mellitus type 2 Diabetic neuropathy Hypertension Hyperlipidemia Gastroesophageal reflux disease Recurrent depression Fatty liver Chronic back pain Diabetic ulcer left great toe Insomnia Spondylosis of the lumbar spine SURGICAL HISTORY Pain management procedures Right great toe amputation Colonoscopy EGD SOCIAL HISTORY Patient was a smoker 3 packs per day for greater than 20 years and quit 25 years ago. No marijuana or street drug use. He drinks a few beers occasionally. 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 He lives at home with his and son. FAMILY HISTORY Mother at age 60 from colon cancer with history of lung transplant. He does not know why she had the lung transplant other than she was a smoker. Father at age 67 from a myocardial infarction. Patient does not have any brothers. He has one sister that at age 40 from pancreatic cancer. Patient has 2 sons and 1 daughter with no major medical problems. PHYSICAL EXAMINATION Gen: This is a 68-year-old male, resting in bed and appears to be comfortable and in no acute distress. HEENT: Head is atraumatic, normocephalic. Pupils equal, round. Sclerae is anicteric. NECK: Supple. No JVD. No lymphadenopathy. No thyromegaly. LUNGS: Clear to auscultation. No wheezes or rhonchi. No intercostal retractions. HEART: First heart sound is depressed, second heart sound is normal there is systolic ejection murmur 2/6 located in the left Chuck. ABDOMEN: Soft. Bowel sounds are present. No masses. No tenderness. EXTREMITIES: No pedal edema. No calf tenderness. DP +2 bilaterally, there is bilateral big toe amputation, there is a right foot callus that is covered with surgical dressing, and there is redness of the right third toe. NEUROLOGICAL: Patient is awake, alert and oriented x3. Cranial nerves 2 through 12 are grossly intact. Muscle strength 4/5 in the bilateral upper and lower extremities, neuropathic changes to both feet, deep tendon reflexes are depressed. ASSESSMENT AND PLAN 1. Infected diabetic wound due to callus of the right foot with cellulitis status post debridement currently has a silver dressing in place, blood culture will be obtained, deep cultures were obtained, started the patient on vancomycin with pharmacy to dose its peak and trough, continue Zosyn 3.375 g piggyback every 8 hours, vascular surgery consultation as well as infectious ease consu ltation will be obtained. 2. Diabetes mellitus type 2 uncontrolled we will continue with Levemir 45 units SC at bedtime along with Humalog per sliding scale, we will continue with Farxiga 10 mg po daily , was on Mounjaro 10 mg Sc q week, BGM AC meals tid 3. Hypertension and hypertensive cardiovascular disease . continue lisinopril 10 mg or orally once every day monitor the patient blood pressure very closely. 4. Hyperlipidemia. Continue atorvastatin 40 mg orally daily and Zetia 10 mg po daily, keep LDL-c 55-70. 5. Diabetic neuropathy. Continue gabapentin 800 mg 4 times daily. 6. Chronic back pain. Continue baclofen 10 mg daily as needed, along with current pain management continue with Taylor as well as tramadol as needed. 7. Recurrent depression. Continue sertraline 100 mg daily 8. Insomnia. Continue Ambien 10 mg at bedtime. 9. Gastroesophageal reflux disease. Continue with Protonix 40 mg po daily 10. DVT prophylaxis. Lovenox 40 mg subcutaneous every 24 hours. 11. GI prophylaxis. Continue Protonix 40 mg once every day. 12. Admits to inpatient . estimated length of stay 2 midnights 13. Full code. Past Medical History Past Medical History: Diabetes Mellitus, GERD/Reflux, Hyperlipidemia, Hypertension, Osteoarthritis (OA) Additional Past Medical History / Comment(s): bulging disc, NEUROPATHY IN HANDS AND FEET , diabetic foot wounds bilateral feet healed. History of Any Multi-Drug Resistant Organisms: None Reported Past Surgical History: Orthopedic Surgery Additional Past Surgical History / Comment(s): pain clinic procedures for back , right and left great toe amputation, colonoscopy, EGD Past Anesthesia/Blood Transfusion Reactions: No Reported Reaction Past Psychological History: Anxiety Smoking Status: Former smoker Past Alcohol Use History: Rare Additional Past Alcohol Use History / Comment(s): Patient was a smoker 3 pppd, greater than 20 years, quit 2000 est. He denies any marijuana or street drug use. He drinks a few beers occasionally, none in 2 years per . Past Drug Use History: None Reported - Past Family History Mother Family Medical History: Cancer Additional Family Medical History / Comment(s): Mother at age 60 from colon cancer. She had history of lung transplant. Patient does not know why she had a lung transplant other than she was a smoker. Father Additional Family Medical History / Comment(s): Father at age 67 from a myocardial infarction. Brother(s) Additional Family Medical History / Comment(s): Patient does not have any brothers. Patient had 1 sister that at age 40 from pancreatic cancer. Patient has 2 sons and 1 daughter with no major medical problems. Sister(s) Family Medical History: Cancer Additional Family Medical History / Comment(s): pancreatic cancer Medications and Allergies Home Medications Medication Instructions Recorded Confirmed Type Aspirin 81 mg PO DAILY 08/06/13 12/25/23 History Sertraline [Zoloft] 100 mg PO DAILY 11/17/17 12/25/23 History Famotidine [Pepcid] 20 mg PO BID 10/07/19 12/25/23 History Dapagliflozin Propanediol [Farxiga] 10 mg PO DAILY 02/01/21 12/25/23 History Diclofenac Sodium [Voltaren 1 applic TOPICAL QID PRN 02/03/21 12/25/23 History Arthritis Pain 1% Gel] Baclofen [Lioresal] 10 mg PO DAILY PRN 01/03/23 12/25/23 History Gabapentin 800 mg PO QID 01/03/23 12/25/23 History Insulin Aspart [NovoLOG Flexpen] 5 - 10 units SQ TID-W/MEALS PRN 01/03/23 12/25/23 History lisinopriL [Zestril] 10 mg PO DAILY 01/03/23 12/25/23 History Collagenase [Santyl Ointment] 1 applic TOPICAL DAILY 12/25/23 12/25/23 History Insulin Degludec [Tresiba 45 units SQ DAILY 12/25/23 12/25/23 History Flextouch U-100 Pen] Rosuvastatin [Crestor] 20 mg PO DAILY 12/25/23 12/25/23 History Tirzepatide [Mounjaro] 10 mg SQ CHATMAN 12/25/23 12/25/23 History oxyCODONE-APAP 10-325MG [Percocet 1 tab PO QID 12/25/23 12/25/23 History 10-325 mg] traZODone HCL [Desyrel] 100 mg PO HS 12/25/23 12/25/23 History Allergies Allergy/AdvReac Type Severity Reaction Status Date / Time No Known Allergies Allergy Verified 12/25/23 16:19 Physical Exam Vitals: Vital Signs Temp Pulse Resp BP Pulse Ox 12/25/23 16:33 98.8 F 74 17 111/75 98 12/25/23 15:18 78 18 96/64 98 12/25/23 15:01 98.6 F 80 20 120/67 98 Intake and Output 12/25/23 12/25/23 12/25/23 06:59 14:59 22:59 Other: Weight 99.79 kg Results CBC & Chem 7: 12/26/23 02:29 12/26/23 02:29 Labs: Abnormal Lab Results - Last 24 Hours (Table) 12/25/23 Range/Units 15:29 Chloride 109 H (98-107) mmol/L Creatinine 0.61 L (0.66-1.25) mg/dL Glucose 104 H (74-99) mg/dL Albumin 3.3 L (3.5-5.0) g/dL
--- NOTE | 2023-12-26 16:30 | P.PN ---
Subjective Progress Note Date: 12/26/23 HISTORY OF PRESENT ILLNESS This is a 68-year-old male patient with past medical history of diabetes mellitus type 2, hypertension, hyperlipidemia, gastroesophageal reflux disease, recurrent depression, remote history of tobacco use, fatty liver, chronic back pain, insomnia. Patient has been under the care of the wound clinic with Dr. Finney for right lower extremity diabetic ulcer status post amputation of the right great toe, and he was hospitalized in the past at [facility] few month back after he was found to have an osteomyelitis of the left big toe which was amputated at that time, patient has been getting calluses that has been following with Dr. Finney at the wound healing Center, patient developed to have a significant redness around the callus of the right foot, along with redness of the third toe, and because of that and because of the underlying history of diabetes and a prior history of osteomyelitis he was sent to the emergency department for evaluation and possible admission for IV antibiotic with infectious disease consultation, initially started on IV antibiotic in the form of Zosyn I added vancomycin and pharmacy to dose his peak and trough, we will continue with vascular surgery consultation as well as infectious ease consultation, nonweightbearing on the right lower extremity, we will follow-up with the patient very closely during his hospital admission. 12/25: Patient sitting up in bed in no apparent distress, he denies any chest pain at this time, he has no shortness of breath, he has no abdominal pain, nausea vomiting or diarrhea, he had episode of nausea earlier today, but is not vomiting at this point, he was switched to Cubicin at this point in time instead of vancomycin continue with Zosyn as well he was seen earlier by Dr. Vargas, culture still pending the time of dictation. REVIEW OF SYSTEMS Constitutional: No fever, no chills, no night sweats. No weight change. No weakness, fatigue or lethargy. No daytime sleepiness. HEENT: No headache. No blurred vision or double vision, no loss of vision. No loss of Hearing, no ringing in the ears, no dizziness. No nasal drainage or congestion. No epistaxis. No sore throat. Lungs: No shortness of breath, cough, no sputum production. No wheezing. Cardiovascular: No chest pain, no lower extremity edema. No palpitations. No paroxysmal nocturnal dyspnea. No orthopnea. No lightheadedness or dizziness. No syncopal episodes. Abdominal: No abdominal pain. No nausea, vomiting. No diarrhea. No constipation. No bloody or tarry stools. No loss of appetite. Genitourinary: No dysuria, increased frequency, urgency. No urinary retention. Musculoskeletal: No myalgias. No muscle weakness, no gait dysfunction, no frequent falls. No back pain. No neck pain. Integumentary: Bilateral big toe amputations, right foot with a callus that is covered with a dressing, there is minimal redness to the right third toe, suggestive of cellulitis. No evidence of osteomyelitis. Neurologic: No aphasia. No facial droop. No change in mentation. No head injury. No headache. No paralysis, positive for neuropathy Psychiatric:positive for depression. No anxiety. No mood swings. Endocrine:positive for abnormal blood sugars. No weight change. No excessive sweating or thirst. No cold intolerance. PHYSICAL EXAMINATION Gen: This is a 68-year-old male, resting in bed and appears to be comfortable and in no acute distress. HEENT: Head is atraumatic, normocephalic. Pupils equal, round. Sclerae is anicteric. NECK: Supple. No JVD. No lymphadenopathy. No thyromegaly. LUNGS: Clear to auscultation. No wheezes or rhonchi. No intercostal retractions. HEART: First heart sound is depressed, second heart sound is normal there is systolic ejection murmur 2/6 located in the left Chuck. ABDOMEN: Soft. Bowel sounds are present. No masses. No tenderness. EXTREMITIES: No pedal edema. No calf tenderness. DP +2 bilaterally, there is bilateral big toe amputation, there is a right foot callus that is covered with surgical dressing, and there is redness of the right third toe. NEUROLOGICAL: Patient is awake, alert and oriented x3. Cranial nerves 2 through 12 are grossly intact. Muscle strength 4/5 in the bilateral upper and lower extremities, neuropathic changes to both feet, deep tendon reflexes are depressed. ASSESSMENT AND PLAN 1. Infected diabetic wound due to callus of the right foot with cellulitis status post debridement currently has a silver dressing in place, blood culture will be obtained, deep cultures were obtained, patient was switched to daptomycin along with Zosyn, continue current treatment plan, until obtain the results of the culture, continue local care, vascular surgery and infectious disease are following. 2. Diabetes mellitus type 2 uncontrolled we will continue with Levemir 45 units SC at bedtime along with Humalog per sliding scale, we will continue with Farxiga 10 mg po daily , was on Mounjaro 10 mg Sc q week, BGM AC meals tid 3. Hypertension and hypertensive cardiovascular disease . continue lisinopril 10 mg or orally once every day monitor the patient blood pressure very closely. 4. Hyperlipidemia. Continue atorvastatin 40 mg orally daily and Zetia 10 mg po daily, keep LDL-c 55-70. 5. Diabetic neuropathy. Continue gabapentin 800 mg 4 times daily. 6. Chronic back pain. Continue baclofen 10 mg daily as needed, along with current pain management continue with [place] as well as tramadol as needed. 7. Recurrent depression. Continue sertraline 100 mg daily 8. Insomnia. Continue Ambien 10 mg at bedtime. 9. Gastroesophageal reflux disease. Continue with Protonix 40 mg po daily 10. DVT prophylaxis. Lovenox 40 mg subcutaneous every 24 hours. 11. GI prophylaxis. Continue Protonix 40 mg once every day. 12. Guarded prognosis. Objective - Vital Signs Vital signs: Vital Signs Temp 98.8 F 12/26/23 07:00 Pulse 72 12/26/23 07:00 Resp 16 12/26/23 07:00 BP 121/70 12/26/23 07:00 Pulse Ox 95 12/26/23 07:00 FiO2 Intake & Output 12/25/23 12/26/23 12/26/23 18:59 06:59 18:59 Intake Total 700 Balance 700 Weight 99.79 kg Intake: Intake, IV Titration 700 Amount DAPTOmycin 600 mg In 100 Sodium Chloride 0.9% 50 ml @ 100 mls/hr IVPB HS [facility] Rx#:[id number] Piperacillin-Tazobactam 3 100 .375 gm In Sodium Chloride 0.9% 100 ml @ 25 mls/hr IVPB Q8HR [facility] Rx# :[id number] Vancomycin 1,500 mg In 500 Sodium Chloride 0.9% 500 ml 500 ml @ 167 mls/hr IVPB ONCE ONE Rx#: [id number] Other: Voiding Method Toilet # Voids 2 - Labs CBC & Chem 7: 12/26/23 02:29 12/26/23 02:29 Labs: Abnormal Lab Results - Last 24 Hours (Table) 12/26/23 12/26/23 12/26/23 Range/Units 02:29 02:29 06:18 Hgb 12.4 L (13.0-17.5) gm/dL ESR 22 H (0-20) mm/Hr Chloride 108 H (98-107) mmol/L POC Glucose (mg/dL) 117 H (70-110) mg/dL Total Protein 6.0 L (6.3-8.2) g/dL Albumin 2.9 L (3.5-5.0) g/dL 12/26/23 Range/Units 12:00 Hgb (13.0-17.5) gm/dL ESR (0-20) mm/Hr Chloride (98-107) mmol/L POC Glucose (mg/dL) 117 H (70-110) mg/dL Total Protein (6.3-8.2) g/dL Albumin (3.5-5.0) g/dL Microbiology - Last 24 Hours (Table) 12/25/23 15:29 Gram Stain - Preliminary Foot - Left
[2023-12-26 16:40] LABS: Glucose,Whole Blood 100 mg/dL (70-110)
[2023-12-26 20:24] LABS: Glucose,Whole Blood 92 mg/dL (70-110)
--- NOTE | 2023-12-27 04:32 | PN ---
PROGRESS NOTE A 68-year-old diabetic male, who came to the Wound Clinic yesterday and had a callus on the plantar aspect of the right foot. We did the debridement and deep culture. Final report is pending. Reported gram-positive cocci. The patient is on IV antibiotic under the care of Infectious Disease. We have changed the dressing today using Aquacel silver rope. Dressing should be changed every 48 hours. MMODL / IJN: [id number] /
[2023-12-27 06:34] LABS: Glucose,Whole Blood 73 mg/dL (70-110)
[2023-12-27] MEDS ORDERED: MAGNESIUM HYDROXIDE 2,400 MG/30 ML CUP PO PRN (09:27)
[2023-12-27] MEDS ORDERED: VANCOMYCIN IV PER PHARMACY 1 EACH MISC MISCELLANE PRN (10:11)
--- NOTE | 2023-12-27 10:14 | P.PN ---
Subjective Progress Note Date: 12/26/23 Principal diagnosis: Reason for follow-up is right diabetic foot ulcer/infection Patient is a 68-year-old male with a past medical history significant for diabetes mellitus hypertension hyperlipidemia osteoarthritis reflux, previous history of diabetic foot infection osteomyelitis patient apparently has been dealing with the wound on the plantar aspect of his right foot and apparently has developed a significant callus which was debrided in the wound care center and there was some purulent drainage concerning for infected callus patient able to the hospital for further workup. On today's evaluation that is 12/26/2023,the patient remains to be afebrile, patient is on room air not requiring supplemental oxygen and denies any shortness of breath no chest pain or cough.Patient denies having any nausea or vomiting, no abdominal pain and no diarrhea patient overall swelling to the right foot has decreased in intensity. Patient did have white count of 7.2, creatinine 0.71 cultures are currently pending Objective - Vital Signs Vital signs: Vital Signs Temp 98.8 F 12/26/23 07:00 Pulse 72 12/26/23 07:00 Resp 16 12/26/23 07:00 BP 121/70 12/26/23 07:00 Pulse Ox 95 12/26/23 07:00 FiO2 Intake & Output 12/25/23 12/26/23 12/26/23 18:59 06:59 18:59 Intake Total 700 Balance 700 Weight 99.79 kg Intake: Intake, IV Titration 700 Amount DAPTOmycin 600 mg In 100 Sodium Chloride 0.9% 50 ml @ 100 mls/hr IVPB HS [facility] Rx#:[id number] Piperacillin-Tazobactam 3 100 .375 gm In Sodium Chloride 0.9% 100 ml @ 25 mls/hr IVPB Q8HR [facility] Rx# :[id number] Vancomycin 1,500 mg In 500 Sodium Chloride 0.9% 500 ml 500 ml @ 167 mls/hr IVPB ONCE ONE Rx#: [id number] Other: Voiding Method Toilet # Voids 2 - Exam GENERAL DESCRIPTION: An elderly male lying in bed in no distress RESPIRATORY SYSTEM: Unlabored breathing , decreased breath sounds at bases HEART: S1 S2 regular rate and rhythm , ABDOMEN: Soft , no tenderness EXTREMITIES: Right foot wound is currently dressed with drainage of the dressing - Labs CBC & Chem 7: 12/26/23 02:29 12/26/23 02:29 Labs: Abnormal Lab Results - Last 24 Hours (Table) 12/25/23 12/26/23 12/26/23 Range/Units 15:29 02:29 02:29 Hgb 12.4 L (13.0-17.5) gm/dL ESR 22 H (0-20) mm/Hr Chloride 109 H 108 H (98-107) mmol/L Creatinine 0.61 L (0.66-1.25) mg/dL Glucose 104 H (74-99) mg/dL POC Glucose (mg/dL) (70-110) mg/dL Total Protein 6.0 L (6.3-8.2) g/dL Albumin 3.3 L 2.9 L (3.5-5.0) g/dL 12/26/23 12/26/23 Range/Units 06:18 12:00 Hgb (13.0-17.5) gm/dL ESR (0-20) mm/Hr Chloride (98-107) mmol/L Creatinine (0.66-1.25) mg/dL Glucose (74-99) mg/dL POC Glucose (mg/dL) 117 H 117 H (70-110) mg/dL Total Protein (6.3-8.2) g/dL Albumin (3.5-5.0) g/dL Microbiology - Last 24 Hours (Table) 12/25/23 15:29 Gram Stain - Preliminary Foot - Left Assessment and Plan (1) Diabetic ulcer of right foot Current Visit: Yes Status: Acute Code(s): E11.621 - TYPE 2 DIABETES MELLITUS WITH FOOT ULCER; L97.519 - NON-PRS CHRONIC ULCER OTH PRT RIGHT FOOT W UNSP SEVERITY SNOMED Code(s): 342575894 (2) Diabetic infection of right foot Current Visit: Yes Status: Acute Code(s): E11.628 - TYPE 2 DIABETES MELLITUS WITH OTHER SKIN COMPLICATIONS; L08.9 - LOCAL INFECTION OF THE SKIN AND SUBCUTANEOUS TISSUE, UNSP SNOMED Code(s): 954185506 (3) Cellulitis of right foot Current Visit: Yes Status: Acute Code(s): L03.115 - CELLULITIS OF RIGHT LOWER LIMB SNOMED Code(s): 22815619327321056 Plan: 1patient presented to hospital with increasing swelling redness to the right third toe in this patient also have wound on the plantar aspect status post debridement of infected callus will need to cover for the polymicrobial dustin associated with diabetic foot infection 2-patient is afebrile white count has been normal we will continue with the Zosyn and daptomycin while waiting for the culture to finalize Dictation was produced using [employer] dictation software. please excuse any grammatical, word or spelling errors. Time with Patient: Less than 30
[2023-12-27 11:51] LABS: Glucose,Whole Blood 106 mg/dL (70-110)
[2023-12-27] MEDS: polyethylene glycoL 3350 17 GM POWD.PACK PO SCH (12:22)
[2023-12-27] MEDS: SENNOSIDES-DOCUSATE SODIUM 1 EACH TAB PO SCH (12:23)
[2023-12-27] MEDS: VANCOMYCIN 1,750 MG in SODIUM CHLORIDE 0.9% 500 ML 500 ML IVPB SCH (12:23)
--- NOTE | 2023-12-27 14:32 | P.PN ---
Subjective Progress Note Date: 12/27/23 HISTORY OF PRESENT ILLNESS This is a 68-year-old male patient with past medical history of diabetes mellitus type 2, hypertension, hyperlipidemia, gastroesophageal reflux disease, recurrent depression, remote history of tobacco use, fatty liver, chronic back pain, insomnia. Patient has been under the care of the wound clinic with Dr. Finney for right lower extremity diabetic ulcer status post amputation of the right great toe, and he was hospitalized in the past at [facility] few month back after he was found to have an osteomyelitis of the left big toe which was amputated at that time, patient has been getting calluses that has been following with Dr. Finney at the wound healing Center, patient developed to have a significant redness around the callus of the right foot, along with redness of the third toe, and because of that and because of the underlying history of diabetes and a prior history of osteomyelitis he was sent to the emergency department for evaluation and possible admission for IV antibiotic with infectious disease consultation, initially started on IV antibiotic in the form of Zosyn I added vancomycin and pharmacy to dose his peak and trough, we will continue with vascular surgery consultation as well as infectious ease consultation, nonweightbearing on the right lower extremity, we will follow-up with the patient very closely during his hospital admission. 12/25: Patient sitting up in bed in no apparent distress, he denies any chest pain at this time, he has no shortness of breath, he has no abdominal pain, nausea vomiting or diarrhea, he had episode of nausea earlier today, but is not vomiting at this point, he was switched to Cubicin at this point in time instead of vancomycin continue with Zosyn as well he was seen earlier by Dr. Vargas, culture still pending the time of dictation. 12/26: Patient is laying down in bed in no apparent distress, he denies any chest pain at this time, he has no shortness of breath, his blood cultures positive for MRSA, he has been on daptomycin as well as Zosyn, both were discontinued by infectious disease, he was started on cefepime 2 g piggyback every 8 hours, as well as vancomycin 1750 mg IV piggyback every 24 hours, also metronidazole 500 mg orally 3 times every day. Will continue to follow-up with the patient very closely, wound culture is positive for presumptive MRSA as well, continue current treatment plan, repeat labs tomorrow morning. Patient will have a PICC line placement once the bacteremia is resolved. REVIEW OF SYSTEMS Constitutional: No fever, no chills, no night sweats. No weight change. No weakness, fatigue or lethargy. No daytime sleepiness. HEENT: No headache. No blurred vision or double vision, no loss of vision. No loss of Hearing, no ringing in the ears, no dizziness. No nasal drainage or congestion. No epistaxis. No sore throat. Lungs: No shortness of breath, cough, no sputum production. No wheezing. Cardiovascular: No chest pain, no lower extremity edema. No palpitations. No paroxysmal nocturnal dyspnea. No orthopnea. No lightheadedness or dizziness. No syncopal episodes. Abdominal: No abdominal pain. No nausea, vomiting. No diarrhea. No constipation. No bloody or tarry stools. No loss of appetite. Genitourinary: No dysuria, increased frequency, urgency. No urinary retention. Musculoskeletal: No myalgias. No muscle weakness, no gait dysfunction, no frequent falls. No back pain. No neck pain. Integumentary: Bilateral big toe amputations, right foot with a callus that is covered with a dressing, there is minimal redness to the right third toe, suggestive of cellulitis. No evidence of osteomyelitis. Neurologic: No aphasia. No facial droop. No change in mentation. No head injury. No headache. No paralysis, positive for neuropathy Psychiatric:positive for depression. No anxiety. No mood swings. Endocrine:positive for abnormal blood sugars. No weight change. No excessive sweating or thirst. No cold intolerance. PHYSICAL EXAMINATION Gen: This is a 68-year-old male, resting in bed and appears to be comfortable and in no acute distress. HEENT: Head is atraumatic, normocephalic. Pupils equal, round. Sclerae is anicteric. NECK: Supple. No JVD. No lymphadenopathy. No thyromegaly. LUNGS: Clear to auscultation. No wheezes or rhonchi. No intercostal retractions. HEART: First heart sound is depressed, second heart sound is normal there is systolic ejection murmur 2/6 located in the left Chuck. ABDOMEN: Soft. Bowel sounds are present. No masses. No tenderness. EXTREMITIES: No pedal edema. No calf tenderness. DP +2 bilaterally, there is bilateral big toe amputation, there is a right foot callus that is covered with surgical dressing, and there is redness of the right third toe. NEUROLOGICAL: Patient is awake, alert and oriented x3. Cranial nerves 2 through 12 are grossly intact. Muscle strength 4/5 in the bilateral upper and lower extremities, neuropathic changes to both feet, deep tendon reflexes are depressed. ASSESSMENT AND PLAN 1. Infected callus with MRSA patient was restarted back on vancomycin 1750 mg with piggyback every 24 hours, he was started on cefepime 2 g piggyback every 8 hours, discontinue Zosyn, patient will be followed very closely continue local care, vascular surgery and infectious disease are following. Patient also was started on metronidazole 500 mg orally 3 times every day 2. MRSA bacteremia. Continue patient on vancomycin 1750 mg of piggyback every 24 hours repeat blood cultures in the next 24 hours. Patient will need to have a PICC line placement down the line. 3. Diabetes mellitus type 2 uncontrolled we will continue with Levemir 45 units SC at bedtime along with Humalog per sliding scale, we will continue with Farxiga 10 mg po daily , was on Mounjaro 10 mg Sc q week, BGM AC meals tid 4. Hypertension and hypertensive cardiovascular disease . continue lisinopril 10 mg or orally once every day monitor the patient blood pressure very closely. 5. Hyperlipidemia. Continue atorvastatin 40 mg orally daily and Zetia 10 mg po daily, keep LDL-c 55-70. 6. Diabetic neuropathy. Continue gabapentin 800 mg 4 times daily. 7. Chronic back pain. Continue baclofen 10 mg daily as needed, along with current pain management continue with [place] as well as tramadol as needed. 8. Recurrent depression. Continue sertraline 100 mg daily 9. Insomnia. Continue Ambien 10 mg at bedtime. 10. Gastroesophageal reflux disease. Continue with Protonix 40 mg po daily 11. DVT prophylaxis. Lovenox 40 mg subcutaneous every 24 hours. 12. GI prophylaxis. Continue Protonix 40 mg once every day. 13. Guarded prognosis. Objective - Vital Signs Vital signs: Vital Signs Temp 98.1 F 12/27/23 07:00 Pulse 64 12/27/23 07:00 Resp 18 12/27/23 07:00 BP 165/88 12/27/23 07:00 Pulse Ox 98 12/27/23 07:00 FiO2 Intake & Output 12/26/23 12/27/23 12/27/23 18:59 06:59 18:59 Intake Total 750 180 Balance 750 180 Intake: Oral 750 180 Other: Voiding Method Toilet # Voids 3 # Bowel Movements 0 - Labs CBC & Chem 7: 12/26/23 02:29 12/26/23 02:29 Labs: Microbiology - Last 24 Hours (Table) 12/25/23 15:30 Blood Culture Gram Stain - Preliminary Blood Blood Culture - Preliminary Presumptive MRSA Molecular ID 12/25/23 18:33 Blood Culture - Preliminary Blood 12/25/23 15:29 Gram Stain - Preliminary Foot - Left Wound Culture - Preliminary Presumptive MRSA
--- NOTE | 2023-12-27 16:53 | P.PN ---
Progress Note - Text 68-year-old white male with history of diabetes patient had a big toe patient in the past patient has a callus on the plantar aspect of the right foot with some drainage we cleaned the wound and patient is under care of infectious disease for IV antibiotic today will change the dressing with less drainage noted less redness noted noted on the dorsal aspect of the foot we placed extra silver dressings should be changed every other day continue new antibiotic under care of infectious disease
[2023-12-27 17:10] LABS: Glucose,Whole Blood 108 mg/dL (70-110)
[2023-12-27] MEDS: metroNIDAZOLE 500 MG TAB PO SCH (17:20)
[2023-12-27] MEDS: CEFEPIME 2 GM in SODIUM CHLORIDE 0.9% 100 ML IVPB SCH (17:20)
[2023-12-27 20:20] LABS: Glucose,Whole Blood 106 mg/dL (70-110)
[2023-12-28 07:20] LABS: Glucose,Whole Blood 98 mg/dL (70-110)
[2023-12-28 08:52] LABS: Basophils # (A) 0.05 X 10*3/uL (0.00-0.10); Basophils % (A) 0.7 %; Eosinophils # (A) 0.22 X 10*3/uL (0.04-0.35); Eosinophils % (A) 3.2 %; HCT 36.6 % (39.6-50.0); HGB 12.2 g/dL (13.0-17.0); Lymphocytes # (A) 1.89 X 10*3/uL (0.90-5.00); Lymphocytes % (A) 27.7 %; MCH 28.6 pg (27.0-32.0); MCHC 33.3 g/dL (32.0-37.0); MCV 85.9 FL (80.0-97.0); Mean Platelet Volume 8.4 FL (9.5-12.2); Monocytes # (A) 0.47 X 10*3/uL (0.20-1.00); Monocytes % (A) 6.9 %; NRBC Per 100 WBC 0 X 10*3/uL (0.00-0.01); Neutrophils # (A) 4.18 X 10*3/uL (1.80-7.70); Neutrophils % (A) 61.2 %; Platelet Count 286 X 10*3/uL (140-440); RBC 4.26 X 10*6/uL (4.40-5.60); RDW 12.2 % (11.5-14.5); WBC 6.83 X 10*3/uL (4.50-10.00)
[2023-12-28 08:58] LABS: ALT 20 U/L (10-49); AST 23 U/L (14-35); Albumin 3.1 g/dL (3.8-4.9); Alkaline Phosphatase 55 U/L (41-126); BUN/Creat Ratio 13.43 Ratio (12.00-20.00); Blood Urea Nitrogen 9.4 mg/dL (9.0-27.0); Calcium 8.4 mg/dL (8.7-10.3); Carbon Dioxide 23.5 mmol/L (21.6-31.8); Chloride 109 mmol/L (96-109); Globulin 3.1 g/dL (1.6-3.3); Glucose 118 mg/dL (70-110); Sodium 142 mmol/L (135-145); Total Bilirubin 0.3 mg/dL (0.3-1.2); Total Protein 6.2 g/dL (6.2-8.2)
[2023-12-28 10:37] LABS: African American GFR (CKD) >90 (>60 ml/min/1.73 sqM); Non-African American GFR(CKD) >90 (>60 ml/min/1.73 sqM)
[2023-12-28] MEDS: VANCOMYCIN TROUGH DUE 1 EACH MISC MISCELLANE ONE (11:40)
[2023-12-28 12:27] LABS: Glucose,Whole Blood 102 mg/dL (70-110)
--- NOTE | 2023-12-28 15:21 | P.PN ---
Subjective Progress Note Date: 12/27/23 Principal diagnosis: Reason for follow-up is right diabetic foot ulcer/infection Patient is a 68-year-old male with a past medical history significant for diabetes mellitus hypertension hyperlipidemia osteoarthritis reflux, previous history of diabetic foot infection osteomyelitis patient apparently has been dealing with the wound on the plantar aspect of his right foot and apparently has developed a significant callus which was debrided in the wound care center and there was some purulent drainage concerning for infected callus patient able to the hospital for further workup. On today's evaluation that is 12/27/2023, the patient continues to be afebrile, the patient is on room air and breathing comfortably, the Pt denies having any chest pain or cough, the patient denies having any abdominal pain no vomiting or any diarrhea, denies any worsening pain to the right foot or drainage. No new lab has been obtained today Objective - Vital Signs Vital signs: Vital Signs Temp 98.1 F 12/27/23 07:00 Pulse 64 12/27/23 07:00 Resp 18 12/27/23 07:00 BP 165/88 12/27/23 07:00 Pulse Ox 98 12/27/23 07:00 FiO2 Intake & Output 12/26/23 12/27/23 12/27/23 18:59 06:59 18:59 Intake Total 750 Balance 750 Intake: Oral 750 Other: Voiding Method Toilet # Voids 3 # Bowel Movements 0 - Exam GENERAL DESCRIPTION: An elderly male lying in bed in no distress RESPIRATORY SYSTEM: Unlabored breathing , decreased breath sounds at bases HEART: S1 S2 regular rate and rhythm , ABDOMEN: Soft , no tenderness EXTREMITIES: Right foot wound is currently dressed with drainage of the dressing - Labs CBC & Chem 7: 12/28/23 05:55 12/28/23 10:14 Labs: Abnormal Lab Results - Last 24 Hours (Table) 12/26/23 Range/Units 12:00 POC Glucose (mg/dL) 117 H (70-110) mg/dL Microbiology - Last 24 Hours (Table) 12/25/23 15:30 Blood Culture Gram Stain - Preliminary Blood Blood Culture - Preliminary Presumptive MRSA Molecular ID 12/25/23 18:33 Blood Culture - Preliminary Blood 12/25/23 15:29 Gram Stain - Preliminary Foot - Left Wound Culture - Preliminary Presumptive MRSA Assessment and Plan (1) Diabetic ulcer of right foot Current Visit: Yes Status: Acute Code(s): E11.621 - TYPE 2 DIABETES MELLITUS WITH FOOT ULCER; L97.519 - NON-PRS CHRONIC ULCER OTH PRT RIGHT FOOT W UNSP SEVERITY SNOMED Code(s): 859744490 (2) Diabetic infection of right foot Current Visit: Yes Status: Acute Code(s): E11.628 - TYPE 2 DIABETES MELLITUS WITH OTHER SKIN COMPLICATIONS; L08.9 - LOCAL INFECTION OF THE SKIN AND SUBCUTANEOUS TISSUE, UNSP SNOMED Code(s): 243602129 (3) Cellulitis of right foot Current Visit: Yes Status: Acute Code(s): L03.115 - CELLULITIS OF RIGHT LOWER LIMB SNOMED Code(s): 76000690568414337 Plan: 1patient presented to hospital with increasing swelling redness to the right third toe in this patient also have wound on the plantar aspect status post debridement of infected callus will need to cover for the polymicrobial dustin associated with diabetic foot infection 2-patient did have a positive blood culture with MRSA related to the right d iabetic foot ulcer infection 3bone scan has been ordered to rule out osteomyelitis and deep infection 4patient antibiotic has been switched over to vancomycin to continue will likely need a PICC line for outpatient IV antibiotics Dictation was produced using [employer] dictation software. please excuse any grammatical, word or spelling errors. Time with Patient: Less than 30
--- NOTE | 2023-12-28 15:22 | P.PN ---
Subjective Progress Note Date: 12/28/23 Principal diagnosis: Reason for follow-up is right diabetic foot ulcer/infection Patient is a 68-year-old male with a past medical history significant for diabetes mellitus hypertension hyperlipidemia osteoarthritis reflux, previous history of diabetic foot infection osteomyelitis patient apparently has been dealing with the wound on the plantar aspect of his right foot and apparently has developed a significant callus which was debrided in the wound care center and there was some purulent drainage concerning for infected callus patient able to the hospital for further workup. On today's evaluation that is 12/28/2023, Patient is afebrile patient is currently on room air and denies having any shortness of breath, the patient denies any chest pain or cough, the patient denies any nausea vomiting did not have any abdominal pain and no diarrhea, discomfort to the right foot and drainage has decreased. Patient white count 6.83 creatinine 0.64 blood culture repeat from 1111 so far negative both scan is currently pending Objective - Vital Signs Vital signs: Vital Signs Temp 98.6 F 12/28/23 07:26 Pulse 69 12/28/23 07:26 Resp 14 12/28/23 07:26 BP 143/76 12/28/23 07:26 Pulse Ox 98 12/28/23 07:26 FiO2 Intake & Output 12/27/23 12/28/23 12/28/23 18:59 06:59 18:59 Intake Total 1260 Balance 1260 Intake: Oral 1260 Other: Voiding Method Toilet # Voids 3 # Bowel Movements 1 - Exam GENERAL DESCRIPTION: An elderly male lying in bed in no distress RESPIRATORY SYSTEM: Unlabored breathing , decreased breath sounds at bases HEART: S1 S2 regular rate and rhythm , ABDOMEN: Soft , no tenderness EXTREMITIES: Right foot wound is currently dressed with drainage of the dressing - Labs CBC & Chem 7: 12/28/23 05:55 12/28/23 10:14 Labs: Abnormal Lab Results - Last 24 Hours (Table) 12/28/23 12/28/23 Range/Units 05:55 05:55 RBC 4.26 L (4.40-5.60) X 10*6/uL Hgb 12.2 L (13.0-17.0) g/dL Hct 36.6 L (39.6-50.0) % MPV 8.4 L (9.5-12.2) FL Glucose 118 H (70-110) mg/dL Calcium 8.4 L (8.7-10.3) mg/dL Albumin 3.1 L (3.8-4.9) g/dL Albumin/Globulin Ratio 1.00 L (1.60-3.17) Ratio Microbiology - Last 24 Hours (Table) 12/25/23 18:33 Blood Culture - Preliminary Blood 12/25/23 15:30 Blood Culture Gram Stain - Preliminary Blood Blood Culture - Preliminary Presumptive MRSA Molecular ID 12/25/23 15:29 Gram Stain - Final Foot - Left Wound Culture - Final Methicillin resist S. aureus Assessment and Plan (1) Diabetic ulcer of right foot Current Visit: Yes Status: Acute Code(s): E11.621 - TYPE 2 DIABETES MELLITUS WITH FOOT ULCER; L97.519 - NON-PRS CHRONIC ULCER OTH PRT RIGHT FOOT W UNSP SEVERITY SNOMED Code(s): 529229553 (2) Diabetic infection of right foot Current Visit: Yes Status: Acute Code(s): E11.628 - TYPE 2 DIABETES MELLITUS WITH OTHER SKIN COMPLICATIONS; L08.9 - LOCAL INFECTION OF THE SKIN AND SUBCUTANEOUS TISSUE, UNSP SNOMED Code(s): 018163026 (3) Cellulitis of right foot Current Visit: Yes Status: Acute Code(s): L03.115 - CELLULITIS OF RIGHT LOWER LIMB SNOMED Code(s): 90798616067631529 Plan: 1patient presented to hospital with increasing swelling redness to the right third toe in this patient also have wound on the plantar aspect status post debridement of infected callus will need to cover for the polymicrobial dustin associated with diabetic foot infection 2-patient did have a positive blood culture with MRSA related to the right diabetic foot ulcer infection, repeat blood culture for pending 3bone scan is currently in progress rule out osteomyelitis and deep infection 4patient to continue with vancomycin pharmacy to dose will order PICC line for outpatient IV antibiotics duration will depend on the results of the bone scan Dictation was produced using [employer] dictation software. please excuse any grammatical, word or spelling errors. Time with Patient: Less than 30
[2023-12-28 17:20] LABS: Glucose,Whole Blood 99 mg/dL (70-110)
--- NOTE | 2023-12-28 17:21 | NM ---
EXAMINATION TYPE: NM bone 3 phase DATE OF EXAM: 12/28/2023 COMPARISON: NONE HISTORY: Diabetic right foot ulcer Delayed whole-body scanning was performed following the injection of 25.5 mCi Tc 99m MDP. Images wer e acquired 5.5 hours post injection. FINDINGS: Blood flow: Initial blood flow images of the bilateral feet demonstrate marked radiotracer within the distal right foot compared to the left Blood pool: There is increased radiotracer accumulation over the distal right foot compared to the le ft blood pool images small amount of third digit left foot uptake is noted on the blood pool images. Static images: Delayed bone scan imaging of the feet there is increased radiotracer the region of the second or possibly third right metatarsal and proximal phalanx. Some mild uptake is noted at the dis romain left third digit. The distal first metatarsal region of the left foot does not have phase uptake. Findings to suggest o steomyelitis within the left foot not identified. There is prior amputation of the first left digit. Mild uptake is at the distal second digit distal f irst metatarsal and distal fifth metatarsal region of the left foot. Uptake is in the region of the d istal first metatarsal right foot. IMPRESSION: 1. Uptake on 3 Phase bone scan in the distal right foot likely within the second or possibly third me tatarsal and proximal digit. Findings can be compatible with acute osteomyelitis. 2. Suspicious three-phase uptake within the left foot is not identified. [facility], , 12/28/2023 5:19 PM
--- NOTE | 2023-12-28 19:28 | P.PN ---
Subjective Progress Note Date: 12/28/23 HISTORY OF PRESENT ILLNESS This is a 68-year-old male patient with past medical history of diabetes mellitus type 2, hypertension, hyperlipidemia, gastroesophageal reflux disease, recurrent depression, remote history of tobacco use, fatty liver, chronic back pain, insomnia. Patient has been under the care of the wound clinic with Dr. Finney for right lower extremity diabetic ulcer status post amputation of the right great toe, and he was hospitalized in the past at [facility] few month back after he was found to have an osteomyelitis of the left big toe which was amputated at that time, patient has been getting calluses that has been following with Dr. Finney at the wound healing Center, patient developed to have a significant redness around the callus of the right foot, along with redness of the third toe, and because of that and because of the underlying history of diabetes and a prior history of osteomyelitis he was sent to the emergency department for evaluation and possible admission for IV antibiotic with infectious disease consultation, initially started on IV antibiotic in the form of Zosyn I added vancomycin and pharmacy to dose his peak and trough, we will continue with vascular surgery consultation as well as infectious ease consultation, nonweightbearing on the right lower extremity, we will follow-up with the patient very closely during his hospital admission. 12/25: Patient sitting up in bed in no apparent distress, he denies any chest pain at this time, he has no shortness of breath, he has no abdominal pain, nausea vomiting or diarrhea, he had episode of nausea earlier today, but is not vomiting at this point, he was switched to Cubicin at this point in time instead of vancomycin continue with Zosyn as well he was seen earlier by Dr. Vargas, culture still pending the time of dictation. 12/26: Patient is laying down in bed in no apparent distress, he denies any chest pain at this time, he has no shortness of breath, his blood cultures positive for MRSA, he has been on daptomycin as well as Zosyn, both were discontinued by infectious disease, he was started on cefepime 2 g piggyback every 8 hours, as well as vancomycin 1750 mg IV piggyback every 24 hours, also metronidazole 500 mg orally 3 times every day. Will continue to follow-up with the patient very closely, wound culture is positive for presumptive MRSA as well, continue current treatment plan, repeat labs tomorrow morning. Patient will have a PICC line placement once the bacteremia is resolved. 12/27: Patient sitting up in bed no apparent distress, he seems to be tolerating treatment very well, he is switched to vancomycin as well as cefepime as of yesterday, his cultures are positive for MRSA, he continues to have bacteremia with MRSA, continue IV antibiotic, infectious diseases following, vascular surgery is following, continue local care, continue other treatment plan continue supportive care. REVIEW OF SYSTEMS Constitutional: No fever, no chills, no night sweats. No weight change. No weakness, fatigue or lethargy. No daytime sleepiness. HEENT: No headache. No blurred vision or double vision, no loss of vision. No loss of Hearing, no ringing in the ears, no dizziness. No nasal drainage or congestion. No epistaxis. No sore throat. Lungs: No shortness of breath, cough, no sputum production. No wheezing. Cardiovascular: No chest pain, no lower extremity edema. No palpitations. No paroxysmal nocturnal dyspnea. No orthopnea. No lightheadedness or dizziness. No syncopal episodes. Abdominal: No abdominal pain. No nausea, vomiting. No diarrhea. No constipation. No bloody or tarry stools. No loss of appetite. Genitourinary: No dysuria, increased frequency, urgency. No urinary retention. Musculoskeletal: No myalgias. No muscle weakness, no gait dysfunction, no frequent falls. No back pain. No neck pain. Integumentary: Bilateral big toe amputations, right foot with a callus that is covered with a dressing, there is minimal redness to the right third toe, suggestive of cellulitis. No evidence of osteomyelitis. Neurologic: No aphasia. No facial droop. No change in mentation. No head injury. No headache. No paralysis, positive for neuropathy Psychiatric:positive for depression. No anxiety. No mood swings. Endocrine:positive for abnormal blood sugars. No weight change. No excessive sweating or thirst. No cold intolerance. PHYSICAL EXAMINATION Gen: This is a 68-year-old male, resting in bed and appears to be comfortable and in no acute distress. HEENT: Head is atraumatic, normocephalic. Pupils equal, round. Sclerae is anicteric. NECK: Supple. No JVD. No lymphadenopathy. No thyromegaly. LUNGS: Clear to auscultation. No wheezes or rhonchi. No intercostal retractions. HEART: First heart sound is depressed, second heart sound is normal there is systolic ejection murmur 2/6 located in the left Chuck. ABDOMEN: Soft. Bowel sounds are present. No masses. No tenderness. EXTREMITIES: No pedal edema. No calf tenderness. DP +2 bilaterally, there is bilateral big toe amputation, there is a right foot callus that is covered with dressing, and there is redness of the right third toe. NEUROLOGICAL: Patient is awake, alert and oriented x3. Cranial nerves 2 through 12 are grossly intact. Muscle strength 4/5 in the bilateral upper and lower extremities, neuropathic changes to both feet, deep tendon reflexes are depressed. ASSESSMENT AND PLAN 1. Infected callus with MRSA patient was restarted back on vancomycin 1750 mg with piggyback every 24 hours, he was started on cefepime 2 g piggyback every 8 hours, patient will be followed very closely continue local care, vascular surgery and infectious disease are following. Patient also was started on metronidazole 500 mg orally 3 times every day 2. MRSA bacteremia. Continue patient on vancomycin 1750 mg of piggyback every 24 hours repeat blood cultures in the next 24 hours. Patient will need to have a PICC line placement down the line. 3. Diabetes mellitus type 2 uncontrolled we will continue with Levemir 45 un its SC at bedtime along with Humalog per sliding scale, we will continue with Farxiga 10 mg po daily , was on Mounjaro 10 mg Sc q week, BGM AC meals tid 4. Hypertension and hypertensive cardiovascular disease . continue lisinopril 10 mg or orally once every day monitor the patient blood pressure very closely. 5. Hyperlipidemia. Continue atorvastatin 40 mg orally daily and Zetia 10 mg po daily, keep LDL-c 55-70. 6. Diabetic neuropathy. Continue gabapentin 800 mg 4 times daily. 7. Chronic back pain. Continue baclofen 10 mg daily as needed, along with current pain management continue with [place] as well as tramadol as needed. 8. Recurrent depression. Continue sertraline 100 mg daily 9. Insomnia. Continue Ambien 10 mg at bedtime. 10. Gastroesophageal reflux disease. Continue with Protonix 40 mg po daily 11. DVT prophylaxis. Lovenox 40 mg subcutaneous every 24 hours. 12. GI prophylaxis. Continue Protonix 40 mg once every day. 13. Guarded prognosis. Objective - Vital Signs Vital signs: Vital Signs Temp 98 F 12/28/23 01:52 Pulse 74 12/28/23 01:52 Resp 16 12/28/23 01:52 BP 120/71 12/28/23 01:52 Pulse Ox 97 12/28/23 01:52 FiO2 Intake & Output 12/27/23 12/27/23 12/28/23 06:59 18:59 06:59 Intake Total 1260 Balance 1260 Intake: Oral 1260 Other: Voiding Method Toilet Toilet - Labs CBC & Chem 7: 12/26/23 02:29 12/26/23 02:29 Labs: Microbiology - Last 24 Hours (Table) 12/25/23 15:29 Gram Stain - Final Foot - Left Wound Culture - Final Methicillin resist S. aureus 12/25/23 15:30 Blood Culture Gram Stain - Preliminary Blood Blood Culture - Preliminary Presumptive MRSA Molecular ID 12/25/23 18:33 Blood Culture - Preliminary Blood
[2023-12-28 20:09] LABS: Glucose,Whole Blood 122 mg/dL (70-110)
[2023-12-29 07:05] LABS: Glucose,Whole Blood 105 mg/dL (70-110)
[2023-12-29 09:45] LABS: African American GFR (CKD) >90 (>60 ml/min/1.73 sqM); Non-African American GFR(CKD) >90 (>60 ml/min/1.73 sqM)
[2023-12-29 11:25] VITALS: BMI 29.0
[2023-12-29 12:26] LABS: Glucose,Whole Blood 104 mg/dL (70-110)
--- NOTE | 2023-12-29 13:03 | P.PN ---
Subjective Progress Note Date: 12/29/23 Principal diagnosis: Reason for follow-up is right diabetic foot ulcer/infection Patient is a 68-year-old male with a past medical history significant for diabetes mellitus hypertension hyperlipidemia osteoarthritis reflux, previous history of diabetic foot infection osteomyelitis patient apparently has been dealing with the wound on the plantar aspect of his right foot and apparently has developed a significant callus which was debrided in the wound care center and there was some purulent drainage concerning for infected callus patient able to the hospital for further workup. On today's evaluation that is 12/29/2023, patient has been afebrile, patient is breathing comfortably and is currently on room air, patient denies having any significant cough no chest pain, patient denies nausea vomiting or diarrhea and no abdominal pain denies any worsening pain to the right foot wound area. Patient did have a creatinine 0.67 blood culture repeat has been negative patient local culture done in the wound care is growing MRSA and Pseudomonas group D Enterococcus, the Pseudomonas is resistant to ceftazidime intermediate to cefepime sensitive to Zosyn Objective - Vital Signs Vital signs: Vital Signs Temp 98.4 F 12/29/23 07:18 Pulse 72 12/29/23 07:18 Resp 14 12/29/23 07:18 BP 161/83 12/29/23 07:18 Pulse Ox 97 12/29/23 07:18 FiO2 Intake & Output 12/28/23 12/29/23 12/29/23 18:59 06:59 18:59 Intake Total 540 700 480 Balance 540 700 480 Intake: Intake, IV Titration 700 Amount Cefepime 2 gm In Sodium 200 Chloride 0.9% 100 ml @ 25 mls/hr IVPB Q8HR NAIF Rx# :[id number] Vancomycin 1,750 mg In 500 Sodium Chloride 0.9% 500 ml 500 ml @ 167 mls/hr IVPB Q8H NAIF Rx#: [id number] Oral 540 480 Other: Voiding Method Toilet Toilet # Voids 3 - Exam GENERAL DESCRIPTION: An elderly male lying in bed in no distress RESPIRATORY SYSTEM: Unlabored breathing , decreased breath sounds at bases HEART: S1 S2 regular rate and rhythm , ABDOMEN: Soft , no tenderness EXTREMITIES: Right foot wound is currently dressed with drainage of the dressing - Labs CBC & Chem 7: 12/28/23 05:55 12/29/23 05:31 Labs: Abnormal Lab Results - Last 24 Hours (Table) 12/28/23 12/28/23 Range/Units 10:14 20:01 Creatinine 0.64 L (0.66-1.25) mg/dL POC Glucose (mg/dL) 122 H (70-110) mg/dL Microbiology - Last 24 Hours (Table) 12/25/23 18:33 Blood Culture - Preliminary Blood 12/25/23 15:30 Blood Culture Gram Stain - Final Blood Blood Culture - Final Methicillin resist S. aureus Molecular ID Assessment and Plan (1) Diabetic ulcer of right foot Current Visit: Yes Status: Acute Code(s): E11.621 - TYPE 2 DIABETES MELLITUS WITH FOOT ULCER; L97.519 - NON-PRS CHRONIC ULCER OTH PRT RIGHT FOOT W UNSP SEVERITY SNOMED Code(s): 857551663 (2) Diabetic infection of right foot Current Visit: Yes Status: Acute Code(s): E11.628 - TYPE 2 DIABETES MELLITUS WITH OTHER SKIN COMPLICATIONS; L08.9 - LOCAL INFECTION OF THE SKIN AND SUBCUTANEOUS TISSUE, UNSP SNOMED Code(s): 183716870 (3) Cellulitis of right foot Current Visit: Yes Status: Acute Code(s): L03.115 - CELLULITIS OF RIGHT LOWER LIMB SNOMED Code(s): 67311337012324244 Plan: 1patient presented to hospital with increasing swelling redness to the right third toe in this patient also have wound on the plantar aspect status post debridement of infected callus will need to cover for the polymicrobial dustin associated with diabetic foot infection 2-patient did have a positive blood culture with MRSA related to the right diabetic foot ulcer infection, repeat blood culture has been negative 3bone scan is suggestive of osteomyelitis and deep infection, local culture did grew MRSA Pseudomonas and Enterococcus 4patient antibiotics will be adjusted to daptomycin and Zosyn to cover for Pseudomonas as well as MRSA plan is for 6-week course of antibiotic prescription has been sent to the infusion company PICC line has been ordered all his question concern answered Dictation was produced using [employer] dictation software. please excuse any grammatical, word or spelling errors. Time with Patient: Less than 30
[2023-12-29 14:13] VITALS: BP 152/75; PULSE 62; RESP 16; TEMP 99.2
--- NOTE | 2023-12-29 16:08 | P.PN ---
Progress Note - Text 68-year-old diabetic male patient has a callus on the plantar aspect of the right foot and had big toe amputation done in the past culture came back as a methicillin-resistant Staph aureus care of infectious disease on IV antibiotic patient got his PICC line at today will change the dressing minimal drainage noted with minimal redness noted on the toes patient is going home and follow-up with the wound clinic on Monday continue with local wound care and IV antibiotic we will see him back in the wound clinic on Monday
[2023-12-29] MEDS: PIPERACILLIN-TAZOBACTAM 3.375 GM in SODIUM CHLORIDE 0.9% 100 ML IVPB SCH (16:18)
[2023-12-30] MEDS ORDERED: VANCOMYCIN TROUGH DUE 1 EACH MISC MISCELLANE ONE (10:00)
[2023-12-31] MEDS ORDERED: Tirzepatide [Mounjaro] 10 MG/0.5 ML Pen.Injctr SQ SCH (09:00)
== END 2023-12-29 17:12 | disposition home health service (06) | DRG 638 ==
LOC: EC 14:36 → 1SOBS 15:59 → 5NMEDONC 12-27 16:30
PROVIDERS: ADMIT Internal Medicine; ATTEND Internal Medicine
PROC: B5181ZA Fluoroscopy of Superior Vena Cava using Low Osmolar Contrast, Guidance (ICD-10-PCS; 2023-12-29)
PROC: B548ZZA Ultrasonography of Superior Vena Cava, Guidance (ICD-10-PCS; 2023-12-29)
PROC: 02HV33Z Insertion of Infusion Device into Superior Vena Cava, Percutaneous Approach (ICD-10-PCS; principal; 2023-12-29 10:30)
DX: E11.621 Type 2 diabetes mellitus with foot ulcer (principal); F33.9 Major depressive disorder, recurrent, unspecified; L03.115 Cellulitis of right lower limb; R78.81 Bacteremia; E11.51 Type 2 diabetes mellitus with diabetic peripheral angiopathy without gangrene; E11.628 Type 2 diabetes mellitus with other skin complications; E11.65 Type 2 diabetes mellitus with hyperglycemia; E11.69 Type 2 diabetes mellitus with other specified complication; F41.9 Anxiety disorder, unspecified; G47.00 Insomnia, unspecified; G89.29 Other chronic pain; I10 Essential (primary) hypertension; K76.0 Fatty (change of) liver, not elsewhere classified; B95.62 Methicillin resistant Staphylococcus aureus infection as the cause of diseases classified elsewhere; L84 Corns and callosities; B96.5 Pseudomonas (aeruginosa) (mallei) (pseudomallei) as the cause of diseases classified elsewhere; B95.2 Enterococcus as the cause of diseases classified elsewhere; E11.42 Type 2 diabetes mellitus with diabetic polyneuropathy; E78.5 Hyperlipidemia, unspecified; K21.9 Gastro-esophageal reflux disease without esophagitis; L97.519 Non-pressure chronic ulcer of other part of right foot with unspecified severity; M19.90 Unspecified osteoarthritis, unspecified site; Z79.4 Long term (current) use of insulin; Z79.82 Long term (current) use of aspirin; Z79.84 Long term (current) use of oral hypoglycemic drugs; Z79.899 Other long term (current) drug therapy; Z82.49 Family history of ischemic heart disease and other diseases of the circulatory system; Z87.891 Personal history of nicotine dependence; Z89.411 Acquired absence of right great toe
CPT/HCPCS: 36415; 36573; 78315; 80053; 80202; 82565; 83605; 85025; 85610; 85652; 85730; 87040; 87070; 87077; 87186; 87205; 96365; 99285

== ENCOUNTER → 2024-01-22 | Outpatient (CLI) | payer BC ==
[2024-01-22 14:48] VITALS: BP 152/87; PULSE 68; RESP 16
--- NOTE | 2024-01-22 15:23 | P.PAINPG ---
Objective - Vital Signs Vital signs: Intake & Output 01/21/24 01/22/24 01/22/24 18:59 06:59 18:59 Weight 97.522 kg PQRS Measure Charge Sheet Comment: A 68 yr old male with a history of severe and chronic LBP x yrs (s/p fall down stairs) secondary to radiculopathy, spondylosis and facet arthropathy without myelopathy presents today for medication refills. Pain level is provoked at 6 /10 in intensity, intermittent, localized in the lumbar spine, predominantly axial, tight in character w shooting towards the back of the R hip and RLE. Pain is provoked by crossing his legs. Pain is alleviated with massage gun use at home, injections, ice, medications, topicals, home stretching regimen, repositioning and rest. Interventional pain procedures completed include BL RFA L3-L5 x 5, L SI x2, BL SI x2 (May 2022, Mar 2023, Aug 2023) Patient is currently on Neurontin 800mg #120, Percocet 10/325mg #120, Voltaren gel Patient denies any side effects of the medication(s), denies excessive drowsiness or sleepiness, denies suicidal ideation and reports that the current pain medication is helping to control the pain and improve activities of daily living. Patient denies any motor or sensory deficits. Patient denies any fever or night sweats, denies any change in the bowel movements or urination. Physical Examination: -Constitutional: Cooperative. Not in acute distress . - Neurologic: Cranial nerve II to XII intact. No focal neurological deficits. - Psychatric: Alert & oriented x 3. Matching mood & appropriate affect. Judgment and insight intact. - Musculoskeletal: Cervical spine: Muscle bulk/ tone/ strength in the bilateral upper extremities normal Vertebral body tenderness to palpation over [place]ling test positive Distraction test positive Facet loading test positive TTP Thoracic spine Muscle bulk / tone/ strength in the bilateral paraspinal muscles normal Vertebral body tender to palpation over Facet loading test positive TTP Lumbar spine: Motor bulk/ tone/ strength lower extremities , thigh and legs : 5/5 Deep tendon reflexes : Normal Knee Jerk. Normal Ankle Jerk . Vertebral body tenderness to palpation Mitchell test positive Lumbar Facet Loading Test positive Straight Leg Raise: positive at 30 degrees right side/ left side Gaenslen's Test positive Sacral spine : Severe tenderness over the Sacroiliac joint: right side / left side Range of motion: Flexion of the lumbar spine <60 degrees Range of motion: Extension of the lumbar spine <20 degrees Gaenslen's Test positive right side < left side Papo test: positive right side / left side Thigh Thrust Test positive right side / left side Sacral Thrust Test positive right side < left side Assessment and plan: Chronic LBP secondary to radiculopathy, spondylosis with facet arthropathy without myelopathy, BL Sacroiliitis Recommendation of medication management. Percocet 10/325mg #120 w 1 RF. UDS from 10/09/23 reviewed and consistent. Per MAPS, MME is in excess of 50 so added Narcan and discussed use, awareness of use to close family and friends. Use, side effects, adverse reactions and safe storage discussed. Opiate/ narcotic agreement renewed 01/22/24. Pt acknowledged understanding. All questions answered. I have spent less than 30 minutes on patient care today. Dr Mckenzie was available by phone for the evaluation of this patient. The time was used to review the medical records including relevant urine studies and Prescription history (MAPs), review of the available imaging, evaluation and examination of the patient, coordination of care with the medical staff and if applicable referring physicians, as well as creation of the medical record PQRS Narrative: Smoking Status Former smoker Hx Alcohol Use () No: RARE Home Medications: Ambulatory Orders Aspirin 81 mg PO DAILY 08/06/13 Sertraline [Zoloft] 100 mg PO DAILY 11/17/17 Famotidine [Pepcid] 20 mg PO BID 10/07/19 Dapagliflozin Propanediol [Farxiga] 10 mg PO DAILY 02/01/21 Diclofenac Sodium [Voltaren Arthritis Pain 1% Gel] 1 applic TOPICAL QID PRN 02/03/21 Baclofen [Lioresal] 10 mg PO DAILY PRN 01/03/23 Gabapentin 800 mg PO QID 01/03/23 lisinopriL [Zestril] 10 mg PO DAILY 01/03/23 Collagenase [Santyl Ointment] 1 applic TOPICAL DAILY 12/25/23 Rosuvastatin [Crestor] 20 mg PO DAILY 12/25/23 Tirzepatide [Mounjaro] 10 mg SQ CHATMAN 12/25/23 oxyCODONE-APAP 10-325MG [Percocet 10-325 mg] 1 tab PO QID 12/25/23 traZODone HCL [Desyrel] 100 mg PO HS 12/25/23 DAPTOmycin [Cubicin] 600 mg IVPB Q24HR each 12/29/23 Piperacillin-Tazobactam [Zosyn] 3.375 gm IVPB Q8HR each 12/29/23 Sennosides-Docusate Sodium [Senokot-S] 2 each PO DAILY tab 12/29/23 polyethylene glycoL 3350 [Miralax] 17 gm PO DAILY packet 12/29/23 Controlled Substance Measures - Controlled Substance Measures Is patient prescribed a controlled substance at discharge?: Yes When asked, does pt state using other controlled substances?: No If prescribed controlled substance>3 days was MAPS reviewed?: Yes If Rx opioid, was Start Talking consent form obtained?: Yes Was information provided regarding opioid addiction?: Yes
== END ==
LOC: PNWHC3 14:22
PROVIDERS: ATTEND Specialist
DX: M47.26 Other spondylosis with radiculopathy, lumbar region (principal); M46.1 Sacroiliitis, not elsewhere classified; Z87.891 Personal history of nicotine dependence
CPT/HCPCS: 99211

== ENCOUNTER → 2024-05-20 | Outpatient (CLI) | payer MEDICARE ==
[2024-05-20 13:51] VITALS: BP 119/71; PULSE 73; RESP 16
--- NOTE | 2024-05-20 15:53 | P.PAINPG ---
PQRS Measure Charge Sheet Comment: A 68 yr old male with a history of severe and chronic LBP x yrs (s/p falling down stairs) secondary to radiculopathy, spondylosis and facet arthropathy without myelopathy presents today for medication refills. Pain level is provoked at 6 /10 in intensity, intermittent, localized in the lumbar spine, predomi nantly axial, tight in character w shooting towards the back of the R hip and RLE. Pain is provoked by crossing his legs. Pain is alleviated with massage gun use at home, injections, ice, medications, topicals, home stretching regimen, repositioning and rest. Discussed use of Narcan again. Pt acknowledged understanding. Interventional pain procedures completed include BL RFA L3-L5 x 5, L SI x2, BL SI x2 (May 2022, Mar 2023, Aug 2023) Patient is currently on Neurontin 800mg #120, Percocet 10/325mg #120, Voltaren gel Patient denies any side effects of the medication(s), denies excessive drowsin ess or sleepiness, denies suicidal ideation and reports that the current pain medication is helping to control the pain and improve activities of daily living. Patient denies any motor or sensory deficits. Patient denies any fever or night sweats, denies any change in the bowel movements or urination. Physical Examination: -Constitutional: Cooperative. Not in acute distress . - Neurologic: Cranial nerve II to XII intact. No focal neurological deficits. - Psychatric: Alert & oriented x 3. Matching mood & appropriate affect. Judgment and insight intact. - Musculoskeletal: Cervical spine: Muscle bulk/ tone/ strength in the bilateral upper extremities normal Vertebral body tenderness to palpation over Spurling test positive Distraction test positive Facet loading test positive TTP Thoracic spine Muscle bulk / tone/ strength in the bilateral paraspinal muscles normal Vertebral body tender to palpation over Facet loading test positive TTP Lumbar spine: Motor bulk/ tone/ strength lower extremities , thigh and legs : 5/5 Deep tendon reflexes : Normal Knee Jerk. Normal Ankle Jerk . Vertebral body tenderness to palpation Mitchell test positive Lumbar Facet Loading Test positive Straight Leg Raise: positive at 30 degrees right side/ left side Gaenslen's Test positive Sacral spine : Severe tenderness over the Sacroiliac joint: right side / left side Range of motion: Flexion of the lumbar spine <60 degrees Range of motion: Extension of the lumbar spine <20 degrees Gaenslen's Test positive right side < left side Papo test: positive right side / left side Thigh Thrust Test positive right side / left side Sacral Thrust Test positive right side < left side Assessment and plan: Chronic LBP secondary to radiculopathy, spondylosis with facet arthropathy without myelopathy, BL Sacroiliitis Recommendation of medication management. Percocet 10/325mg #120 w 1 RF. UDS collected 05/20/24. Pt has Narcan in his possession and aware of use to close family and friends. Use, side effects, adverse reactions and safe storage discussed. Opiate/ narcotic agreement renewed 01/22/24. Pt acknowledged understanding. All questions answered. I have spent less than 30 minutes on patient care today. Dr Mckenzie was available by phone for the evaluation of this patient. The time was used to review the medical records including relevant urine studies and Prescription history (MAPs), review of the available imaging, evaluation and examination of the patient, coordination of care with the medical staff and if applicable referring physicians, as well as creation of the medical record PQRS Narrative: Smoking Status Former smoker Hx Alcohol Use (MH) No: RARE Home Medications: Ambulatory Orders Aspirin 81 mg PO DAILY 08/06/13 Sertraline [Zoloft] 100 mg PO DAILY 11/17/17 Famotidine [Pepcid] 20 mg PO BID 10/07/19 Dapagliflozin Propanediol [Farxiga] 10 mg PO DAILY 02/01/21 Diclofenac Sodium [Voltaren Arthritis Pain 1% Gel] 1 applic TOPICAL QID PRN 02/03/21 Baclofen [Lioresal] 10 mg PO DAILY PRN 01/03/23 Gabapentin 800 mg PO QID 01/03/23 lisinopriL [Zestril] 10 mg PO DAILY 01/03/23 Collagenase [Santyl Ointment] 1 applic TOPICAL DAILY 12/25/23 Rosuvastatin [Crestor] 20 mg PO DAILY 12/25/23 Tirzepatide [Mounjaro] 10 mg SQ CHATMAN 12/25/23 traZODone HCL [Desyrel] 100 mg PO HS 12/25/23 DAPTOmycin [Cubicin] 600 mg IVPB Q24HR each 12/29/23 Piperacillin-Tazobactam [Zosyn] 3.375 gm IVPB Q8HR each 12/29/23 Sennosides-Docusate Sodium [Senokot-S] 2 each PO DAILY tab 12/29/23 polyethylene glycoL 3350 [Miralax] 17 gm PO DAILY packet 12/29/23 oxyCODONE-APAP 10-325MG [Percocet 10-325 mg] 1 tab PO QID PRN 30 Days #120 tab 05/20/24 oxyCODONE-APAP 10-325MG [Percocet 10-325 mg] 1 tab PO QID PRN 30 Days #120 tab 05/20/24 Controlled Substance Measures - Controlled Substance Measures Is patient prescribed a controlled substance at discharge?: Yes When asked, does pt state using other controlled substances?: No If prescribed controlled substance>3 days was MAPS reviewed?: Yes
== END ==
LOC: PNWHC3 13:26
PROVIDERS: ATTEND Specialist
DX: M47.816 Spondylosis without myelopathy or radiculopathy, lumbar region (principal); G89.29 Other chronic pain; Z87.891 Personal history of nicotine dependence
CPT/HCPCS: 80307; G0463; 99212

== ENCOUNTER → 2024-06-18 | Outpatient (CLI) | payer MEDICARE ==
[2024-06-18 20:53] LABS: Hepatitis A Antibody IgM Nonreactive (Nonreactive); Hepatitis B Core IgM Nonreactive (Nonreactive); Hepatitis B Surface Antigen Nonreactive (Nonreactive); Hepatitis C IgG Antibody Reactive (Nonreactive)
[2024-06-18 21:05] LABS: % Iron Saturation 27.41 (15.00-50.00)
[2024-06-18 21:08] LABS: Ceruloplasmin 23.3 mg/dL (20.0-60.0)
[2024-06-19 13:23] LABS: Liver/Kidney Microsome Antibod 1.6 UNITS (<=20)
== END | disposition home or self-care (01) ==
LOC: LABWHC1 14:06
PROVIDERS: ATTEND Internal Medicine
DX: R74.01 Elevation of levels of liver transaminase levels (principal)
CPT/HCPCS: 36415; 80074; 82390; 82525; 82728; 83516; 83540; 83550; 86038; 86376

== ENCOUNTER → 2024-07-29 | Outpatient (CLI) | payer MEDICARE ==
[2024-07-29 15:19] LABS: Partial Thromboplastin Time 24.4 sec (22.0-30.0); Prothrombin Time 10.7 sec (10.0-12.5)
[2024-07-29 18:30] LABS: Basophils # (A) 0.03 X 10*3/uL (0.00-0.10); Basophils % (A) 0.4 %; Eosinophils # (A) 0.12 X 10*3/uL (0.04-0.35); Eosinophils % (A) 1.5 %; HCT 42.9 % (39.6-50.0); HGB 13.7 g/dL (13.0-17.0); Lymphocytes # (A) 2.04 X 10*3/uL (0.90-5.00); Lymphocytes % (A) 24.8 %; MCH 28.7 pg (27.0-32.0); MCHC 31.9 g/dL (32.0-37.0); MCV 89.9 FL (80.0-97.0); Mean Platelet Volume 9.2 FL (9.5-12.2); Monocytes # (A) 0.39 X 10*3/uL (0.20-1.00); Monocytes % (A) 4.7 %; NRBC Per 100 WBC 0 X 10*3/uL (0.00-0.01); Neutrophils # (A) 5.63 X 10*3/uL (1.80-7.70); Neutrophils % (A) 68.5 %; Platelet Count 293 X 10*3/uL (140-440); RBC 4.77 X 10*6/uL (4.40-5.60); WBC 8.22 X 10*3/uL (4.50-10.00)
== END | disposition home or self-care (01) ==
LOC: LABPAT 14:07
PROVIDERS: ATTEND Surgery
DX: Z01.818 Encounter for other preprocedural examination (principal); I70.213 Atherosclerosis of native arteries of extremities with intermittent claudication, bilateral legs; I96 Gangrene, not elsewhere classified; I10 Essential (primary) hypertension
CPT/HCPCS: 85025; 85610; 85730; 86850; 86900; 86901; 93005

== ENCOUNTER 2024-07-30 09:11 | Inpatient (IN) | payer MEDICARE ==
[2024-07-29 10:46] VITALS: BMI 25.7
[~2024-07-30 09:11] MED LIST changes: +HYDROmorphone 0.5 MG/0.5 ML SYRINGE IVP PRN; -LACTATED RINGERS 1,000 ML IV SCH; +LIDOCAINE 1% (10MG/ML) FOR IV START INTRADERMA PRN
[2024-07-30 09:53] LABS: Glucose,Whole Blood 145 mg/dL (70-110)
[2024-07-30] MEDS: LACTATED RINGERS 1,000 ML IV SCH (09:56)
[2024-07-30] MEDS: DEXAMETHASONE SOD PHOSPHATE 4 MG/ML 1 ML VIAL IV ONE (09:59)
[2024-07-30] MEDS: ONDANSETRON 4 MG/2 ML VIAL IVP ONE (10:00)
[2024-07-30] MEDS: IV FLUID CONTINUATION 1,000 ML IV ONE (10:04)
[2024-07-30] MEDS ORDERED: PHENYLEPHRINE 10 MG/ML VIAL ONE (10:41)
[2024-07-30] MEDS ORDERED: PROPOFOL 10 MG/ML 20 ML VIAL IV ONE (10:41)
[2024-07-30] MEDS ORDERED: KETAMINE HCL IN 0.9 % NACL 50 MG/5 ML SYRINGE ONE (10:41)
[2024-07-30] MEDS ORDERED: ePHEDrine 50 MG/ML 1 ML VIAL ONE (10:41)
[2024-07-30] MEDS ORDERED: NEOSTIGMINE 1 MG/ML 10 ML VIAL ONE (10:41)
[2024-07-30] MEDS ORDERED: HEPARIN SODIUM,PORCINE 10,000 UNIT/ML 1 ML VIAL ONE (10:41)
[2024-07-30] MEDS ORDERED: fentaNYL (PF) 50 MCG/ML 2 ML AMP ONE (10:41)
[2024-07-30] MEDS ORDERED: GLYCOPYRROLATE 0.2 MG/ML 2 ML VIAL ONE (10:41)
[2024-07-30] MEDS ORDERED: MIDAZOLAM 2 MG/2 ML VIAL ONE (10:41)
[2024-07-30] MEDS ORDERED: ROCURONIUM 10 MG/ML (5 ML VIAL) IV ONE (10:41)
[2024-07-30] MEDS ORDERED: LIDOCAINE 1% INJ 10MG/ML (20 ML MDV) ONE (10:41)
[2024-07-30] MEDS ORDERED: SUCCINYLCHOLINE CHLORIDE 200 MG/10 ML VIAL IV ONE (10:41)
[2024-07-30] MEDS: ceFAZolin 2 GM in DEXTROSE 5% IN WATER 50 ML IVPB PRN (10:46)
[2024-07-30] MEDS: THROMBIN (BOVINE) 5,000 UNIT VIAL TOPICAL ONE (11:30)
[2024-07-30] MEDS: ceFAZolin 4,000 MG in SODIUM CHLORIDE 0.9% 1,000 ML IRRIGATION ONE (11:42)
[2024-07-30] MEDS: HEPARIN SODIUM,PORCINE 10,000 UNIT in SODIUM CHLORIDE 0.9% 1,000 ML IRRIGATION ONE (11:42)
[2024-07-30] MEDS: LACTATED RINGERS 1,000 ML IV ONE ×2 (12:37→14:56)
[2024-07-30] MEDS: IOPAMIDOL-370 100ML BTL MISCELLANE ONE (14:51)
--- NOTE | 2024-07-30 16:23 | FL ---
EXAMINATION TYPE: FL guidance operating room DATE OF EXAM: 07/30/2024 4:05 PM COMPARISON: Pre Operative Images if available both CT/MRI or plain film CLINICAL INDICATION: Male, 68 years old with history of Right Below Knee Bypass; TECHNIQUE: FL guidance operating room, multiple fluoroscopic images provided for procedure. DAP: 0.33709 mGym2 Gycm2 uGym2 cGycm2 or equivalent. FINDINGS: IMPRESSION: 1. Report was generated for administrative purposes only. 2. Please see the operative/procedural note for further details. [facility], , 07/30/2024 4:20 PM
[2024-07-30 16:30] LABS: Glucose,Whole Blood 162 mg/dL (70-110)
--- NOTE | 2024-07-30 16:38 | P.OP ---
Date of Procedure: 07/30/24 Preoperative Diagnosis: Critical limb ischemia Right popliteal artery occlusion Chronic right plantar wound Postoperative Diagnosis: Critical limb ischemia of right lower extremity Right popliteal and tibial peroneal trunk occlusion Chronic right plantar foot wound Procedure(s) Performed: Right distal femoral to tibial peroneal trunk bypass with reverse saphenous vein Right tibial peroneal trunk endarterectomy Anesthesia: APRYL Surgeon: Rajan Lawrence Estimated Blood Loss (ml): 250 Pathology: none sent Condition: stable Disposition: PACU Indications for Procedure: 68 year old gentleman with history of right plantar foot wound x 2 years presented to the office after right lower extremity angiogram demonstrated severe popliteal artery occlusion with reconstitution at the posterior tibial artery with one vessel runoff presents to the hospital for right femoral below knee bypass. Operative Findings: severe occlusion of the distal popliteal and tibial peroneal trunk. Description of Procedure: After written and informed consent was obtained from the patient all risks benefits and competitions were described the patient is brought to the operative suite and laid in a supine position. The area of the abdomen, and right lower extremity was prepped and draped in usual sterile fashion after appropriate anesthetic was performed per the anesthesiologist. A timeout was performed in normal fashion. Antibiotics were administered prior to incision. A vertical incision was created at the right medial thigh just above the knee and dissection was carried down to the distal superficial femoral artery. The superficial femoral artery were dissected free in a circumferential manner and controlled with vessel loops. Attention was then placed to the greater saphenous vein which was dissected free. A vessel loop was then placed around this area. Attention was then placed distally and a transverse incision was created on the medial aspect of the lower leg just below the knee with a 15 blade scalpel. Dissection was then carried down with electrocautery through the fascia to the popliteal artery. Popliteal artery, tibioperoneal trunk was then dissected free in a circumferential manner and controlled with vessel loops. The anterior tibial artery was also dissected free and visualized. Once controlled attention was then placed to dissection of the greater saphenous vein. Meticulous dissection was then performed of the greater saphenous vein and controlled with a blue vessel loop. Patient was then administered heparin. The proximal greater saphenous vein was then resected and suture ligated just above the knee and below the knee for a reverse saphenous graft. Arteriotomy was then created with 11 blade scalpel and extended with Pott Weaver scissors. End-to-side anastomosis was then created with 6-0 Prolene suture in a running fashion after the vein was dilated with serial dilation. Final sutures were then placed good pulsatile blood flow was noted within the vein bypass. The vein was then tunneled to the below knee incision in usual fashion. The tibial peroneal trunk was then controlled and arteriotomy was created with 11 blade scalpel and extended with Pott Weaver scissors. There was no back bleeding and dense athersclerotic disease noted. An endarterectomy was then performed and back bleeding was then noted. The vein was then spatulated and an end-to-side anastomosis was created with 6-0 Prolene suture in a running fashion. Prior to last sutures being placed backbleeding was once again assessed which was adequate and proximal control was released revealing good pulsatile blood flow. Final sutures were placed and good pulsatile blood flow was noted within the bypass. Doppler signals were then noted distal to the bypass and were multiphasic and a palpable pulse noted in the tibial artery. An angiogram was then performed with flow through the bypass noted but severe disease noted just distal to the distal anastomosis with flow seen to the posterior tibial artery. Doppler signal was noted at the PT good capillary refill noted and therefore procedure was concluded. The areas were then copiously irrigated with antibiotic solution. The incisions were then closed in a multilayer fashion after hemostasis was assured with Surgicel and the skin was then cleansed and dressings were placed. The patient tolerated procedure well was sent to PACU for recovery and had multiphasic PT signal.
[2024-07-30 17:41] LABS: Glucose,Whole Blood 133 mg/dL (70-110)
[2024-07-30] MEDS ORDERED: BACLOFEN 10 MG TAB PO PRN (17:42)
[2024-07-30] MEDS ORDERED: polyethylene glycoL 3350 17 GM POWD.PACK PO PRN (17:42)
[2024-07-30] MEDS: oxyCODONE-APAP 10-325MG 1 EACH TAB PO PRN (18:00)
[2024-07-30] MEDS: GABAPENTIN 400 MG CAP PO SCH (18:00)
[2024-07-30] MEDS: ceFAZolin 2 GM in DEXTROSE 5% IN WATER 50 ML IVPB SCH (18:25)
[2024-07-30] MEDS: droPERidol 2.5 MG/ML VIAL IVP ONE (18:49)
[2024-07-30 20:20] LABS: Glucose,Whole Blood 198 mg/dL (70-110)
[2024-07-30] MEDS: FAMOTIDINE 20 MG TAB PO SCH (21:02)
[2024-07-30] MEDS: traZODone HCL 100 MG TAB PO SCH (21:02)
[2024-07-30] MEDS: HYDROcodone/APAP 5-325MG 1 EACH TAB PO PRN (21:02)
[2024-07-30] MEDS: RIVAROXABAN 2.5 MG TABLET PO SCH (21:21)
[2024-07-31 06:00] LABS: Glucose,Whole Blood 120 mg/dL (70-110)
[2024-07-31] MEDS: INSULIN LISPRO (HumaLOG) 100 UNIT/ML 10 mL VL SQ SCH (06:03)
[2024-07-31 06:27] LABS: Basophils # (A) 0.02 10*3/uL (0.00-0.10); Basophils % (A) 0.3 %; Eosinophils # (A) 0.07 10*3/uL (0.04-0.35); Eosinophils % (A) 0.9 %; HCT 35.2 % (39.6-50.0); HGB 11.6 g/dL (13.0-17.0); Lymphocytes # (A) 2.16 10*3/uL (0.90-5.00); Lymphocytes % (A) 27.2 %; MCH 28.9 pg (27.0-32.0); MCV 87.6 fL (80.0-97.0); Mean Platelet Volume 9.3 fL (9.5-12.2); Monocytes # (A) 0.49 10*3/uL (0.20-1.00); Monocytes % (A) 6.2 %; Neutrophils # (A) 5.18 10*3/uL (1.80-7.70); Neutrophils % (A) 65.3 %; Platelet Count 228 10*3/uL (140-440); RBC 4.02 10*6/uL (4.40-5.60); RDW 12.7 % (11.5-14.5); WBC 7.93 10*3/uL (4.50-10.00)
[2024-07-31 06:40] LABS: ALT 26 U/L (4-49); AST 27 U/L (17-59); African American GFR (CKD) >90 (>60 ml/min/1.73 sqM); Albumin 3.3 g/dL (3.5-5.0); Alkaline Phosphatase 54 U/L (38-126); Anion Gap 5 mmol/L; Blood Urea Nitrogen 19 mg/dL (9-20); Calcium 9.2 mg/dL (8.4-10.2); Carbon Dioxide 30 mmol/L (22-30); Chloride 103 mmol/L (98-107); Glucose 121 mg/dL (74-99); Non-African American GFR(CKD) >90 (>60 ml/min/1.73 sqM); Potassium 3.6 mmol/L (3.5-5.1); Sodium 138 mmol/L (137-145); Total Bilirubin 0.7 mg/dL (0.2-1.3)
[2024-07-31] MEDS: ATORVASTATIN 40 MG TAB PO SCH (07:41)
[2024-07-31] MEDS: ASPIRIN 81 MG PO SCH (07:41)
[2024-07-31] MEDS: SERTRALINE 100 MG TAB PO SCH (07:41)
[2024-07-31] MEDS: DAPAGLIFLOZIN PROPANEDIOL 10 MG TABLET PO SCH (07:41)
[2024-07-31] MEDS: lisinopriL 10 MG TAB PO SCH (07:42)
[2024-07-31 11:49] LABS: Glucose,Whole Blood 135 mg/dL (70-110)
--- NOTE | 2024-07-31 13:23 | P.CONS ---
History of Present Illness - Reason for Consult Consult date: 07/30/24 Medical Management Requesting physician: Rajan Lawrence - Chief Complaint Status post right distal femoral to peroneal trunk bypass - History of Present Illness HISTORY OF PRESENT ILLNESS This is a 68-year-old male patient with past medical history of diabetes mellitus type 2, hypertension, hyperlipidemia, gastroesophageal reflux disease, recurrent depression, remote history of tobacco use, fatty liver, chronic back pain, insomnia. Patient has been under the care of the wound clinic with Dr. Finney for right lower extremity diabetic ulcer status post amputation of the right great toe, and he was hospitalized in the past at [facility] few month back after he was found to have an osteomyelitis of the left big toe which was amputated at that time, patient has been getting calluses that has been following with Dr. Finney at the wound healing Center, due to his nonhealing wound on the right lower extremity patient underwent angiogram that showed evidence of severe popliteal stenosis with distal femoral to tibioperoneal trunk stenosis patient underwent distal femoral to tibial peroneal trunk with reversed saphenous vein and tibial peroneal trunk endarterectomy that was done by Dr. Lawrence he was admitted to a telemetry unit, I have was asked to see the patient for postoperative medical management. REVIEW OF SYSTEMS Constitutional: No fever, no chills, no night sweats. No weight change. No weakness, fatigue or lethargy. No daytime sleepiness. HEENT: No headache. No blurred vision or double vision, no loss of vision. No loss of Hearing, no ringing in the ears, no dizziness. No nasal drainage or congestion. No epistaxis. No sore throat. Lungs: No shortness of breath, cough, no sputum production. No wheezing. Cardiovascular: No chest pain, no lower extremity edema. No palpitations. No paroxysmal nocturnal dyspnea. No orthopnea. No lightheadedness or dizziness. No syncopal episodes. Abdominal: No abdominal pain. No nausea, vomiting. No diarrhea. No constipation. No bloody or tarry stools. No loss of appetite. Genitourinary: No dysuria, increased frequency, urgency. No urinary retention. Musculoskeletal: No myalgias. No muscle weakness, no gait dysfunction, no frequent falls. No back pain. No neck pain. Integumentary: Bilateral big toe amputations, right foot wound. Neurologic: No aphasia. No facial droop. No change in mentation. No head injury. No headache. No paralysis, positive for neuropathy Psychiatric:positive for depression. No anxiety. No mood swings. Endocrine:positive for abnormal blood sugars. No weight change. No excessive sweating or thirst. No cold intolerance. MEDICAL HISTORY Diabetes mellitus type 2 Diabetic neuropathy Hypertension Hyperlipidemia Gastroesophageal reflux disease Recurrent depression Fatty liver Chronic back pain Diabetic ulcer left great toe Insomnia Spondylosis of the lumbar spine Peripheral arterial disease. SURGICAL HISTORY Pain management procedures Right great toe amputation Colonoscopy EGD Right distal femoral to tibial peroneal trunk bypass with reverse saphenous vein and right tibial peroneal endarterectomy. July 30, 2024 SOCIAL HISTORY Patient was a smoker 3 packs per day for greater than 20 years and quit 25 years ago. No marijuana or street drug use. He drinks a few beers occasionally. 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 He lives at home with his and son. FAMILY HISTORY Mother at age 60 from colon cancer with history of lung transplant. He does not know why she had the lung transplant other than she was a smoker. Krys cardenas at age 67 from a myocardial infarction. Patient does not have any brothers. He has one sister that at age 40 from pancreatic cancer. Patient has 2 sons and 1 daughter with no major medical problems. PHYSICAL EXAMINATION Gen: This is a 68-year-old male, resting in bed and appears to be comfortable and in no acute distress. HEENT: Head is atraumatic, normocephalic. Pupils equal, round. Sclerae is anicteric. NECK: Supple. No JVD. No lymphadenopathy. No thyromegaly. LUNGS: Clear to auscultation. No wheezes or rhonchi. No intercostal retractions. HEART: First heart sound is depressed, second heart sound is normal there is systolic ejection murmur 2/6 located in the left Chuck. ABDOMEN: Soft. Bowel sounds are present. No masses. No tenderness. EXTREMITIES: No pedal edema. No calf tenderness. DP +1 bilaterally, there is bilateral big toe amputation, there is a right foot wound. NEUROLOGICAL: Patient is awake, alert and oriented x3. Cranial nerves 2 through 12 are grossly intact. Muscle strength 4/5 in the bilateral upper and lower extremities, neuropathic changes to both feet, deep tendon reflexes are depressed. ASSESSMENT AND PLAN 1. Postoperative day #0 status post distal right femoral to tibial peroneal trunk bypass with reverse saphenous venous graft as well as tibioperoneal endarterectomy. Continue current management as per vascular surgery, continue current pain management as well, follow-up with the patient very closely. 2. Diabetes mellitus type 2 uncontrolled we will continue with Farxiga 10 mg once every day, as well as sliding scale insulin. Keep holding Mounjaro for now. 3. Hypertension and hypertensive cardiovascular disease . continue lisinopril 10 mg or orally once every day monitor the patient blood pressure very closely. 4. Hyperlipidemia. Continue atorvastatin 40 mg orally daily and Zetia 10 mg po daily, keep LDL-c 55-70. 5. Diabetic neuropathy. Continue gabapentin 800 mg 4 times daily. 6. Chronic back pain. Continue baclofen 10 mg daily as needed, along with current pain management continue with oxycodone 10/325 mg 1 tablet every 6 hours as needed. 7. Recurrent depression. Continue sertraline 100 mg daily 8. Insomnia. Continue trazodone 100 mg at bedtime. 9. Gastroesophageal reflux disease. Continue with famotidine 20 mg orally once every day. 10. DVT prophylaxis. Xarelto 2.5 mg orally twice every day. 11. GI prophylaxis. Continue famotidine 20 mg orally once every day. 12. Thank you for the consult we will follow the patient with you. Past Medical History Past Medical History: Diabetes Mellitus, GERD/Reflux, Hyperlipidemia, Hypertension, Osteoarthritis (OA), Vascular Disorder Additional Past Medical History / Comment(s): current rt foot wound-following in wound center, bulging disc, NEUROPATHY IN HANDS AND FEET , diabetic foot wounds bilateral feet healed. History of Any Multi-Drug Resistant Organisms: None Reported Year Discovered:: 12/25/23 MDRO Source:: blood, left foot Past Surgical History: Orthopedic Surgery Additional Past Surgical History / Comment(s): pain clinic procedures for back , right and left great toe amputation, colonoscopy, EGD Past Anesthesia/Blood Transfusion Reactions: No Reported Reaction Additional Past Anesthesia/Blood Transfusion Reaction / Comm: no hx blood transfusion Smoking Status: Former smoker - Past Family History Mother Family Medical History: Cancer Additional Family Medical History / Comment(s): Mother at age 60 from colon cancer. She had history of lung transplant. Patient does not know why she had a lung transplant other than she was a smoker. Father Additional Family Medical History / Comment(s): Father at age 67 from a myocardial infarction. Brother(s) Additional Family Medical History / Comment(s): Patient does not have any brothers. Patient had 1 sister that at age 40 from pancreatic cancer. Patient has 2 sons and 1 daughter with no major medical problems. Sister(s) Family Medical History: Cancer Additional Family Medical History / Comment(s): pancreatic cancer Medications and Allergies Home Medications Medication Instructions Recorded Confirmed Type Aspirin 81 mg PO DAILY 08/06/13 07/30/24 History Sertraline [Zoloft] 100 mg PO QAM 11/17/17 07/30/24 History Famotidine [Pepcid] 20 mg PO BID 10/07/19 07/30/24 History Dapagliflozin Propanediol [Farxiga] 10 mg PO DAILY 02/01/21 07/30/24 History Diclofenac Sodium [Voltaren 1 applic TOPICAL QID PRN 02/03/21 07/30/24 History Arthritis Pain 1% Gel] Baclofen [Lioresal] 10 mg PO DAILY PRN 01/03/23 07/30/24 History Gabapentin 800 mg PO QID 01/03/23 07/30/24 History lisinopriL [Zestril] 10 mg PO QAM 01/03/23 07/30/24 History Collagenase [Santyl Ointment] 1 applic TOPICAL DAILY 12/25/23 07/30/24 History Rosuvastatin [Crestor] 20 mg PO DAILY 12/25/23 07/30/24 History traZODone HCL [Desyrel] 100 mg PO HS 12/25/23 07/30/24 History oxyCODONE-APAP 10-325MG [Percocet 1 tab PO QID PRN 30 Days #120 tab 07/15/24 07/30/24 Rx 10-325 mg] Tirzepatide [Mounjaro] 12.5 mg SQ TU 07/25/24 07/30/24 History polyethylene glycoL 3350 [Miralax] 17 gm PO DAILY PRN 07/25/24 07/30/24 History Allergies Allergy/AdvReac Type Severity Reaction Status Date / Time No Known Allergies Allergy Verified 07/30/24 09:40 Physical Exam Vitals: Vital Signs Temp Pulse Pulse Resp BP BP Pulse Ox 07/30/24 17:13 62 16 104/58 97 07/30/24 16:58 61 15 104/58 98 07/30/24 16:43 62 17 112/64 100 07/30/24 16:28 64 12 116/62 100 07/30/24 16:13 97.4 F L 64 12 120/62 95 07/30/24 09:50 97.3 F L 69 16 107/67 97 Intake and Output 07/30/24 07/30/24 07/30/24 06:59 14:59 22:59 Intake Total 2152 50 Output Total 1950 Balance 202 50 Intake: IV 2152 50 Output: Urine 1700 Estimated Blood Loss 250 Other: Weight 88.6 kg Results Labs: Abnormal Lab Results - Last 24 Hours (Table) 07/30/24 07/30/24 Range/Units 09:50 16:28 POC Glucose (mg/dL) 145 H 162 H (70-110) mg/dL
--- NOTE | 2024-07-31 13:26 | P.PN ---
Subjective Progress Note Date: 07/31/24 HISTORY OF PRESENT ILLNESS This is a 68-year-old male patient with past medical history of diabetes mellitus type 2, hypertension, hyperlipidemia, gastroesophageal reflux disease, recurrent depression, remote history of tobacco use, fatty liver, chronic back pain, insomnia. Patient has been under the care of the wound clinic with Dr. Finney for right lower extremity diabetic ulcer status post amputation of the right great toe, and he was hospitalized in the past at [facility] few month back after he was found to have an osteomyelitis of the left big toe which was amputated at that time, patient has been getting calluses that has been following with Dr. Finney at the wound healing Center, due to his nonhealing wound on the right lower extremity patient underwent angiogram that showed evidence of severe popliteal stenosis with distal femoral to tibioperone al trunk stenosis patient underwent distal femoral to tibial peroneal trunk with reversed saphenous vein and tibial peroneal trunk endarterectomy that was done by Dr. Lawrence he was admitted to a telemetry unit, I have was asked to see the patient for postoperative medical management. 07/31: Patient is sitting up in bed in no apparent distress, is feeling a lot better today, his pain is well-controlled, he has no chest pain, shortness of breath, he has no abdominal pain, he seems to be tolerating treatment very well, patient blood glucose level is good his vital signs are very stable, will con tinue current treatment plan, increase activity, Parsons catheter was removed, follow-up with the patient very closely REVIEW OF SYSTEMS Constitutional: No fever, no chills, no night sweats. No weight change. No weakness, fatigue or lethargy. No daytime sleepiness. HEENT: No headache. No blurred vision or double vision, no loss of vision. No loss of Hearing, no ringing in the ears, no dizziness. No nasal drainage or congestion. No epistaxis. No sore throat. Lungs: No shortness of breath, cough, no sputum production. No wheezing. Cardiovascular: No chest pain, no lower extremity edema. No palpitations. No paroxysmal nocturnal dyspnea. No orthopnea. No lightheadedness or dizziness. No syncopal episodes. Abdominal: No abdominal pain. No nausea, vomiting. No diarrhea. No constipation. No bloody or tarry stools. No loss of appetite. Genitourinary: No dysuria, increased frequency, urgency. No urinary retention, interval removal of the Parsons catheter Musculoskeletal: No myalgias. No muscle weakness, no gait dysfunction, no frequent falls. No back pain. No neck pain. Integumentary: Bilateral big toe amputations, right foot wound, right incision is covered with dressing Neurologic: No aphasia. No facial droop. No change in mentation. No head injury. No headache. No paralysis, positive for neuropathy Psychiatric:positive for depression. No anxiety. No mood swings. Endocrine:positive for abnormal blood sugars. No weight change. No excessive sweating or thirst. No cold intolerance. PHYSICAL EXAMINATION Gen: This is a 68-year-old male, resting in bed and appears to be comfortable and in no acute distress. HEENT: Head is atraumatic, normocephalic. Pupils equal, round. Sclerae is anicteric. NECK: Supple. No JVD. No lymphadenopathy. No thyromegaly. LUNGS: Clear to auscultation. No wheezes or rhonchi. No intercostal retractions. HEART: First heart sound is depressed, second heart sound is normal there is systolic ejection murmur 2/6 located in the left Chuck. ABDOMEN: Soft. Bowel sounds are present. No masses. No tenderness. EXTREMITIES: No pedal edema. No calf tenderness. DP +1 bilaterally, there is bilateral big toe amputation, there is a right foot wound that is covered with a dressing, there is minimal abrasion to the left big toe. NEUROLOGICAL: Patient is awake, alert and oriented x3. Cranial nerves 2 through 12 are grossly intact. Muscle strength 4/5 in the bilateral upper and lower extremities, neuropathic changes to both feet, deep tendon reflexes are depressed. ASSESSMENT AND PLAN 1. Postoperative day #1 status post distal right femoral to tibial peroneal trunk bypass with reverse saphenous venous graft as well as tibioperoneal endarterectomy. Continue current management as per vascular surgery, continue current pain management as well, follow-up with the patient very closely, increase activity as tolerated. 2. Diabetes mellitus type 2 uncontrolled we will continue with Farxiga 10 mg once every day, as well as sliding scale insulin. Keep holding Mounjaro for now. 3. Hypertension and hypertensive cardiovascular disease . continue lisinopril 10 mg or orally once every day monitor the patient blood pressure very closely. 4. Hyperlipidemia. Continue atorvastatin 40 mg orally daily and Zetia 10 mg po daily, keep LDL-c 55-70. 5. Diabetic neuropathy. Continue gabapentin 800 mg 4 times daily. 6. Chronic back pain. Continue baclofen 10 mg daily as needed, along with current pain management continue with oxycodone 10/325 mg 1 tablet every 6 hours as needed. 7. Recurrent depression. Continue sertraline 100 mg daily 8. Insomnia. Continue trazodone 100 mg at bedtime. 9. Gastroesophageal reflux disease. Continue with famotidine 20 mg orally once every day. 10. DVT prophylaxis. Xarelto 2.5 mg orally twice every day. 11. GI prophylaxis. Continue famotidine 20 mg orally once every day. 12. Follow-up with the patient Objective - Vital Signs Vital signs: Vital Signs Temp 98.5 F 07/31/24 12:00 Pulse 66 07/31/24 12:00 Resp 17 07/31/24 12:00 BP 96/55 07/31/24 12:00 Pulse Ox 97 07/31/24 12:00 FiO2 Intake & Output 07/30/24 07/31/24 07/31/24 18:59 06:59 18:59 Intake Total 2202 138 Output Total 1950 1550 150 Balance 252 -1550 -12 Weight 88.6 kg 87 kg Intake: IV 2202 20 Invasive Line 1 20 Oral 118 Output: Urine 1700 1550 150 Estimated Blood Loss 250 Other: Voiding Method Indwelling Catheter Indwelling Catheter Toilet Urinal - Labs CBC & Chem 7: 07/31/24 05:42 07/31/24 05:42 Labs: Abnormal Lab Results - Last 24 Hours (Table) 07/30/24 07/30/24 07/30/24 Range/Units 16:28 17:40 20:18 RBC (4.40-5.60) 10*6/uL Hgb (13.0-17.0) g/dL Hct (39.6-50.0) % MPV (9.5-12.2) fL Glucose (74-99) mg/dL POC Glucose (mg/dL) 162 H 133 H 198 H (70-110) mg/dL Total Protein (6.3-8.2) g/dL Albumin (3.5-5.0) g/dL 07/31/24 07/31/24 07/31/24 Range/Units 05:42 05:42 05:56 RBC 4.02 L (4.40-5.60) 10*6/uL Hgb 11.6 L (13.0-17.0) g/dL Hct 35.2 L (39.6-50.0) % MPV 9.3 L (9.5-12.2) fL Glucose 121 H (74-99) mg/dL POC Glucose (mg/dL) 120 H (70-110) mg/dL Total Protein 6.0 L (6.3-8.2) g/dL Albumin 3.3 L (3.5-5.0) g/dL 07/31/24 Range/Units 11:48 RBC (4.40-5.60) 10*6/uL Hgb (13.0-17.0) g/dL Hct (39.6-50.0) % MPV (9.5-12.2) fL Glucose (74-99) mg/dL POC Glucose (mg/dL) 135 H (70-110) mg/dL Total Protein (6.3-8.2) g/dL Albumin (3.5-5.0) g/dL
[2024-07-31 16:35] LABS: Glucose,Whole Blood 201 mg/dL (70-110)
[2024-07-31] MEDS: DICLOFENAC SODIUM GEL 100 GM TUBE TOPICAL PRN (17:10)
--- NOTE | 2024-07-31 19:41 | P.PN ---
Subjective Progress Note Date: 07/31/24 Patient seen and examined. No significant plaints. Sore at the levels of the bypass. No significant pain in the extremity General is a pleasant cooperative male in no acute distress. Right lower extrem ity warm and dry. Incision and bandage is clean. Palpable posterior tibial pulse. Postoperative day #1 right femoral to below-knee bypass with in situ saphenous vein. Patient is doing well overall, continue with local wound care, hopeful discharge tomorrow. Activity as tolerated Objective - Vital Signs Vital signs: Vital Signs Temp 98.5 F 07/31/24 16:00 Pulse 68 07/31/24 16:00 Resp 17 07/31/24 16:00 BP 98/55 07/31/24 16:00 Pulse Ox 97 07/31/24 16:00 FiO2 Intake & Output 07/31/24 07/31/24 08/01/24 06:59 18:59 06:59 Intake Total 360 Output Total 1550 150 Balance -1550 210 Weight 87 kg Intake: IV 20 Invasive Line 1 20 Oral 340 Output: Urine 1550 150 Other: Voiding Method Indwelling Catheter Toilet Urinal - Labs CBC & Chem 7: 07/31/24 05:42 07/31/24 05:42 Labs: Abnormal Lab Results - Last 24 Hours (Table) 07/30/24 07/31/24 07/31/24 Range/Units 20:18 05:42 05:42 RBC 4.02 L (4.40-5.60) 10*6/uL Hgb 11.6 L (13.0-17.0) g/dL Hct 35.2 L (39.6-50.0) % MPV 9.3 L (9.5-12.2) fL Glucose 121 H (74-99) mg/dL POC Glucose (mg/dL) 198 H (70-110) mg/dL Total Protein 6.0 L (6.3-8.2) g/dL Albumin 3.3 L (3.5-5.0) g/dL 07/31/24 07/31/24 07/31/24 Range/Units 05:56 11:48 16:33 RBC (4.40-5.60) 10*6/uL Hgb (13.0-17.0) g/dL Hct (39.6-50.0) % MPV (9.5-12.2) fL Glucose (74-99) mg/dL POC Glucose (mg/dL) 120 H 135 H 201 H (70-110) mg/dL Total Protein (6.3-8.2) g/dL Albumin (3.5-5.0) g/dL
[2024-07-31 20:13] LABS: Glucose,Whole Blood 120 mg/dL (70-110)
[2024-08-01 05:38] LABS: Glucose,Whole Blood 237 mg/dL (70-110)
[2024-08-01 08:42] VITALS: BP 91/53; PULSE 88; RESP 16; TEMP 99.4
--- NOTE | 2024-08-01 08:56 | P.DS ---
Providers Date of admission: 07/30/24 09:11 Attending physician: Rajan Lawrence DO Consults: 07/30/24 14:10 Consult Physician Routine Consulting Provider: Suzette Castillo Consult Reason/Comments: Medical Management Do you want consulting provider notified?: Yes Primary care physician: Suzette Castillo Hospital Course: 68-year-old male with history of right plantar foot wound, critical limb ischemia and right popliteal and tibioperoneal trunk occlusion who was scheduled for right femoral to below the knee bypass. He is postop day #2 for right femoral to below-knee bypass with in situ saphenous vein. Pain has been will tolerable and manage. He has been up and ambulating. He is voiding without difficulty. Tolerating his diet. Plan is for discharge today. Exam General appearance: The patient is alert, oriented, appears in no acute distress. HET: Head is normocephalic and atraumatic. Pupils are equal and reactive. Neck: Supple. Heart: Regular. Lungs: Equal expansion, normal respiratory effort. Abdomen: Soft, nontender, nondistended. Extremities: Right lower extremity warm to the touch, good capillary refill. Palpable PT pulse. Surgical incisions well-approximated without any significant drainage. Neurological: No focal deficits. Strength and sensation are grossly intact. Assessment 1. Postop day #2 for right femoral to below-knee bypass with in situ saphenous vein 2. Critical limb ischemia and right popliteal and tibioperoneal trunk occlusion 3. Chronic right plantar foot wound 4. Diabetes mellitus Plan Discharge home today. Patient was started on Xarelto 2.5 mg twice daily, continue home medications. Discharge instructions reviewed with patient. He verbalizes understanding. Follow-up in [address] Lawrence. The impression and plan of care has been dictated as directed. Dr. Eric Garcia I performed a history and examination of this patient, discussed the same with the dictator. I agree with the dictator's note ,documented as a scribe. Any additional findings or plans will be noted. Procedures: Procedure(s) Performed: Right distal femoral to tibial peroneal trunk bypass with reverse saphenous vein Right tibial peroneal trunk endarterectomy Patient Condition at Discharge: Stable Plan - Discharge Summary Discharge Rx Participant: No New Discharge Prescriptions: New Rivaroxaban [Xarelto] 2.5 mg PO BID #60 tab Continue Aspirin 81 mg PO DAILY Sertraline [Zoloft] 100 mg PO QAM Gabapentin 800 mg PO QID Baclofen [Lioresal] 10 mg PO DAILY PRN PRN Reason: Muscle Pain Collagenase [Santyl Ointment] 1 applic TOPICAL DAILY Diclofenac Sodium [Voltaren Arthritis Pain 1% Gel] 1 applic TOPICAL QID PRN PRN Reason: Pain Rosuvastatin [Crestor] 20 mg PO DAILY traZODone HCL [Desyrel] 100 mg PO HS oxyCODONE-APAP 10-325MG [Percocet 10-325 mg] 1 tab PO QID PRN 30 Days #120 tab PRN Reason: Pain Discontinued lisinopriL [Zestril] 10 mg PO QAM No Action Famotidine [Pepcid] 20 mg PO BID polyethylene glycoL 3350 [Miralax] 17 gm PO DAILY PRN PRN Reason: Constipation Tirzepatide [Mounjaro] 12.5 mg SQ TU Dapagliflozin Propanediol [Farxiga] 10 mg PO DAILY Discharge Medication List Aspirin 81 mg PO DAILY 08/06/13 [History] Sertraline [Zoloft] 100 mg PO QAM 11/17/17 [History] Famotidine [Pepcid] 20 mg PO BID 10/07/19 [History] Dapagliflozin Propanediol [Farxiga] 10 mg PO DAILY 02/01/21 [History] Diclofenac Sodium [Voltaren Arthritis Pain 1% Gel] 1 applic TOPICAL QID PRN 02/03/21 [History] Baclofen [Lioresal] 10 mg PO DAILY PRN 01/03/23 [History] Gabapentin 800 mg PO QID 01/03/23 [History] Collagenase [Santyl Ointment] 1 applic TOPICAL DAILY 12/25/23 [History] Rosuvastatin [Crestor] 20 mg PO DAILY 12/25/23 [History] traZODone HCL [Desyrel] 100 mg PO HS 12/25/23 [History] oxyCODONE-APAP 10-325MG [Percocet 10-325 mg] 1 tab PO QID PRN 30 Days #120 tab 07/15/24 [Rx] Tirzepatide [Mounjaro] 12.5 mg SQ TU 07/25/24 [History] polyethylene glycoL 3350 [Miralax] 17 gm PO DAILY PRN 07/25/24 [History] Rivaroxaban [Xarelto] 2.5 mg PO BID #60 tab 08/01/24 [Rx] Follow up Appointment(s)/Referral(s): Suzette Castillo MD [Primary Care Provider] - 1 Week Rajan Lawrence DO [STAFF PHYSICIAN] - 2 Weeks Patient Instructions/Handouts: Rivaroxaban (By mouth) Activity/Diet/Wound Care/Special Instructions: No driving for 2 weeks Avoid heavy lifting greater than 10 lbs , pushing, pulling, straining, and limit flights of stairs for 2 weeks ok to shower tomorrow but no baths, pools, soaking in tubs until cleared by surgeon to avoid risk of infection. signs of infection ie: fever, rash, drainage from incision, swelling contact doctor or return to ER immediately. Heavy bleeding from incision site apply firm direct pressure and return to ER. Do not attempt to drive self. low sodium/low fat diet Hold your lisinopril and follow-up with Dr. Castillo next week Will be starting Xarelto, monitor for signs of bleeding including black stools or blood in your stool. Discharge Disposition: HOME SELF-CARE
== END 2024-08-01 10:14 | disposition home or self-care (01) | DRG 271 ==
LOC: 2ORMAIN 09:11 → 3SCARD 16:44
PROVIDERS: ADMIT Surgery; ATTEND Surgery
PROC: 04CT3ZZ Extirpation of Matter from Right Peroneal Artery, Percutaneous Approach (ICD-10-PCS; 2024-07-30)
PROC: 041K0ZM Bypass Right Femoral Artery to Peroneal Artery, Open Approach (ICD-10-PCS; principal; 2024-07-30 11:00)
DX: E11.52 Type 2 diabetes mellitus with diabetic peripheral angiopathy with gangrene (principal); F33.9 Major depressive disorder, recurrent, unspecified; E11.42 Type 2 diabetes mellitus with diabetic polyneuropathy; I70.221 Atherosclerosis of native arteries of extremities with rest pain, right leg; I10 Essential (primary) hypertension; K76.0 Fatty (change of) liver, not elsewhere classified; E11.65 Type 2 diabetes mellitus with hyperglycemia; E78.5 Hyperlipidemia, unspecified; G47.00 Insomnia, unspecified; G89.29 Other chronic pain; K21.9 Gastro-esophageal reflux disease without esophagitis; M54.9 Dorsalgia, unspecified; L84 Corns and callosities; M19.90 Unspecified osteoarthritis, unspecified site; Z79.01 Long term (current) use of anticoagulants; Z79.82 Long term (current) use of aspirin; Z79.84 Long term (current) use of oral hypoglycemic drugs; Z79.899 Other long term (current) drug therapy; Z82.49 Family history of ischemic heart disease and other diseases of the circulatory system; Z87.891 Personal history of nicotine dependence; Z89.411 Acquired absence of right great toe
CPT/HCPCS: 80053; 85025

== ENCOUNTER → 2024-09-09 | Outpatient (CLI) | payer MEDICARE ==
[2024-09-09 13:06] VITALS: BP 114/72; PULSE 76; RESP 18
--- NOTE | 2024-09-09 15:11 | P.PAINPG ---
Objective - Vital Signs Vital signs: Vital Signs Temp Pulse 76 09/09/24 12:59 Resp 18 09/09/24 12:59 BP 114/72 09/09/24 12:59 Pulse Ox 100 09/09/24 12:59 FiO2 Intake & Output 09/08/24 09/09/24 09/09/24 18:59 06:59 18:59 Weight 85.729 kg PQRS Measure Charge Sheet Mode of Arrival: Ambulatory Comment: A 68 yr old male with a history of severe and chronic LBP x yrs (s/p falling down stairs) secondary to radiculopathy, spondylosis and facet arthropathy without myelopathy presents today for medication refills. Pain level is provoked at 7 /10 in intensity, intermittent, localized in the lumbar spine, predominantly axial, tight in character w shooting towards the back of the R hip and RLE. Pain is provoked by crossing his legs. Pain is alleviated with massage gun use at home, injections, ice, medications, topicals, home stretching regimen, repositioning and rest. Aware of Narcan use. Pt acknowledged understanding. Interventional pain procedures completed include BL RFA L3-L5 x 5, L SI x2, BL SI x2 (May 2022, Mar 2023, Aug 2023) Patient is currently on Neurontin 800mg #120, Percocet 10/325mg #120, Voltaren gel Patient denies any side effects of the medication(s), denies excessive drowsi ness or sleepiness, denies suicidal ideation and reports that the current pain medication is helping to control the pain and improve activities of daily living. Patient denies any motor or sensory deficits. Patient denies any fever or night sweats, denies any change in the bowel movements or urination. Physical Examination: -Constitutional: Cooperative. Not in acute distress . - Neurologic: Cranial nerve II to XII intact. No focal neurological deficits. - Psychatric: Alert & oriented x 3. Matching mood & appropriate affect. Judgment and insight intact. - Musculoskeletal: Cervical spine: Muscle bulk/ tone/ strength in the bilateral upper extremities normal Vertebral body tenderness to palpation over Spurling test positive Distraction test positive Facet loading test positive TTP Thoracic spine Muscle bulk / tone/ strength in the bilateral paraspinal muscles normal Vertebral body tender to palpation over Facet loading test positive TTP Lumbar spine: Motor bulk/ tone/ strength lower extremities , thigh and legs : 5/5 Deep tendon reflexes : Normal Knee Jerk. Normal Ankle Jerk . Vertebral body tenderness to palpation Mitchell test positive Lumbar Facet Loading Test positive Straight Leg Raise: positive at 30 degrees right side/ left side Gaenslen's Test positive Sacral spine : Severe tenderness over the Sacroiliac joint: right side / left side Range of motion: Flexion of the lumbar spine <60 degrees Range of motion: Extension of the lumbar spine <20 degrees Gaenslen's Test positive right side < left side Papo test: positive right side / left side Thigh Thrust Test positive right side / left side Sacral Thrust Test positive right side < left side Assessment and plan: Chronic LBP secondary to radiculopathy, spondylosis with facet arthropathy without myelopathy, BL Sacroiliitis Recommendation of medication management. Percocet 10/325mg #120 w 1 RF. UDS from 05/20/24 reviewed and consistent. Pt has Narcan in his possession and aware of use to close family and friends. Use, side effects, adverse reactions and safe storage discussed. Opiate/ narcotic agreement renewed 01/22/24. Pt acknowledged understanding. All questions answered. I have spent less than 30 minutes on patient care today. Dr Mckenzie was available by phone for the evaluation of this patient. The time was used to review the medical records including relevant urine studies and Prescription history (MAPs), review of the available imaging, evaluation and examination of the patient, coordination of care with the medical staff and if applicable referring physicians, as well as creation of the medical record - Pain Location Bilateral Lower Back Non-Pharmacological Interventions: Chiropractic Treatment, Heat, Home Exercise, Ice, TENS Unit Pharmacological Interventions: Scheduled Medication, Topical Medication PQRS Narrative: Smoking Status Former smoker Blood Pressure 114/72 Pain Intensity [Bilateral 6 Lower Back] Scale Used Numeric (1 - 10) Hx Alcohol Use (MH) No: RARE Home Medications: Ambulatory Orders Aspirin 81 mg PO DAILY 08/06/13 Sertraline [Zoloft] 100 mg PO QAM 11/17/17 Famotidine [Pepcid] 20 mg PO BID 10/07/19 Dapagliflozin Propanediol [Farxiga] 10 mg PO DAILY 02/01/21 Diclofenac Sodium [Voltaren Arthritis Pain 1% Gel] 1 applic TOPICAL QID PRN 02/03/21 Baclofen [Lioresal] 10 mg PO DAILY PRN 01/03/23 Gabapentin 800 mg PO QID 01/03/23 Collagenase [Santyl Ointment] 1 applic TOPICAL DAILY 12/25/23 Rosuvastatin [Crestor] 20 mg PO DAILY 12/25/23 traZODone HCL [Desyrel] 100 mg PO HS 12/25/23 Tirzepatide [Mounjaro] 12.5 mg SQ TU 07/25/24 polyethylene glycoL 3350 [Miralax] 17 gm PO DAILY PRN 07/25/24 Rivaroxaban [Xarelto] 2.5 mg PO BID #60 tab 08/01/24 oxyCODONE-APAP 10-325MG [Percocet 10-325 mg] 1 tab PO Q6HR PRN 30 Days #120 tab 09/09/24 oxyCODONE-APAP 10-325MG [Percocet 10-325 mg] 1 tab PO QID PRN 30 Days #120 tab 09/09/24 Controlled Substance Measures - Controlled Substance Measures Is patient prescribed a controlled substance at discharge?: Yes When asked, does pt state using other controlled substances?: No If prescribed controlled substance>3 days was MAPS reviewed?: Yes
== END | disposition home or self-care (01) ==
LOC: PNWHC3 12:48
PROVIDERS: ATTEND Anesthesiology
DX: M47.26 Other spondylosis with radiculopathy, lumbar region (principal); M46.1 Sacroiliitis, not elsewhere classified; Z87.891 Personal history of nicotine dependence
CPT/HCPCS: 99212